=== PATIENT | male | born 1955 | race Caucasian/White ===

== ENCOUNTER 2019-10-27 10:45 | Outpatient (CLI) | payer MEDICARE, OTHER, SELFPAY ==
--- NOTE | 2019-10-27 11:04 | XR_ITS ---
WS: [id number] Right leg including the tibia and fibula, 10/27/2019 Clinical Data: LEG PAIN, RIGHT Comparison: None. Findings: No fractures or dislocations are seen. The tibia and fibula are intact. The soft tissues are normal. There are vascular calcifications in the arteries of the trifurcation. There is an Achilles spur and a plantar spur. XR/XR tibia fibula RT 2V [id number] Impression: 1. Negative right leg. 2. Vascular calcifications can be seen with diabetes.
== END 2019-10-27 10:46 | disposition home or self-care (01) ==
PROVIDERS: Family Provider Family Medicine; PCP Family Medicine; Visit Provider Nurse Practitioner Family
DX: I70.201 Unspecified atherosclerosis of native arteries of extremities, right leg (principal); M79.604 Pain in right leg
CPT/HCPCS: 73590

== ENCOUNTER 2019-10-29 13:44 | Outpatient (CLI) | payer MEDICARE, OTHER, SELFPAY ==
[2019-10-29 14:31] LABS: Anion Gap 19.3 (5-19); Blood Urea Nitrogen 69 mg/dL (8-23); Calcium 9.7 mg/Dl (8.8-10.2); Carbon Dioxide 22 mmol/L (22-29); Chloride 102 mmol/L (98-107); Glomerular Filtration Rate 20.3 mL/min (90-130); Glucose 263 mg/dL (74-106); Potassium 6.3 mmol/L (3.5-5.1); Sodium 137 mmol/L (136-145)
== END 2019-10-29 13:45 | disposition home or self-care (01) ==
LOC: LAB 13:49
PROVIDERS: Family Provider Family Medicine; PCP Family Medicine; Visit Provider Nurse Practitioner Family
DX: R79.9 Abnormal finding of blood chemistry, unspecified (principal)
CPT/HCPCS: 36415; 80048

== ENCOUNTER 2020-03-16 08:56 | Outpatient (CLI) | payer MEDICARE, OTHER, SELFPAY ==
--- NOTE | 2020-03-16 | CT_ITS ---
WS: [id number] CT CHEST WITHOUT INTRAVENOUS CONTRAST HISTORY: MULTIPLE NODULES OF LUNGS TECHNIQUE: Contiguous 5 mm axial imaging performed on the thorax. Coronal and sagittal reformats are submitted. All CT scans at [facility] use at least one of these dose optimization techniq ues: automated exposure control; mA and/or kV adjustment per patient size (includes targeted exams wh ere dose is matched to clinical indication); or iterative reconstruction. CONTRAST: None DLP: 1026.53 mGycm COMPARISON: 02/21/2017 and 11/16/2016 Lungs and central airway: Unchanged 5 mm nodule at the RIGHT lung base. There are additional micronod ules in the RIGHT middle and RIGHT lower lobe which are stable. No increasing size of any nodules. Be nign granuloma at the LEFT lung base. There is a small amount of atelectasis or scar at the lingula a nd at the lung bases. Pleura: Normal. No pleural effusion. Heart and pericardium: Normal size heart. No pericardial effusion. Mediastinum and ana: No adenopathy. Benign calcified LEFT infrahilar lymph nodes. Vessels: Mild atherosclerosis aorta with no aneurysm. Normal size pulmonary artery. Scattered calcifi cations in the LEFT anterior descending coronary artery. Chest wall and lower neck: 3 mm LEFT thyroid nodule. Upper abdomen: Diffuse hepatic steatosis. Visualized adrenal glands are stable with no mass. Osseous structures: Moderate increase in thoracic kyphosis. Anterior bridging osteophytes in the thor acic spine. CT/CT chest wo con [id number] IMPRESSION: 1. Long-term stability RIGHT lower lobe pulmonary nodules and a few scattered micronodules. No enlarging masses. 2. No adenopathy. 3. Mild atherosclerosis aorta and LEFT anterior descending coronary artery. 4. Hepatic steatosis.
== END 2020-03-16 08:57 | disposition home or self-care (01) ==
LOC: RADWPI 09:01
PROVIDERS: Family Provider Family Medicine; PCP Family Medicine; Visit Provider Family Medicine
DX: R91.8 Other nonspecific abnormal finding of lung field (principal); I70.0 Atherosclerosis of aorta; K76.0 Fatty (change of) liver, not elsewhere classified
CPT/HCPCS: 71250

== ENCOUNTER 2020-04-19 07:02 | Day surgery (SDC) | payer MEDICARE, OTHER, SELFPAY ==
[2020-04-18 11:09] VITALS: BMI 33.0
[2020-04-19 07:22] VITALS: BP 152/90; PULSE 75; RESP 18; TEMP 36.2; O2SAT 94
[2020-04-19] MEDS: sodium chloride 0.9% 1,000 ML 30 ML IV (07:38)
[2020-04-19 07:44] LABS: Glucose Point of Care 152 mg/dL (70-110)
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
--- NOTE | 2020-04-19 08:16 | W.PM.OPSUD ---
Surgery/Procedure H&P Update DATE OF PROCEDURE: April 19, 2020 DATE H&P PERFORMED: 03/25/20 H&P UPDATE INFORMATION: I have reviewed H&P completed within last 30 days, I have examined patient prior to procedure and No changes to prior documentation PLANNED PROCEDURE: Operation Date: 04/19/20 08:00 Proposed Procedures p Colonoscopy poss biopsy poss polypectomy 50333 Z12.11(Not Applicable) - Brown Franklin MD
[2020-04-19 08:44] VITALS: BP 138/80; PULSE 71; RESP 12; TEMP 36.1; O2SAT 95
--- NOTE | 2020-04-19 08:46 | ANE.PACU2 ---
Inpatient post-anesthesia follow up: Airway intact: Yes Vital signs: Temperature 97 F Pulse Rate 71 Respiratory Rate 12 Blood Pressure 138/80 Pulse Oximetry 95 Oxygen Delivery Me thod Nasal Cannula Oxygen Flow Rate Fraction of Inspir ed Oxygen Hydration adequate: Yes Nausea and vomiting: No Pain level: 1 Mental status: Baseline
[2020-04-19 09:04] VITALS: BP 165/75; PULSE 69; RESP 18; O2SAT 96
== END 2020-04-19 09:07 | disposition home or self-care (01) ==
PROVIDERS: PCP Family Medicine; Visit Provider Surgery
PROC: 0DJD8ZZ Inspection of Lower Intestinal Tract, Via Natural or Artificial Opening Endoscopic (ICD-10-PCS; CPT 45378; principal; 2020-04-19 08:00)
DX: Z12.11 Encounter for screening for malignant neoplasm of colon (principal); K57.30 Diverticulosis of large intestine without perforation or abscess without bleeding; K64.8 Other hemorrhoids; I11.0 Hypertensive heart disease with heart failure; I50.9 Heart failure, unspecified; G47.30 Sleep apnea, unspecified; K21.9 Gastro-esophageal reflux disease without esophagitis; E11.9 Type 2 diabetes mellitus without complications; E78.5 Hyperlipidemia, unspecified; M19.90 Unspecified osteoarthritis, unspecified site; E11.22 Type 2 diabetes mellitus with diabetic chronic kidney disease; I12.9 Hypertensive chronic kidney disease with stage 1 through stage 4 chronic kidney disease, or unspecified chronic kidney disease; N18.4 Chronic kidney disease, stage 4 (severe)
CPT/HCPCS: 12345; 36416; 45378; 82962; J2704; J7030

== ENCOUNTER 2020-12-01 14:19 | Outpatient (CLI) | payer MEDICARE, OTHER, SELFPAY ==
[2020-12-01 14:43] LABS: Basophils % 0.5 %; Eosinophils # 0.2 10^3/uL (0.0-0.8); Eosinophils % 2.6 %; Hematocrit 38.4 % (42.0-52.0); Hemoglobin 12.7 g/dL (11.7-16.6); Lymphocytes # 1.2 10^3/uL (0.8-4.8); Lymphocytes % 14.7 %; Mean Corpuscular HGB Conc 33.1 g/dL (30.0-36.0); Mean Corpuscular Hemoglobin 30.5 pg (28.0-34.0); Mean Corpuscular Volume 92.1 fL (80-94); Mean Platelet Volume 10.6 fL (7.4-10.4); Monocytes # 0.6 10^3/uL (0.2-0.9); Monocytes % 7.5 %; Neutrophils # 6.07 10^3/uL (1.8-7.7); Neutrophils % 74.1 %; Nucleated Red Blood Cells % 0 %; Platelet Count 179 10^3/cmm (130-400); Red Blood Count 4.17 10^6/uL (4.1-5.3); Red Cell Distribution Width 11.9 % (12.1-15.1); White Blood Count 8.2 10^3/uL (4.0-10.0)
[2020-12-01 15:10] LABS: Creatinine Urine, Random 64 mg/dL (39-259); Microalbumin Random Urine 18 ug/dL (0-20)
[2020-12-01 15:11] LABS: Albumin Level 4.1 g/dL (3.5-5.2); Blood Urea Nitrogen 52 mg/dL (8-23); Calcium 10.1 mg/dL (8.5-10.5); Carbon Dioxide 27 mmol/L (22-29); Chloride 96 mmol/L (98-107); Glucose 205 mg/dL (65-115); Phosphorus 5.1 mg/dL (2.5-4.5); Sodium 136 mmol/L (136-145)
[2020-12-01 15:13] LABS: Microalbum Creatinine Ratio Ur 281 mg/dL (0-20)
[2020-12-01 15:39] LABS: Calcium 10.8 mg/dL (8.5-10.5); Parathyroid Hormone 8.2 pg/mL (15-65)
[2020-12-01 15:48] LABS: 25 Hydroxy Vitamin D 47 ng/mL (30-100)
== END 2020-12-01 14:20 | disposition home or self-care (01) ==
LOC: LAB 14:23
PROVIDERS: PCP Family Medicine; Visit Provider Registered Nurse
DX: N18.4 Chronic kidney disease, stage 4 (severe) (principal)
CPT/HCPCS: 36415; 80069; 82044; 82306; 82310; 83970; 85025

== ENCOUNTER 2021-03-27 12:58 | Outpatient (CLI) | payer MEDICARE, OTHER, SELFPAY ==
[2021-03-27 15:23] LABS: Basophils % 0.4 %; Eosinophils # 0.5 10^3/uL (0.0-0.8); Eosinophils % 6.7 %; Hematocrit 36.8 % (42.0-52.0); Hemoglobin 12.5 g/dL (11.7-16.6); Lymphocytes % 13.3 %; Mean Corpuscular Hemoglobin 31.4 pg (28.0-34.0); Mean Corpuscular Volume 92.5 fL (80-94); Mean Platelet Volume 10.2 fL (7.4-10.4); Monocytes # 0.5 10^3/uL (0.2-0.9); Monocytes % 7.3 %; Neutrophils # 5.09 10^3/uL (1.8-7.7); Neutrophils % 71.5 %; Nucleated Red Blood Cells % 0 %; Platelet Count 196 10^3/cmm (130-400); Red Blood Count 3.98 10^6/uL (4.1-5.3); Red Cell Distribution Width 12.9 % (12.1-15.1); White Blood Count 7.1 10^3/uL (4.0-10.0)
[2021-03-27 16:06] LABS: Alanine Aminotransferase 29 U/L (0-41); Albumin Level 4.6 g/dL (3.5-5.2); Alkaline Phosphatase 83 IU/L (40-130); Aspartate Amino Transferase 23 U/L (0-40); Blood Urea Nitrogen 45 mg/dL (8-23); Calcium 9.7 mg/dL (8.5-10.5); Carbon Dioxide 25 mmol/L (22-29); Chloride 98 mmol/L (98-107); Globulin 2.9 g/dL (1.3-4.6); Glucose 159 mg/dL (65-115); Immunoglobulin IGA 388 mg/dL (70-400); Immunoglobulin IGG 1204 mg/dL (700-1600); Immunoglobulin IGM 203 mg/dL (40-230); Osmolality Calculated 297 mOsm/kg (285-295); Sodium 136 mmol/L (136-145); Total Bilirubin 0.2 mg/dL (0.15-1.2); Total Protein 7.5 g/dL (6.6-8.7)
[2021-03-27 16:19] LABS: Erythrocyte Sedimentation Rate 38 mm/hr (0-10)
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
[2021-03-28 11:28] LABS: KAPPA LIGHT CHAIN, FREE, SERUM 126.9 mg/L (3.3-19.4); KAPPA/LAMBDA LIGHT CHAINS FREE 2.27 (0.26-1.65); LAMBDA LIGHT CHAIN, FREE, SERU 55.8 mg/L (5.7-26.3); PROTEIN, TOTAL 7.3 g/dL (6.1-8.1)
[2021-03-28 15:52] LABS: ALBUMIN 4.1 g/dL (3.8-4.8); ALPHA 1 GLOBULIN 0.3 g/dL (0.2-0.3); ALPHA 2 GLOBULIN 0.7 g/dL (0.5-0.9); BETA 1 GLOBULIN 0.4 g/dL (0.4-0.6); BETA 2 GLOBULIN 0.6 g/dL (0.2-0.5); GAMMA GLOBULIN 1.2 g/dL (0.8-1.7)
== END 2021-03-27 12:59 | disposition home or self-care (01) ==
LOC: ONCMED 13:10
PROVIDERS: PCP Family Medicine; Visit Provider Internal Medicine Medical Oncology
DX: D47.2 Monoclonal gammopathy (principal); I10 Essential (primary) hypertension; E11.40 Type 2 diabetes mellitus with diabetic neuropathy, unspecified; E11.319 Type 2 diabetes mellitus with unspecified diabetic retinopathy without macular edema; E11.21 Type 2 diabetes mellitus with diabetic nephropathy; M47.9 Spondylosis, unspecified; M10.9 Gout, unspecified; E21.3 Hyperparathyroidism, unspecified; G47.33 Obstructive sleep apnea (adult) (pediatric); N18.9 Chronic kidney disease, unspecified; Z79.899 Other long term (current) drug therapy
CPT/HCPCS: 36415; 80053; 82784; 83883; 84155; 84165; 85025; 85651; 99205

== ENCOUNTER 2021-03-29 10:09 | Outpatient (CLI) | payer MEDICARE, OTHER, SELFPAY ==
[2021-03-30 13:04] LABS: CREATININE, 24 HOUR URINE 1.82 g/24 h (0.50-2.15); PROTEIN, TOTAL, 24 HR UR 1265 mg/24 h (<150); Protein/Creatinine Ratio 0.697 (< OR = 0.114); Protein/Creatinine Ratio 697 mg/g creat (< OR = 114)
[2021-03-30 16:23] LABS: ALBUMIN 77 %; ALPHA-1-GLOBULINS 3 %; ALPHA-2-GLOBULINS 4 %; BETA GLOBULINS 7 %; GAMMA GLOBULINS 9 %
== END 2021-03-29 10:10 | disposition home or self-care (01) ==
LOC: ONCMED 10:10
PROVIDERS: PCP Family Medicine; Visit Provider Internal Medicine Medical Oncology
DX: D47.2 Monoclonal gammopathy (principal)
CPT/HCPCS: 84156; 84166

== ENCOUNTER 2021-05-04 15:34 | Inpatient (IN) | payer MEDICARE, OTHER, SELFPAY ==
[2021-05-04] VITALS (8 sets, daily range): BP systolic 126–140; BP diastolic 80–90; PULSE 70–82; RESP 18–26; TEMP 36.8–37.1; O2SAT 81–94; BMI 34.4
[2021-05-04 16:46] LABS: Glucose Point of Care 585 mg/dL (70-110)
--- NOTE | 2021-05-04 16:57 | XRR_ITS ---
PROCEDURE INFORMATION: Exam: XR Chest Exam date and time: 05/04/2021 4:57 PM Age: 65 years old Clinical indication: Cough; Additional info: Dyspnea/cough TECHNIQUE: Imaging protocol: XR of the chest. Views: 1 view. COMPARISON: CT chest [facility] [id number] 03/16/2020 9:32 AM FINDINGS: Lungs: Dense ground-glass opacities versus consolidation in the peripheral lungs and left lung base. Pleural spaces: Unremarkable. No pleural effusion. No pneumothorax. Heart/Mediastinum: Unremarkable. No cardiomegaly. Bones/joints: Unremarkable. XR/XR chest 1V portable [id number] IMPRESSION: 1. Multilobar peripheral pneumonia. This pattern can be seen with COVID-19 pneumonia. Clinical correlation recommended.
--- NOTE | 2021-05-04 17:19 | ECG_ITS ---
[facility] Test Date: 2021-05-04 Pat Name: Fausto Jurado Department: Room: Gender: Male [employer]: : 1955 Requested By: Agus Newman Order Number: [id number] Harper MD: Jenelle Sanchez M.D. Measurements Intervals [place] Rate: 76 P: 14 [place]: 173 QRS: -38 QRSD: 112 T: -22 QT: 368 QTc: 416 Interpretive Statements SINUS RHYTHM MARKED LEFT AXIS DEVIATION [QRS AXIS < -30] PATTERN CONSISTENT WITH PULMONARY DISEASE MODERATE INTRAVENTRICULAR CONDUCTION DELAY [110+ ms QRS DURATION] MODERATE VOLTAGE CRITERIA FOR LVH, CONSIDER NORMAL VARIANT [MEETS CRITERIA IN ONE OF: R(aVL), S(V1), R(V5), R(V5/V6)+S(V1)] MINIMAL ST DEPRESSION [0.025+ mV ST DEPRESSION] Compared to ECG 01/06/2019 01:04:19 Left-axis deviation now present Intraventricular conduction delay now present ST (T wave) deviation now present Sinus bradycardia no longer present Electronically Signed On 05-05-2021 14:53:22 CDT by Jenelle Sanchez M.D. [email or web address]
--- NOTE | 2021-05-04 17:21 | ED_ITS ---
Documented by User: Agus Gil DO 05/08/21 03:17 HPI - SOB/Dyspnea General: Chief Complaint: Shortness of Breath/Dyspnea Stated Complaint: Weakness/Coughing Time Seen by Provider: 05/04/21 16:56 History of Present Illness: HPI Narrative: Six 5-year-old male presents emergency room decreased appetite confused and weak has been mildly hypoxic as well. He denies any chest pain history of diabetes mellitus. MD elicited complaint: shortness of breath and cough Pertinent past history: COPD Onset (ago): week(s) Timing: constant Severity: severe Exacerbating factors: exertion and coughing Relieving factors: oxygen and rest Associated symptoms: Reports chest congestion, chest pain, cough, fever(s), lightheadedness, myalgias and nausea; Deny abdominal pain, diaphoresis, dizziness, extremity pain, hemoptysis, orthopnea, palpitations, paresthesias, polydipsia, polyuria, rash, sense of impending doom, syncope or vomiting Treatment prior to arrival: none Related Data: Home oxygen amount: none Review of Systems Const: Reports: fever(s); Denies: diaphoresis ENMT: Denies: throat pain, ear or mastoid pain, nasal discharge or nasal congestion Card: Reports: chest pain and lightheadedness; Denies: palpitations, syncope or orthopnea Resp: Reports: chest congestion; Denies: hemoptysis GI: Reports: nausea; Denies: abdominal pain or vomiting : Denies: flank pain, dysuria, urinary frequency or urinary urgency Musc: Denies: extremity pain Skin/Breast: Denies: rash or pruritus Neuro: Denies: dizziness Endo: Denies: polyuria or polydipsia PFSH ED PFSH: Medical History CKD (chronic kidney disease) stage 4, GFR 15-29 ml/min Diabetes Hypertension RMSF ([place] spotted fever) Surgical History H/O hernia repair H/O repair of rotator cuff Right History of laryngoscopy Status post colonoscopy (04/19/20) diverticulosis - repeat in 10 years Family History Father Dementia Mother Dementia Denies family history of Anesthesia complication Bleeding disorder Social History Smoking and tobacco status: never smoked Alcohol intake: never Physical Exam Const: COMMON NORMALS: no acute distress GENERAL APPEARANCE: cooperative and comfortable ORIENTATION/CONSCIOUSNESS: Yes awake, Yes oriented to person, Yes oriented to place and Yes oriented to time HENMT: COMMON NORMALS: normocephalic, atraumatic and hearing grossly normal bilaterally HEAD & SCALP: normocephalic and atraumatic Neck/C-Spine: COMMON NORMALS: no JVD Resp: EFFORT & INSPECTION: Yes tachypneic, Yes respiratory distress and Yes pursed lip breathing AUSCULTATION: crackles and wheezes Cardio: COMMON NORMALS: no JVD, regular rate, regular rhythm and No murmurs present (Cardio) RATE: regular rate RHYTHM: regular rhythm GI: COMMON NORMALS: Soft to palpation and No hepatosplenomegaly present AUSCULTATION: Yes normoactive bowel sounds PALPATION: Yes Soft to palpation, No Tenderness to palpation present (GI), No Guarding due to palpation present (GI) and Yes No hepatosplenomegaly present Extremity: COMMON NORMALS: normal to inspection, capillary refill normal, no clubbing, cyanosis or edema, no calf tenderness and no pedal edema Neuro: SENSORIUM/ORIENTATION: Yes oriented to person, Yes oriented to place and Yes oriented to time Skin: COMMON NORMALS: no rashes or lesions noted GENERAL SKIN EXAM: no rashes or lesions noted Course Vital Signs: Vital signs: Vital Signs Temperature 98.4 F 05/07/21 23:54 Pulse Rate 67 05/08/21 02:45 Respiratory Rate 18 05/08/21 02:45 Blood Pressure 150/99 05/07/21 23:54 Pulse Oximetry 90 05/08/21 02:45 MDM - SOB/Dyspnea MDM Narrative: Medical decision making narrative: Care turned over to Dr. Haro at change of shift please see please see his notes for final diagnosis and disposition. Lab Data: Labs: Lab Results 05/04/21 05/04/21 05/04/21 Range/Units 16:34 17:13 17:23 WBC 6.5 (4.0-10.0) 10^3/ uL RBC 3.91 L (4.1-5.3) 10^6/u L Hgb 12.0 (11.7-16.6) g/dL Hct 36.9 L (42.0-52.0) % MCV 94.4 H (80-94) fL MCH 30.7 (28.0-34.0) pg MCHC 32.5 (30.0-36.0) g/dL RDW 12.8 (12.1-15.1) % Plt Count 266 (130-400) 10^3/c mm MPV 11.2 H (7.4-10.4) fL Neut % (Auto) 93.6 % Lymph % (Auto) 2.8 % Loving % (Auto) 2.3 % Eos % (Auto) 0.3 % Baso % (Auto) 0.2 % Neut # (Auto) 6.10 (1.8-7.7) 10^3/u L Lymph # (Auto) 0.2 L (0.8-4.8) 10^3/u L Loving # (Auto) 0.2 (0.2-0.9) 10^3/u L Eos # (Auto) 0.0 (0.0-0.8) 10^3/u L Baso # (Auto) 0.0 (0.0-0.1) 10^3/u L Nucleated RBC % (a uto) 0 % Nucleated RBCs # 0.0 /100WBC D-Dimer (0-0.59) ug/mIFE U Specimen Type Arterial Sample Site Radial, left ABG pH 7.35 (7.35-7.45) ABG pCO2 31.7 L (35-45) mmHg ABG pO2 66.8 L (80.0-100.0) mmH g ABG HCO3 17.4 L (22-26) mmol/L ABG O2 Saturation 92.7 ABG Base Excess -7.2 L (-2.0-2.0) mmol/ L Regulo Test Pos A-a O2 Gradient 5.7 (5-10) mmHg Hematocrit 37.7 L (42-52) % Hgb O2 Saturation 91.0 L (95-100) % Carboxyhemoglobin 1.0 (0.4-20.1) %THgb Methemoglobin 0.9 (0.4-1.5) % Total Hemoglobin 12.3 L (14-18) g/dL Sodium 134.0 (131-143) mmol/L Potassium 5.1 H (3.5-5.0) mmol/L Glucose 563.0 H (70-115) mg/dL Ionized Calcium 1.3 (1.1-1.4) mmol/L O2 Delivery Device Nrb O2 Liters/Min 15.0 % Center Machine Set Up Operator ID Cak Chloride (98-107) mmol/L Carbon Dioxide (22-29) mmol/L Anion Gap (5-19) BUN (8-23) mg/dL Creatinine (0.7-1.2) mg/dL GFR Calculation (90-130) mL/min POC Glucose 585 H* (70-110) mg/dL Calculated Osmolal ity (285-295) mOsm/k g Calcium (8.5-10.5) mg/dL Total Bilirubin (0.15-1.2) mg/dL AST (0-40) U/L ALT (0-41) U/L Alkaline Phosphata se (40-130) IU/L Creatine Kinase (39-308) U/L Total Protein (6.6-8.7) g/dL Albumin (3.5-5.2) g/dL Globulin (1.3-4.6) g/dL Serum Ketones (Negative) Nasal/Oral COVID-1 9 PCR SARS-CoV-2 Ag (Rap id) (Negative) 05/04/21 05/04/21 05/04/21 Range/Units 17:23 17:23 17:36 WBC (4.0-10.0) 10^3/ uL RBC (4.1-5.3) 10^6/u L Hgb (11.7-16.6) g/dL Hct (42.0-52.0) % MCV (80-94) fL MCH (28.0-34.0) pg MCHC (30.0-36.0) g/dL RDW (12.1-15.1) % Plt Count (130-400) 10^3/c mm MPV (7.4-10.4) fL Neut % (Auto) % Lymph % (Auto) % Loving % (Auto) % Eos % (Auto) % Baso % (Auto) % Neut # (Auto) (1.8-7.7) 10^3/u L Lymph # (Auto) (0.8-4.8) 10^3/u L Loving # (Auto) (0.2-0.9) 10^3/u L Eos # (Auto) (0.0-0.8) 10^3/u L Baso # (Auto) (0.0-0.1) 10^3/u L Nucleated RBC % (a uto) % Nucleated RBCs # /100WBC D-Dimer (0-0.59) ug/mIFE U Specimen Type Sample Site ABG pH (7.35-7.45) ABG pCO2 (35-45) mmHg ABG pO2 (80.0-100.0) mmH g ABG HCO3 (22-26) mmol/L ABG O2 Saturation ABG Base Excess (-2.0-2.0) mmol/ L Regulo Test A-a O2 Gradient (5-10) mmHg Hematocrit (42-52) % Hgb O2 Saturation (95-100) % Carboxyhemoglobin (0.4-20.1) %THgb Methemoglobin (0.4-1.5) % Total Hemoglobin (14-18) g/dL Sodium 132 L (131-143) mmol/L Potassium 5.6 H (3.5-5.0) mmol/L Glucose 601 H* (70-115) mg/dL Ionized Calcium (1.1-1.4) mmol/L O2 Delivery Device O2 Liters/Min % Center Machine Set Up Operator ID Chloride 97 L (98-107) mmol/L Carbon Dioxide 17 L (22-29) mmol/L Anion Gap 23.6 H (5-19) BUN 89 H* D (8-23) mg/dL Creatinine 2.6 H (0.7-1.2) mg/dL GFR Calculation 24.8 L (90-130) mL/min POC Glucose (70-110) mg/dL Calculated Osmolal ity 329 H (285-295) mOsm/k g Calcium 9.1 (8.5-10.5) mg/dL Total Bilirubin 0.4 (0.15-1.2) mg/dL AST 23 (0-40) U/L ALT 21 (0-41) U/L Alkaline Phosphata se 63 (40-130) IU/L Creatine Kinase 224 (39-308) U/L Total Protein 6.6 (6.6-8.7) g/dL Albumin 3.0 L (3.5-5.2) g/dL Globulin 3.6 (1.3-4.6) g/dL Serum Ketones Negative (Negative) Nasal/Oral COVID-1 9 PCR Detected H SARS-CoV-2 Ag (Rap id) (Negative) 05/04/21 05/04/21 Range/Units 17:36 17:39 WBC (4.0-10.0) 10^3/ uL RBC (4.1-5.3) 10^6/u L Hgb (11.7-16.6) g/dL Hct (42.0-52.0) % MCV (80-94) fL MCH (28.0-34.0) pg MCHC (30.0-36.0) g/dL RDW (12.1-15.1) % Plt Count (130-400) 10^3/c mm MPV (7.4-10.4) fL Neut % (Auto) % Lymph % (Auto) % Loving % (Auto) % Eos % (Auto) % Baso % (Auto) % Neut # (Auto) (1.8-7.7) 10^3/u L Lymph # (Auto) (0.8-4.8) 10^3/u L Loving # (Auto) (0.2-0.9) 10^3/u L Eos # (Auto) (0.0-0.8) 10^3/u L Baso # (Auto) (0.0-0.1) 10^3/u L Nucleated RBC % (a uto) % Nucleated RBCs # /100WBC D-Dimer 3.62 H (0-0.59) ug/mIFE U Specimen Type Sample Site ABG pH (7.35-7.45) ABG pCO2 (35-45) mmHg ABG pO2 (80.0-100.0) mmH g ABG HCO3 (22-26) mmol/L ABG O2 Saturation ABG Base Excess (-2.0-2.0) mmol/ L Regulo Test A-a O2 Gradient (5-10) mmHg Hematocrit (42-52) % Hgb O2 Saturation (95-100) % Carboxyhemoglobin (0.4-20.1) %THgb Methemoglobin (0.4-1.5) % Total Hemoglobin (14-18) g/dL Sodium (131-143) mmol/L Potassium (3.5-5.0) mmol/L Glucose (70-115) mg/dL Ionized Calcium (1.1-1.4) mmol/L O2 Delivery Device O2 Liters/Min % Center Machine Set Up Operator ID Chloride (98-107) mmol/L Carbon Dioxide (22-29) mmol/L Anion Gap (5-19) BUN (8-23) mg/dL Creatinine (0.7-1.2) mg/dL GFR Calculation (90-130) mL/min POC Glucose (70-110) mg/dL Calculated Osmolal ity (285-295) mOsm/k g Calcium (8.5-10.5) mg/dL Total Bilirubin (0.15-1.2) mg/dL AST (0-40) U/L ALT (0-41) U/L Alkaline Phosphata se (40-130) IU/L Creatine Kinase (39-308) U/L Total Protein (6.6-8.7) g/dL Albumin (3.5-5.2) g/dL Globulin (1.3-4.6) g/dL Serum Ketones (Negative) Nasal/Oral COVID-1 9 PCR SARS-CoV-2 Ag (Rap id) Negative (Negative) Discharge Plan Discharge Patient Disposition: Admitted As Inpatient Admit Provider: Iron Morales Clinical Impression: Pneumonia due to COVID-19 virus, Acute exacerbation of chronic obstructive airways disease, Breath, shortness, Elevated d-dimer, Acute hyperglycemia, Chronic kidney failure Condition: Stable Coding Level of Care Code ED Coverer for Chg Fwd Exam Comprehensive Documented by User: Andre Haro MD 05/04/21 18:26 HPI - SOB/Dyspnea General: Chief Complaint: Shortness of Breath/Dyspnea Stated Complaint: Weakness/Coughing Time Seen by Provider: 05/04/21 16:56 [facility] PFSH: Medical History CKD (chronic kidney disease) stage 4, GFR 15-29 ml/min Diabetes Hypertension RMSF ([place] spotted fever) Surgical History H/O hernia repair H/O repair of rotator cuff Right History of laryngoscopy Status post colonoscopy (04/19/20) diverticulosis - repeat in 10 years Family History Father Dementia Mother Dementia Denies family history of Anesthesia complication Bleeding disorder Social History Smoking and tobacco status: never smoked Alcohol intake: never Course Reevaluation(s): Reevaluation #1: Patient is stable at this time heart rate 74 blood pressure unremarkable. Will be monitored closely. Pulse ox is up to 92% on high flow nasal cannula. Covid negative strep nasal swab was negative however patient does fit clinically as having Covid. Blood drug [facility] test sent out. Patient be treated as Covid pneumonia. Patient also has chronic renal failure and glucose greater than 600 patient given 10 units of insulin. Patient also given Lovenox due to elevated D-dimer. He is agreeable to be admitted to the hospital for further evaluation and treatment. Time: 18:23 Consultations: Consultation #1: I did discuss at length with Dr. Morales who is accepted this patient for admission. He will see patient write additional orders. He will follow up with patient's elevated D-dimer most likely will order a VQ scan. Time: 18:24 Vital Signs: Vital signs: Vital Signs Temperature 98.4 F 05/07/21 23:54 Pulse Rate 67 05/08/21 02:45 Respiratory Rate 18 05/08/21 02:45 Blood Pressure 150/99 05/07/21 23:54 Pulse Oximetry 90 05/08/21 02:45 MDM - SOB/Dyspnea MDM Narrative: Medical decision making narrative: Patient is stable at this time heart rate 74 blood pressure unremarkable. Will be monitored closely. Pulse ox is up to 92% on high flow nasal cannula. Covid negative strep nasal swab was negative however patient does fit clinically as having Covid. Blood drug [facility] test sent out. Patient be treated as Covid pneumonia. Patient also has chronic renal failure and glucose greater than 600 patient given 10 units of insulin. Patient also given Lovenox due to elevated D-dimer. He is agreeable to be admitted to the hospital for further evaluation and treatment. I did discuss at length with Dr. Morales who is accepted this patient for admission. He will see patient write additional orders. He will follow up with patient's elevated D-dimer most likely will order a VQ scan. Medical Records: Attestation: I reviewed the patient's medical records. Lab Data: Attestation: I reviewed the patient's lab results. Labs: Lab Results 05/04/21 05/04/21 05/04/21 Range/Units 16:34 17:13 17:23 WBC 6.5 (4.0-10.0) 10^3/ uL RBC 3.91 L (4.1-5.3) 10^6/u L Hgb 12.0 (11.7-16.6) g/dL Hct 36.9 L (42.0-52.0) % MCV 94.4 H (80-94) fL MCH 30.7 (28.0-34.0) pg MCHC 32.5 (30.0-36.0) g/dL RDW 12.8 (12.1-15.1) % Plt Count 266 (130-400) 10^3/c mm MPV 11.2 H (7.4-10.4) fL Neut % (Auto) 93.6 % Lymph % (Auto) 2.8 % Loving % (Auto) 2.3 % Eos % (Auto) 0.3 % Baso % (Auto) 0.2 % Neut # (Auto) 6.10 (1.8-7.7) 10^3/u L Lymph # (Auto) 0.2 L (0.8-4.8) 10^3/u L Loving # (Auto) 0.2 (0.2-0.9) 10^3/u L Eos # (Auto) 0.0 (0.0-0.8) 10^3/u L Baso # (Auto) 0.0 (0.0-0.1) 10^3/u L Nucleated RBC % (a uto) 0 % Nucleated RBCs # 0.0 /100WBC D-Dimer (0-0.59) ug/mIFE U Specimen Type Arterial Sample Site Radial, left ABG pH 7.35 (7.35-7.45) ABG pCO2 31.7 L (35-45) mmHg ABG pO2 66.8 L (80.0-100.0) mmH g ABG HCO3 17.4 L (22-26) mmol/L ABG O2 Saturation 92.7 ABG Base Excess -7.2 L (-2.0-2.0) mmol/ L Regulo Test Pos A-a O2 Gradient 5.7 (5-10) mmHg Hematocrit 37.7 L (42-52) % Hgb O2 Saturation 91.0 L (95-100) % Carboxyhemoglobin 1.0 (0.4-20.1) %THgb Methemoglobin 0.9 (0.4-1.5) % Total Hemoglobin 12.3 L (14-18) g/dL Sodium 134.0 (131-143) mmol/L Potassium 5.1 H (3.5-5.0) mmol/L Glucose 563.0 H (70-115) mg/dL Ionized Calcium 1.3 (1.1-1.4) mmol/L O2 Delivery Device Nrb O2 Liters/Min 15.0 % Center Machine Set Up Operator ID Cak Chloride (98-107) mmol/L Carbon Dioxide (22-29) mmol/L Anion Gap (5-19) BUN (8-23) mg/dL Creatinine (0.7-1.2) mg/dL GFR Calculation (90-130) mL/min POC Glucose 585 H* (70-110) mg/dL Calculated Osmolal ity (285-295) mOsm/k g Calcium (8.5-10.5) mg/dL Total Bilirubin (0.15-1.2) mg/dL AST (0-40) U/L ALT (0-41) U/L Alkaline Phosphata se (40-130) IU/L Creatine Kinase (39-308) U/L Total Protein (6.6-8.7) g/dL Albumin (3.5-5.2) g/dL Globulin (1.3-4.6) g/dL Serum Ketones (Negative) Nasal/Oral COVID-1 9 PCR SARS-CoV-2 Ag (Rap id) (Negative) 05/04/21 05/04/21 05/04/21 Range/Units 17:23 17:23 17:36 WBC (4.0-10.0) 10^3/ uL RBC (4.1-5.3) 10^6/u L Hgb (11.7-16.6) g/dL Hct (42.0-52.0) % MCV (80-94) fL MCH (28.0-34.0) pg MCHC (30.0-36.0) g/dL RDW (12.1-15.1) % Plt Count (130-400) 10^3/c mm MPV (7.4-10.4) fL Neut % (Auto) % Lymph % (Auto) % Loving % (Auto) % Eos % (Auto) % Baso % (Auto) % Neut # (Auto) (1.8-7.7) 10^3/u L Lymph # (Auto) (0.8-4.8) 10^3/u L Loving # (Auto) (0.2-0.9) 10^3/u L Eos # (Auto) (0.0-0.8) 10^3/u L Baso # (Auto) (0.0-0.1) 10^3/u L Nucleated RBC % (a uto) % Nucleated RBCs # /100WBC D-Dimer (0-0.59) ug/mIFE U Specimen Type Sample Site ABG pH (7.35-7.45) ABG pCO2 (35-45) mmHg ABG pO2 (80.0-100.0) mmH g ABG HCO3 (22-26) mmol/L ABG O2 Saturation ABG Base Excess (-2.0-2.0) mmol/ L Regulo Test A-a O2 Gradient (5-10) mmHg Hematocrit (42-52) % Hgb O2 Saturation (95-100) % Carboxyhemoglobin (0.4-20.1) %THgb Methemoglobin (0.4-1.5) % Total Hemoglobin (14-18) g/dL Sodium 132 L (131-143) mmol/L Potassium 5.6 H (3.5-5.0) mmol/L Glucose 601 H* (70-115) mg/dL Ionized Calcium (1.1-1.4) mmol/L O2 Delivery Device O2 Liters/Min % Center Machine Set Up Operator ID Chloride 97 L (98-107) mmol/L Carbon Dioxide 17 L (22-29) mmol/L Anion Gap 23.6 H (5-19) BUN 89 H* D (8-23) mg/dL Creatinine 2.6 H (0.7-1.2) mg/dL GFR Calculation 24.8 L (90-130) mL/min POC Glucose (70-110) mg/dL Calculated Osmolal ity 329 H (285-295) mOsm/k g Calcium 9.1 (8.5-10.5) mg/dL Total Bilirubin 0.4 (0.15-1.2) mg/dL AST 23 (0-40) U/L ALT 21 (0-41) U/L Alkaline Phosphata se 63 (40-130) IU/L Creatine Kinase 224 (39-308) U/L Total Protein 6.6 (6.6-8.7) g/dL Albumin 3.0 L (3.5-5.2) g/dL Globulin 3.6 (1.3-4.6) g/dL Serum Ketones Negative (Negative) Nasal/Oral COVID-1 9 PCR Detected H SARS-CoV-2 Ag (Rap id) (Negative) 05/04/21 05/04/21 Range/Units 17:36 17:39 WBC (4.0-10.0) 10^3/ uL RBC (4.1-5.3) 10^6/u L Hgb (11.7-16.6) g/dL Hct (42.0-52.0) % MCV (80-94) fL MCH (28.0-34.0) pg MCHC (30.0-36.0) g/dL RDW (12.1-15.1) % Plt Count (130-400) 10^3/c mm MPV (7.4-10.4) fL Neut % (Auto) % Lymph % (Auto) % Loving % (Auto) % Eos % (Auto) % Baso % (Auto) % Neut # (Auto) (1.8-7.7) 10^3/u L Lymph # (Auto) (0.8-4.8) 10^3/u L Loving # (Auto) (0.2-0.9) 10^3/u L Eos # (Auto) (0.0-0.8) 10^3/u L Baso # (Auto) (0.0-0.1) 10^3/u L Nucleated RBC % (a uto) % Nucleated RBCs # /100WBC D-Dimer 3.62 H (0-0.59) ug/mIFE U Specimen Type Sample Site ABG pH (7.35-7.45) ABG pCO2 (35-45) mmHg ABG pO2 (80.0-100.0) mmH g ABG HCO3 (22-26) mmol/L ABG O2 Saturation ABG Base Excess (-2.0-2.0) mmol/ L Regulo Test A-a O2 Gradient (5-10) mmHg Hematocrit (42-52) % Hgb O2 Saturation (95-100) % Carboxyhemoglobin (0.4-20.1) %THgb Methemoglobin (0.4-1.5) % Total Hemoglobin (14-18) g/dL Sodium (131-143) mmol/L Potassium (3.5-5.0) mmol/L Glucose (70-115) mg/dL Ionized Calcium (1.1-1.4) mmol/L O2 Delivery Device O2 Liters/Min % Center Machine Set Up Operator ID Chloride (98-107) mmol/L Carbon Dioxide (22-29) mmol/L Anion Gap (5-19) BUN (8-23) mg/dL Creatinine (0.7-1.2) mg/dL GFR Calculation (90-130) mL/min POC Glucose (70-110) mg/dL Calculated Osmolal ity (285-295) mOsm/k g Calcium (8.5-10.5) mg/dL Total Bilirubin (0.15-1.2) mg/dL AST (0-40) U/L ALT (0-41) U/L Alkaline Phosphata se (40-130) IU/L Creatine Kinase (39-308) U/L Total Protein (6.6-8.7) g/dL Albumin (3.5-5.2) g/dL Globulin (1.3-4.6) g/dL Serum Ketones (Negative) Nasal/Oral COVID-1 9 PCR SARS-CoV-2 Ag (Rap id) Negative (Negative) Discharge Plan Discharge Patient Disposition: Admitted As Inpatient Admit Provider: Iron Morales Clinical Impression: Pneumonia due to COVID-19 virus, Acute exacerbation of chronic obstructive airways disease, Breath, shortness, Elevated d-dimer, Acute hyperglycemia, Chronic kidney failure Condition: Stable Coding Level of Care Code ED Coverer for Chg Fwd Exam Comprehensive
[2021-05-04 17:25] LABS: ABG PCO2 31.7 mmHg (35-45); ABG PH Result 7.35 (7.35-7.45); Alveolar-Arterial Oxygen Gradi 5.7 mmHg (5-10); Arterial Blood Gas Hematocrit 37.7 % (42-52); Base Excess ABG -7.2 mmol/L (-2.0-2.0); Blood Gas Allen Test Pos; Blood Gas Operator Identificat CAK; Blood Gas Sample Site Radial, left; Blood Gas Sample Type Arterial; HCO3 ABG 17.4 mmol/L (22-26); Ionized Calcium Level - ABG 1.3 mmol/L (1.1-1.4); Methemoglobin 0.9 % (0.4-1.5); Oxygen Device NRB; Oxygen Saturation ABG 92.7; PO2 ABG 66.8 mmHg (80.0-100.0); Potassium Level - ABG 5.1 mmol/L (3.5-5.0); Total Hemoglobin 12.3 g/dL (14-18)
[2021-05-04 17:46] LABS: Basophils % 0.2 %; Eosinophils % 0.3 %; Hematocrit 36.9 % (42.0-52.0); Lymphocytes # 0.2 10^3/uL (0.8-4.8); Lymphocytes % 2.8 %; Mean Corpuscular HGB Conc 32.5 g/dL (30.0-36.0); Mean Corpuscular Hemoglobin 30.7 pg (28.0-34.0); Mean Corpuscular Volume 94.4 fL (80-94); Mean Platelet Volume 11.2 fL (7.4-10.4); Monocytes # 0.2 10^3/uL (0.2-0.9); Monocytes % 2.3 %; Neutrophils % 93.6 %; Nucleated Red Blood Cells % 0 %; Platelet Count 266 10^3/cmm (130-400); Red Blood Count 3.91 10^6/uL (4.1-5.3); Red Cell Distribution Width 12.8 % (12.1-15.1); White Blood Count 6.5 10^3/uL (4.0-10.0)
[2021-05-04 17:56] LABS: Ketone (Acetest) Serum Negative (Negative)
[2021-05-04 18:01] LABS: Alanine Aminotransferase 21 U/L (0-41); Alkaline Phosphatase 63 IU/L (40-130); Aspartate Amino Transferase 23 U/L (0-40); Calcium 9.1 mg/dL (8.5-10.5); Carbon Dioxide 17 mmol/L (22-29); Chloride 97 mmol/L (98-107); Creatine Phosphokinase 224 U/L (39-308); Globulin 3.6 g/dL (1.3-4.6); Glomerular Filtration Rate 24.8 mL/min (90-130); Osmolality Calculated 329 mOsm/kg (285-295); Sodium 132 mmol/L (136-145); Total Bilirubin 0.4 mg/dL (0.15-1.2); Total Protein 6.6 g/dL (6.6-8.7)
[2021-05-04 18:07] LABS: D Dimer 3.62 ug/mIFEU (0-0.59)
[2021-05-04 18:07] LABS: SARS Covid-2 Antigen Negative (Negative)
[2021-05-04 18:08] LABS: Anion Gap 23.6 (5-19); Potassium 5.6 mmol/L (3.5-5.1)
[2021-05-04 18:09] LABS: Blood Urea Nitrogen 89 mg/dL (8-23); Glucose 601 mg/dL (65-115)
[2021-05-04] MEDS: insulin regular-human 100 units/1 mL 10 UNIT IVP (18:24)
[2021-05-04] MEDS: enoxaparin 80 mg/0.8 mL Syringe SUBCUT (18:30)
--- NOTE | 2021-05-04 20:27 | P.HP_ITS ---
Providers/Chief Complaint Admitting Physician: Iron Morales MD Primary Care Provider: Rigoberto Mccann Chief Complaint: Weakness/Coughing History of Present Illness 64-year-old male with past medical history significant for hypertension, benign prostatic hyperplasia, gout, obstructive sleep apnea, hyperparathyroidism, peripheral neuropathy, vitamin-D deficiency, and early stage monoclonal gammopathy, diabetes mellitus, episode of [place] spotted fever, and chronic stage 4 kidney disease with baseline creatinine around 2.5 who presented to the hospital for evaluation of respiratory distress. The symptoms have been progressing for the past few days. Initial vital signs on arrival showed a blood pressure of 131/80, heart rate of 82, respiratory rate of 18 and a temperature of 98.7?. Patient was initially nasal cannula however shortly after was transitioned to a heated high flow. . Laboratory workup on arrival showed a WBC of 6.5, hemoglobin of 12.0, hematocrit of 36.9 and platelet count of 266. D-dimer of 3.62. Arterial blood gas showed a pH of 7.35, pCO2 of 31.7, PO2 of 66.8 and a bicarb of 17.4. This was on 15 L by non-rebreather. Sodium 132, potassium 5.6, chloride 97, bicarb 17, BUN 89 and cr of 2.6. LFTs were within normal limits. urinalysis is pending. COVID-19 infusion was negative however PCR was also obtained and pending. Chest x-ray showed dense ground-glass opacities versus consolidation in the peripheral lungs suspicion for COVID-19 infection. In emergency room patient was given Lovenox 80 mg subcu x1, 10 units of regular insulin x1. Review of Systems General: Reports: 10 or more systems reviewed and unremarkable except in HPI and below Medications/Allergies Home Medications Medication Instructions Recorded Confirmed Last Taken Type amlodipine 10 mg tablet 10 mg PO DAILY 03/16/20 05/04/21 05/04/21 History insulin human U-100 NPH-regulr 90 unit SUBCUT BID ml 03/16/20 05/04/21 04/18/20 History 70-30 mix 100 unit/mL subcutaneous susp insulin regular human 100 unit/mL 30 unit SUBCUT TID ml 03/16/20 05/04/21 04/18/20 History injection solution metoprolol tartrate 50 mg tablet 100 mg PO BID tab 03/16/20 05/04/21 05/04/21 History spironolactone 25 mg tablet 25 mg PO BID 03/16/20 05/04/21 04/18/20 History allopurinol 100 mg PO DAILY 05/04/21 05/04/21 05/04/21 History aspirin [Aspir-81] 81 mg PO DAILY 05/04/21 05/04/21 05/04/21 History colchicine 0.3 mg PO DAILY 05/04/21 05/04/21 05/04/21 History doxazosin 8 mg PO DAILY 05/04/21 05/04/21 05/04/21 History torsemide 20 mg PO DAILY 05/04/21 05/04/21 05/04/21 History Allergies Allergy/AdvReac Type Severity Reaction Status Date / Time naproxen [From Aleve] Allergy ALGY-Anaphy Unverified 03/25/20 10:07 laxis Sulfa (Sulfonamide Allergy ALGY-Hives Verified 04/19/20 07:20 Antibiotics) PFSH Acute PFSH: Medical History CKD (chronic kidney disease) stage 4, GFR 15-29 ml/min Diabetes Hypertension RMSF ([place] spotted fever) Surgical History H/O hernia repair H/O repair of rotator cuff Right History of laryngoscopy Status post colonoscopy (04/19/20) diverticulosis - repeat in 10 years Family History Father Dementia Mother Dementia Denies family history of Anesthesia complication Bleeding disorder Social History Smoking and tobacco status: never smoked Alcohol intake: never Vitals/I&O/Wt Last Vital Signs Temp 98.3 F 05/04/21 19:24 Pulse 77 05/04/21 20:20 Resp 18 05/04/21 20:20 BP 132/81 05/04/21 19:24 Pulse Ox 91 05/04/21 20:20 Weight last 48 hrs Weight 108.862 kg Physical Exam Narrative: EXAM NARRATIVE: General- alert awake On high-flow nasal cannula HEENT- grossly unremarkable CVS- normal sinus rhythm Chest- mildly labored respiration Abdomen- nondistended Extremities-no edema Data : 05/04/21 17:23 05/04/21 17:23 Micro: Microbiology 05/04/21 17:30 Blood Culture - Preliminary Blood SPECIMEN COLLECTED 05/04/21 17:39 Blood Culture - Preliminary Blood SPECIMEN COLLECTED A&P Assessment and plan (1) Elevated d-dimer: Status: Acute (2) CKD (chronic kidney disease) stage 4, GFR 15-29 ml/min: Status: Acute (3) Suspected COVID-19 virus infection: Status: Acute (4) Acute respiratory failure with hypoxia: Status: Acute (5) Hyperkalemia: Status: Acute (6) Diabetes mellitus with hyperglycemia: Status: Acute Additional A&P Information Acute respiratory failure with hypoxia RR ? 23, Labored respiration, o2 sat 81% Suspected COVID-19 infection ? Ag- neg ? PCR pending Chest xray ? Bilateral disease Continue Heated HFNC ? Wean as tolerated DuoNebs q.6 hours Will initiate Remdesivir 200 mg IV x1 ? 100 mg IV daily x 4 days Hold on Decadron due to hyperglycemia Ferritin, procal, CRP,in am D-dimer elevated ? no pleuritic cp, unable to obtain CT PE due to renal failure S/p Lovenox 80 mg SQ x 1 in ER ? Current started on Heparin dvt ppx dose Diabetes mellitus with hyperglycemia Blood sugar 601 on arrival Q.4 blood sugar checks High dose sliding scale coverage Lantus 20 units subcu b.i.d. Continue to titrate insulin Serum ketones negative Hyperkalemia Potassium 5.6 Kayexalate 15 g p.o. x1 Repeat BMP in a.m. Hold Aldactone Chronic stage 4 kidney disease Creatinine baseline 2.5 2.6 on arrival Renal dosing medications BMP in a.m. Hold torsemide/Aldactone Hypertension Continue metoprolol 100 mg b.i.d. Hold Aldactone Gastroesophageal reflux disease Protonix 40 mg oral daily DVT prophylaxis Heparin 5000 units Q 8 Attestations Medical Necessity Statement*: Anticipate over2 midnights stay in hospital for evaluation and treatment of respiratory distress requiring high-flow nasal cannula , hyperkalemia And hyperglycemia Time Spent in Patient Care: Greater than 35 minutes (>than 50% of time spent in counselling and/or direct pt care on unit) . 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
[2021-05-04 21:06] LABS: Glucose Point of Care 517 mg/dL (70-110)
[2021-05-04 21:58] LABS: Add Urine Culture? No; Add Urine Microscopic? YES; Amorphous Sediment Urine 1+ /hpf; Bacteria Urine TRACE /hpf; Bilirubin Urine Neg (Negative); Blood Urine 2+ (Negative); Glucose Urine UA 4+ (Normal); Ketones Urine Negative (Negative); Leukocyte Esterase Urine Negative (Negative); Nitrate Urine Negative (Negative); Protein Urine 2+ (Negative); RBC Urine 0-4 /hpf (0-2); Specific Gravity, Urine 1.015 (1.005-1.030); Squamous Epithelial Cell Urine 0-4 /hpf (0-5); Urine Appearance Clear (CLEAR); Urine Color Yellow (Yellow); Urobilinogen Urine Norm (Negative); WBC Urine 0-4 /hpf (0-5); pH Urine 5 (5-7)
[2021-05-05] VITALS (19 sets, daily range): BP systolic 132–155; BP diastolic 81–115; PULSE 62–97; RESP 13–30; TEMP 36.4–37.1; O2SAT 87–96
[2021-05-05 03:15] LABS: Glucose Point of Care 347 mg/dL (70-110)
[2021-05-05] MEDS: sodium polystyrene sulfonate 15 gm/60 mL Btl PO (03:37)
[2021-05-05 07:35] LABS: Glucose Point of Care 283 mg/dL (70-110)
[2021-05-05] MEDS: pantoprazole DR 40 mg Tablet PO (08:50)
[2021-05-05] MEDS: metoprolol tartrate 50 mg Tablet 100 MG PO ×2 (08:50→17:58)
[2021-05-05] MEDS: doxazosin 4 mg Tablet 8 MG PO (08:50)
[2021-05-05] MEDS: allopurinol 100 mg Tablet PO (08:50)
[2021-05-05] MEDS: heparin 5,000 unit/mL INJ 1 mL 5000 UNIT SUBCUT ×2 (08:51→16:46)
--- NOTE | 2021-05-05 11:14 | PM.PN ---
Subjective Subjective: Interval history: Patient was seen and examined this morning: Continue to saturate well on heated high flow: Has remained afebrile, has denied any worsening shortness of breath. Medications: Reviewed: Yes Vitals/I&O/Wt Last Vital Signs Temp 97.5 F L 05/05/21 03:47 Pulse 85 05/05/21 07:44 Resp 22 H 05/05/21 07:44 BP 155/99 05/05/21 03:47 Pulse Ox 95 05/05/21 07:44 05/04/21 05/05/21 05/05/21 22:59 06:59 14:59 Intake Total 1000 / 1000 Output Total 750 / 750 Balance 250 / 250 Weight last 48 hrs Weight 93.077 kg Weight 108.862 kg Physical Exam Const: COMMON NORMALS: patient oriented x3 HENMT: COMMON NORMALS: normocephalic and atraumatic HEAD & SCALP: normocephalic and atraumatic Chest: COMMONS NORMALS: normal inspection of the chest and normal palpation of entire chest wall CHEST: Yes Symmetrical chest wall rise Resp: OTHER: Diminished air entry bilaterally Cardio: COMMON NORMALS: regular rate, regular rhythm, S1 normal heart sound present, S2 normal heart sound present, No gallops present (Cardio), No murmurs present (Cardio), No rub (Cardio) and Peripheral pulses 2+ throughout RATE: regular rate RHYTHM: regular rhythm HEART SOUNDS: S1 normal heart sound present and S2 normal heart sound present PERIPHERAL PULSES: Peripheral pulses 2+ throughout GI: COMMON NORMALS: Normal to inspection, nondistended, normoactive bowel sounds present, Soft to palpation, non-tender, No hepatosplenomegaly present and no masses AUSCULTATION: Yes normoactive bowel sounds PALPATION: Yes Soft to palpation and Yes No hepatosplenomegaly present RECTAL EXAM: Yes deferred Extremity: COMMON NORMALS: no clubbing, cyanosis or edema and no pedal edema Neuro: COMMON NORMALS: patient oriented x3 Data : 05/05/21 10:09 05/05/21 10:09 Micro: Microbiology 05/04/21 17:30 Blood Culture - Preliminary Blood SPECIMEN COLLECTED 05/04/21 17:39 Blood Culture - Preliminary Blood SPECIMEN COLLECTED A&P Assessment and plan (1) Acute respiratory failure with hypoxia: Acute hypoxic respiratory failure secondary to pneumonia rule out Covid pneumonia. X-ray chest: Bilateral airspace disease Procalcitonin:1.02 ESR: CRP:288 Ferritin:2789 D-dimer:3.62 Fibrinogen: Covid PCR: Pending Covid rapid antigen: Negative Blood culture Influenza a and B ceftriaxone and azithromycin. Dexamethasone 6 mg IV daily. Awaiting Covid PCR if positive will initiate remdesivir S/p Lovenox 80 mg SQ x 1 in ER ? Current started on Heparin dvt ppx dose Status: Acute (2) Elevated d-dimer: Status: Acute (3) CKD (chronic kidney disease) stage 4, GFR 15-29 ml/min: Status: Acute (4) Suspected COVID-19 virus infection: Status: Acute (5) Hyperkalemia: Status: Acute (6) Diabetes mellitus with hyperglycemia: Status: Acute Additional A&P Information Diabetes mellitus with hyperglycemia Blood sugar 601 on arrival Q.4 blood sugar checks High dose sliding scale coverage Lantus 20 units subcu b.i.d. Continue to titrate insulin Serum ketones negative Hyperkalemia: Resolved Potassium 5.6--: 4.7 Kayexalate 15 g p.o. x1 Repeat BMP in a.m. Hold Aldactone Chronic stage 4 kidney disease Creatinine baseline 2.5 2.6 on arrival Renal dosing medications BMP in a.m. Hold torsemide/Aldactone Hypertension: Amlodipine 10 mg p.o. daily Continue metoprolol 100 mg b.i.d. Hold Aldactone Gastroesophageal reflux disease Protonix 40 mg oral daily DVT prophylaxis Heparin 5000 units Q 8 Attestations Medical Necessity Statement*: Patient needs to be in the hospital for management of pneumonia. 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
[2021-05-05 11:26] LABS: Basophils % 0.2 %; Eosinophils # 0.1 10^3/uL (0.0-0.8); Eosinophils % 0.8 %; Hematocrit 34.8 % (42.0-52.0); Hemoglobin 11.5 g/dL (11.7-16.6); Lymphocytes # 0.2 10^3/uL (0.8-4.8); Lymphocytes % 2.5 %; Mean Corpuscular Hemoglobin 30.4 pg (28.0-34.0); Mean Corpuscular Volume 92.1 fL (80-94); Mean Platelet Volume 11.1 fL (7.4-10.4); Monocytes # 0.1 10^3/uL (0.2-0.9); Monocytes % 1.8 %; Neutrophils # 5.73 10^3/uL (1.8-7.7); Nucleated Red Blood Cells % 0 %; Platelet Count 276 10^3/cmm (130-400); Red Blood Count 3.78 10^6/uL (4.1-5.3); Red Cell Distribution Width 12.5 % (12.1-15.1); White Blood Count 6.1 10^3/uL (4.0-10.0)
[2021-05-05] MEDS: insulin glargine 100 units/1 mL 20 UNIT SUBCUT ×2 (11:26→17:58)
[2021-05-05 11:37] LABS: D Dimer 3.17 ug/mIFEU (0-0.59)
[2021-05-05 11:45] LABS: Anion Gap 18.7 (5-19); Blood Urea Nitrogen 80 mg/dL (8-23); C Reactive Protein 288.6 mg/L (0.0-4.9); Calcium 9.4 mg/dL (8.5-10.5); Carbon Dioxide 21 mmol/L (22-29); Chloride 102 mmol/L (98-107); Glucose 303 mg/dL (65-115); Osmolality Calculated 319 mOsm/kg (285-295); Potassium 4.7 mmol/L (3.5-5.1); Sodium 137 mmol/L (136-145)
[2021-05-05 11:51] LABS: Procalcitonin 1.02 ng/mL (0-0.5)
[2021-05-05 12:04] LABS: Estmated Average Glucose 217; Hemoglobin A1C 9.2 % (4.0-6.0)
[2021-05-05] MEDS: cefTRIAXone 1,000 MG in sodium chloride 0.9% (plus) 50 ML 100 MG IV (12:27)
[2021-05-05 12:41] LABS: Glucose Point of Care 397 mg/dL (70-110)
--- NOTE | 2021-05-05 12:44 | PC.NUTR ---
Nutrition assessment completed for MST score of 5. Recommend change to Renal diabetic non-dialysis diet (notified Dr. Morales of recommendation) and Nepro with meals. Recommend to encourage po intakes of meals/supplements. Pt may benefit from nutrition education at later time if interested. See RD assessment for further details.
[2021-05-05] MEDS: azithromycin 500 MG in sodium chloride 0.9% 250 ML 250 MG IV (13:29)
[2021-05-05 15:26] LABS: Ferritin 2789 ng/mL (30-400)
[2021-05-05 15:38] LABS: Glucose Point of Care 266 mg/dL (70-110)
[2021-05-05] MEDS: dexamethasone 4 mg/mL INJ 6 MG IVP (17:58)
[2021-05-05 18:01] LABS: Coronavirus Test Green County Detected
[2021-05-05 18:14] LABS: Glucose Point of Care 99 mg/dL (70-110)
[2021-05-05] MEDS: budesonide 0.5 mg/2 mL Neb INHALATION (21:28)
[2021-05-05] MEDS: albuterol 8 gm MDI 2 PUFF INHALATION (21:28)
[2021-05-06] VITALS (19 sets, daily range): BP systolic 125–162; BP diastolic 84–106; PULSE 59–91; RESP 14–24; TEMP 36.4–36.8; O2SAT 90–94
[2021-05-06] MEDS: albuterol 8 gm MDI 2 PUFF INHALATION ×5 (00:16→19:50)
[2021-05-06] MEDS: heparin 5,000 unit/mL INJ 1 mL 5000 UNIT SUBCUT ×3 (00:41→16:41)
[2021-05-06 01:43] LABS: Influenza A by IFA Negative (Negative); Influenza B by IFA Negative (Negative)
[2021-05-06 03:04] LABS: Glucose Point of Care 174 mg/dL (70-110)
[2021-05-06 03:04] LABS: Glucose Point of Care 178 mg/dL (70-110)
[2021-05-06 03:38] LABS: Glucose Point of Care 69 mg/dL (70-110)
[2021-05-06 05:46] LABS: Hematocrit 36.4 % (42.0-52.0); Hemoglobin 11.9 g/dL (11.7-16.6); Lymphocytes # 0.1 10^3/uL (0.8-4.8); Mean Corpuscular HGB Conc 32.7 g/dL (30.0-36.0); Mean Corpuscular Hemoglobin 30.6 pg (28.0-34.0); Mean Corpuscular Volume 93.6 fL (80-94); Mean Platelet Volume 11.3 fL (7.4-10.4); Monocytes # 0.1 10^3/uL (0.2-0.9); Monocytes % 1.5 %; Neutrophils % 94.9 %; Nucleated Red Blood Cells % 0 %; Platelet Count 314 10^3/cmm (130-400); Red Blood Count 3.89 10^6/uL (4.1-5.3); Red Cell Distribution Width 12.9 % (12.1-15.1); White Blood Count 4.7 10^3/uL (4.0-10.0)
[2021-05-06 06:30] LABS: Anion Gap 19.6 (5-19); Blood Urea Nitrogen 79 mg/dL (8-23); Calcium 9.5 mg/dL (8.5-10.5); Carbon Dioxide 20 mmol/L (22-29); Chloride 105 mmol/L (98-107); Glomerular Filtration Rate 30.1 mL/min (90-130); Glucose 208 mg/dL (65-115); Osmolality Calculated 320 mOsm/kg (285-295); Potassium 4.6 mmol/L (3.5-5.1); Sodium 140 mmol/L (136-145)
[2021-05-06 07:07] LABS: Glucose Point of Care 265 mg/dL (70-110)
[2021-05-06] MEDS: doxazosin 4 mg Tablet 8 MG PO (08:25)
[2021-05-06] MEDS: insulin glargine 100 units/1 mL 20 UNIT SUBCUT (08:25)
[2021-05-06] MEDS: metoprolol tartrate 50 mg Tablet 100 MG PO ×2 (08:26→18:09)
[2021-05-06] MEDS: allopurinol 100 mg Tablet PO (08:26)
[2021-05-06] MEDS: pantoprazole DR 40 mg Tablet PO (08:26)
[2021-05-06] MEDS: amlodipine 10 mg Tablet PO (08:26)
[2021-05-06 11:27] LABS: Slide Review Slide Review Perform
[2021-05-06] MEDS: cefTRIAXone 1,000 MG in sodium chloride 0.9% (plus) 50 ML 100 MG IV (11:34)
[2021-05-06 11:37] LABS: Glucose Point of Care 511 mg/dL (70-110)
[2021-05-06 11:37] LABS: Glucose Point of Care 525 mg/dL (70-110)
[2021-05-06] MEDS: azithromycin 500 MG in sodium chloride 0.9% 250 ML 250 MG IV (12:30)
--- NOTE | 2021-05-06 14:13 | XRR_ITS ---
PROCEDURE INFORMATION: Exam: XR Chest Exam date and time: 05/06/2021 2:13 PM Age: 65 years old Clinical indication: Condition or disease; Lung condition and disease; Pneumonia; Viral; Additional info: Pna TECHNIQUE: Imaging protocol: XR of the chest. Views: 1 view. Total images: 1 COMPARISON: CR (CHEST, ) 05/04/2021 5:43 PM FINDINGS: Lungs: Bilateral, predominantly peripheral, ground-glass interstitial lung disease. Consideration might be given to Covid-19 pneumonitis. Pleural spaces: Unremarkable. No pleural effusion. No pneumothorax. Heart/Mediastinum: Cardiac structures in configuration stable and within normal limits. Bones/joints: Unremarkable. Soft tissues: Heavy body habitus. XR/XR chest 1V portable [id number] IMPRESSION: Bilateral, predominantly peripheral, ground-glass interstitial lung disease. Consideration might be given to Covid-19 pneumonitis.
[2021-05-06] MEDS: remdesivir 200 MG in sodium chloride 0.9% (100 ml) 100 ML 100 MG IV (14:23)
--- NOTE | 2021-05-06 14:36 | PM.PN ---
Subjective Subjective: Interval history: Patient was seen and examined this morning: Shortness of breath has not worsened, currently on heated high flow oxygen through nasal cannula, 65% FiO2 and 45 L. Has remained afebrile. Blood sugar has been uncontrolled due to dexamethasone use. Medications: Reviewed: Yes Vitals/I&O/Wt Last Vital Signs Temp 97.5 F L 05/06/21 11:56 Pulse 91 05/06/21 12:07 Resp 24 H 05/06/21 12:04 BP 141/85 05/06/21 11:56 Pulse Ox 94 05/06/21 12:04 05/05/21 05/06/21 05/06/21 22:59 06:59 14:59 Intake Total 1260 / 1260 Output Total 700 / 700 450 / 1150 Balance -700 / -400 -450 / -850 1260 / 1260 Weight last 48 hrs Weight 93.077 kg Weight 108.862 kg Physical Exam Const: COMMON NORMALS: patient oriented x3 HENMT: COMMON NORMALS: normocephalic and atraumatic HEAD & SCALP: normocephalic and atraumatic Chest: COMMONS NORMALS: normal inspection of the chest and normal palpation of entire chest wall CHEST: Yes Symmetrical chest wall rise Resp: OTHER: Diminished air entry bilaterally Cardio: COMMON NORMALS: regular rate, regular rhythm, S1 normal heart sound present, S2 normal heart sound present, No gallops present (Cardio), No murmurs present (Cardio), No rub (Cardio) and Peripheral pulses 2+ throughout RATE: regular rate RHYTHM: regular rhythm HEART SOUNDS: S1 normal heart sound present and S2 normal heart sound present PERIPHERAL PULSES: Peripheral pulses 2+ throughout GI: COMMON NORMALS: Normal to inspection, nondistended, normoactive bowel sounds present, Soft to palpation, non-tender, No hepatosplenomegaly present and no masses AUSCULTATION: Yes normoactive bowel sounds PALPATION: Yes Soft to palpation and Yes No hepatosplenomegaly present RECTAL EXAM: Yes deferred Extremity: COMMON NORMALS: no clubbing, cyanosis or edema and no pedal edema Neuro: COMMON NORMALS: patient oriented x3 Data : 05/06/21 04:36 05/06/21 04:36 Micro: Microbiology 05/04/21 17:30 Blood Culture - Preliminary Blood NEGATIVE TO DATE 05/04/21 17:39 Blood Culture - Preliminary Blood NEGATIVE TO DATE A&P Assessment and plan (1) Acute respiratory failure with hypoxia: Acute hypoxic respiratory failure secondary to Covid pneumonia. Rapid Covid antigen negative Covid PCR positive X-ray chest: Bilateral airspace disease. Procalcitonin:1.02 ESR: CRP:288 Ferritin:2789 D-dimer:3.62 Fibrinogen: Covid PCR: Pending Covid rapid antigen: Negative Blood culture:NTD Influenza a and B: Negative ceftriaxone and azithromycin. S/P 1 Dose of Toci ( 05/06 ) Dexamethasone 6 mg IV daily. S/p Lovenox 80 mg SQ x 1 in ER ? Current started on Heparin dvt ppx dose Status: Acute (2) Elevated d-dimer: Status: Acute (3) CKD (chronic kidney disease) stage 4, GFR 15-29 ml/min: Status: Acute (4) Suspected COVID-19 virus infection: Status: Acute (5) Hyperkalemia: Status: Acute (6) Diabetes mellitus with hyperglycemia: Status: Acute Additional A&P Information Diabetes mellitus with hyperglycemia Blood sugar 601 on arrival Q.4 blood sugar checks High dose sliding scale coverage Lantus 30 units subcu b.i.d. 10 U Premeal Novolog Continue to titrate insulin Serum ketones negative Hyperkalemia: Resolved Potassium 5.6--: 4.7 Kayexalate 15 g p.o. x1 Repeat BMP in a.m. Hold Aldactone Chronic stage 4 kidney disease Creatinine baseline 2.5 2.6 on arrival. Renal dosing medications BMP in a.m. Hold torsemide/Aldactone Hypertension: Amlodipine 10 mg p.o. daily Continue metoprolol 100 mg b.i.d. Hold Aldactone Gastroesophageal reflux disease Protonix 40 mg oral daily DVT prophylaxis Heparin 5000 units Q 8 Attestations Medical Necessity Statement*: Patient needs to be in the hospital for management of acute hypoxic respiratory failure secondary to Covid pneumonia. 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
[2021-05-06 15:05] LABS: Glucose Point of Care 523 mg/dL (70-110)
[2021-05-06 15:21] LABS: Glucose Point of Care 525 mg/dL (70-110)
--- NOTE | 2021-05-06 15:30 | PC.NURSE ---
Pt blood sugar 525, reported to physician, received orders to give one time dose 10 units novolog, along with 18 units per sliding scale.
[2021-05-06] MEDS: dexamethasone 4 mg/mL INJ 6 MG IVP (17:21)
--- NOTE | 2021-05-06 17:30 | PC.NURSE ---
Blood sugar 573, physician notified, received no new orders. Gave insulin per sliding scale.
[2021-05-06 17:41] LABS: Glucose Point of Care 560 mg/dL (70-110)
[2021-05-06 17:41] LABS: Glucose Point of Care 573 mg/dL (70-110)
[2021-05-06] MEDS: insulin glargine 100 units/1 mL 30 UNIT SUBCUT (18:09)
[2021-05-06] MEDS: budesonide 0.5 mg/2 mL Neb INHALATION (19:51)
[2021-05-06 22:05] LABS: Glucose Point of Care 592 mg/dL (70-110)
[2021-05-07] VITALS (23 sets, daily range): BP systolic 129–184; BP diastolic 81–100; PULSE 65–82; RESP 18–24; TEMP 36.5–36.9; O2SAT 90–98
[2021-05-07] MEDS: heparin 5,000 unit/mL INJ 1 mL 5000 UNIT SUBCUT ×3 (00:36→16:59)
[2021-05-07] MEDS: albuterol 8 gm MDI 2 PUFF INHALATION ×6 (00:44→23:47)
[2021-05-07 02:40] LABS: Glucose Point of Care 557 mg/dL (70-110)
[2021-05-07 03:51] LABS: Hematocrit 33.7 % (42.0-52.0); Lymphocytes # 0.1 10^3/uL (0.8-4.8); Lymphocytes % 1.8 %; Mean Corpuscular HGB Conc 32.6 g/dL (30.0-36.0); Mean Corpuscular Volume 91.8 fL (80-94); Mean Platelet Volume 11.6 fL (7.4-10.4); Monocytes # 0.1 10^3/uL (0.2-0.9); Monocytes % 1.7 %; Neutrophils % 95.8 %; Nucleated Red Blood Cells % 0 %; Platelet Count 290 10^3/cmm (130-400); Red Blood Count 3.67 10^6/uL (4.1-5.3); Red Cell Distribution Width 12.5 % (12.1-15.1); White Blood Count 7.6 10^3/uL (4.0-10.0)
[2021-05-07 04:20] LABS: C Reactive Protein 102.5 mg/L (0.0-4.9)
[2021-05-07 04:22] LABS: Fibrinogen 836 mg/dL (174-498)
[2021-05-07 04:25] LABS: Anion Gap 16.4 (5-19); Blood Urea Nitrogen 78 mg/dL (8-23); Calcium 9.2 mg/dL (8.5-10.5); Carbon Dioxide 19 mmol/L (22-29); Chloride 98 mmol/L (98-107); Glomerular Filtration Rate 28.6 mL/min (90-130); Osmolality Calculated 314 mOsm/kg (285-295); Potassium 4.4 mmol/L (3.5-5.1); Sodium 129 mmol/L (136-145)
[2021-05-07 04:29] LABS: Glucose 514 mg/dL (65-115)
[2021-05-07 04:46] LABS: Erythrocyte Sedimentation Rate 114 mm/hr (0-10)
[2021-05-07 05:24] LABS: Ferritin 2874 ng/mL (30-400)
[2021-05-07 07:03] LABS: Glucose Point of Care 320 mg/dL (70-110)
[2021-05-07] MEDS: budesonide 0.5 mg/2 mL Neb INHALATION (07:44)
[2021-05-07] MEDS: insulin glargine 100 units/1 mL 30 UNIT SUBCUT (08:11)
[2021-05-07] MEDS: doxazosin 4 mg Tablet 8 MG PO (08:12)
[2021-05-07] MEDS: pantoprazole DR 40 mg Tablet PO (08:12)
[2021-05-07] MEDS: allopurinol 100 mg Tablet PO (08:12)
[2021-05-07] MEDS: metoprolol tartrate 50 mg Tablet 100 MG PO ×2 (08:12→16:59)
[2021-05-07] MEDS: amlodipine 10 mg Tablet PO (08:12)
[2021-05-07 08:54] LABS: Glucose Point of Care 346 mg/dL (70-110)
--- NOTE | 2021-05-07 09:12 | PC.SOCIAL ---
IMM UPDATE Gave patient's verbal IMM update via phone. 05/07/21 @ 0910. Initialed, dated, timed and placed in chart.
[2021-05-07] MEDS: insulin glargine 100 units/1 mL 10 UNIT SUBCUT (09:42)
[2021-05-07 11:07] LABS: Glucose Point of Care 365 mg/dL (70-110)
[2021-05-07] MEDS: cefTRIAXone 1,000 MG in sodium chloride 0.9% (plus) 50 ML 100 MG IV (12:23)
[2021-05-07] MEDS: azithromycin 500 MG in sodium chloride 0.9% 250 ML 250 MG IV (13:24)
[2021-05-07 14:57] LABS: Glucose Point of Care 344 mg/dL (70-110)
[2021-05-07 17:39] LABS: Glucose Point of Care 328 mg/dL (70-110)
[2021-05-07] MEDS: remdesivir 100 MG in sodium chloride 0.9% (100 ml) 100 ML IV (17:44)
[2021-05-07] MEDS: insulin glargine 100 units/1 mL 40 UNIT SUBCUT (17:44)
[2021-05-07] MEDS: FUROsemide 10 mg/mL SDV 2mL 20 MG IVP (18:04)
[2021-05-07] MEDS: dexamethasone 4 mg/mL INJ 6 MG IVP (18:04)
--- NOTE | 2021-05-07 19:08 | P.PN_ITS ---
Subjective Subjective: Interval history: Patient was seen and examined this morning: Shortness of breath has not worsened, currently on heated high flow oxygen through nasal cannula, 65% FiO2 and 45 L. Has remained afebrile. Medications: Reviewed: Yes Vitals/I&O/Wt Last Vital Signs Temp 97.7 F 05/07/21 04:50 Pulse 76 05/07/21 15:56 Resp 18 05/07/21 15:49 BP 129/81 05/07/21 10:21 Pulse Ox 92 05/07/21 15:49 05/07/21 05/07/21 05/07/21 06:59 14:59 22:59 Intake Total 418 / 418 100 / 518 Output Total 1400 / 1835 1100 / 1100 Balance -1400 / -255 418 / 418 -1000 / -582 Weight last 48 hrs Weight 96.207 kg Weight 92.986 kg Physical Exam Const: COMMON NORMALS: patient oriented x3 HENMT: COMMON NORMALS: normocephalic and atraumatic HEAD & SCALP: normocephalic and atraumatic Chest: COMMONS NORMALS: normal inspection of the chest and normal palpation of entire chest wall CHEST: Yes Symmetrical chest wall rise Resp: OTHER: Diminished air entry bilaterally Cardio: COMMON NORMALS: regular rate, regular rhythm, S1 normal heart sound present, S2 normal heart sound present, No gallops present (Cardio), No murmurs present (Cardio), No rub (Cardio) and Peripheral pulses 2+ throughout RATE: regular rate RHYTHM: regular rhythm HEART SOUNDS: S1 normal heart sound present and S2 normal heart sound present PERIPHERAL PULSES: Peripheral pulses 2+ throughout GI: COMMON NORMALS: Normal to inspection, nondistended, normoactive bowel sounds present, Soft to palpation, non-tender, No hepatosplenomegaly present and no masses AUSCULTATION: Yes normoactive bowel sounds PALPATION: Yes Soft to palpation and Yes No hepatosplenomegaly present RECTAL EXAM: Yes deferred Extremity: COMMON NORMALS: no clubbing, cyanosis or edema and no pedal edema Neuro: COMMON NORMALS: patient oriented x3 Data : 05/07/21 03:24 05/07/21 03:24 A&P Assessment and plan (1) Acute respiratory failure with hypoxia: Acute hypoxic respiratory failure secondary to Covid pneumonia. Rapid Covid antigen negative Covid PCR positive X-ray chest: Bilateral airspace disease. Procalcitonin:1.02 ESR:114 CRP:288 Ferritin:2789 D-dimer:3.62 Fibrinogen:836 Covid PCR: Positive Covid rapid antigen: Negative Blood culture:NTD Influenza a and B: Negative Empirically on ceftriaxone and azithromycin. S/P 1 Dose of Toci ( 05/06 ) Dexamethasone 6 mg IV daily. S/p Lovenox 80 mg SQ x 1 in ER ? Currently started on Heparin 5000 every 8h daily Status: Acute (2) Elevated d-dimer: Status: Acute (3) CKD (chronic kidney disease) stage 4, GFR 15-29 ml/min: Status: Acute (4) Suspected COVID-19 virus infection: Status: Acute (5) Hyperkalemia: Status: Acute (6) Diabetes mellitus with hyperglycemia: Status: Acute Additional A&P Information Diabetes mellitus with hyperglycemia Blood sugar 601 on arrival Q.4 blood sugar checks High dose sliding scale coverage Lantus 40 units subcu b.i.d. 20 U Premeal Novolog Continue to titrate insulin Serum ketones negative Hyperkalemia: Resolved Potassium 5.6--: 4.7 Kayexalate 15 g p.o. x1 Repeat BMP in a.m. Hold Aldactone Chronic stage 4 kidney disease Creatinine baseline 2.5 2.6 on arrival. Current serum creatinine 2.3 Renal dosing medications BMP in a.m. Hold torsemide/Aldactone Hypertension: Amlodipine 10 mg p.o. daily Continue metoprolol 100 mg b.i.d. Hold Aldactone Gastroesophageal reflux disease Protonix 40 mg oral daily DVT prophylaxis Heparin 5000 units Q 8 Attestations Medical Necessity Statement*: Patient needs to be in the hospital for management of acute hypoxic respiratory failure secondary to Covid pneumonia. 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
[2021-05-07 20:53] LABS: Glucose Point of Care 348 mg/dL (70-110)
[2021-05-07 22:39] LABS: Glucose Point of Care 244 mg/dL (70-110)
[2021-05-08] VITALS (17 sets, daily range): BP systolic 114–147; BP diastolic 70–97; PULSE 60–78; RESP 15–25; TEMP 36.4–36.7; O2SAT 89–97
[2021-05-08] MEDS: heparin 5,000 unit/mL INJ 1 mL 5000 UNIT SUBCUT ×2 (00:36→08:21)
[2021-05-08 03:29] LABS: Glucose Point of Care 284 mg/dL (70-110)
[2021-05-08] MEDS: albuterol 8 gm MDI 2 PUFF INHALATION ×2 (03:30→09:01)
[2021-05-08 05:32] LABS: Basophils % 0.1 %; Hematocrit 35.1 % (42.0-52.0); Hemoglobin 11.7 g/dL (11.7-16.6); Lymphocytes # 0.2 10^3/uL (0.8-4.8); Mean Corpuscular HGB Conc 33.3 g/dL (30.0-36.0); Mean Corpuscular Hemoglobin 30.9 pg (28.0-34.0); Mean Corpuscular Volume 92.6 fL (80-94); Mean Platelet Volume 11.7 fL (7.4-10.4); Monocytes # 0.1 10^3/uL (0.2-0.9); Monocytes % 1.5 %; Neutrophils # 8.94 10^3/uL (1.8-7.7); Neutrophils % 95.4 %; Nucleated Red Blood Cells % 0 %; Platelet Count 310 10^3/cmm (130-400); Red Blood Count 3.79 10^6/uL (4.1-5.3); Red Cell Distribution Width 12.9 % (12.1-15.1); White Blood Count 9.4 10^3/uL (4.0-10.0)
[2021-05-08 05:33] LABS: D Dimer 2.66 ug/mIFEU (0-0.59)
[2021-05-08 05:41] LABS: C Reactive Protein 58.7 mg/L (0.0-4.9)
[2021-05-08 05:42] LABS: Alanine Aminotransferase 28 U/L (0-41); Albumin Level 2.6 g/dL (3.5-5.2); Alkaline Phosphatase 83 IU/L (40-130); Anion Gap 19.4 (5-19); Aspartate Amino Transferase 32 U/L (0-40); Blood Urea Nitrogen 79 mg/dL (8-23); Calcium 9.7 mg/dL (8.5-10.5); Carbon Dioxide 19 mmol/L (22-29); Chloride 102 mmol/L (98-107); Globulin 4.1 g/dL (1.3-4.6); Glomerular Filtration Rate 33.6 mL/min (90-130); Glucose 329 mg/dL (65-115); Magnesium 1.9 mg/dL (1.7-2.3); Osmolality Calculated 318 mOsm/kg (285-295); Potassium 4.4 mmol/L (3.5-5.1); Sodium 136 mmol/L (136-145); Total Bilirubin 0.3 mg/dL (0.15-1.2); Total Protein 6.7 g/dL (6.6-8.7)
--- NOTE | 2021-05-08 06:00 | XR_ITS ---
WS: [id number] Exam: XR chest 1V portable [id number] Date/Time of Exam: 05/08/2021 6:21 AM Reason For Exam: pna Comparison 05/06/2021. Patchy groundglass infiltrates in the bilateral lower lung zones demonstrate minimal improvement. The lungs are fully inflated. Normal cardiomediastinal structures and bony elements. Monitoring leads jimenez perimpose the chest. XR/XR chest 1V portable [id number] IMPRESSION: 1. Patchy groundglass infiltrates in both lower lung zones showing a slight imp rovement since prior study. No other change.
[2021-05-08 06:09] LABS: Erythrocyte Sedimentation Rate 108 mm/hr (0-10)
[2021-05-08 06:20] LABS: Fibrinogen 655 mg/dL (174-498)
[2021-05-08 06:44] LABS: Glucose Point of Care 401 mg/dL (70-110)
[2021-05-08 07:10] LABS: Ferritin 2117 ng/mL (30-400)
[2021-05-08] MEDS: doxazosin 4 mg Tablet 8 MG PO (08:17)
[2021-05-08] MEDS: metoprolol tartrate 50 mg Tablet 100 MG PO ×2 (08:17→17:14)
[2021-05-08] MEDS: pantoprazole DR 40 mg Tablet PO (08:18)
[2021-05-08] MEDS: insulin glargine 100 units/1 mL 40 UNIT SUBCUT (08:18)
[2021-05-08] MEDS: amlodipine 10 mg Tablet PO (08:18)
[2021-05-08] MEDS: allopurinol 100 mg Tablet PO (08:18)
--- NOTE | 2021-05-08 11:14 | CTR_ITS ---
PROCEDURE INFORMATION: Exam: CT Chest Without Contrast; Diagnostic Exam date and time: 05/08/2021 11:14 AM Age: 65 years old Clinical indication: Patient HX: Covid pneumonia. ; Additional info: Copd/pna TECHNIQUE: Imaging protocol: Diagnostic computed tomography of the chest without contrast. Radiation optimization: All CT scans at this facility use at least one of these dose optimization techniques: automated exposure control; mA and/or kV adjustment per patient size (includes targeted exams where dose is matched to clinical indication); or iterative reconstruction. COMPARISON: CT chest con [id number] 03/16/2020 9:32 AM RADIATION DOSE METRICS: Total DLP (mGy-cm): 1061.71 FINDINGS: Lungs: Extensive bilateral mostly subpleural airspace and ground-glass opacities are noted in the lungs compatible with the history of moderate COVID-19 pneumonia. Pleural spaces: Unremarkable. No pneumothorax. No pleural effusion. Heart: The heart is enlarged. Mediastinal space: A small hiatal hernia is present. Aorta: Unremarkable. No aortic aneurysm. Lymph nodes: Unremarkable. No enlarged lymph nodes. Liver: There is a diffuse decrease in hepatic parenchymal density, consistent with fatty infiltration. Spleen: The spleen is normal. An accessory splenule is present. Bones/joints: Unremarkable. No acute fracture. Soft tissues: Unremarkable. CT/CT chest con [id number] IMPRESSION: Extensive bilateral mostly subpleural airspace and ground-glass opacities are noted in the lungs compatible with the history of moderate COVID-19 pneumonia. Radiation Dose CTDIVOL = (mGy): DLP = 1061.71 (mGy-cm)
[2021-05-08] MEDS: cefTRIAXone 1,000 MG in sodium chloride 0.9% (plus) 50 ML 100 MG IV (11:42)
[2021-05-08 12:03] LABS: Procalcitonin 0.36 ng/mL (0-0.5); Thyroid Stimulating Hormone 0.22 uIU/mL (0.27-4.20)
[2021-05-08 12:14] LABS: Iron 47 ug/dL (59-158); Percent Saturation 40.5 % (20-50); Total Iron Binding Capacity 116 mcg/dl; Unsaturated Iron Binding 69 ug/dL (112-347)
[2021-05-08 12:19] LABS: Glucose Point of Care 361 mg/dL (70-110)
[2021-05-08] MEDS: azithromycin 500 MG in sodium chloride 0.9% 250 ML 250 MG IV (13:09)
[2021-05-08] MEDS: insulin glargine 100 units/1 mL 20 UNIT SUBCUT (13:10)
[2021-05-08 15:45] LABS: Glucose Point of Care 361 mg/dL (70-110)
[2021-05-08] MEDS: ipratropium-albuterol 3 mL Neb INHALATION ×2 (16:07→22:25)
[2021-05-08] MEDS: dexamethasone 4 mg/mL INJ 6 MG IVP (16:17)
--- NOTE | 2021-05-08 18:10 | PC.NURSE ---
Pt transferred to room 255-2. Pt tollerated well.
[2021-05-08] MEDS: remdesivir 100 MG in sodium chloride 0.9% (100 ml) 100 ML IV (18:33)
--- NOTE | 2021-05-08 18:42 | PC.NURSE ---
patient arrived to room at 1814
[2021-05-08] MEDS: apixaban 5 mg Tablet PO (20:50)
[2021-05-08] MEDS: insulin glargine 100 units/1 mL 60 UNIT SUBCUT (20:50)
--- NOTE | 2021-05-08 22:05 | P.PN_ITS ---
Subjective Subjective: Interval history: Patient was seen and examined this morning: Shortness of breath has not worsened, currently on heated high flow oxygen through nasal cannula, 65% FiO2 and 45 L. Has remained afebrile. Medications: Reviewed: Yes Vitals/I&O/Wt Last Vital Signs Temp 97.5 F L 05/08/21 20:00 Pulse 62 05/08/21 20:00 Resp 20 H 05/08/21 20:00 BP 129/72 05/08/21 20:00 Pulse Ox 97 05/08/21 20:00 05/08/21 05/08/21 05/08/21 06:59 14:59 22:59 Intake Total 60 / 578 290 / 290 350 / 640 Output Total 450 / 2350 75 / 75 825 / 900 Balance -390 / -1772 215 / 215 -475 / -260 Weight last 48 hrs Weight 95.254 kg Weight 96.207 kg Physical Exam Const: COMMON NORMALS: patient oriented x3 HENMT: COMMON NORMALS: normocephalic and atraumatic HEAD & SCALP: normocephalic and atraumatic Chest: COMMONS NORMALS: normal inspection of the chest and normal palpation of entire chest wall CHEST: Yes Symmetrical chest wall rise Resp: OTHER: Diminished air entry bilaterally Cardio: COMMON NORMALS: regular rate, regular rhythm, S1 normal heart sound present, S2 normal heart sound present, No gallops present (Cardio), No murmurs present (Cardio), No rub (Cardio) and Peripheral pulses 2+ throughout RATE: regular rate RHYTHM: regular rhythm HEART SOUNDS: S1 normal heart sound present and S2 normal heart sound present PERIPHERAL PULSES: Peripheral pulses 2+ throughout GI: COMMON NORMALS: Normal to inspection, nondistended, normoactive bowel sounds present, Soft to palpation, non-tender, No hepatosplenomegaly present and no masses AUSCULTATION: Yes normoactive bowel sounds PALPATION: Yes Soft to palpation and Yes No hepatosplenomegaly present RECTAL EXAM: Yes deferred Extremity: COMMON NORMALS: no clubbing, cyanosis or edema and no pedal edema Neuro: COMMON NORMALS: patient oriented x3 Data : 05/08/21 04:33 05/08/21 04:33 A&P Assessment and plan (1) Pneumonia due to COVID-19 virus: Status: Acute (2) Acute respiratory failure with hypoxia: Status: Acute (3) CKD (chronic kidney disease) stage 4, GFR 15-29 ml/min: Baseline creatinine 2.5-3. Creatinine under baseline for now. Medical reconciliation done for nephrotoxic drugs. We will continue to monitor for now. Status: Acute (4) Metabolic acidosis: Secondary to CKD along with IV fluids. Start patient on oral sodium bicarbonate supplementation 650 twice daily. Continue to monitor BMP daily for now. Status: Acute (5) Diabetes mellitus with hyperglycemia: Status: Acute (6) Elevated d-dimer: Status: Acute (7) Hyperkalemia: Status: Acute Additional A&P Information Hypoxia secondary to COVID-19 pneumonia: Moderate disease. Oxygen supplementation keeping saturation over 90%. Remdesivir to finish 5-day course. Dexamethasone 6 mg IV daily. Vitamin C, zinc. Tessalon Perles, Robitussin as needed. Advair, Spiriva. Pulmonary toilet with incentive spirometry and flutter valve as possible and to tolerated. Post 1 dose of Actemra on May 06. Continue to monitor inflammatory markers including ESR, CRP, ferritin. Check procalcitonin, MRSA swab, sputum culture, blood culture, urine Legionella, bacterial antigen. Low suspicion of bacterial superimposed infection. Given the severity of disease, continue with ceftriaxone and azithromycin to finish 5- day course. Will de-escalate antibiotics as per culture results. D-dimer elevated. As patient is still requiring high flow and cannot do CTA PE because of CKD we will start patient on Eliquis 5 mg twice daily. Most likely patient will need a 14-day course post discharge. Check CT without contrast to further visualization of pneumonitis. Check echocardiogram. We will try to keep patient as negative as possible. Looks on the soap drier tender side for now. Strict input output charting. Daily weights. Fluid restriction up to 1500 cc. Diabetes mellitus with hyperglycemia: Blood sugar extremely elevated. Patient requiring high insulin doses for now. At home takes 90 units of NPH 70/30 mix twice daily along with NovoLog 20 units 3 times daily Increase Lantus to 60 units twice daily. Insulin sliding scale at high-dose protocol every 4 hours along with 25 units with meals. Hypertension: Goal blood pressure less than 140/90 mmHg. Amlodipine 10 mg p.o. daily Continue metoprolol 100 mg b.i.d. Hold Aldactone Eliquis will help for DVT prophylaxis Full code. Protonix for DVT prophylaxis Attestations Medical Necessity Statement*: Requires further hospitalization for management of severe hypoxia because of COVID-19 pneumonia, hyperglycemia in setting of type 2 diabetes mellitus, CKD Time Spent in Patient Care: Greater than 35 minutes (>than 50% of time spent in counselling and/or direct pt care on unit) . 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
[2021-05-08 22:09] LABS: Glucose Point of Care 130 mg/dL (70-110)
[2021-05-09] VITALS (16 sets, daily range): BP systolic 123–159; BP diastolic 53–89; PULSE 57–79; RESP 16–24; TEMP 36.3–36.9; O2SAT 89–95
[2021-05-09] MEDS: ipratropium-albuterol 3 mL Neb INHALATION ×5 (00:44→23:37)
[2021-05-09 03:34] LABS: Glucose Point of Care 153 mg/dL (70-110)
[2021-05-09 05:49] LABS: Basophils % 0.1 %; Hematocrit 35.1 % (42.0-52.0); Hemoglobin 11.5 g/dL (11.7-16.6); Lymphocytes # 0.2 10^3/uL (0.8-4.8); Lymphocytes % 2.5 %; Mean Corpuscular HGB Conc 32.8 g/dL (30.0-36.0); Mean Corpuscular Hemoglobin 30.2 pg (28.0-34.0); Mean Corpuscular Volume 92.1 fL (80-94); Mean Platelet Volume 11.7 fL (7.4-10.4); Monocytes # 0.3 10^3/uL (0.2-0.9); Monocytes % 2.9 %; Neutrophils # 8.74 10^3/uL (1.8-7.7); Neutrophils % 92.4 %; Nucleated Red Blood Cells % 0 %; Platelet Count 288 10^3/cmm (130-400); Red Blood Count 3.81 10^6/uL (4.1-5.3); Red Cell Distribution Width 12.7 % (12.1-15.1); White Blood Count 9.5 10^3/uL (4.0-10.0)
[2021-05-09 06:00] LABS: Fibrinogen 711 mg/dL (174-498)
--- NOTE | 2021-05-09 06:00 | USCV_ITS ---
Adrien Fausto Age: 65 Gender: M : 1955 Exam Date: 05/09/2021 06:48 Ordering Phys: Skinny Johnson MD Technologist: Exam Location: [facility] – [place] Indication: SOB COVID BP: / HR: 69 Rhythm: Sinus Technical Quality: Adequate MEASUREMENTS (Male / Female) Normal Values 2D ECHO LV Diastolic Diameter PLAX 4.5 cm 4.2 - 5.9 / 3.9 - 5.3 cm LV Systolic Diameter PLAX 3.3 cm IVS Diastolic Thickness 1.4 cm 0.6 - 1.0 / 0.6 - 0.9 cm IVS Systolic Thickness 1.9 cm LVPW Diastolic Thickness 0.9 cm 0.6 - 1.0 / 0.6 - 0.9 cm LVPW Systolic Thickness 1.6 cm LVOT Diameter 2.9 cm LV Ejection Fraction 2D Teich 51.6 % LV Ejection Fraction MOD 2C 36.7 % LV Ejection Fraction 2C AL 37.7 % LA Diameter 3.3 cm LA Width 4.2 cm LA Height 5.1 cm RA Width 4.2 cm RA Height 4.5 cm Aorta at Sinotubular Diameter 3.0 cm M-MODE MV E Point Septal Separation 0.6 cm DOPPLER AV Peak Velocity 140.0 cm/s LVOT Peak Velocity 78.0 cm/s AV Area Cont Eq vti 4.1 cm squared AV Area Cont Eq pk 3.8 cm squared MV Area PHT 5.0 cm squared Mitral E to A Ratio 0.7 MV E' Velocity 32.5 cm/s Mitral E to MV E' Ratio 11.4 Mitral E to LV E' Lateral Ratio 11.0 Mitral E to LV E' Septal Ratio 12.1 TR Peak Velocity 170.0 cm/s TR Peak Gradient 11.6 mmHg Right Atrial Pressure 3.0 mmHg Pulmonary Artery Systolic Pressu 14.6 mmHg PV Peak Velocity 64.0 cm/s FINDINGS Left Ventricle Normal left ventricular cavity size. Normal left ventricular systolic function. No regional wall motion abnormalities. Left ventricular ejection fraction is estimated at 55 %. Grade I/IV diastolic dysfunction (abnormal relaxation filling pattern), normal to mildly elevated filling pressures. Right Ventricle The right ventricle is normal in size and function. Right Atrium The right atrium is normal in size. Left Atrium The left atrium is normal in size. Mitral Valve Structurally normal mitral valve without significant stenosis or prolapse. There is no mitral regurgitation. Aortic Valve Structurally normal aortic valve without significant sclerosis or stenosis. There is no aortic regurgitation. Tricuspid Valve Structurally normal tricuspid valve without significant stenosis or regurgitation. Pulmonary artery systolic pressure is normal. Pulmonic Valve Structurally normal pulmonic valve without significant stenosis. There is no pulmonic regurgitation. Pericardium Normal pericardium without effusion. Aorta Normal ascending aorta dimension. CONCLUSIONS 1-Normal left ventricular cavity size. Normal left ventricular systolic function. No regional wall motion abnormalities. Left ventricular ejection fraction is estimated at 55 %. Grade I/IV diastolic dysfunction (abnormal relaxation filling pattern), normal to mildly elevated filling pressures. 2-There is no pericardial effusion. 3-No significant valve abnormalities. 4-Pulmonary artery systolic pressure is within normal limits. 5-There are no prior echocardiogram studies to compare. Mavis Fields MD (Electronically Signed) Final Date: 09 May 2021 18:02 S
[2021-05-09 06:09] LABS: Alanine Aminotransferase 29 U/L (0-41); Albumin Level 2.7 g/dL (3.5-5.2); Alkaline Phosphatase 61 IU/L (40-130); Anion Gap 16.7 (5-19); Aspartate Amino Transferase 30 U/L (0-40); Blood Urea Nitrogen 71 mg/dL (8-23); C Reactive Protein 33.1 mg/L (0.0-4.9); Calcium 9.2 mg/dL (8.5-10.5); Carbon Dioxide 21 mmol/L (22-29); Chloride 104 mmol/L (98-107); Globulin 3.8 g/dL (1.3-4.6); Glomerular Filtration Rate 35.6 mL/min (90-130); Glucose 153 mg/dL (65-115); Magnesium 1.9 mg/dL (1.7-2.3); Osmolality Calculated 308 mOsm/kg (285-295); Potassium 4.7 mmol/L (3.5-5.1); Sodium 137 mmol/L (136-145); Total Bilirubin 0.3 mg/dL (0.15-1.2); Total Protein 6.5 g/dL (6.6-8.7)
[2021-05-09 06:13] LABS: NT Pro B Type Natriuretic Pept 330 pg/mL (0-125)
[2021-05-09 06:26] LABS: Erythrocyte Sedimentation Rate 107 mm/hr (0-10); Ferritin 1735 ng/mL (30-400)
[2021-05-09 06:26] LABS: Glucose Point of Care 137 mg/dL (70-110)
[2021-05-09 07:42] LABS: Free T4 Free Thyroxine 1.08 ng/dL (0.82-1.77); T3 Free 1.4 PG/ML (2.0-4.4)
[2021-05-09] MEDS: budesonide 0.5 mg/2 mL Neb INHALATION ×2 (09:21→20:49)
[2021-05-09] MEDS: allopurinol 100 mg Tablet PO (09:28)
[2021-05-09] MEDS: metoprolol tartrate 50 mg Tablet 100 MG PO ×2 (09:28→17:49)
[2021-05-09] MEDS: pantoprazole DR 40 mg Tablet PO (09:30)
[2021-05-09] MEDS: doxazosin 4 mg Tablet 8 MG PO (09:30)
[2021-05-09] MEDS: amlodipine 10 mg Tablet PO (09:31)
[2021-05-09] MEDS: apixaban 5 mg Tablet PO ×2 (09:31→23:24)
[2021-05-09] MEDS: insulin glargine 100 units/1 mL 60 UNIT SUBCUT ×2 (09:31→23:24)
[2021-05-09] MEDS: sodium bicarbonate 650 mg Tablet PO ×2 (09:31→17:49)
[2021-05-09 10:56] LABS: Glucose Point of Care 223 mg/dL (70-110)
[2021-05-09] MEDS: cefTRIAXone 1,000 MG in sodium chloride 0.9% (plus) 50 ML 100 MG IV (12:35)
--- NOTE | 2021-05-09 16:10 | PM.PN ---
Subjective Subjective: Interval history: Documents overnight. Patient is lying comfortably in bed during examination. Discussed in detail with patient need for sitting up in chair when possible. Discussed about physical therapy and incentive spirometry. Patient verbalized understanding. Was able to come down to 10 L high flow nasal cannula from heated high flow today morning. Has remained hemodynamically stable and afebrile overnight. Medications: Reviewed: Yes Vitals/I&O/Wt Last Vital Signs Temp 98.4 F 05/09/21 12:00 Pulse 78 05/09/21 15:50 Resp 18 05/09/21 15:48 BP 137/86 05/09/21 12:00 Pulse Ox 92 05/09/21 15:48 05/09/21 05/09/21 05/09/21 06:59 14:59 22:59 Intake Total 1020 / 1020 Output Total 300 / 1400 150 / 150 Balance -300 / -760 870 / 870 Weight last 48 hrs Weight 94.529 kg Weight 95.254 kg Physical Exam Const: COMMON NORMALS: patient oriented x3 HENMT: COMMON NORMALS: normocephalic and atraumatic HEAD & SCALP: normocephalic and atraumatic Chest: COMMONS NORMALS: normal inspection of the chest and normal palpation of entire chest wall CHEST: Yes Symmetrical chest wall rise Resp: OTHER: Diminished air entry bilaterally Cardio: COMMON NORMALS: regular rate, regular rhythm, S1 normal heart sound present, S2 normal heart sound present, No gallops present (Cardio), No murmurs present (Cardio), No rub (Cardio) and Peripheral pulses 2+ throughout RATE: regular rate RHYTHM: regular rhythm HEART SOUNDS: S1 normal heart sound present and S2 normal heart sound present PERIPHERAL PULSES: Peripheral pulses 2+ throughout GI: COMMON NORMALS: Normal to inspection, nondistended, normoactive bowel sounds present, Soft to palpation, non-tender, No hepatosplenomegaly present and no masses AUSCULTATION: Yes normoactive bowel sounds PALPATION: Yes Soft to palpation and Yes No hepatosplenomegaly present RECTAL EXAM: Yes deferred Extremity: COMMON NORMALS: no clubbing, cyanosis or edema and no pedal edema Neuro: COMMON NORMALS: patient oriented x3 Data : 05/09/21 05:12 05/09/21 05:12 Micro: Microbiology 05/08/21 15:30 MRSA Culture - Final Nose A&P Assessment and plan (1) Pneumonia due to COVID-19 virus: Status: Acute (2) Acute respiratory failure with hypoxia: Status: Acute (3) CKD (chronic kidney disease) stage 4, GFR 15-29 ml/min: Baseline creatinine 2.5-3. Creatinine under baseline for now. Medical reconciliation done for nephrotoxic drugs. We will continue to monitor for now. Status: Acute (4) Metabolic acidosis: Secondary to CKD along with IV fluids. Start patient on oral sodium bicarbonate supplementation 650 twice daily. Continue to monitor BMP daily for now. Status: Acute (5) Diabetes mellitus with hyperglycemia: Status: Acute (6) Elevated d-dimer: Status: Acute (7) Hyperkalemia: Status: Acute Additional A&P Information Hypoxia secondary to COVID-19 pneumonia: Moderate disease. Oxygen supplementation keeping saturation over 90%. Remdesivir to finish 5-day course. Last dose May 10. Dexamethasone 6 mg IV daily. Vitamin C, zinc. Tessalon Perles, Robitussin as needed. Advair, Spiriva. Pulmonary toilet with incentive spirometry and flutter valve as possible and to tolerated. Post 1 dose of Actemra on May 06. Continue to monitor inflammatory markers including ESR, CRP, ferritin. ESR still elevated to 107, fibrinogen getting worse, CRP improving to 33. Given patient still requiring high flow nasal cannula and persistently elevated ESR and fibrinogen will dose repeat Actemra. Will confirm with pharmacy. Pro-Tay, MRSA swab negative. Sputum culture not collected. Low suspicion of bacterial superimposed infection. Given the severity of disease, continue with ceftriaxone and azithromycin to finish 5-day course. Will de-escalate antibiotics as per culture results. D-dimer elevated. As patient is still requiring high flow and cannot do CTA PE because of CKD we will start patient on Eliquis 5 mg twice daily. Most likely patient will need a 14-day course post discharge. Check echocardiogram. We will try to keep patient as negative as possible. Net 2.5 L negative since admission. Strict input output charting. Daily weights. Fluid restriction up to 1500 cc. Diabetes mellitus with hyperglycemia: Improving. Blood sugar extremely elevated. Patient requiring high insulin doses for now. At home takes 90 units of NPH 70/30 mix twice daily along with NovoLog 20 units 3 times daily Continue with Lantus to 60 units twice daily. Insulin sliding scale high-dose protocol AC at bedtime with additional 25 units with each meal. Hypertension: Goal blood pressure less than 140/90 mmHg. Amlodipine 10 mg p.o. daily Continue metoprolol 100 mg b.i.d. Hold Aldactone Eliquis will help for DVT prophylaxis Full code. Protonix for DVT prophylaxis Out of bed to chair. PT/OT treatment. Attestations Medical Necessity Statement*: Requires further hospitalization for management of hypoxia secondary to COVID-19 pneumonia as patient is still requiring high flow oxygen supplementation. Time Spent in Patient Care: Greater than 35 minutes (>than 50% of time spent in counselling and/or direct pt care on unit). Coding Level of Care Code Acute Director Religious Education for [facility] Fwd Diagnoses Pneumonia due to COVID-19 virus U07.1; J12.82 Acute respiratory failure with hypoxia J96.01 CKD (chronic kidney disease) stage 4, GFR 15-29 ml/min N18.4 Metabolic acidosis E87.2 Diabetes mellitus with hyperglycemia E11.65 Elevated d-dimer R79.89 Hyperkalemia E87.5
[2021-05-09 17:42] LABS: Glucose Point of Care 116 mg/dL (70-110)
[2021-05-09 17:42] LABS: Glucose Point of Care 324 mg/dL (70-110)
[2021-05-09] MEDS: dexamethasone 4 mg/mL INJ 6 MG IVP (17:48)
[2021-05-09] MEDS: remdesivir 100 MG in sodium chloride 0.9% (100 ml) 100 ML IV (17:49)
[2021-05-09 23:19] LABS: Glucose Point of Care 255 mg/dL (70-110)
[2021-05-10] VITALS (11 sets, daily range): BP systolic 133–153; BP diastolic 78–98; PULSE 64–78; RESP 15–22; TEMP 36.5–36.8; O2SAT 88–96; BMI 29.9
[2021-05-10] MEDS: ipratropium-albuterol 3 mL Neb INHALATION ×2 (03:25→09:04)
[2021-05-10 06:42] LABS: Glucose Point of Care 327 mg/dL (70-110)
[2021-05-10 07:10] LABS: Basophils % 0.2 %; Hematocrit 35.5 % (42.0-52.0); Hemoglobin 11.6 g/dL (11.7-16.6); Lymphocytes # 0.3 10^3/uL (0.8-4.8); Lymphocytes % 2.5 %; Mean Corpuscular HGB Conc 32.7 g/dL (30.0-36.0); Mean Corpuscular Hemoglobin 30.1 pg (28.0-34.0); Mean Corpuscular Volume 92.2 fL (80-94); Mean Platelet Volume 11.8 fL (7.4-10.4); Monocytes # 0.4 10^3/uL (0.2-0.9); Monocytes % 3.7 %; Neutrophils # 9.46 10^3/uL (1.8-7.7); Neutrophils % 89.2 %; Nucleated Red Blood Cells % 0 %; Platelet Count 284 10^3/cmm (130-400); Red Blood Count 3.85 10^6/uL (4.1-5.3); Red Cell Distribution Width 12.5 % (12.1-15.1); White Blood Count 10.6 10^3/uL (4.0-10.0)
[2021-05-10 07:45] LABS: NT Pro B Type Natriuretic Pept 329 pg/mL (0-125); Procalcitonin 0.14 ng/mL (0-0.5)
[2021-05-10 07:56] LABS: Alanine Aminotransferase 32 U/L (0-41); Albumin Level 2.7 g/dL (3.5-5.2); Alkaline Phosphatase 99 IU/L (40-130); Anion Gap 17.8 (5-19); Aspartate Amino Transferase 26 U/L (0-40); Blood Urea Nitrogen 64 mg/dL (8-23); C Reactive Protein 20.7 mg/L (0.0-4.9); Calcium 9.3 mg/dL (8.5-10.5); Carbon Dioxide 18 mmol/L (22-29); Chloride 101 mmol/L (98-107); Globulin 3.7 g/dL (1.3-4.6); Glomerular Filtration Rate 37.9 mL/min (90-130); Glucose 318 mg/dL (65-115); Magnesium 1.9 mg/dL (1.7-2.3); Osmolality Calculated 305 mOsm/kg (285-295); Potassium 4.8 mmol/L (3.5-5.1); Sodium 132 mmol/L (136-145); Total Bilirubin 0.2 mg/dL (0.15-1.2); Total Protein 6.4 g/dL (6.6-8.7)
[2021-05-10] MEDS: budesonide 0.5 mg/2 mL Neb INHALATION (09:04)
[2021-05-10 09:20] LABS: Erythrocyte Sedimentation Rate 97 mm/hr (0-10)
--- NOTE | 2021-05-10 10:13 | P.PN_ITS ---
Subjective Subjective: Interval history: No events overnight. Patient denies any nausea vomiting, headache. Laying in bed eating banana. During my examination I made patient sit up in chair. Denies any dizziness, difficulty in breathing on getting up from bed to chair. Currently on 10 L high flow nasal cannula saturating 90%. Denies any nausea vomiting, headache. States he is feeling lit tle better. Medications: Reviewed: Yes Vitals/I&O/Wt Last Vital Signs Temp 97.7 F 05/10/21 08:00 Pulse 65 05/10/21 08:00 Resp 16 05/10/21 08:00 BP 133/78 05/10/21 08:00 Pulse Ox 91 05/10/21 08:00 05/09/21 05/10/21 05/10/21 22:59 06:59 14:59 Intake Total 460 / 1480 240 / 240 Output Total 700 / 850 300 / 1150 Balance -240 / 630 -300 / 330 240 / 240 Weight last 48 hrs Weight 94.529 kg Weight 94.529 kg Physical Exam Const: COMMON NORMALS: patient oriented x3 HENMT: COMMON NORMALS: normocephalic and atraumatic HEAD & SCALP: normocephalic and atraumatic Chest: COMMONS NORMALS: normal inspection of the chest and normal palpation of entire chest wall CHEST: Yes Symmetrical chest wall rise Resp: OTHER: Diminished air entry bilaterally Cardio: COMMON NORMALS: regular rate, regular rhythm, S1 normal heart sound present, S2 normal heart sound present, No gallops present (Cardio), No murmurs present (Cardio), No rub (Cardio) and Peripheral pulses 2+ throughout RATE: regular rate RHYTHM: regular rhythm HEART SOUNDS: S1 normal heart sound present and S2 normal heart sound present PERIPHERAL PULSES: Peripheral pulses 2+ throughout GI: COMMON NORMALS: Normal to inspection, nondistended, normoactive bowel sounds present, Soft to palpation, non-tender, No hepatosplenomegaly present and no masses AUSCULTATION: Yes normoactive bowel sounds PALPATION: Yes Soft to palpation and Yes No hepatosplenomegaly present RECTAL EXAM: Yes deferred Extremity: COMMON NORMALS: no clubbing, cyanosis or edema and no pedal edema Neuro: COMMON NORMALS: patient oriented x3 Data : 05/10/21 06:39 05/10/21 06:39 Micro: Microbiology 05/04/21 17:30 Blood Culture - Final Blood NO GROWTH AFTER 5 DAYS 05/04/21 17:39 Blood Culture - Final Blood NO GROWTH AFTER 5 DAYS 05/08/21 15:30 MRSA Culture - Final Nose A&P Assessment and plan (1) Pneumonia due to COVID-19 virus: Status: Acute (2) Acute respiratory failure with hypoxia: Status: Acute (3) CKD (chronic kidney disease) stage 4, GFR 15-29 ml/min: Baseline creatinine 2.5-3. Creatinine under baseline for now. Medical reconciliation done for nephrotoxic drugs. We will continue to monitor for now. Status: Acute (4) Metabolic acidosis: Secondary to CKD along with IV fluids. Start patient on oral sodium bicarbonate supplementation 650 twice daily. Continue to monitor BMP daily for now. Status: Acute (5) Diabetes mellitus with hyperglycemia: Status: Acute (6) Elevated d-dimer: Status: Acute (7) Hyperkalemia: Status: Acute Additional A&P Information Hypoxia secondary to COVID-19 pneumonia: Moderate disease. Oxygen supplementation keeping saturation over 90%. Remdesivir to finish 5-day course. Last dose May 10. Dexamethasone 6 mg IV daily. Vitamin C, zinc. Tessalon Perles, Robitussin as needed. Advair, Spiriva. Pulmonary toilet with incentive spirometry and flutter valve as possible and to tolerated. Post 1 dose of Actemra on May 06. Continue to monitor inflammatory markers including ESR, CRP, ferritin. Inflammatory markers trending down. Pro-Tay, MRSA swab negative. Sputum culture not collected. Low suspicion of bacterial superimposed infection. Given the severity of disease, continue with ceftriaxone and azithromycin to finish 5-day course. Finished course on May 10. D-dimer elevated. As patient is still requiring high flow and cannot do CTA PE because of CKD we will start patient on Eliquis 5 mg twice daily. Most likely patient will need a 14-day course post discharge. Echocardiogram shows an EF 55% with grade 1 diastolic dysfunction. We will try to keep patient as negative as possible. Net 2.5 L negative since admission. Strict input output charting. Daily weights. Fluid restriction up to 1500 cc. Lasix 40 mg stat. Will Abdirahman Lasix daily as per the fluid status. Diabetes mellitus with hyperglycemia: Improving. Blood sugar extremely elevated. Patient requiring high insulin doses for now. At home takes 90 units of NPH 70/30 mix twice daily along with NovoLog 20 units 3 times daily Increase Lantus to 80 units twice daily. Insulin sliding scale high-dose protocol AC at bedtime with additional 25 units with each meal. Hypertension: Goal blood pressure less than 140/90 mmHg. Amlodipine 10 mg p.o. daily Continue metoprolol 100 mg b.i.d. Hold Aldactone Eliquis will help for DVT prophylaxis Full code. Protonix for DVT prophylaxis Out of bed to chair. PT/OT treatment. Attestations Medical Necessity Statement*: Requires further hospitalization for management of hypoxia secondary to COVID-19 pneumonia requiring high oxygen supplementation, uncontrolled diabetes mellitus Time Spent in Patient Care: Greater than 35 minutes (>than 50% of time spent in counselling and/or direct pt care on unit) . Coding Level of Care Code Acute Advanced Manufacturing Technician for [facility] Fwd Exam Detailed Diagnoses Pneumonia due to COVID-19 virus U07.1; J12.82 Acute respiratory failure with hypoxia J96.01 CKD (chronic kidney disease) stage 4, GFR 15-29 ml/min N18.4 Metabolic acidosis E87.2 Diabetes mellitus with hyperglycemia E11.65 Elevated d-dimer R79.89 Hyperkalemia E87.5
[2021-05-10] MEDS: doxazosin 4 mg Tablet 8 MG PO (10:45)
[2021-05-10] MEDS: amlodipine 10 mg Tablet PO (10:45)
[2021-05-10] MEDS: metoprolol tartrate 50 mg Tablet 100 MG PO ×2 (10:46→18:53)
[2021-05-10] MEDS: allopurinol 100 mg Tablet PO (10:47)
[2021-05-10] MEDS: sodium bicarbonate 650 mg Tablet PO ×2 (10:47→18:53)
[2021-05-10] MEDS: apixaban 5 mg Tablet PO ×2 (10:47→21:44)
[2021-05-10] MEDS: pantoprazole DR 40 mg Tablet PO (10:47)
[2021-05-10] MEDS: insulin glargine 100 units/1 mL 20 UNIT SUBCUT (10:48)
[2021-05-10] MEDS: FUROsemide 10 mg/mL SDV 4mL 40 MG IVP (10:48)
[2021-05-10 10:53] LABS: Glucose Point of Care 395 mg/dL (70-110)
[2021-05-10] MEDS: dexamethasone 4 mg/mL INJ 6 MG IVP (18:53)
[2021-05-10] MEDS: remdesivir 100 MG in sodium chloride 0.9% (100 ml) 100 ML IV (19:06)
[2021-05-11] VITALS (11 sets, daily range): BP systolic 106–152; BP diastolic 60–88; PULSE 59–75; RESP 15–22; TEMP 36.6–36.8; O2SAT 88–95
--- NOTE | 2021-05-11 06:00 | XR_ITS ---
WS: [id number] XR chest 1V portable [id number] REASON FOR EXAM: covid FINDINGS: Partial resolution of the infiltrative change in the right mid lung peripherally. Infiltrate in the left lower lung does not appear to change significantly. No new findings are noted. XR/XR chest 1V portable [id number] IMPRESSION: Interval improvement as above.
[2021-05-11 07:33] LABS: Basophils % 0.3 %; Hematocrit 37.7 % (42.0-52.0); Hemoglobin 12.3 g/dL (11.7-16.6); Lymphocytes # 0.3 10^3/uL (0.8-4.8); Lymphocytes % 3.1 %; Mean Corpuscular HGB Conc 32.6 g/dL (30.0-36.0); Mean Corpuscular Hemoglobin 30.1 pg (28.0-34.0); Mean Corpuscular Volume 92.4 fL (80-94); Mean Platelet Volume 11.9 fL (7.4-10.4); Monocytes # 0.4 10^3/uL (0.2-0.9); Monocytes % 3.5 %; Neutrophils # 9.45 10^3/uL (1.8-7.7); Neutrophils % 87.6 %; Nucleated Red Blood Cells % 0.2 %; Platelet Count 312 10^3/cmm (130-400); Red Blood Count 4.08 10^6/uL (4.1-5.3); Red Cell Distribution Width 12.6 % (12.1-15.1); White Blood Count 10.8 10^3/uL (4.0-10.0)
[2021-05-11 07:51] LABS: Alanine Aminotransferase 35 U/L (0-41); Albumin Level 2.9 g/dL (3.5-5.2); Alkaline Phosphatase 93 IU/L (40-130); Anion Gap 13.9 (5-19); Aspartate Amino Transferase 32 U/L (0-40); Blood Urea Nitrogen 63 mg/dL (8-23); Calcium 9.1 mg/dL (8.5-10.5); Carbon Dioxide 21 mmol/L (22-29); Chloride 105 mmol/L (98-107); Globulin 3.5 g/dL (1.3-4.6); Glomerular Filtration Rate 33.6 mL/min (90-130); Glucose 177 mg/dL (65-115); Osmolality Calculated 302 mOsm/kg (285-295); Potassium 4.9 mmol/L (3.5-5.1); Sodium 135 mmol/L (136-145); Total Bilirubin 0.2 mg/dL (0.15-1.2); Total Protein 6.4 g/dL (6.6-8.7)
[2021-05-11 07:59] LABS: Procalcitonin 0.14 ng/mL (0-0.5)
[2021-05-11 08:00] LABS: NT Pro B Type Natriuretic Pept 244 pg/mL (0-125)
[2021-05-11 08:00] LABS: Glucose Point of Care 91 mg/dL (70-110)
[2021-05-11 08:00] LABS: Glucose Point of Care 171 mg/dL (70-110)
[2021-05-11 08:00] LABS: Glucose Point of Care 358 mg/dL (70-110)
[2021-05-11] MEDS: albuterol 8 gm MDI 2 PUFF INHALATION ×2 (08:02→21:25)
[2021-05-11 08:12] LABS: C Reactive Protein 12.5 mg/L (0.0-4.9)
[2021-05-11 08:37] LABS: Erythrocyte Sedimentation Rate 84 mm/hr (0-10)
[2021-05-11] MEDS: amlodipine 10 mg Tablet PO (10:10)
[2021-05-11] MEDS: pantoprazole DR 40 mg Tablet PO (10:11)
[2021-05-11] MEDS: metoprolol tartrate 50 mg Tablet 100 MG PO ×2 (10:11→17:27)
[2021-05-11] MEDS: doxazosin 4 mg Tablet 8 MG PO (10:11)
[2021-05-11] MEDS: allopurinol 100 mg Tablet PO (10:11)
[2021-05-11] MEDS: sodium bicarbonate 650 mg Tablet PO ×2 (10:11→17:29)
[2021-05-11] MEDS: insulin glargine 100 units/1 mL 80 UNIT SUBCUT (10:12)
[2021-05-11] MEDS: apixaban 5 mg Tablet PO (10:16)
[2021-05-11 12:12] LABS: Glucose Point of Care 257 mg/dL (70-110)
[2021-05-11] MEDS: FUROsemide 10 mg/mL SDV 2mL 20 MG IVP (12:25)
--- NOTE | 2021-05-11 16:13 | PM.PN ---
Subjective Subjective: Interval history: No events overnight. Patient denies any nausea vomiting, headache. States he did not sleep well last night as he was disturbed again again. He refuses to get out of bed to chair today. States he will work with incentive spirometry and flutter valve repair. Patient's care has been compromised because of his lack of motivation to get out of bed to chair even with physical therapy. This has been discussed multiple times with him in the past. Currently he is on 10 L high flow nasal cannula saturating 91%. Medications: Reviewed: Yes Vitals/I&O/Wt Last Vital Signs Temp 97.9 F 05/11/21 16:00 Pulse 66 05/11/21 16:00 Resp 17 05/11/21 16:00 BP 117/70 05/11/21 16:00 Pulse Ox 91 05/11/21 16:00 05/11/21 05/11/21 05/11/21 06:59 14:59 22:59 Intake Total 720 / 720 Output Total 400 / 1475 Balance -400 / -1135 720 / 720 Weight last 48 hrs Weight 92.487 kg Weight 94.529 kg Physical Exam Const: COMMON NORMALS: patient oriented x3 HENMT: COMMON NORMALS: normocephalic and atraumatic HEAD & SCALP: normocephalic and atraumatic Chest: COMMONS NORMALS: normal inspection of the chest and normal palpation of entire chest wall CHEST: Yes Symmetrical chest wall rise Resp: OTHER: Diminished air entry bilaterally Cardio: COMMON NORMALS: regular rate, regular rhythm, S1 normal heart sound present, S2 normal heart sound present, No gallops present (Cardio), No murmurs present (Cardio), No rub (Cardio) and Peripheral pulses 2+ throughout RATE: regular rate RHYTHM: regular rhythm HEART SOUNDS: S1 normal heart sound present and S2 normal heart sound present PERIPHERAL PULSES: Peripheral pulses 2+ throughout GI: COMMON NORMALS: Normal to inspection, nondistended, normoactive bowel sounds present, Soft to palpation, non-tender, No hepatosplenomegaly present and no masses AUSCULTATION: Yes normoactive bowel sounds PALPATION: Yes Soft to palpation and Yes No hepatosplenomegaly present RECTAL EXAM: Yes deferred Extremity: COMMON NORMALS: no clubbing, cyanosis or edema and no pedal edema Neuro: COMMON NORMALS: patient oriented x3 Data : 05/11/21 06:31 07/29/21 06:31 A&P Assessment and plan (1) Pneumonia due to COVID-19 virus: Status: Acute (2) Acute respiratory failure with hypoxia: Status: Acute (3) CKD (chronic kidney disease) stage 4, GFR 15-29 ml/min: Baseline creatinine 2.5-3. Creatinine under baseline for now. Medical reconciliation done for nephrotoxic drugs. We will continue to monitor for now. Status: Acute (4) Metabolic acidosis: Secondary to CKD along with IV fluids. Start patient on oral sodium bicarbonate supplementation 650 twice daily. Continue to monitor BMP daily for now. Status: Acute (5) Diabetes mellitus with hyperglycemia: Status: Acute (6) Elevated d-dimer: Status: Acute (7) Hyperkalemia: Status: Acute Additional A&P Information Hypoxia secondary to COVID-19 pneumonia: Moderate disease. Oxygen supplementation keeping saturation over 90%. Try patient on oxygen reservoir therapy today. Remdesivir to finish 5-day course. Last dose May 10. Dexamethasone 6 mg IV daily. Vitamin C, zinc. Tessalon Perles, Robitussin as needed. Advair, Spiriva. Pulmonary toilet with incentive spirometry and flutter valve as possible and to tolerated. Post 1 dose of Actemra on May 06. Continue to monitor inflammatory markers including ESR, CRP, ferritin. Inflammatory markers trending down. Pro-Tay, MRSA swab negative. Sputum culture not collected. Low suspicion of bacterial superimposed infection. Given the severity of disease. Finished course on May 10 for both azithromycin and ceftriaxone. D-dimer elevated. As patient is still requiring high flow and cannot do CTA PE because of CKD we will start patient on Eliquis 5 mg twice daily. Most likely patient will need a 14-day course post discharge. Echocardiogram shows an EF 55% with grade 1 diastolic dysfunction. We will try to keep patient as negative as possible. Net 3.5 L negative since admission. Strict input output charting. Daily weights. Fluid restriction up to 1500 cc. Lasix 20 mg stat. Will dose Lasix daily as per the fluid status. Diabetes mellitus with hyperglycemia: Improving. At home takes 90 units of NPH 70/30 mix twice daily along with NovoLog 20 units 3 times daily Continue with Lantus to 80 units twice daily. Insulin sliding scale high-dose protocol AC at bedtime with additional 25 units with each meal. Hypertension: Goal blood pressure less than 140/90 mmHg. Amlodipine 10 mg p.o. daily Continue metoprolol 100 mg b.i.d. Hold Aldactone CKD: Baseline creatinine seems to be around 2.5-3. Currently 2. BUN trending down as well. Medical reconciliation done for nephrotoxic drugs. Start on trazodone nightly. Eliquis will help for DVT prophylaxis Full code. Protonix for DVT prophylaxis Out of bed to chair. PT/OT treatment. Discharge planning: Physical therapy notation appreciated. Plan to discharge home with home exercise program on home oxygen once oxygen requirement less than 5 L. Trying oxygen reservoir therapy today. Attestations Medical Necessity Statement*: Requires further hospitalization for management of hypoxia secondary to COVID-19 pneumonia requiring high oxygen supplementation, uncontrolled diabetes mellitus Time Spent in Patient Care: Greater than 35 minutes (>than 50% of time spent in counselling and/or direct pt care on unit). Coding Level of Care Code Acute [place] [facility] Fwd Diagnoses Pneumonia due to COVID-19 virus U07.1; J12.82 Acute respiratory failure with hypoxia J96.01 CKD (chronic kidney disease) stage 4, GFR 15-29 ml/min N18.4 Metabolic acidosis E87.2 Diabetes mellitus with hyperglycemia E11.65 Elevated d-dimer R79.89 Hyperkalemia E87.5
[2021-05-11 17:03] LABS: Glucose Point of Care 150 mg/dL (70-110)
--- NOTE | 2021-05-11 17:08 | PC.SOCIAL ---
IMM Updated Updated pt, via phone, on Pg 2 IMM. No questions voiced. Provided pt a copy. Initialed, dated, & timed copy in chart.
[2021-05-11] MEDS: dexamethasone 4 mg/mL INJ 6 MG IVP (17:21)
[2021-05-11] MEDS: trazodone 150 mg Tablet 75 MG PO (21:14)
[2021-05-12] MEDS: insulin glargine 100 units/1 mL 80 UNIT SUBCUT ×2 (00:41→12:32)
[2021-05-12] MEDS: apixaban 5 mg Tablet PO ×2 (00:41→11:46)
[2021-05-12 04:00] VITALS: BP 110/58; PULSE 53; RESP 17; TEMP 36.8; O2SAT 89
[2021-05-12 06:36] LABS: Glucose Point of Care 255 mg/dL (70-110)
[2021-05-12 06:37] LABS: Glucose Point of Care 134 mg/dL (70-110)
[2021-05-12 08:41] LABS: Basophils % 0.3 %; Hematocrit 39.1 % (42.0-52.0); Hemoglobin 12.9 g/dL (11.7-16.6); Lymphocytes # 0.4 10^3/uL (0.8-4.8); Mean Corpuscular Hemoglobin 29.9 pg (28.0-34.0); Mean Corpuscular Volume 90.7 fL (80-94); Mean Platelet Volume 12.2 fL (7.4-10.4); Monocytes # 0.5 10^3/uL (0.2-0.9); Neutrophils # 11.46 10^3/uL (1.8-7.7); Neutrophils % 87.7 %; Nucleated Red Blood Cells % 0 %; Platelet Count 322 10^3/cmm (130-400); Red Blood Count 4.31 10^6/uL (4.1-5.3); Red Cell Distribution Width 12.7 % (12.1-15.1); White Blood Count 13.1 10^3/uL (4.0-10.0)
[2021-05-12 09:04] LABS: Alanine Aminotransferase 38 U/L (0-41); Albumin Level 2.9 g/dL (3.5-5.2); Alkaline Phosphatase 79 IU/L (40-130); Anion Gap 17.4 (5-19); Aspartate Amino Transferase 29 U/L (0-40); Blood Urea Nitrogen 72 mg/dL (8-23); Calcium 9.6 mg/dL (8.5-10.5); Carbon Dioxide 20 mmol/L (22-29); Chloride 104 mmol/L (98-107); Globulin 3.9 g/dL (1.3-4.6); Glomerular Filtration Rate 33.6 mL/min (90-130); Glucose 134 mg/dL (65-115); Osmolality Calculated 307 mOsm/kg (285-295); Potassium 4.4 mmol/L (3.5-5.1); Sodium 137 mmol/L (136-145); Total Bilirubin 0.4 mg/dL (0.15-1.2); Total Protein 6.8 g/dL (6.6-8.7)
[2021-05-12] MEDS: albuterol 8 gm MDI 2 PUFF INHALATION (10:18)
[2021-05-12 10:19] VITALS: PULSE 77; RESP 22; O2SAT 90
[2021-05-12 10:40] LABS: NT Pro B Type Natriuretic Pept 199 pg/mL (0-125)
[2021-05-12] MEDS: FUROsemide 40 mg Tablet PO (11:40)
[2021-05-12] MEDS: doxazosin 4 mg Tablet 8 MG PO (11:41)
[2021-05-12] MEDS: metoprolol tartrate 50 mg Tablet 75 MG PO (11:45)
[2021-05-12] MEDS: pantoprazole DR 40 mg Tablet PO (11:46)
[2021-05-12] MEDS: amlodipine 10 mg Tablet PO (11:46)
[2021-05-12] MEDS: allopurinol 100 mg Tablet PO (11:46)
[2021-05-12] MEDS: sodium bicarbonate 650 mg Tablet PO (11:47)
--- NOTE | 2021-05-12 11:54 | PM.DCS ---
Discharge Providers Date of Admission: 05/04/21 18:20 Date of Discharge: May 12, 2021 Attending Provider at Admission: Iron Morales MD Attending Provider at Discharge: Skinny Johnson MD Primary Care Provider: Rigoberto Mccann Diagnoses at Discharge Discharge Diagnosis (1) Pneumonia due to COVID-19 virus: Status: Acute (2) Acute respiratory failure with hypoxia: Status: Acute (3) CKD (chronic kidney disease) stage 4, GFR 15-29 ml/min: Status: Acute (4) Metabolic acidosis: Status: Acute (5) Diabetes mellitus with hyperglycemia: Status: Acute (6) Elevated d-dimer: Status: Acute (7) Hyperkalemia: Status: Acute Reason for Visit Reason for Visit: Weakness/Coughing Hospital Course Hospital Course 64-year-old male with past medical history significant for hypertension, benign prostatic hyperplasia, gout, obstructive sleep apnea, hyperparathyroidism, peripheral neuropathy, vitamin-D deficiency, and early stage monoclonal gammopathy, diabetes mellitus, episode of [place] spotted fever, and chronic stage 4 kidney disease with baseline creatinine around 2.5 who presented to the hospital for evaluation of respiratory distress. The symptoms have been progressing for the past few days. Initial vital signs on arrival showed a blood pressure of 131/80, heart rate of 82, respiratory rate of 18 and a temperature of 98.7?. Patient was initially nasal cannula however shortly after was transitioned to a heated high flow. Laboratory workup on arrival showed a WBC of 6.5, hemoglobin of 12.0, hematocrit of 36.9 and platelet count of 266. D-dimer of 3.62. Arterial blood gas showed a pH of 7.35, pCO2 of 31.7, PO2 of 66.8 and a bicarb of 17.4. This was on 15 L by non-rebreather. Sodium 132, potassium 5.6, chloride 97, bicarb 17, BUN 89 and cr of 2.6. LFTs were within normal limits. Patient returned to the hospital for further management of severe ARDS from COVID-19 pneumonia. He was started on treatment with remdesivir, IV steroids, anticoagulation and inhalation treatment. Patient responded well to the treatment to his progress was slow because of patient's reluctance to work with physical therapy and incentive spirometry. Patient's hospitalization was otherwise unremarkable. Echocardiogram was done which showed an EF 55% with grade 1 diastolic dysfunction for which he required occasional diuresis after the fluid status. During hospitalization patient's kidney function remained stable. Home O2 evaluation has been done prior to discharge. Patient is being discharged on oxygen reservoir therapy. He is advised to follow-up with his primary care provider within next 1 to 3 days. He will be on Eliquis which is the blood thinner for next 14 days. He will be on oral steroids for next 1 week. For bradycardia his dose of metoprolol has been adjusted. He is to take inhalation treatment twice daily for next 2 weeks. Physical Exam Const: COMMON NORMALS: patient oriented x3 HENMT: COMMON NORMALS: normocephalic and atraumatic HEAD & SCALP: normocephalic and atraumatic Chest: COMMONS NORMALS: normal inspection of the chest and normal palpation of entire chest wall CHEST: Yes Symmetrical chest wall rise Resp: OTHER: Diminished air entry bilaterally Cardio: COMMON NORMALS: regular rate, regular rhythm, S1 normal heart sound present, S2 normal heart sound present, No gallops present (Cardio), No murmurs present (Cardio), No rub (Cardio) and Peripheral pulses 2+ throughout RATE: regular rate RHYTHM: regular rhythm HEART SOUNDS: S1 normal heart sound present and S2 normal heart sound present PERIPHERAL PULSES: Peripheral pulses 2+ throughout GI: COMMON NORMALS: Normal to inspection, nondistended, normoactive bowel sounds present, Soft to palpation, non-tender, No hepatosplenomegaly present and no masses AUSCULTATION: Yes normoactive bowel sounds PALPATION: Yes Soft to palpation and Yes No hepatosplenomegaly present RECTAL EXAM: Yes deferred Extremity: COMMON NORMALS: no clubbing, cyanosis or edema and no pedal edema Neuro: COMMON NORMALS: patient oriented x3 Discharge Data Data Completed and Pending: Completed Studies During Hospitalization Category Date Time Status CT chest wo con 7 1250 Urgent Cat Scan 05/08/21 11:14 Completed XR chest 1V kendell ble 10012 Q48H Exams 05/11/21 06:00 Completed XR chest 1V kendell ble [id number] Routine Exams 05/06/21 14:13 Completed XR chest 1V kendell ble 94001 Routine Exams 05/08/21 06:00 Completed XR chest 1V kendell ble [id number] Stat Exams 05/04/21 16:57 Completed CV. echo complete * [id number] Routine Ultrasound 05/09/21 06:00 Completed Pending at discharge Category Date Time Status XR chest 1V kendell ble 10841 Q48H Exams 05/13/21 06:00 Ordered XR chest 1V kendell ble 99224 Q48H Exams 05/15/21 06:00 Ordered C Reactive Protei n AM LABS Lab 05/13/21 04:00 Ordered Erythrocyte Sedim entation Rate Q48H Lab 05/13/21 04:00 Ordered NT Pro B Type Gabby riuretic Pept AM L ABS Lab 05/13/21 04:00 Ordered Sputum Culture an d Gram Stain Stat Lab 05/04/21 17:19 Uncollected Labs from last 24 hours 05/12/21 05/12/21 05/12/21 06:56 06:56 06:56 WBC 13.1 H RBC 4.31 Hgb 12.9 Hct 39.1 L MCV 90.7 MCH 29.9 MCHC 33.0 RDW 12.7 Plt Count 322 MPV 12.2 H Neut % (Auto) 87.7 Lymph % (Auto) 3.0 [place] % (Auto) 4.0 Eos % (Auto) 0.0 Baso % (Auto) 0.3 Neut # (Auto) 11.46 H Lymph # (Auto) 0.4 L [place] # (Auto) 0.5 Eos # (Auto) 0.0 Baso # (Auto) 0.0 Nucleated RBC % (a uto) 0 Nucleated RBCs # 0.0 Sodium 137 Potassium 4.4 Chloride 104 Carbon Dioxide 20 L Anion Gap 17.4 BUN 72 H Creatinine 2.0 H GFR Calculation 33.6 L Glucose 134 H POC Glucose Calculated Osmolal ity 307 H Calcium 9.6 Total Bilirubin 0.4 AST 29 ALT 38 Alkaline Phosphata se 79 C-Reactive Protein 10.0 H NT-Pro-B Natriuret Pep 199 H Total Protein 6.8 Albumin 2.9 L Globulin 3.9 05/12/21 05/12/21 05/11/21 06:24 00:28 16:53 WBC RBC Hgb Hct MCV MCH MCHC RDW Plt Count MPV Neut % (Auto) Lymph % (Auto) [place] % (Auto) Eos % (Auto) Baso % (Auto) Neut # (Auto) Lymph # (Auto) [place] # (Auto) Eos # (Auto) Baso # (Auto) Nucleated RBC % (a uto) Nucleated RBCs # Sodium Potassium Chloride Carbon Dioxide Anion Gap BUN Creatinine GFR Calculation Glucose POC Glucose 134 H 255 H 150 H Calculated Osmolal ity Calcium Total Bilirubin AST ALT Alkaline Phosphata se C-Reactive Protein NT-Pro-B Natriuret Pep Total Protein Albumin Globulin 05/11/21 12:09 WBC RBC Hgb Hct MCV MCH MCHC RDW Plt Count MPV Neut % (Auto) Lymph % (Auto) [place] % (Auto) Eos % (Auto) Baso % (Auto) Neut # (Auto) Lymph # (Auto) [place] # (Auto) Eos # (Auto) Baso # (Auto) Nucleated RBC % (a uto) Nucleated RBCs # Sodium Potassium Chloride Carbon Dioxide Anion Gap BUN Creatinine GFR Calculation Glucose POC Glucose 257 H Calculated Osmolal ity Calcium Total Bilirubin AST ALT Alkaline Phosphata se C-Reactive Protein NT-Pro-B Natriuret Pep Total Protein Albumin Globulin Addt'l Data from Hospital Stay: Laboratory Results WBC 13.1 10^3/uL (4.0 -10.0) H 05/12/21 06:56 RBC 4.31 10^6/uL (4.1 -5.3) 05/12/21 06:56 Hgb 12.9 g/dL (11.7-1 6.6) 05/12/21 06:56 Hct 39.1 % (42.0-52.0 ) L 05/12/21 06:56 MCV 90.7 fL (80-94) 05/12/21 06:56 MCH 29.9 pg (28.0-34. 0) 05/12/21 06:56 MCHC 33.0 g/dL (30.0-3 6.0) 05/12/21 06:56 RDW 12.7 % (12.1-15.1 ) 05/12/21 06:56 Plt Count 322 10^3/cmm (130 -400) 05/12/21 06:56 MPV 12.2 fL (7.4-10.4 ) H 05/12/21 06:56 Neut % (Auto) 87.7 % 05/12/21 06:56 Lymph % (Auto) 3.0 % 05/12/21 06:56 [place] % (Auto) 4.0 % 05/12/21 06:56 Eos % (Auto) 0.0 % 05/12/21 06:56 Baso % (Auto) 0.3 % 05/12/21 06:56 Neut # (Auto) 11.46 10^3/uL (1. 8-7.7) H 05/12/21 06:56 Lymph # (Auto) 0.4 10^3/uL (0.8- 4.8) L 05/12/21 06:56 [place] # (Auto) 0.5 10^3/uL (0.2- 0.9) 05/12/21 06:56 Eos # (Auto) 0.0 10^3/uL (0.0- 0.8) 05/12/21 06:56 Baso # (Auto) 0.0 10^3/uL (0.0- 0.1) 05/12/21 06:56 Nucleated RBC % (a uto) 0 % 05/12/21 06:56 Nucleated RBCs # 0.0 /100WBC 05/12/21 06:56 ESR 84 mm/hr (0-10) H 05/11/21 06:31 Fibrinogen 711 mg/dL (174-49 8) H 05/09/21 05:12 D-Dimer 2.40 ug/mIFEU (0- 0.59) H 05/09/21 05:12 Specimen Type Arterial 05/04/21 17:13 Sample Site Radial, left 05/04/21 17:13 ABG pH 7.35 (7.35-7.45) 05/04/21 17:13 ABG pCO2 31.7 mmHg (35-45) L 05/04/21 17:13 ABG pO2 66.8 mmHg (80.0-1 00.0) L 05/04/21 17:13 ABG HCO3 17.4 mmol/L (22-2 6) L 05/04/21 17:13 ABG O2 Saturation 92.7 05/04/21 17:13 ABG Base Excess -7.2 mmol/L (-2.0 -2.0) L 05/04/21 17:13 Regulo Test Pos 05/04/21 17:13 A-a O2 Gradient 5.7 mmHg (5-10) 05/04/21 17:13 Hematocrit 37.7 % (42-52) L 05/04/21 17:13 Hgb O2 Saturation 91.0 % (95-100) L 05/04/21 17:13 Carboxyhemoglobin 1.0 %THgb (0.4-20 .1) 05/04/21 17:13 Methemoglobin 0.9 % (0.4-1.5) 05/04/21 17:13 Total Hemoglobin 12.3 g/dL (14-18) L 05/04/21 17:13 Sodium 134.0 mmol/L (131 -143) 05/04/21 17:13 Potassium 5.1 mmol/L (3.5-5 .0) H 05/04/21 17:13 Glucose 563.0 mg/dL (70-1 15) H 05/04/21 17:13 Ionized Calcium 1.3 mmol/L (1.1-1 .4) 05/04/21 17:13 O2 Delivery Device Nrb 05/04/21 17:13 O2 Liters/Min 15.0 % 05/04/21 17:13 Professional Development Instructor ID Cak 05/04/21 17:13 Sodium 137 mmol/L (136-1 45) 05/12/21 06:56 Potassium 4.4 mmol/L (3.5-5 .1) 05/12/21 06:56 Chloride 104 mmol/L (98-10 7) 05/12/21 06:56 Carbon Dioxide 20 mmol/L (22-29) L 05/12/21 06:56 Anion Gap 17.4 (5-19) 05/12/21 06:56 BUN 72 mg/dL (8-23) H 05/12/21 06:56 Creatinine 2.0 mg/dL (0.7-1. 2) H 05/12/21 06:56 GFR Calculation 33.6 mL/min (90-1 30) L 05/12/21 06:56 Glucose 134 mg/dL (65-115 ) H 05/12/21 06:56 POC Glucose 134 mg/dL (70-110 ) H 05/12/21 06:24 Estimat Average Gl ucose 217 05/05/21 10:09 Hemoglobin A1c 9.2 % (4.0-6.0) H 05/05/21 10:09 Calculated Osmolal ity 307 mOsm/kg (285- 295) H 05/12/21 06:56 Calcium 9.6 mg/dL (8.5-10 .5) 05/12/21 06:56 Magnesium 1.9 mg/dL (1.7-2. 3) 05/10/21 06:39 Iron 47 ug/dL (59-158) L 05/08/21 04:33 TIBC 116 mcg/dl 05/08/21 04:33 % Saturation 40.5 % (20-50) 05/08/21 04:33 Unsat Iron Binding 69 ug/dL (112-347 ) L 05/08/21 04:33 Ferritin 1735 ng/mL (30-40 0) H 05/09/21 05:12 Total Bilirubin 0.4 mg/dL (0.15-1 .2) 05/12/21 06:56 AST 29 U/L (0-40) 05/12/21 06:56 ALT 38 U/L (0-41) 05/12/21 06:56 Alkaline Phosphata se 79 IU/L (40-130) 05/12/21 06:56 Creatine Kinase 224 U/L (39-308) 05/04/21 17:23 C-Reactive Protein 10.0 mg/L (0.0-4. 9) H 05/12/21 06:56 NT-Pro-B Natriuret Pep 199 pg/mL (0-125) H 05/12/21 06:56 Total Protein 6.8 g/dL (6.6-8.7 ) 05/12/21 06:56 Albumin 2.9 g/dL (3.5-5.2 ) L 05/12/21 06:56 Globulin 3.9 g/dL (1.3-4.6 ) 05/12/21 06:56 Procalcitonin 0.14 ng/mL (0-0.5 ) 05/11/21 06:31 TSH 0.22 uIU/mL (0.27 -4.20) L 05/08/21 04:33 Free T4 1.08 ng/dL (0.82- 1.77) 05/09/21 05:12 Free T3 1.4 PG/ML (2.0-4. 4) L 05/09/21 05:12 Urine Color Yellow (Yellow) 05/04/21 20:45 Urine Appearance Clear (CLEAR) 05/04/21 20:45 Urine pH 5 (5-7) 05/04/21 20:45 Ur Specific Gravit y 1.015 (1.005-1.0 30) 05/04/21 20:45 Urine Protein 2+ (Negative) H 05/04/21 20:45 Urine Glucose (UA) 4+ (Normal) H 05/04/21 20:45 Urine Ketones Negative (Negati ve) 05/04/21 20:45 Urine Blood 2+ (Negative) H 05/04/21 20:45 Urine Nitrate Negative (Negati ve) 05/04/21 20:45 Urine Bilirubin Neg (Negative) 05/04/21 20:45 Urine Urobilinogen Norm mg/dL (Negat dani) 05/04/21 20:45 Ur Leukocyte Shadia ase Negative (Negati ve) 05/04/21 20:45 Urine RBC 0-4 /hpf (0-2) H 05/04/21 20:45 Urine WBC 0-4 /hpf (0-5) H 05/04/21 20:45 Ur Squamous Epith Cells 0-4 /hpf (0-5) H 05/04/21 20:45 Amorphous Sediment 1+ /hpf 05/04/21 20:45 Urine Bacteria Trace /hpf (NONE) 05/04/21 20:45 Serum Ketones Negative (Negati ve) 05/04/21 17:23 Nasal/Oral COVID-1 9 PCR Detected H 05/04/21 17:36 Influenza Type A A g Negative (Negati ve) 05/06/21 00:00 Influenza Type B A g Negative (Negati ve) 05/06/21 00:00 SARS-CoV-2 Ag (Rap id) Negative (Negati ve) 05/04/21 17:[address] 05/08/21 11:14 IMPRESSION: Extensive bilateral mostly subpleural airspace and ground-glass opacities are noted in the lungs compatible with the history of moderate COVID-19 pneumonia. Radiation Dose CTDIVOL = (mGy): DLP = 1061.71 (mGy-cm) Chest X-Ray 05/11/21 06:00 IMPRESSION: Interval improvement as above. Echocardiogram: CONCLUSIONS 1-Normal left ventricular cavity size. Normal left ventricular systolic function. No regional wall motion abnormalities. Left ventricular ejection fraction is estimated at 55 %. Grade I/IV diastolic dysfunction (abnormal relaxation filling pattern), normal to mildly elevated filling pressures. 2-There is no pericardial effusion. 3-No significant valve abnormalities. 4-Pulmonary artery systolic pressure is within normal limits. 5-There are no prior echocardiogram studies to compare. Mavis Fields MD (Electronically Signed) Final Date: 09 May 2021 18:02 Vitals: Last Vital Signs Temp 98.2 F 05/12/21 04:00 Pulse 77 05/12/21 10:19 Resp 22 H 05/12/21 10:19 BP 110/58 05/12/21 04:00 Pulse Ox 90 05/12/21 10:19 Discharge Plan Discharge Patient Disposition: Home Condition: Stable Prescriptions: New metoprolol tartrate 50 mg Tablet 75 mg PO BID 30 Days Qty: 90 RF: 0 Eliquis 5 mg Tablet 5 mg PO BID@0900,2100 14 Days Qty: 30 RF: 0 Advair Diskus 250-50 mcg/dose blister with device 1 inh inhalation BID 14 Days Qty: 30 RF: 0 sodium bicarbonate 650 mg Tablet 650 mg PO BID 30 Days Qty: 60 RF: 0 pantoprazole 40 mg Tablet,Delayed Release (Dr/Ec) 40 mg PO DAILY 14 Days Qty: 14 RF: 0 Spiriva with HandiHaler 18 mcg Capsule, W/Inhalation Device 18 mcg inhalation DAILY.RESPIRATORY 14 Days Qty: 14 RF: 0 dexamethasone 6 mg tablet 6 mg PO DAILY Qty: 7 RF: 0 Continued amlodipine 10 mg tablet 10 mg PO DAILY RF: 0 Novolin 70/30 U-100 Insulin 100 unit/mL (70-30) suspension 90 unit SUBCUT BID RF: 0 Novolin R Regular U-100 Insuln 100 unit/mL solution 30 unit SUBCUT TID RF: 0 allopurinol 100 mg tablet 100 mg PO DAILY RF: 0 Aspir-81 81 mg Tablet,Delayed Release (Dr/Ec) 81 mg PO DAILY RF: 0 doxazosin 8 mg tablet 8 mg PO DAILY RF: 0 colchicine 0.6 mg tablet 0.3 mg PO DAILY RF: 0 torsemide 20 mg Tablet 20 mg PO DAILY RF: 0 Held spironolactone 25 mg tablet 25 mg PO BID RF: 0 Hold Instructions: Resume on 05/19/21. Discontinued metoprolol tartrate 50 mg tablet 100 mg PO BID RF: 0 Discharge Orders: Discharge Order (Routine); Ordered 05/12/21 Ordered By: Skinny Johnson Referrals: Rigoberto Mccann [Primary Care Provider] - 4-7 days Discharge Diet: Regular and Cardiac Discharge Activity: Resume usual activity and Increase activity as tolerated Patient Instructions: Opioid Safety Activity Restrictions/Additional Instructions: Please follow-up with your primary care provider within next 4 to 7 days. You will be on Advair and Spiriva which is inhalation treatment for next 2 weeks. He will be on anticoagulation with Eliquis for next 2 weeks. Please continue to maintain social isolation isolation for next 10 days. Whenever in public please make sure you wear the mask. You can get a Covid vaccination in 3 months. Your dose of metoprolol has been decreased to 75 mg twice daily. Please do not take spironolactone for now. Please continue to use incentive spirometry and flutter valve after discussing detail for next 1 month. If you have increased shortness of breath, requiring high amount of oxygen supplementation, persistent fever, please come back to the ER. Discharge Attestations Time Spent in Discharge Care*: greater than 30 min Specific Discharge Activities: educating patient, discussing with pcp/other providers, discussing with rehabilitation caseworker/social workers/dc planners, documenting/other paperwork and evaluating patient/reviewing data Status at Discharge: Cognitive status at discharge: cognitively intact, Behavioral status at discharge: cooperative, Functional status at discharge: uses cane/walker Overall status at discharge: patient is progressing back to baseline Quality Metrics Clinical Quality Measures During this hospital stay, did patient experience: None Coding Level of Care Code Acute [facility] DC note Diagnoses Pneumonia due to COVID-19 virus U07.1; J12.82 Acute respiratory failure with hypoxia J96.01 CKD (chronic kidney disease) stage 4, GFR 15-29 ml/min N18.4 Metabolic acidosis E87.2 Diabetes mellitus with hyperglycemia E11.65 Elevated d-dimer R79.89 Hyperkalemia E87.5
[2021-05-12 12:00] VITALS: BP 140/86; PULSE 62; RESP 18; TEMP 35.8; O2SAT 92
[2021-05-12 13:40] LABS: Glucose Point of Care 228 mg/dL (70-110)
[2021-05-12 14:33] VITALS: O2SAT 83; O2SAT 89
[2021-05-12 16:00] VITALS: BP 140/86; PULSE 62; RESP 18; TEMP 35.8
[2021-05-12 17:19] LABS: Glucose Point of Care 159 mg/dL (70-110)
[2021-05-12 18:24] VITALS: BP 140/86; PULSE 62; RESP 18; TEMP 35.8
== END 2021-05-12 18:03 | disposition home or self-care (01) | DRG 177 ==
LOC: ER 18:25 → CSU 18:30 → MEDSURG 05-08 17:45 → MS 2A 05-10 15:53
PROVIDERS: Hospitalist; Admitting Provider Internal Medicine; Emergency Provider Family Medicine; PCP Family Medicine; Visit Provider Student in an Organized Health Care Education/Training Program
DX: U07.1 COVID-19 (principal); J12.82 Pneumonia due to coronavirus disease 2019; J96.01 Acute respiratory failure with hypoxia; N18.4 Chronic kidney disease, stage 4 (severe); E87.2 Acidosis; E11.22 Type 2 diabetes mellitus with diabetic chronic kidney disease; I12.9 Hypertensive chronic kidney disease with stage 1 through stage 4 chronic kidney disease, or unspecified chronic kidney disease; E11.65 Type 2 diabetes mellitus with hyperglycemia; E11.40 Type 2 diabetes mellitus with diabetic neuropathy, unspecified; N40.0 Benign prostatic hyperplasia without lower urinary tract symptoms; M10.9 Gout, unspecified; G47.33 Obstructive sleep apnea (adult) (pediatric); E21.3 Hyperparathyroidism, unspecified; D47.2 Monoclonal gammopathy; E87.5 Hyperkalemia; K21.9 Gastro-esophageal reflux disease without esophagitis; Z79.4 Long term (current) use of insulin; Z79.82 Long term (current) use of aspirin
CPT/HCPCS: 36415; 36416; 36600; 71045; 71250; 80048; 80051; 80053; 81001; 82009; 82330; 82550; 82728; 82805; 82962; 83036; 83540; 83550; 83735; 83880; 84145; 84439; 84443; 84481; 85025; 85378; 85384; 85651; 86140; 87040; 87426; 87635; 87641; 87804; 93005; 93306; 94640; 96372; 96374; 97110; 97161; 99285; J0456; J0696; J1100; J1644; J1650; J1815 ×2; J1940; J3262; J3535; J7050; J7626

== ENCOUNTER 2021-06-01 08:48 | Outpatient (CLI) | payer MEDICARE, OTHER, SELFPAY ==
[2021-06-01 09:26] LABS: Add Urine Microscopic? NO; Charge for UA Resulting for Rev; Hemoglobin 11.2 g/dL (11.7-16.6)
[2021-06-01 09:50] LABS: Bilirubin Urine Neg (Negative); Blood Urine Neg (Negative); Glucose Urine UA Norm (Normal); Ketones Urine Negative (Negative); Leukocyte Esterase Urine Negative (Negative); Nitrate Urine Negative (Negative); Protein Urine Neg (Negative); Specific Gravity, Urine 1.005 (1.005-1.030); Urine Appearance Clear (CLEAR); Urine Color Straw (Yellow); Urobilinogen Urine Norm (Negative); pH Urine 6 (5-7)
[2021-06-01 10:00] LABS: Albumin Level 3.7 g/dL (3.5-5.2); Anion Gap 14.1 (5-19); Blood Urea Nitrogen 18 mg/dL (8-23); Calcium 8.9 mg/dL (8.5-10.5); Carbon Dioxide 27 mmol/L (22-29); Chloride 103 mmol/L (98-107); Ferritin 256 ng/mL (30-400); Glomerular Filtration Rate 33.6 mL/min (90-130); Glucose 156 mg/dL (65-115); Iron 92 ug/dL (59-158); Osmolality Calculated 295 mOsm/kg (285-295); Percent Saturation 36.5 % (20-50); Phosphorus 4.6 mg/dL (2.5-4.5); Potassium 4.1 mmol/L (3.5-5.1); Sodium 140 mmol/L (136-145); Total Iron Binding Capacity 252 mcg/dl; Unsaturated Iron Binding 160 ug/dL (112-347); Uric Acid 6.3 mg/dL (3.4-7.0)
[2021-06-01 10:11] LABS: Total Protein, Random Urine 19.6 mg/dL (0.0-20.0)
[2021-06-01 10:21] LABS: Urine Creatinine 24 mg/dL (39-259)
== END 2021-06-01 08:49 | disposition home or self-care (01) ==
PROVIDERS: PCP Family Medicine; Visit Provider Internal Medicine
DX: D50.9 Iron deficiency anemia, unspecified (principal); N18.32 Chronic kidney disease, stage 3b; D64.9 Anemia, unspecified
CPT/HCPCS: 36415; 80048; 81003; 82040; 82570; 82728; 83540; 83550; 83735; 84100; 84156; 84550; 85018

== ENCOUNTER 2021-07-03 10:53 | Outpatient (CLI) | payer MEDICARE, OTHER, SELFPAY ==
[2021-07-03 11:57] LABS: Basophils # 0.1 10^3/uL (0.0-0.1); Basophils % 0.7 %; Eosinophils # 0.3 10^3/uL (0.0-0.8); Eosinophils % 3.7 %; Hematocrit 36.2 % (42.0-52.0); Hemoglobin 12.1 g/dL (11.7-16.6); Lymphocytes # 0.9 10^3/uL (0.8-4.8); Lymphocytes % 12.2 %; Mean Corpuscular HGB Conc 33.4 g/dL (30.0-36.0); Mean Corpuscular Hemoglobin 32.1 pg (28.0-34.0); Mean Platelet Volume 10.2 fL (7.4-10.4); Monocytes # 0.8 10^3/uL (0.2-0.9); Monocytes % 10.3 %; Neutrophils # 5.46 10^3/uL (1.8-7.7); Neutrophils % 72.4 %; Nucleated Red Blood Cells % 0 %; Platelet Count 196 10^3/cmm (130-400); Red Blood Count 3.77 10^6/uL (4.1-5.3); Red Cell Distribution Width 13.6 % (12.1-15.1); White Blood Count 7.5 10^3/uL (4.0-10.0)
[2021-07-03 12:18] LABS: Alanine Aminotransferase 26 U/L (0-41); Albumin Level 4.2 g/dL (3.5-5.2); Alkaline Phosphatase 76 IU/L (40-130); Anion Gap 16.4 (5-19); Aspartate Amino Transferase 29 U/L (0-40); Blood Urea Nitrogen 37 mg/dL (8-23); Carbon Dioxide 26 mmol/L (22-29); Chloride 98 mmol/L (98-107); Globulin 2.9 g/dL (1.3-4.6); Glomerular Filtration Rate 24.8 mL/min (90-130); Glucose 210 mg/dL (65-115); Immunoglobulin IGA 201 mg/dL (70-400); Immunoglobulin IGG 902 mg/dL (700-1600); Immunoglobulin IGM 318 mg/dL (40-230); Osmolality Calculated 295 mOsm/kg (285-295); Potassium 5.4 mmol/L (3.5-5.1); Sodium 135 mmol/L (136-145); Total Bilirubin 0.3 mg/dL (0.15-1.2); Total Protein 7.1 g/dL (6.6-8.7)
[2021-07-03 12:29] LABS: Erythrocyte Sedimentation Rate 44 mm/hr (0-10)
[2021-07-04 09:43] LABS: PROTEIN, TOTAL 7.1 g/dL (6.1-8.1)
[2021-07-04 12:53] LABS: ABNORMAL PROTEIN BAND 1 0.1 g/dL (NONE DETECTED); ALBUMIN 4.3 g/dL (3.8-4.8); ALPHA 1 GLOBULIN 0.3 g/dL (0.2-0.3); ALPHA 2 GLOBULIN 0.7 g/dL (0.5-0.9); BETA 1 GLOBULIN 0.4 g/dL (0.4-0.6); BETA 2 GLOBULIN 0.3 g/dL (0.2-0.5); GAMMA GLOBULIN 1.1 g/dL (0.8-1.7)
[2021-07-06 13:04] LABS: Miscellaneous Test See Scanned Lab Rpt
== END 2021-07-03 10:54 | disposition home or self-care (01) ==
LOC: ONCMED 10:56
PROVIDERS: PCP Family Medicine; Visit Provider Internal Medicine Medical Oncology
DX: D47.2 Monoclonal gammopathy (principal)
CPT/HCPCS: 36415; 80053; 82784; 84155; 84165; 85025; 85651; 88184; 88185

== ENCOUNTER 2021-07-10 06:46 | Outpatient (CLI) | payer MEDICARE, OTHER, SELFPAY ==
--- NOTE | 2021-07-11 07:11 | ONC FU_ITS ---
Dr. Decker Patient Follow-Up Note Patient: Fausto Jurado Unit #: [id number]: [id number] Dicatated By: Chip Decker M.D.Date of Visit:Jul 10, 2021 Onc Med Follow-up/Prog Note Chief Complaint: Monoclonal gammopathy. History of Present Illness: This is a 65-year-old man with elevated urinary free kappa light chain in association with mild anemia and chronic kidney disease. Patient with hypertension and type 2 diabetes. He has associated peripheral neuropathy, retinopathy, and nephropathy. He also has degenerative arthritis and gout. Between December 2018 and October 2019 there was a significant decline in his renal function with creatinine increasing from 1.9 to 3.1 mg/dL. He had seen Dr. Rodriguez for follow-up of his chronic kidney disease on 02/23/2021. His laboratory studies at that time included a random urine sample which showed an elevated free urinary kappa light chain at 118.31 mg/L as well as elevated urinary lambda light chain at 19.87 mg/L and with elevated kappa/lambda ratio at 5.95. The total protein was reported at 591.18 mg/L. The urinary MAVIS was negative for monoclonal free light chains, but it did show a faint band in IgA. His calcium was noted to be slightly elevated at 11.2 mg/dL with his albumin normal at 3.7 g/dL. Hemoglobin was borderline at 12.1 g. Creatinine was 3.32 mg/dL. His serum immunoelectrophoresis showed faint IgA kappa and IgM lambda bands. I had seen him initially on 03/27/2021. His main complaint was that he been feeling weak for quite some time. He reported having chronic pain in the neck and back as well as fairly generalized joint pain. You function worthless got the infarct and PVCs yet on my God his CBC showed hemoglobin 12.5 g with white blood cell count 7100 and platelet count 196,000. Sed rate was slightly elevated at 38 mm/h. Comprehensive metabolic profile showed elevated BUN and creatinine at 45 and 2.5 mg/dL. The bilirubin and liver enzymes were normal. Protein electrophoresis showed no detectable monoclonal protein. The serum free light chain assay showed elevated free kappa light chain at 126.9 mg/L and elevated free lambda light chain at 55.8 mg/L. The kappa/lambda ratio was elevated at 2.27. His 24-hour urine showed a total protein excretion of 1265 mg. There was no monoclonal protein detected. He is seen for a follow-up visit. He says he has been feeling really bad, mainly due to tiredness and weakness. He has very limited activity, to the point that he has difficulty getting up and around. His ECOG score is 2. He has good appetite. He has not had fever. He occasionally has sweating at night. He says he has sinus drainage all the time and he has associated soreness in his throat. He does not complain of cough. He is short of breath with activity and nightly has been having some chest pain. He has no GI/ complaints other than his bowels tend to be a little slow. He continues to have pain all over. He says it has been bad for quite a while. His headaches lately have not been as bad. He does report having dizziness. He has numbness in both hands, presumably due to carpal tunnel syndrome. Medications: Allopurinol 1 Tablet (of 100 mg) Oral b.i.d., amLODIPine Besylate 1 Tablet (of 10 mg) Oral daily, Cardura 1 Tablet (of 8 mg) Oral daily, Colchicine 1 Tablet (of 0.6 mg) Oral b.i.d., Metoprolol Tartrate 1 Tablet (of 100 mg) Oral b.i.d., Spironolactone 1 Tablet (of 25 mg) Oral b.i.d., Torsemide 1 Tablet (of 20 mg) Oral daily Allergies: Aleve, Contrast Media, and Sulfa Antibiotics. Vital Signs: Performed on Jul 10, 2021 16:17 Height - 70.00 in Weight - 230.6 lbs (LOW) BSA - 2.22 sq.m BMI - 33.09 (HIGH) Temperature - 96.5 F (LOW) Pulse - 72 /min Respiration - 18 /min BP - 157/82 mm(hg) (HIGH) O2 Sat - 94 % (LOW) Pain - 2 Fatigue - 8 Physical Examination: Constitutional - He appears somewhat weak generally, Eyes - Sclerae nonicteric. Conjunctivae clear, ENMT - No lesions noted in the oral cavity, Hematologic/Lymphatic - No cervical, clavicular, or axillary adenopathy, Respiratory - Lungs are clear with good air movement bilaterally, Cardiovascular - Heart rhythm is regular. There is a II/ systolic murmur. There is no gallop or rub noted, Abdomen - Moderately distended. Liver and spleen are not enlarged. There is no abdominal mass or ascites noted and there is no inguinal adenopathy, Extremities - No edema, Integumentary - There is a small raised lesion on the lateral aspect of the right cheek just anterior to the right earlobe, Neurologic - No focal neurologic deficits noted. Lab/Imaging: Test performed on Jul 03, 2021 11:29 Sodium 135 mmol/L Potassium 5.4 mmol/L Chloride 98 mmol/L CO2 26 mmol/L Anion Gap 16.4 BUN 37 mg/dL Creatinine 2.6 mg/dL Cr Clearance (Est) 41.8900 mL/min eGFR 24.8 mL/min Glucose 210 mg/dL Osmolality - Calculated 295 mOsm/kg Calcium 10.0 mg/dL Protein, Total 7.1 g/dL Albumin 4.2 g/dL Globulin 2.9 g/dL Bilirubin, Total 0.3 mg/dL ALT (SGPT) 26 U/L AST (SGOT) 29 U/L Alkaline Phosphatase 76 IU/L ESR (Sed Rate) 44 mm/hr WBC 7.5 10 3/uL RBC 3.77 10 6/uL HGB 12.1 g/dL HCT 36.2 % MCV 96.0 fl MCH 32.1 pg MCHC 33.4 g/dL RDW 13.6 % Platelet Count 196 10 3/cmm MPV 10.2 fL Neutrophils 5.46 10 3/uL Lymphocytes 0.9 10 3/uL Monocytes 0.8 10 3/uL Eosinophils 0.3 10 3/uL Basophils 0.1 10 3/uL Neutrophil % 72.4 % Lymphocyte % 12.2 % Monocyte % 10.3 % Eosinophil % 3.7 % Basophils % 0.7 % NRBC % 0 % Leukemia/Lymphoma Interp WILL REORDER TO [facility] IgA 201 mg/dL Problem List: 1. Probable early stage monoclonal gammopathy. It is uncertain to what extent it may be clinically significant. In the setting of late stage chronic kidney disease, myeloma will need to be excluded. 2. Hypertension. 3. Type 2 diabetes with peripheral neuropathy, retinopathy, and nephropathy. 4. Degenerative arthritis/degenerative disease of the spine. 5. Gout. 6. Hyperparathyroidism. 7. Obstructive sleep apnea with intolerance to CPAP. 8. History of [place] spotted fever. 9. History of vertebral artery occlusion. Problems Addressed with this Encounter and Plan: 1. Patient with a low-grade monoclonal gammopathy in association with late stage 4 chronic kidney disease. There is concern about the possibility of an underlying plasma cell dyscrasia, though it seems relatively unlikely that it would be contributing significantly to his symptoms. His laboratory studies from last week showed stable blood counts and renal function. There was a poorly defined M band reported on his protein electrophoresis. The free light chain assay for some reason was not done. With those findings, I will have him bring in another 24-hour urine specimen and I will then check a serum immunoelectrophoresis and repeat his serum free light chain assay. In addition, he will be scheduled for a skeletal survey. He will have further evaluation as indicated. 2. He has a suspicious appearing skin lesion in the right preauricular area. I will arrange for dermatology referral. Signed By: Chip Decker M.D. <<Signature on File>>
== END 2021-07-10 06:47 | disposition home or self-care (01) ==
LOC: ONCMED 06:47
PROVIDERS: PCP Family Medicine; Visit Provider Internal Medicine Medical Oncology
DX: D47.2 Monoclonal gammopathy (principal); E11.22 Type 2 diabetes mellitus with diabetic chronic kidney disease; I12.9 Hypertensive chronic kidney disease with stage 1 through stage 4 chronic kidney disease, or unspecified chronic kidney disease; N18.4 Chronic kidney disease, stage 4 (severe); L98.8 Other specified disorders of the skin and subcutaneous tissue; M47.9 Spondylosis, unspecified; G47.33 Obstructive sleep apnea (adult) (pediatric); M10.9 Gout, unspecified; Z79.899 Other long term (current) drug therapy
CPT/HCPCS: 99214

== ENCOUNTER 2021-07-13 10:11 | Outpatient (CLI) | payer MEDICARE, OTHER, SELFPAY ==
[2021-07-13 11:40] LABS: Total Volume, Urine 2600 mL; Urine Total Protein 51.1 mg/24HR (0-150); Urine Total Protein 24 Hour 1328.6 mg/dL (0-150)
[2021-07-14 12:27] LABS: CREATININE, 24 HOUR URINE 1.61 g/24 h (0.50-2.15); PROTEIN, TOTAL, 24 HR UR 1586 mg/24 h (<150); Protein/Creatinine Ratio 0.984 (< OR = 0.114); Protein/Creatinine Ratio 984 mg/g creat (< OR = 114)
[2021-07-17 06:43] LABS: Kappa Free Light Chains Urine 108.35 mg/L (<=32.90)
[2021-07-17 11:18] LABS: ALBUMIN 75 %; ALPHA-1-GLOBULINS 5 %; ALPHA-2-GLOBULINS 5 %; BETA GLOBULINS 10 %; GAMMA GLOBULINS 6 %
== END 2021-07-13 10:12 | disposition home or self-care (01) ==
PROVIDERS: PCP Family Medicine; Visit Provider Internal Medicine Medical Oncology
DX: D47.2 Monoclonal gammopathy (principal); R82.998 Other abnormal findings in urine
CPT/HCPCS: 83883; 84156; 84166; 86335

== ENCOUNTER 2021-07-21 11:18 | Outpatient (CLI) | payer MEDICARE, OTHER, SELFPAY ==
[2021-07-24 15:07] LABS: KAPPA LIGHT CHAIN, FREE, SERUM 69.3 mg/L (3.3-19.4); KAPPA/LAMBDA LIGHT CHAINS FREE 1.29 (0.26-1.65); LAMBDA LIGHT CHAIN, FREE, SERU 53.9 mg/L (5.7-26.3)
[2021-07-24 15:39] LABS: ABNORMAL PROTEIN BAND 1 0.2 g/dL (NONE DETECTED); ALPHA 1 GLOBULIN 0.2 g/dL (0.2-0.3); ALPHA 2 GLOBULIN 0.7 g/dL (0.5-0.9); BETA 1 GLOBULIN 0.4 g/dL (0.4-0.6); BETA 2 GLOBULIN 0.3 g/dL (0.2-0.5)
[2021-08-09 09:06] LABS: PROTEIN, TOTAL 6.6 g/dL (6.1-8.1)
== END 2021-07-21 11:19 | disposition home or self-care (01) ==
PROVIDERS: PCP Family Medicine; Visit Provider Internal Medicine Medical Oncology
DX: D47.2 Monoclonal gammopathy (principal); I12.9 Hypertensive chronic kidney disease with stage 1 through stage 4 chronic kidney disease, or unspecified chronic kidney disease; E11.22 Type 2 diabetes mellitus with diabetic chronic kidney disease; N18.4 Chronic kidney disease, stage 4 (severe); E11.42 Type 2 diabetes mellitus with diabetic polyneuropathy; E11.319 Type 2 diabetes mellitus with unspecified diabetic retinopathy without macular edema; E11.21 Type 2 diabetes mellitus with diabetic nephropathy; E21.3 Hyperparathyroidism, unspecified
CPT/HCPCS: 36415; 83883; 84155; 84165

== ENCOUNTER 2021-08-02 15:06 | Outpatient (CLI) | payer MEDICARE, OTHER, SELFPAY ==
--- NOTE | 2021-08-02 15:21 | XR_ITS ---
WS: [id number] Bone survey, 08/02/2021 Clinical Data: PAIN Comparison: None. Findings: Lateral skull: No metastatic lesions are seen. Lateral cervical spine: No metastatic lesions are seen. There is osteoarthritis from C2 through C7. AP chest: The ribs are intact. No metastatic lesions to the thoracic vertebral bodies are seen. No nodules, masses or effusions are seen. KUB: No abnormal intra-abdominal masses are seen. There is osteoarthritis of the lumbar vertebral bod ies. AP and lateral thoracic spine: Osteoarthritis of the thoracic vertebral bodies is present. There are no metastatic lesions. AP and lateral lumbar spine: Osteoarthritis involving lumbar vertebral bodies is noted. No metastatic lesions can be seen. AP pelvis: No metastatic lesions are seen. The hips are intact. The SI joints are unremarkable. AP right hip: No metastatic lesions are seen. AP left hip: No metastatic lesions are seen. AP views of both thighs and femurs: No metastatic lesions are seen.: AP views of both upper extremiti es: Both humeri are intact. No metastatic lesions are seen. XR/XR bone survey* [id number] Impression: Negative for bony metastatic lesions.
== END 2021-08-02 15:07 | disposition home or self-care (01) ==
LOC: RAD 15:12
PROVIDERS: PCP Family Medicine; Visit Provider Internal Medicine Medical Oncology
DX: D47.2 Monoclonal gammopathy (principal); R82.998 Other abnormal findings in urine
CPT/HCPCS: 77075

== ENCOUNTER 2021-12-04 10:04 | Outpatient (CLI) | payer MEDICARE, OTHER, SELFPAY ==
[2021-12-04 10:54] LABS: Hemoglobin 12.1 g/dL (11.7-16.6)
[2021-12-04 11:17] LABS: Anion Gap 15.8 (5-19); Blood Urea Nitrogen 55 mg/dL (8-23); Calcium 12.3 mg/dL (8.5-10.5); Carbon Dioxide 25 mmol/L (22-29); Chloride 104 mmol/L (98-107); Ferritin 193 ng/mL (30-400); Glomerular Filtration Rate 14.6 mL/min (90-130); Glucose 54 mg/dL (65-115); Iron 79 ug/dL (59-158); Magnesium 2.3 mg/dL (1.7-2.3); Osmolality Calculated 303 mOsm/kg (285-295); Phosphorus 4.8 mg/dL (2.5-4.5); Potassium 4.8 mmol/L (3.5-5.1); Sodium 140 mmol/L (136-145); Uric Acid 5.3 mg/dL (3.4-7.0)
[2021-12-04 11:20] LABS: Calcium 11.9 mg/dL (8.5-10.5)
[2021-12-04 11:35] LABS: Add Urine Microscopic? YES; Bacteria Urine TRACE /hpf; Bilirubin Urine Neg (Negative); Blood Urine Neg (Negative); Glucose Urine UA Norm (Normal); Ketones Urine Negative (Negative); Leukocyte Esterase Urine Negative (Negative); Mucus Urine TRACE /hpf; Nitrate Urine Negative (Negative); Protein Urine Trace (Negative); Specific Gravity, Urine 1.015 (1.005-1.030); Urine Appearance Clear (CLEAR); Urine Color Yellow (Yellow); Urobilinogen Urine Norm (Negative); pH Urine 5 (5-7)
[2021-12-04 11:36] LABS: Add Urine Culture? No; Fine Granular Casts Urine 0-4 /lpf
[2021-12-05 15:49] LABS: KAPPA LIGHT CHAIN, FREE, SERUM 105.1 mg/L (3.3-19.4); KAPPA/LAMBDA LIGHT CHAINS FREE 1.52 (0.26-1.65); LAMBDA LIGHT CHAIN, FREE, SERU 69.3 mg/L (5.7-26.3)
== END 2021-12-04 10:05 | disposition home or self-care (01) ==
PROVIDERS: Internal Medicine Medical Oncology; PCP Family Medicine; Visit Provider Internal Medicine
DX: N18.32 Chronic kidney disease, stage 3b (principal); E83.32 Hereditary vitamin D-dependent rickets (type 1) (type 2); D63.1 Anemia in chronic kidney disease; M10.9 Gout, unspecified; R80.0 Isolated proteinuria
CPT/HCPCS: 80048; 81001; 82310; 82728; 83540; 83735; 83883; 83970; 84100; 84550; 85018

== ENCOUNTER 2021-12-04 12:43 | Outpatient (CLI) | payer MEDICARE, OTHER, SELFPAY ==
[2021-12-04 13:36] LABS: Basophils % 0.4 %; Eosinophils # 0.2 10^3/uL (0.0-0.8); Hematocrit 36.8 % (42.0-52.0); Lymphocytes # 0.5 10^3/uL (0.8-4.8); Lymphocytes % 5.3 %; Mean Corpuscular HGB Conc 32.6 g/dL (30.0-36.0); Mean Corpuscular Hemoglobin 32.1 pg (28.0-34.0); Mean Corpuscular Volume 98.4 fl (80-94); Mean Platelet Volume 10.6 fL (7.4-10.4); Monocytes # 0.8 10^3/uL (0.2-0.9); Monocytes % 8.3 %; Neutrophils # 7.86 10^3/uL (1.8-7.7); Neutrophils % 83.6 %; Nucleated Red Blood Cells % 0 %; Platelet Count 179 10^3/cmm (130-400); Red Blood Count 3.74 10^6/uL (4.1-5.3); Red Cell Distribution Width 13.2 % (12.1-15.1); White Blood Count 9.4 10^3/uL (4.0-10.0)
[2021-12-04 13:55] LABS: Erythrocyte Sedimentation Rate 40 mm/hr (0-10)
[2021-12-04 14:02] LABS: Alanine Aminotransferase 27 U/L (0-41); Albumin Level 4.3 g/dL (3.5-5.2); Alkaline Phosphatase 80 IU/L (40-130); Anion Gap 18.9 (5-19); Aspartate Amino Transferase 25 U/L (0-40); Blood Urea Nitrogen 54 mg/dL (8-23); Calcium 12.1 mg/dL (8.5-10.5); Carbon Dioxide 24 mmol/L (22-29); Chloride 102 mmol/L (98-107); Globulin 2.8 g/dL (1.3-4.6); Glomerular Filtration Rate 14.6 mL/min (90-130); Glucose 118 mg/dL (65-115); Immunoglobulin IGA 240 mg/dL (70-400); Immunoglobulin IGG 906 mg/dL (700-1600); Immunoglobulin IGM 272 mg/dL (40-230); Lactate Dehydrogenase 222 U/L (135-225); Osmolality Calculated 306 mOsm/kg (285-295); Potassium 4.9 mmol/L (3.5-5.1); Sodium 140 mmol/L (136-145); Total Bilirubin 0.2 mg/dL (0.15-1.2); Total Protein 7.1 g/dL (6.6-8.7)
[2021-12-05 15:22] LABS: ABNORMAL PROTEIN BAND 1 0.2 g/dL (NONE DETECTED); ALBUMIN 3.9 g/dL (3.8-4.8); ALPHA 1 GLOBULIN 0.4 g/dL (0.2-0.3); ALPHA 2 GLOBULIN 0.8 g/dL (0.5-0.9); BETA 1 GLOBULIN 0.4 g/dL (0.4-0.6); BETA 2 GLOBULIN 0.4 g/dL (0.2-0.5); GAMMA GLOBULIN 1.1 g/dL (0.8-1.7)
== END 2021-12-04 12:44 | disposition home or self-care (01) ==
LOC: ONCMED 12:46
PROVIDERS: PCP Family Medicine; Visit Provider Internal Medicine Medical Oncology
DX: D47.2 Monoclonal gammopathy (principal); I10 Essential (primary) hypertension; N18.9 Chronic kidney disease, unspecified; D64.9 Anemia, unspecified; Z79.899 Other long term (current) drug therapy
CPT/HCPCS: 36415; 80053; 82784; 83615; 84155; 84165; 85025; 85651; 86141

== ENCOUNTER 2021-12-05 16:49 | Outpatient (CLI) | payer MEDICARE, OTHER, SELFPAY ==
--- NOTE | 2021-12-05 16:58 | XRR_ITS ---
PROCEDURE INFORMATION: Exam: XR Chest Exam date and time: 12/05/2021 4:58 PM Age: 66 years old Clinical indication: Cough; Additional info: Persistent cough more than a month TECHNIQUE: Imaging protocol: XR of the chest. Views: 2 views. COMPARISON: CR XR chest 1V portable [id number] 05/11/2021 5:27 AM FINDINGS: Lungs: Mild patchy peripheral ground-glass opacities in both lungs have improved from the prior study but not resolved. No consolidation. Pleural spaces: Unremarkable. No pleural effusion. No pneumothorax. Heart/Mediastinum: Unremarkable. No cardiomegaly. Bones/joints: Resection of the distal right clavicle. XR/XR chest 2V* [id number] IMPRESSION: 1. Improved opacities in the peripheral lungs could represent residual or recurrent pneumonia and/or scarring from prior pneumonia.
== END 2021-12-05 16:50 | disposition home or self-care (01) ==
PROVIDERS: PCP Family Medicine; Visit Provider Family Medicine
DX: R05.9 Cough, unspecified (principal)
CPT/HCPCS: 71046

== ENCOUNTER 2021-12-05 17:23 | Emergency (ER) | payer MEDICARE, OTHER, SELFPAY ==
[2021-12-05 17:43] VITALS: BP 164/85; PULSE 64; RESP 20; TEMP 36.4; O2SAT 94; BMI 37.3
--- NOTE | 2021-12-05 17:52 | PC.NURSE ---
informed dr. aguilar of bgl of 59 verbalized understanding vo for pt to have juice and a snack. pt provided with 3, 4 oz juice box's and crackers. witnessed pt drink 4 oz and eat crackers. report given to gemma fisher assumed care.
[2021-12-05 17:58] LABS: Glucose Point of Care 59 mg/dL (70-110)
[2021-12-05 18:10] VITALS: BP 130/80; PULSE 60; RESP 20; O2SAT 95
[2021-12-05 18:40] VITALS: BP 145/80; PULSE 58; RESP 18; O2SAT 97
[2021-12-05 18:50] LABS: Basophils % 0.4 %; Eosinophils # 0.2 10^3/uL (0.0-0.8); Eosinophils % 2.7 %; Hemoglobin 11.9 g/dL (11.7-16.6); Lymphocytes # 0.5 10^3/uL (0.8-4.8); Lymphocytes % 6.8 %; Mean Corpuscular HGB Conc 32.2 g/dL (30.0-36.0); Mean Corpuscular Hemoglobin 32.2 pg (28.0-34.0); Mean Corpuscular Volume 100.3 fl (80-94); Mean Platelet Volume 10.4 fL (7.4-10.4); Monocytes # 0.7 10^3/uL (0.2-0.9); Monocytes % 9.2 %; Neutrophils # 5.94 10^3/uL (1.8-7.7); Neutrophils % 80.4 %; Nucleated Red Blood Cells % 0 %; Platelet Count 171 10^3/cmm (130-400); Red Blood Count 3.69 10^6/uL (4.1-5.3); Red Cell Distribution Width 13.3 % (12.1-15.1); White Blood Count 7.4 10^3/uL (4.0-10.0)
--- NOTE | 2021-12-05 19:08 | ED_ITS ---
HPI - Weakness General: Chief complaint: Weakness Stated complaint: Weakness, cough, not feeling well Time Seen by Provider: 12/05/21 17:53 Source: patient Mode of arrival: ambulatory Limitations: no limitations History of Present Illness: 66-year-old male states that he has been having generalized weakness for almost a year. He states that he got Covid back in March and is just had weakness since then. States he just has no energy to do anything. He denies any changes recently states that he has felt this week now he did back in March. He states he uses sick feeling like this. He denies any cough denies any fever denies any worsening improving factors. Associated symptoms: Denies chest pain, chills, dysuria, easy bruising, fever(s), headache(s), nausea or vomiting Review of Systems Const: Denies: fever(s), chills, body aches or change in appetite Eyes: Denies: blurry vision or eye discomfort ENMT: Denies: throat pain or dental pain Card: Denies: chest pain Resp: Denies: dyspnea GI: Denies: abdominal pain, nausea, vomiting or diarrhea : Denies: dysuria Musc: Reports: muscle weakness; Denies: neck pain or back pain Skin/Breast: Denies: rash Neuro: Denies: headache(s) Psych: Denies: depression Major/Lymph: Denies: easy bruising All/Imm: Denies: urticaria PFSH ED PFSH: Medical History Acute exacerbation of chronic obstructive airways disease CKD (chronic kidney disease) stage 4, GFR 15-29 ml/min Diabetes Diabetes mellitus with hyperglycemia Hypertension Monoclonal gammopathy RMSF ([place] spotted fever) Surgical History H/O hernia repair H/O repair of rotator cuff Right History of laryngoscopy Status post colonoscopy (04/19/20) diverticulosis - repeat in 10 years Family History Father Dementia Mother Dementia Denies family history of Anesthesia complication Bleeding disorder Social History Alcohol intake: never Physical Exam Const: COMMON NORMALS: no acute distress, patient oriented x3 and healthy appearing HENMT: COMMON NORMALS: normocephalic and atraumatic HEAD & SCALP: normoce phalic and atraumatic Eye: COMMON NORMALS: Equal, round and reactive pupils present and EOMs intact bilaterally PUPIL: Yes Equal, round and reactive pupils present Neck/C-Spine: COMMON NORMALS: full ROM and supple Chest: COMMONS NORMALS: normal inspection of the chest and normal palpation of entire chest wall Resp: COMMON NORMALS: normal respiratory effort, No retractions, No use of accessory muscles and clear to auscultation bilaterally AUSCULTATION: clear to auscultation bilaterally Cardio: COMMON NORMALS: regular rate, regular rhythm and No murmurs present (Cardio) RATE: regular rate RHYTHM: regular rhythm GI: COMMON NORMALS: Normal to inspection, nondistended, normoactive bowel sounds present, Soft to palpation, non-tender and no masses PALPATION: Yes Soft to palpation Extremity: COMMON NORMALS: normal to inspection and full ROM Neuro: COMMON NORMALS: patient oriented x3, moves all extremities and no focal motor deficits Psych: COMMON NORMALS: mental status grossly normal, Normal thought process present and cooperative THOUGHT PROCESS: Normal thought process present Skin: COMMON NORMALS: no rashes or lesions noted and no wounds GENERAL SKIN EXAM: no rashes or lesions noted Course Vital Signs: Vital signs: Vital Signs Temperature 97.6 F 12/05/21 17:43 Pulse Rate 58 L 12/05/21 18:40 Respiratory Rate 18 12/05/21 18:40 Blood Pressure 145/80 12/05/21 18:40 Pulse Oximetry 97 12/05/21 18:40 MDM - Weakness Medical Decision Making No hyperPatient presents here for generalized weakness for 9 to 10 months. He does have some dehydration I went over his labs with him he does have chronic kidney disease inform him his creatinine is slightly elevated from his baseline. He still making urine Your acidosis he does see a [employer] unified communications engineer inform needs to follow-up in 3 to 5 days he has no signs of infection he does feel improved here after IV fluids he is stable for discharge is return if worsening he understands agrees to plan. Lab Data : 12/05/21 18:38 12/05/21 18:38 Laboratory Results WBC 7.4 10^3/uL (4.0-10.0) 12/05/21 18:38 RBC 3.69 10^6/uL (4.1-5.3) L 12/05/21 18: Hgb 11.9 g/dL (11.7-16.6) 12/05/21 18: Hct 37.0 % (42.0-52.0) L 12/05/21 18: MCV 100.3 fl (80-94) H 12/05/21 18: MCH 32.2 pg (28.0-34.0) 12/05/21 18: MCHC 32.2 g/dL (30.0-36.0) 12/05/21 18: RDW 13.3 % (12.1-15.1) 12/05/21: Plt Count 171 10^3/cmm (130-400) 12/05/21 18: MPV 10.4 fL (7.4-10.4) 12/05/21 18: Neut % (Auto) 80.4 % 12/05/21 18: Lymph % (Auto) 6.8 % 12/05/21 18: Daniels % (Auto) 9.2 % 12/05/21 18: Eos % (Auto) 2.7 % 12/05/21 18: Baso % (Auto) 0.4 % 12/05/21: Neut # (Auto) 5.94 10^3/uL (1.8-7.7) 12/05/21 18: Lymph # (Auto) 0.5 10^3/uL (0.8-4.8) L 12/05/21 18: Daniels # (Auto) 0.7 10^3/uL (0.2-0.9) 12/05/21 18: Eos # (Auto) 0.2 10^3/uL (0.0-0.8) 12/05/21 18: Baso # (Auto) 0.0 10^3/uL (0.0-0.1) 12/05/21 18: Nucleated RBC % (auto) 0 % 12/05/21 18: Nucleated RBCs # 0.0 /100WBC 12/05/21 18: Sodium 140 mmol/L (136-145) 12/05/21 18:38 Potassium 4.7 mmol/L (3.5-5.1) 12/05/21 18:38 Chloride 101 mmol/L (98-107) 12/05/21 18:38 Carbon Dioxide 26 mmol/L (22-29) 12/05/21 18:38 Anion Gap 17.7 (5-19) 12/05/21 18:38 BUN 51 mg/dL (8-23) H 12/05/21 18:38 Creatinine 4.1 mg/dL (0.7-1.2) H 12/05/21 18:38 GFR Calculation 14.6 mL/min (90-130) L 12/05/21 18:38 Glucose 114 mg/dL (65-115) 12/05/21 18:38 POC Glucose 59 mg/dL (70-110) L 12/05/21 17:54 Calculated Osmolality 305 mOsm/kg (285-295) H 12/05/21 18:38 Calcium 12.4 mg/dL (8.5-10.5) H 12/05/21 18:38 Total Bilirubin 0.2 mg/dL (0.15-1.2) 12/05/21 18:38 AST 21 U/L (0-40) 12/05/21 18:38 ALT 25 U/L (0-41) 12/05/21 18:38 Alkaline Phosphatase 76 IU/L (40-130) 12/05/21 18:38 Troponin T Baseline 36 ng/L (0-15) H 12/05/21 18:38 Troponin T 120 Minute 33.69 ng/L (0-15) H 12/05/21 21:09 Delta Troponin T -2.31 ABS# (0-10) L 12/05/21 21:09 Total Protein 7.4 g/dL (6.6-8.7) 12/05/21 18:38 Albumin 4.1 g/dL (3.5-5.2) 12/05/21 18:38 Globulin 3.3 g/dL (1.3-4.6) 12/05/21 18:38 TSH 5.97 uIU/mL (0.27-4.20) H 12/05/21 18:38 Coronavirus 229E (PCR) Not detected (NOT DETECT) 12/05/21 18:17 SARS-CoV-2 (PCR) Not detected (NOT DETECT) 12/05/21 18:17 Discharge Plan Discharge Patient Disposition: Home Clinical Impression: Weakness, Chronic kidney disease (CKD) Condition: Stable Prescriptions: No Action mupirocin 2 % ointment 1 applic topical BID Qty: 22 1RF Rx Instructions: Apply to affected area until healed amlodipine 10 mg tablet 10 mg PO DAILY 0RF Rx Instructions: SEE PHARMACY COMMENT Novolin 70/30 U-100 Insulin 100 unit/mL (70-30) suspension 90 unit SUBCUT BID 0RF Novolin R Regular U-100 Insuln 100 unit/mL solution 30 unit SUBCUT TID 0RF spironolactone 25 mg tablet 25 mg PO BID 0RF Hold Instructions: Resume on 05/19/21. metoprolol tartrate 100 mg tablet 100 mg PO BID 0RF imiquimod 5 % cream in packet 1 applic topical ONCE Qty: 24 1RF Rx Instructions: Apply thin film to Saturday-Saturday (off weekends) for 6 weeks aspirin 81 mg Tablet,Delayed Release (Dr/Ec) 81 mg PO DAILY 0RF doxazosin 8 mg tablet 8 mg PO DAILY 0RF colchicine 0.6 mg tablet 0.3 mg PO DAILY 0RF Rx Instructions: TAKE 1/2 tab daily torsemide 20 mg Tablet 20 mg PO DAILY 0RF allopurinol 100 mg tablet 300 mg PO DAILY 0RF Discharge Orders: Discharge ED (Routine); Ordered 12/05/21 Ordered By: Ancelmo Brown Referrals: Rigoberto Mccann [Primary Care Provider] - 1-3 days Discharge Diet: Advance as tolerated Discharge Activity: Resume usual activity Patient Instructions: Weakness (ED) Activity Restrictions/Additional Instructions: Need to follow-up with his [employer] unified communications engineer in 3 to 5 days his creatinine is slightly elevated from her baseline for needs to be rechecked Coding Level of Care Code ED Information Officer for [facility] Fwd Exam Comprehensive
[2021-12-05 19:29] LABS: Alanine Aminotransferase 25 U/L (0-41); Albumin Level 4.1 g/dL (3.5-5.2); Alkaline Phosphatase 76 IU/L (40-130); Anion Gap 17.7 (5-19); Aspartate Amino Transferase 21 U/L (0-40); Blood Urea Nitrogen 51 mg/dL (8-23); Calcium 12.4 mg/dL (8.5-10.5); Carbon Dioxide 26 mmol/L (22-29); Chloride 101 mmol/L (98-107); Globulin 3.3 g/dL (1.3-4.6); Glomerular Filtration Rate 14.6 mL/min (90-130); Glucose 114 mg/dL (65-115); Osmolality Calculated 305 mOsm/kg (285-295); Potassium 4.7 mmol/L (3.5-5.1); Sodium 140 mmol/L (136-145); Thyroid Stimulating Hormone 5.97 uIU/mL (0.27-4.20); Total Bilirubin 0.2 mg/dL (0.15-1.2); Total Protein 7.4 g/dL (6.6-8.7); Troponin(5th) Baseline 36 ng/L (0-15)
[2021-12-05] MEDS: sodium chloride 0.9% 1,000 ML 999 ML IV (20:15)
[2021-12-05 21:07] LABS: Adenovirus Not Detected (NOT DETECT); Chlamydia Pneumoniae Not Detected (NOT DETECT); Coronavirus 229E,HKU1,NL63,OC4 Not Detected (NOT DETECT); Human Metapneumovirus Not Detected (NOT DETECT); Human Rhinovirus/Enterovirus Not Detected (NOT DETECT); Influenza A Not Detected (NOT DETECT); Influenza A H1 Not Detected (NOT DETECT); Influenza A H1-2009 Not Detected (NOT DETECT); Influenza A H3 Not Detected (NOT DETECT); Influenza B Not Detected (NOT DETECT); Mycoplasma Pneumoniae Not Detected (NOT DETECT); Parainfluenza Virus Type 1 Not Detected (NOT DETECT); Parainfluenza Virus Type 2 Not Detected (NOT DETECT); Parainfluenza Virus Type 3 Not Detected (NOT DETECT); Parainfluenza Virus Type 4 Not Detected (NOT DETECT); Respiratory Syncytial Virus A Not Detected (NOT DETECT); Respiratory Syncytial Virus B Not Detected (NOT DETECT); SARS-COV-2 Not Detected (NOT DETECT)
[2021-12-05 21:39] LABS: Troponin 5 2HR 33.69 ng/L (0-15)
[2021-12-05 21:41] LABS: Troponin 5 2HR Delta -2.31 ABS# (0-10)
[2021-12-05 23:09] LABS: Glucose Point of Care 83 mg/dL (70-110)
[2021-12-05 23:14] VITALS: BP 154/92; PULSE 60; RESP 17; O2SAT 93
== END 2021-12-05 23:16 | disposition home or self-care (01) ==
PROVIDERS: Family Medicine; Nurse Practitioner Family; Emergency Provider Emergency Medicine; PCP Family Medicine
DX: R53.1 Weakness (principal); E11.22 Type 2 diabetes mellitus with diabetic chronic kidney disease; I12.9 Hypertensive chronic kidney disease with stage 1 through stage 4 chronic kidney disease, or unspecified chronic kidney disease; N18.4 Chronic kidney disease, stage 4 (severe); Z79.82 Long term (current) use of aspirin; Z79.4 Long term (current) use of insulin; Z20.822 Contact with and (suspected) exposure to COVID-19
CPT/HCPCS: 36415; 36416; 71046; 80053; 82962; 84443; 84484; 85025; 87635; 96360; 99284; J7030

== ENCOUNTER 2021-12-11 14:05 | Outpatient (CLI) | payer MEDICARE, OTHER, SELFPAY ==
[2021-12-11 14:35] LABS: Add Urine Microscopic? NO; Charge for UA Resulting for Rev
[2021-12-11 14:39] LABS: Hemoglobin 10.8 g/dL (11.7-16.6)
[2021-12-11 15:06] LABS: Anion Gap 17.9 (5-19); Blood Urea Nitrogen 51 mg/dL (8-23); Carbon Dioxide 24 mmol/L (22-29); Chloride 100 mmol/L (98-107); Ferritin 184 ng/mL (30-400); Glucose 94 mg/dL (65-115); Iron 44 ug/dL (59-158); Magnesium 2.1 mg/dL (1.7-2.3); Osmolality Calculated 297 mOsm/kg (285-295); Percent Saturation 18.1 % (20-50); Phosphorus 4.7 mg/dL (2.5-4.5); Potassium 4.9 mmol/L (3.5-5.1); Sodium 137 mmol/L (136-145); Total Iron Binding Capacity 243 mcg/dl; Unsaturated Iron Binding 199 ug/dL (112-347)
[2021-12-11 15:08] LABS: Calcium 9.6 mg/dL (8.5-10.5)
[2021-12-11 15:12] LABS: Bilirubin Urine Neg (Negative); Blood Urine Neg (Negative); Glucose Urine UA Norm (Normal); Ketones Urine Negative (Negative); Leukocyte Esterase Urine Negative (Negative); Nitrate Urine Negative (Negative); Protein Urine Neg (Negative); Urine Appearance Clear (CLEAR); Urine Color Straw (Yellow); Urobilinogen Urine Norm (Negative); pH Urine 6.5 (5-7)
[2021-12-11 15:15] LABS: Parathyroid Hormone 24.1 pg/mL (15-65)
== END 2021-12-11 14:06 | disposition home or self-care (01) ==
LOC: LAB 14:11
PROVIDERS: PCP Family Medicine; Visit Provider Nurse Practitioner Gerontology
DX: N18.32 Chronic kidney disease, stage 3b (principal); R80.0 Isolated proteinuria; M10.9 Gout, unspecified; D63.1 Anemia in chronic kidney disease
CPT/HCPCS: 80048; 81003; 82310; 82728; 83540; 83550; 83735; 83970; 84100; 84550; 85018

== ENCOUNTER 2021-12-13 14:07 | Outpatient (CLI) | payer MEDICARE, OTHER, SELFPAY ==
--- NOTE | 2021-12-14 08:07 | ONC FU_ITS ---
Ju Ray Progress Note Patient: Fausto Jurado Unit #: [id number]: [id number] Dicatated By: Ju Ray N.P.Date of Visit:Dec 13, 2021 Onc MED Follow-up/Prog Note Chief Complaint: Monoclonal gammopathy. History of Present Illness: This is a 65-year-old man with elevated urinary free kappa light chain in association with mild anemia and chronic kidney disease. Patient with hypertension and type 2 diabetes. He has associated peripheral neuropathy, retinopathy, and nephropathy. He also has degenerative arthritis and gout. Between December 2018 and October 2019 there was a significant decline in his renal function with creatinine increasing from 1.9 to 3.1 mg/dL. He had seen Dr. Rodriguez for follow-up of his chronic kidney disease on 02/23/2021. His laboratory studies at that time included a random urine sample which showed an elevated free urinary kappa light chain at 118.31 mg/L as well as elevated urinary lambda light chain at 19.87 mg/L and with elevated kappa/lambda ratio at 5.95. The total protein was reported at 591.18 mg/L. The urinary MAVIS was negative for monoclonal free light chains, but it did show a faint band in IgA. His calcium was noted to be slightly elevated at 11.2 mg/dL with his albumin normal at 3.7 g/dL. Hemoglobin was borderline at 12.1 g. Creatinine was 3.32 mg/dL. His serum immunoelectrophoresis showed faint IgA kappa and IgM lambda bands. Dr. Decker had seen him initially on 03/27/2021. His main complaint was that he been feeling weak for quite some time. He reported having chronic pain in the neck and back as well as fairly generalized joint pain. You function worthless got the infarct and PVCs yet on my God his CBC showed hemoglobin 12.5 g with white blood cell count 7100 and platelet count 196,000. Sed rate was slightly elevated at 38 mm/h. Comprehensive metabolic profile showed elevated BUN and creatinine at 45 and 2.5 mg/dL. The bilirubin and liver enzymes were normal. Protein electrophoresis showed no detectable monoclonal protein. The serum free light chain assay showed elevated free kappa light chain at 126.9 mg/L and elevated free lambda light chain at 55.8 mg/L. The kappa/lambda ratio was elevated at 2.27. His 24-hour urine showed a total protein excretion of 1265 mg. There was no monoclonal protein detected. Patient presents today for follow-up. He states he does not feel well at all. He has weakness and fatigue. He denies fever or chills. He states his appetite is good. He has shortness of breath with activity he denies cough or chest pain. No nausea or vomiting. No abdominal pain. He denies headache or dizziness but he does have neuropathy bilateral lower extremities. Numbness in his hands that he states is from carpal tunnel. Patient also has chronic renal failure and he is followed by nephrology. Review Of Symptoms: See above. Past Medical History: Chronic kidney disease Degenerative disease of the spine Gout History of [place] spotted fever Hyperparathyroidism Hypertension Obstructive sleep apnea Peripheral neuropathy Right carpal tunnel syndrome Type II diabetes Vitamin D insufficiency Covid 19 in 2020 Past Surgical History: Right rotator cuff repair Colonoscopy in 2019 Appendectomy and umbilical hernia repair in 2017 Allergies: Aleve, Contrast Media, and Sulfa Antibiotics. Medications: Allopurinol 1 Tablet (of 100 mg) Oral b.i.d. amLODIPine Besylate 1 Tablet (of 10 mg) Oral daily Cardura 1 Tablet (of 8 mg) Oral daily Colchicine 1 Tablet (of 0.6 mg) Oral b.i.d. Metoprolol Tartrate 1 Tablet (of 100 mg) Oral b.i.d. Spironolactone 1 Tablet (of 25 mg) Oral b.i.d. Torsemide 1 Tablet (of 20 mg) Oral daily Family History: Father at age 84, cause uncertain to the patient. He thinks it may have been a cerebral hemorrhage. Mother at 87 of old age. One sister is in good health. Social History: Mr. Jurado is . Mr. Jurado no longer smokes. He has no history of drinking. He has done a little bit of smoking in the past. He quit smoking in 2001. He has only very occasional alcohol use. Physical Examination: Performed on Dec 13, 2021 15:22: Height - 70.00 in, Weight - 260.2 lbs (HIGH), BSA - 2.33 sq.m, BMI - 37.34 (HIGH), Temperature - 97.7 F (LOW), Pulse - 71 /min, Respiration - 20 /min, BP - 143/70 mm(hg) (HIGH), O2 Sat - 94 % (LOW), Pain - 6, and Fatigue - 8. Performance Status: 2 - Ambulatory/capable of all self-care, unable to perform any work activities. Up and about more than 50% of waking hours. (ECOG) Constitutional Alert, cooperative, oriented. Mood and affect appropriate. Appears close to chronological age. Well nourished. Well developed. Head Normocephalic; no scars. Respiratory Lungs are clear to auscultation without rhonchi or wheezing. Cardiovascular Regular rate and rhythm of heart without murmurs, gallops or rubs. Abdomen Non-tender, non-distended, no masses, ascites or hepatosplenomegaly. Good bowel sounds. No guarding or rebound tenderness. Extremities No visible deformities, no cyanosis, clubbing or edema. Pulses 3+ and equal bilaterally. Musculoskeletal No tenderness or swelling, normal range of motion without obvious weakness. Psychiatric Alert and oriented times three. Coherent speech. Verbalizes understanding of our discussions today. Laboratory: Test performed on Dec 04, 2021 13:25 CRP, High Sensitivity 1.350 mg/dL LDH (Total) 222 U/L Sodium 140 mmol/L Potassium 4.9 mmol/L Chloride 102 mmol/L CO2 24 mmol/L Anion Gap 18.9 BUN 54 mg/dL Creatinine 4.1 mg/dL Cr Clearance (Est) 25.8700 mL/min eGFR 14.6 mL/min Glucose 118 mg/dL Osmolality - Calculated 306 mOsm/kg Calcium 12.1 mg/dL Protein, Total 7.1 g/dL Albumin 4.3 g/dL Globulin 2.8 g/dL Bilirubin, Total 0.2 mg/dL ALT (SGPT) 27 U/L AST (SGOT) 25 U/L Alkaline Phosphatase 80 IU/L ESR (Sed Rate) 40 mm/hr WBC 9.4 10 3/uL RBC 3.74 10 6/uL HGB 12.0 g/dL HCT 36.8 % MCV 98.4 fl MCH 32.1 pg MCHC 32.6 g/dL RDW 13.2 % Platelet Count 179 10 3/cmm MPV 10.6 fL Neutrophils 7.86 10 3/uL Lymphocytes 0.5 10 3/uL Monocytes 0.8 10 3/uL Eosinophils 0.2 10 3/uL Basophils 0.0 10 3/uL Neutrophil % 83.6 % Lymphocyte % 5.3 % Monocyte % 8.3 % Eosinophil % 2.0 % Basophils % 0.4 % NRBC % 0 % IgA 240 mg/dL Test performed on Jul 21, 2021 11:39 [place] Free Light Chains 69.3 mg/L Lambda Free Light Chains 53.9 mg/L [place]/Lambda Free Ratio 1.29 Test performed on Jul 13, 2021 10:32 U Protein, 24hr 1586 mg/24 h U Protein/Creat Ratio 0.984 U Albumin % 75 % UPE Interpretation SEE NOTE Agarose electrophoresis of urine reveals albumin and various globulin fractions. No abnormal protein is observed. THIS TEST WAS PERFORMED AT: [facility] [address] [place] [address] AMADO HARRIS DO,MPH U Creatinine, 24 hr 1.61 g/24 h U [id number] 5 % U [id number] 5 % U Beta Globulin 10 % U Gamma Globulin 6 % Test performed on Jul 03, 2021 11:29 Leukemia/Lymphoma Interp WILL REORDER TO ANH TOMPKINS Impression: 1. Probable early stage monoclonal gammopathy. It is uncertain to what extent it may be clinically significant. In the setting of late stage chronic kidney disease, myeloma will need to be excluded. 2. Hypertension. 3. Type 2 diabetes with peripheral neuropathy, retinopathy, and nephropathy. 4. Degenerative arthritis/degenerative disease of the spine. 5. Gout. 6. Hyperparathyroidism. 7. Obstructive sleep apnea with intolerance to CPAP. 8. History of [place] spotted fever. 9. History of vertebral artery occlusion. Plan: 1. Patient with a low-grade monoclonal gammopathy in association with late stage 4 chronic kidney disease. There is concern about the possibility of an underlying plasma cell dyscrasia, though it seems relatively unlikely that it would be contributing significantly to his symptoms. His laboratory studies from last week showed stable blood counts and renal function. There was a poorly defined M band reported on his protein electrophoresis. The free light chain assay for some reason was not done. With those findings, I will have him bring in another 24-hour urine specimen and I will then check a serum immunoelectrophoresis and repeat his serum free light chain assay. In addition, he will be scheduled for a skeletal survey. He will have further evaluation as indicated. Patient presents for follow-up. He had a skeletal survey performed which did not indicate any abnormalities. We will have him follow-up in 3 months with CBC, CMP, kappa light chain 24-hour urine. Signed By: Ju Ray N.P. <<Signature on File>>
== END 2021-12-13 14:08 | disposition home or self-care (01) ==
LOC: ONCMED 14:12
PROVIDERS: Visit Provider Nurse Practitioner Family
DX: D47.2 Monoclonal gammopathy (principal); D64.9 Anemia, unspecified; N18.9 Chronic kidney disease, unspecified; I10 Essential (primary) hypertension; E11.9 Type 2 diabetes mellitus without complications; E21.3 Hyperparathyroidism, unspecified; E55.9 Vitamin D deficiency, unspecified; Z79.899 Other long term (current) drug therapy
CPT/HCPCS: 99214

== ENCOUNTER → 2022-01-19 10:34 | Outpatient (BNVA) | payer MEDICARE, OTHER, SELFPAY | PROVIDERS: Visit Provider Internal Medicine Critical Care Medicine | DX: J84.9 Interstitial pulmonary disease, unspecified (principal); G47.33 Obstructive sleep apnea (adult) (pediatric); J45.909 Unspecified asthma, uncomplicated; R05.3 Chronic cough; Z87.891 Personal history of nicotine dependence; I10 Essential (primary) hypertension; E11.65 Type 2 diabetes mellitus with hyperglycemia | CPT/HCPCS: 99204 ==

== ENCOUNTER 2022-02-08 10:21 | Outpatient (CLI) | payer MEDICARE, OTHER, SELFPAY ==
[2022-02-08 11:28] LABS: Anion Gap 19.2 (5-19); Blood Urea Nitrogen 54 mg/dL (8-23); Calcium 9.1 mg/dL (8.5-10.5); Carbon Dioxide 19 mmol/L (22-29); Chloride 100 mmol/L (98-107); Glomerular Filtration Rate 19.5 mL/min (90-130); Glucose 230 mg/dL (65-115); Osmolality Calculated 298 mOsm/kg (285-295); Potassium 5.2 mmol/L (3.5-5.1); Sodium 133 mmol/L (136-145)
[2022-02-08 11:52] LABS: Calcium 10.2 mg/dL (8.5-10.5)
[2022-02-08 11:59] LABS: Parathyroid Hormone 16.1 pg/mL (15-65)
== END 2022-02-08 10:22 | disposition home or self-care (01) ==
PROVIDERS: Visit Provider Nurse Practitioner Gerontology
DX: N18.32 Chronic kidney disease, stage 3b (principal)
CPT/HCPCS: 80048; 82310; 83970

== ENCOUNTER 2022-03-01 12:56 | Outpatient (CLI) | payer MEDICARE, OTHER, SELFPAY ==
--- NOTE | 2022-03-01 13:30 | CT_ITS ---
WS: [id number] CT scan of the chest without IV contrast, additional two-dimensional coronal and sagittal reconstruct ion was performed. Additional supine inspiration and expiration images and inspiration prone images w ere obtained. Clinical Data: Interstitial lung disease Comparison: CT chest, 05/08/2021. DLP: 2063.[address] scans at [facility] use at least one of these dose optimization techniques: automated e xposure control; mA and/or kV adjustment per patient size (includes targeted exams where dose is matc hed to clinical indication); or iterative reconstruction. Findings: No nodules, masses or effusions are seen. There are interstitial fibrotic changes throughout the lung s. No groundglass infiltrates are seen. No pneumonia or pneumothorax is present. The heart size is no rmal with coronary artery calcification. There is no pericardial effusion. No pneumothorax is present . On the expiration and inspiration images there is no significant air trapping. The pulmonary arteri al system and thoracic aorta demonstrate no abnormalities or dilatations. There is no axillary or sig nificant mediastinal adenopathy. There is a small hiatal hernia. There is degenerative change of the thoracic vertebral bodies. The upper abdomen shows no significant abnormalities. CT/CT chest wo con [id number] Impression: 1. Interstitial change throughout the lungs with no residual groundglass opacit ies. 2. Negative for lung nodules or masses. 3. Negative for air trapping on inspiration or expiration.
== END 2022-03-01 12:57 | disposition home or self-care (01) ==
PROVIDERS: Visit Provider Internal Medicine Critical Care Medicine
DX: J84.9 Interstitial pulmonary disease, unspecified (principal)
CPT/HCPCS: 71250

== ENCOUNTER 2022-03-13 10:39 | Outpatient (CLI) | payer MEDICARE, OTHER, SELFPAY ==
[2022-03-13 11:38] LABS: Calcium 9.6 mg/dL (8.5-10.5)
[2022-03-13 11:46] LABS: Parathyroid Hormone 39.5 pg/mL (15-65)
[2022-03-13 11:54] LABS: Albumin Level 4.4 g/dL (3.5-5.2); Anion Gap 14.5 (5-19); Blood Urea Nitrogen 50 mg/dL (8-23); Calcium 9.5 mg/dL (8.5-10.5); Carbon Dioxide 28 mmol/L (22-29); Chloride 100 mmol/L (98-107); Glomerular Filtration Rate 19.5 mL/min (90-130); Glucose 70 mg/dL (65-115); Osmolality Calculated 298 mOsm/kg (285-295); Potassium 4.5 mmol/L (3.5-5.1); Sodium 138 mmol/L (136-145)
[2022-03-13 13:26] LABS: 25 Hydroxy Vitamin D > 100 ng/mL (30-100)
== END 2022-03-13 10:40 | disposition home or self-care (01) ==
PROVIDERS: Visit Provider Nurse Practitioner Gerontology
DX: E83.52 Hypercalcemia (principal)
CPT/HCPCS: 80048; 82040; 82306; 82310; 83970

== ENCOUNTER → 2022-03-22 08:54 | Outpatient (BNVA) | payer MEDICARE, OTHER, SELFPAY | PROVIDERS: Visit Provider Internal Medicine Critical Care Medicine | DX: R05.3 Chronic cough (principal); J84.9 Interstitial pulmonary disease, unspecified; G47.33 Obstructive sleep apnea (adult) (pediatric); J45.909 Unspecified asthma, uncomplicated; Z87.891 Personal history of nicotine dependence; I10 Essential (primary) hypertension; E11.8 Type 2 diabetes mellitus with unspecified complications; N18.4 Chronic kidney disease, stage 4 (severe); Z86.16 Personal history of COVID-19 | CPT/HCPCS: 99214 ==

== ENCOUNTER 2022-04-26 08:27 | Outpatient (CLI) | payer MEDICARE, OTHER, SELFPAY ==
--- NOTE | 2022-04-26 11:23 | PFTS_ITS ---
Date of Study:04/26/22 Date of Dictation: 04/28/2022 MECHANICS: Postbronchodilator forced vital capacity (FVC) is normal. Postbronchodilator forced expiratory volume in one second (FEV1) is normal. FEV1/FVC is normal. There is no significant postbronchodilator response FLOW VOLUME LOOP: Normal . LUNG VOLUMES: Total lung capacity (TLC) is mildly reduced. Residual volume (RV) is mildly reduced. DIFFUSING CAPACITY FOR CARBON MONOXIDE: Normal . INTERPRETATION: The spirometry is normal. There is no significant postbronchodilator response. Lung volumes suggestive of mild restriction. Gas transfer is normal. Clinical correlation recommended. MTDD
== END 2022-04-26 08:28 | disposition home or self-care (01) ==
LOC: RT 08:28
PROVIDERS: PCP Family Medicine; Visit Provider Internal Medicine Critical Care Medicine
DX: J84.9 Interstitial pulmonary disease, unspecified (principal); J96.01 Acute respiratory failure with hypoxia
CPT/HCPCS: 94060; 94726; 94729; 99214; J7614

== ENCOUNTER 2022-05-01 10:31 | Oncology outpatient (recurring) (ONCR) | payer MEDICARE, OTHER, SELFPAY ==
[2022-04-26 09:54] LABS: Basophils % 0.2 %; Eosinophils # 0.2 10^3/uL (0.0-0.8); Eosinophils % 2.1 %; Hematocrit 38.6 % (42.0-52.0); Hemoglobin 12.6 g/dL (11.7-16.6); Lymphocytes # 0.9 10^3/uL (0.8-4.8); Lymphocytes % 8.2 %; Mean Corpuscular HGB Conc 32.6 g/dL (30.0-36.0); Mean Corpuscular Hemoglobin 32.1 pg (28.0-34.0); Mean Corpuscular Volume 98.2 fl (80-94); Mean Platelet Volume 10.7 fL (7.4-10.4); Monocytes # 0.9 10^3/uL (0.2-0.9); Monocytes % 8.3 %; Neutrophils # 8.86 10^3/uL (1.8-7.7); Neutrophils % 80.5 %; Nucleated Red Blood Cells % 0 %; Platelet Count 155 10^3/cmm (130-400); Red Blood Count 3.93 10^6/uL (4.1-5.3); Red Cell Distribution Width 13.4 % (12.1-15.1)
[2022-04-26 10:06] LABS: Erythrocyte Sedimentation Rate 19 mm/hr (0-10)
[2022-04-26 10:27] LABS: Alanine Aminotransferase 31 U/L (0-41); Albumin Level 4.4 g/dL (3.5-5.2); Alkaline Phosphatase 72 IU/L (40-130); Anion Gap 15.6 (5-19); Aspartate Amino Transferase 22 U/L (0-40); Blood Urea Nitrogen 41 mg/dL (8-23); Calcium 10.8 mg/dL (8.5-10.5); Carbon Dioxide 26 mmol/L (22-29); Chloride 102 mmol/L (98-107); Globulin 2.9 g/dL (1.3-4.6); Glucose 116 mg/dL (65-115); Osmolality Calculated 299 mOsm/kg (285-295); Potassium 4.6 mmol/L (3.5-5.1); Sodium 139 mmol/L (136-145); Total Bilirubin 0.3 mg/dL (0.15-1.2); Total Protein 7.3 g/dL (6.6-8.7)
[2022-04-27 12:27] LABS: PROTEIN, TOTAL 6.8 g/dL (6.1-8.1)
[2022-04-27 15:43] LABS: KAPPA LIGHT CHAIN, FREE, SERUM 97.3 mg/L (3.3-19.4); KAPPA/LAMBDA LIGHT CHAINS FREE 1.44 (0.26-1.65); LAMBDA LIGHT CHAIN, FREE, SERU 67.7 mg/L (5.7-26.3)
[2022-04-27 16:53] LABS: ABNORMAL PROTEIN BAND 1 0.4 g/dL (NONE DETECTED); ALPHA 1 GLOBULIN 0.3 g/dL (0.2-0.3); ALPHA 2 GLOBULIN 0.6 g/dL (0.5-0.9); BETA 1 GLOBULIN 0.4 g/dL (0.4-0.6); BETA 2 GLOBULIN 0.4 g/dL (0.2-0.5); GAMMA GLOBULIN 1.1 g/dL (0.8-1.7)
[2022-05-01 11:00] LABS: Total Volume Urine 1500 ml; Total Volume, Urine 1500 mL
[2022-05-01 11:25] LABS: Urine Creatinine 91 mg/dL (39-259)
[2022-05-01 11:44] LABS: Urine Total Protein 73.6 mg/dL (0-150)
[2022-05-02 14:53] LABS: CREATININE, 24 HOUR URINE 1.32 g/24 h (0.50-2.15); PROTEIN, TOTAL, 24 HR UR 1230 mg/24 h (<150); Protein/Creatinine Ratio 0.932 (< OR = 0.114); Protein/Creatinine Ratio 932 mg/g creat (< OR = 114)
[2022-05-04 15:33] LABS: ALBUMIN 73 %; ALPHA-1-GLOBULINS 4 %; ALPHA-2-GLOBULINS 6 %; BETA GLOBULINS 9 %; GAMMA GLOBULINS 8 %
== END 2022-05-13 23:59 | disposition home or self-care (01) ==
PROVIDERS: Nurse Practitioner Family; PCP Family Medicine; Visit Provider Internal Medicine Medical Oncology
DX: N18.4 Chronic kidney disease, stage 4 (severe) (principal)
CPT/HCPCS: 36415; 80053; 82570; 83883; 84155; 84156; 84165; 84166; 84443; 85025; 85651; 86335; 99214

== ENCOUNTER 2022-06-08 11:41 | Outpatient (CLI) | payer MEDICARE, OTHER, SELFPAY ==
[2022-06-08 12:55] LABS: Add Urine Microscopic? NO; Charge for UA Resulting for Rev
[2022-06-08 12:59] LABS: Hemoglobin 13.5 g/dL (11.7-16.6)
[2022-06-08 13:01] LABS: Urine Appearance Clear (CLEAR); Urine Color Yellow (Yellow)
[2022-06-08 13:02] LABS: Bilirubin Urine Neg (Negative); Blood Urine Neg (Negative); Glucose Urine UA Norm (Normal); Ketones Urine Negative (Negative); Leukocyte Esterase Urine Negative (Negative); Nitrate Urine Negative (Negative); Protein Urine Neg (Negative); Urobilinogen Urine Norm (Negative); pH Urine 5 (5-7)
[2022-06-08 13:21] LABS: Urine Creatinine 48 mg/dL (39-259)
[2022-06-08 13:23] LABS: Albumin Level 4.4 g/dL (3.5-5.2); Anion Gap 15.9 (5-19); Blood Urea Nitrogen 46 mg/dL (8-23); Calcium 10.4 mg/dL (8.5-10.5); Carbon Dioxide 24 mmol/L (22-29); Chloride 102 mmol/L (98-107); Ferritin 273 ng/mL (30-400); Glomerular Filtration Rate 22.7 mL/min (90-130); Glucose 129 mg/dL (65-115); Iron 105 ug/dL (59-158); Magnesium 2.4 mg/dL (1.7-2.3); Osmolality Calculated 296 mOsm/kg (285-295); Percent Saturation 42.5 % (20-50); Phosphorus 3.5 mg/dL (2.5-4.5); Potassium 5.9 mmol/L (3.5-5.1); Sodium 136 mmol/L (136-145); Total Iron Binding Capacity 247 mcg/dl; Unsaturated Iron Binding 142 ug/dL (112-347)
[2022-06-08 13:24] LABS: Calcium 10.3 mg/dL (8.5-10.5)
[2022-06-08 13:30] LABS: Parathyroid Hormone 19.9 pg/mL (15-65)
[2022-06-08 13:34] LABS: Total Protein, Random Urine 41.3 mg/dL (0.0-20.0)
== END 2022-06-08 11:42 | disposition home or self-care (01) ==
LOC: LAB 11:46
PROVIDERS: PCP Family Medicine; Visit Provider Internal Medicine
DX: E87.1 Hypo-osmolality and hyponatremia (principal); E87.2 Acidosis; E87.5 Hyperkalemia; M10.9 Gout, unspecified; N18.4 Chronic kidney disease, stage 4 (severe); R80.0 Isolated proteinuria
CPT/HCPCS: 80048; 80053; 81003; 82040; 82310; 82570; 82575; 82728; 82784; 83540; 83550; 83735; 83883; 83970; 84100; 84155; 84156; 84165; 84550; 85018; 85651; 86334

== ENCOUNTER 2022-06-19 12:27 | Outpatient (CLI) | payer MEDICARE, OTHER, SELFPAY ==
[2022-06-19 13:54] LABS: Basophils % 0.4 %; Eosinophils # 0.1 10^3/uL (0.0-0.8); Eosinophils % 1.8 %; Hematocrit 39.2 % (42.0-52.0); Lymphocytes % 12.3 %; Mean Corpuscular HGB Conc 33.2 g/dL (30.0-36.0); Mean Corpuscular Hemoglobin 32.6 pg (28.0-34.0); Mean Corpuscular Volume 98.2 fl (80-94); Mean Platelet Volume 10.8 fL (7.4-10.4); Monocytes # 0.7 10^3/uL (0.2-0.9); Monocytes % 9.2 %; Neutrophils # 6.04 10^3/uL (1.8-7.7); Neutrophils % 75.7 %; Nucleated Red Blood Cells % 0 %; Platelet Count 158 10^3/cmm (130-400); Red Blood Count 3.99 10^6/uL (4.1-5.3); Red Cell Distribution Width 12.3 % (12.1-15.1)
[2022-06-19 13:57] LABS: Erythrocyte Sedimentation Rate 20 mm/hr (0-10)
[2022-06-19 14:05] LABS: Alanine Aminotransferase 26 U/L (0-41); Albumin Level 4.3 g/dL (3.5-5.2); Alkaline Phosphatase 72 U/L (40-130); Anion Gap 13.8 (5-19); Aspartate Amino Transferase 18 U/L (0-40); Blood Urea Nitrogen 35 mg/dL (8-23); Calcium 9.9 mg/dL (8.5-10.5); Carbon Dioxide 28 mmol/L (22-29); Chloride 101 mmol/L (98-107); Globulin 2.9 g/dL (1.3-4.6); Glomerular Filtration Rate 25.9 mL/min (90-130); Glucose 104 mg/dL (65-115); Osmolality Calculated 292 mOsm/kg (285-295); Potassium 5.8 mmol/L (3.5-5.1); Sodium 137 mmol/L (136-145); Total Bilirubin 0.3 mg/dL (0.15-1.2); Total Protein 7.2 g/dL (6.6-8.7)
[2022-06-19 14:18] LABS: Creatinine Urine, Random 47 mg/dL (39-259); Total Protein, Random Urine 39.9 mg/dL (0.0-20.0)
[2022-06-19 14:26] LABS: Parathyroid Hormone 20.7 pg/mL (15-65)
[2022-06-19 14:28] LABS: Calcium 9.9 mg/dL (8.5-10.5)
[2022-06-19 14:32] LABS: Immunoglobulin IGA 293 mg/dL (70-400); Immunoglobulin IGG 962 mg/dL (700-1600); Immunoglobulin IGM 375 mg/dL (40-230)
[2022-06-19 15:01] LABS: Albumin Level 4.4 g/dL (3.5-5.2); Ferritin 219 ng/mL (30-400); Iron 103 ug/dL (59-158); Magnesium 1.9 mg/dL (1.7-2.3); Percent Saturation 41.8 % (20-50); Phosphorus 3.5 mg/dL (2.5-4.5); Total Iron Binding Capacity 246 mcg/dl; Unsaturated Iron Binding 143 ug/dL (112-347); Uric Acid 5.2 mg/dL (3.4-7.0)
[2022-06-20 05:58] LABS: PROTEIN, TOTAL 6.6 g/dL (6.1-8.1)
[2023-07-09 17:12] LABS: ALBUMIN 3.8; ALPHA 1 GLOBULIN 0.3; ALPHA 2 GLOBULIN 0.7; BETA 1 GLOBULIN 0.4; BETA 2 GLOBULIN 0.4; KAPPA LIGHT CHAIN, FREE, SERUM 87.9; LAMBDA LIGHT CHAIN, FREE, SERU 48.8
[2023-07-09 17:13] LABS: GAMMA GLOBULIN 1.1
[2023-07-09 17:21] LABS: ABNORMAL PROTEIN BAND 1 0.3
== END 2022-06-19 12:28 | disposition home or self-care (01) ==
PROVIDERS: Internal Medicine Medical Oncology; PCP Family Medicine; Visit Provider Internal Medicine
DX: N18.4 Chronic kidney disease, stage 4 (severe) (principal); E87.1 Hypo-osmolality and hyponatremia; E87.5 Hyperkalemia; E87.2 Acidosis; E83.52 Hypercalcemia
CPT/HCPCS: 36415; 80053; 82040; 82310; 82575; 82728; 82784; 83540; 83550; 83735; 83883; 83970; 84100; 84155; 84156; 84165; 84550; 85025; 85651; 86334

== ENCOUNTER 2022-06-21 08:01 | Outpatient (CLI) | payer MEDICARE, OTHER, SELFPAY ==
[2022-06-21 08:58] LABS: Total Volume, Urine 3000 mL; Urine Total Protein 35.7 mg/dL (0-150)
[2022-06-22 12:03] LABS: CREATININE, 24 HOUR URINE 1.29 g/24 h (0.50-2.15); PROTEIN, TOTAL, 24 HR UR 1440 mg/24 h (<150); Protein/Creatinine Ratio 1.116 (<0.100); Protein/Creatinine Ratio 1116 mg/g creat (<100)
[2022-06-25 17:37] LABS: Kappa Free Light Chains Urine 63.66 mg/L (<=32.90)
[2022-06-26 10:53] LABS: ALBUMIN 67 %; ALPHA-1-GLOBULINS 5 %; ALPHA-2-GLOBULINS 7 %; BETA GLOBULINS 14 %; GAMMA GLOBULINS 7 %
== END 2022-06-21 08:02 | disposition home or self-care (01) ==
LOC: LAB 08:04
PROVIDERS: PCP Family Medicine; Visit Provider Internal Medicine Medical Oncology
DX: D47.2 Monoclonal gammopathy (principal); N18.4 Chronic kidney disease, stage 4 (severe)
CPT/HCPCS: 83883; 84156; 84166; 86335

== ENCOUNTER 2022-06-25 10:59 | Outpatient (CLI) | payer MEDICARE, OTHER, SELFPAY ==
[2022-06-26 12:38] LABS: PROTEIN, TOTAL 6.8 g/dL (6.1-8.1)
[2022-06-26 16:18] LABS: ABNORMAL PROTEIN BAND 1 0.4 g/dL (NONE DETECTED); ALBUMIN 3.9 g/dL (3.8-4.8); ALPHA 1 GLOBULIN 0.3 g/dL (0.2-0.3); ALPHA 2 GLOBULIN 0.7 g/dL (0.5-0.9); BETA 1 GLOBULIN 0.4 g/dL (0.4-0.6); BETA 2 GLOBULIN 0.4 g/dL (0.2-0.5); GAMMA GLOBULIN 1.1 g/dL (0.8-1.7)
== END 2022-06-25 11:00 | disposition home or self-care (01) ==
PROVIDERS: Internal Medicine Medical Oncology; PCP Family Medicine; Visit Provider Internal Medicine
DX: E87.5 Hyperkalemia (principal); D47.2 Monoclonal gammopathy; N18.4 Chronic kidney disease, stage 4 (severe)
CPT/HCPCS: 36415; 84132; 84155; 84165; 86334

== ENCOUNTER 2022-10-03 10:05 | Outpatient (CLI) | payer MEDICARE, OTHER, SELFPAY ==
[2022-10-03 11:31] LABS: Calcium 10.3 mg/dL (8.5-10.5)
[2022-10-03 11:38] LABS: Blood Urea Nitrogen 68 mg/dL (8-23); Calcium 10.3 mg/dL (8.5-10.5); Carbon Dioxide 25 mmol/L (22-29); Chloride 97 mmol/L (98-107); Ferritin 535 ng/mL (30-400); Glomerular Filtration Rate 17.5 mL/min (90-130); Glucose 163 mg/dL (65-115); Iron 76 ug/dL (59-158); Magnesium 1.9 mg/dL (1.7-2.3); Osmolality Calculated 301 mOsm/kg (285-295); Phosphorus 5.2 mg/dL (2.5-4.5); Sodium 134 mmol/L (136-145); Total Iron Binding Capacity 237 mcg/dl; Unsaturated Iron Binding 161 ug/dL (112-347); Uric Acid 6.5 mg/dL (3.4-7.0)
[2022-10-03 11:39] LABS: Parathyroid Hormone 16.5 pg/mL (15-65)
[2022-10-03 13:13] LABS: Urine Creatinine 110 mg/dL (39-259)
[2022-10-03 13:18] LABS: Total Protein, Random Urine 63.9 mg/dL (0.0-20.0)
[2022-10-03 13:34] LABS: Urine Appearance Clear (CLEAR); Urine Color Yellow (Yellow)
[2022-10-03 13:35] LABS: Add Urine Microscopic? YES; Bacteria Urine 1+ /hpf; Bilirubin Urine Neg (Negative); Blood Urine Neg (Negative); Glucose Urine UA Norm (Normal); Ketones Urine Negative (Negative); Leukocyte Esterase Urine Negative (Negative); Nitrate Urine Negative (Negative); Protein Urine 1+ (Negative); Squamous Epithelial Cell Urine 0-4 /hpf (0-5); Urobilinogen Urine Norm (Negative); pH Urine 5 (5-7)
[2022-10-03 13:36] LABS: Add Urine Culture? Yes; Hyaline Casts Urine 0-4 /lpf
== END 2022-10-03 10:06 | disposition home or self-care (01) ==
LOC: LAB 10:23
PROVIDERS: PCP Family Medicine; Visit Provider Internal Medicine
DX: E87.1 Hypo-osmolality and hyponatremia (principal); E87.5 Hyperkalemia; M10.9 Gout, unspecified; N18.4 Chronic kidney disease, stage 4 (severe); R80.0 Isolated proteinuria; D64.9 Anemia, unspecified
CPT/HCPCS: 36415; 80048; 81001; 82310; 82570; 82728; 83540; 83550; 83735; 83970; 84100; 84156; 84550; 87086

== ENCOUNTER → 2022-10-25 17:18 | Outpatient (BNVA) | payer MEDICARE, OTHER, SELFPAY | PROVIDERS: PCP Family Medicine; Visit Provider Emergency Medicine | DX: R19.7 Diarrhea, unspecified (principal); R42 Dizziness and giddiness; A08.4 Viral intestinal infection, unspecified; A08.8 Other specified intestinal infections | CPT/HCPCS: 87493; 87506 ==

== ENCOUNTER 2022-10-29 17:18 | Emergency (ER) | payer MEDICARE, OTHER, SELFPAY ==
[2022-10-29 17:24] VITALS: BP 148/92; PULSE 83; RESP 18; TEMP 36.6; O2SAT 94
--- NOTE | 2022-10-29 18:24 | PC.NURSE ---
WHILE IN LOBBY WITH PT PT IS SITTING IN WC IN NAD.
--- NOTE | 2022-10-29 20:15 | ED_ITS ---
Documented by User: Baudilio Nowak MD 10/29/22 23:13 HPI - Dizziness General: Chief Complaint: Dizziness Stated Complaint: dizziness Time Seen by Provider: 10/29/22 20:14 Source: patient Mode of arrival: ambulatory History of Present Illness: HPI Narrative: This 67-year-old male with a history of obstructive sleep apnea, COPD and CKD, presents to the ER with dizziness/vertigo that started 7 to 8 days ago. Patient describes it as more or less constant. When he stand up, the room swirls around. He has no fever, vomiting, abdominal pain, headache or any other pertinent symptoms. When asked about pain, patient stated that he hurts all over. This pain started many years ago. He also reported that he had chest pain few days ago. Currently, he has no chest pain. Patient has had dizziness in the past but not like this . He appears clinically stable. Associated symptoms: Denies chest pain, chills or headache(s) Review of Systems Const: Denies: chills, body aches or change in appetite Eyes: Denies: change in vision or eye discharge ENMT: Denies: throat pain, dental pain or nasal discharge Card: Denies: chest pain or lightheadedness : Denies: dysuria Musc: Reports: neck pain, back pain and other (Chronic generalized pain.) Neuro: Reports: other (Dizziness); Denies: headache(s) or weakness in extremities Psych: Denies: depression Major/Lymph: Denies: easy bruising All/Imm: Denies: urticaria, tongue swelling or facial swelling PFS ED PFSH: Medical History CKD (chronic kidney disease) stage 4, GFR 15-29 ml/min Degenerative arthritis Gout History of arterial occlusion History of vertebral artery occlusion Hypertension Interstitial lung disease Monoclonal gammopathy Obstructive sleep apnea Peripheral neuropathy RMSF ([place] spotted fever) Type 2 diabetes mellitus Surgical History H/O hernia repair H/O repair of rotator cuff Right History of laryngoscopy Status post colonoscopy (04/19/20) diverticulosis - repeat in 10 years Family History Father Dementia Mother Dementia Denies family history of Anesthesia complication Bleeding disorder Social History Smoking and tobacco status: former smoker Quit status (tobacco): has quit using tobacco Former quit date comment: 1 ppd X 8 years Alcohol intake: never Physical Exam Const: COMMON NORMALS: no acute distress, patient oriented x3, no limitations and alert HENMT: COMMON NORMALS: normocephalic HEAD & SCALP: normocephalic Eye: COMMON NORMALS: EOMs intact bilaterally Neck/C-Spine: COMMON NORMALS: full ROM and supple Chest: COMMONS NORMALS: normal inspection of the chest Resp: COMMON NORMALS: normal respiratory effort, No retractions, No use of accessory muscles and clear to auscultation bilaterally AUSCULTATION: clear to auscultation bilaterally Cardio: COMMON NORMALS: regular rate, regular rhythm and No murmurs present (Cardio) RATE: regular rate RHYTHM: regular rhythm GI: COMMON NORMALS: Normal to inspection, nondistended, normoactive bowel sounds present and non-tender : COMMON NORMALS: Yes no CVA tenderness BLADDER/KIDNEY EXAM: Yes no CVA tenderness Back/Pelvis: COMMON NORMALS: no CVA tenderness and no thoracic nor lumbar tenderness Extremity: GENERAL: Yes normal exam except as noted Neuro: COMMON NORMALS: patient oriented x3 and no focal motor deficits SENSORIUM/ORIENTATION: Yes alert Psych: COMMON NORMALS: mental status grossly normal and cooperative Course Vital Signs: Vital signs: Vital Signs Temperature 97.8 F 10/29/22 17:24 Pulse Rate 69 10/29/22 21:07 Respiratory Rate 21 H 10/29/22 21:07 Blood Pressure 174/87 10/29/22 21:07 Pulse Oximetry 96 10/29/22 21:07 Oxygen Delivery Me thod 10/29/22 21:07 MDM - Dizziness Medical Decision Making Medical decision making: Patient presents with dizziness that started 7 to 8 days ago. Clinical exam is unremarkable with no demonstrable nystagmus. White count is normal with no left shift. Hemoglobin and platelet count are both normal. UA is negative for UTI and CT brain is negative for any acute intracranial process. Currently awaiting completion of CMP and troponin. Patient care transferred to Dr. Brown at end of shift. Lab Data 10/29/22 22:23 10/29/22 22:[address] 10/29/22 20:39 IMPRESSION: No acute intracranial abnormality. Laboratory Results WBC 7.9 10^3/uL (4.0-10.0) 10/29/22 22:23 RBC 3.85 10^6/uL (4.1-5.3) L 10/29/22 22:23 Hgb 12.4 g/dL (11.7-16.6) 10/29/22 22: Hct 36.7 % (42.0-52.0) L 10/29/22 22: MCV 95.3 fl (80-94) H 10/29/22 22: MCH 32.2 pg (28.0-34.0) 10/29/22 22: MCHC 33.8 g/dL (30.0-36.0) 10/29/22 22: RDW 13.2 % (12.1-15.1) 10/29/22: Plt Count 163 10^3/cmm (130-400) 10/29/22 22: MPV 10.8 fL (7.4-10.4) H 10/29/22 22: Neut % (Auto) 69.9 % 10/29/22 22: Lymph % (Auto) 12.5 % 10/29/22 22:23 [place] % (Auto) 12.8 % 10/29/22 22: Eos % (Auto) 3.3 % 10/29/22 22: Baso % (Auto) 0.5 % 10/29/22: Neut # (Auto) 5.51 10^3/uL (1.8-7.7) 10/29/22 22: Lymph # (Auto) 1.0 10^3/uL (0.8-4.8) 10/29/22 22: [place] # (Auto) 1.0 10^3/uL (0.2-0.9) H 10/29/22 22:23 Eos # (Auto) 0.3 10^3/uL (0.0-0.8) 10/29/22 22: Baso # (Auto) 0.0 10^3/uL (0.0-0.1) 10/29/22 22: Nucleated RBC % (auto) 0 % 10/29/22: Nucleated RBCs # 0.0 /100WBC 10/29/22 22:23 Sodium 136 mmol/L (136-145) 10/29/22 22:23 Potassium 4.2 mmol/L (3.5-5.1) 10/29/22 22:23 Chloride 97 mmol/L (98-107) L 10/29/22 22:23 Carbon Dioxide 27 mmol/L (22-29) 10/29/22 22: Anion Gap 16.2 (5-19) 10/29/22 22:23 BUN 57 mg/dL (8-23) H 10/29/22 22:23 Creatinine 3.7 mg/dL (0.7-1.2) H 10/29/22 22: GFR Calculation 16.4 mL/min (90-130) L 10/29/22 22: Glucose 198 mg/dL (65-115) H 10/29/22 22: Calculated Osmolality 303 mOsm/kg (285-295) H 10/29/22 22:23 Calcium 11.2 mg/dL (8.5-10.5) H 10/29/22 22: Total Bilirubin 0.3 mg/dL (0.15-1.2) 10/29/22 22: AST 17 U/L (0-40) 10/29/22 22: ALT 23 U/L (0-41) 10/29/22 22: Alkaline Phosphatase 78 U/L (40-130) 10/29/22 22: Troponin T Baseline 44 ng/L (0-15) H 10/29/22 22:23 Total Protein 6.8 g/dL (6.6-8.7) 10/29/22 22: Albumin 3.8 g/dL (3.5-5.2) 10/29/22 22: Globulin 3.0 g/dL (1.3-4.6) 10/29/22 22:23 Urine Color Yellow (Yellow) 10/29/22: Urine Appearance Clear (CLEAR) 10/29/22 21: Urine pH 6 (5-7) 10/29/22 21: Ur Specific [place] 1.015 (1.005-1.030) 10/29/22 21: Urine Protein 2+ (Negative) H 10/29/22 21: Urine Glucose (UA) 2+ (Normal) H 10/29/22 21: Urine Ketones Negative (Negative) 10/29/22 21: Urine Blood 2+ (Negative) H 10/29/22 21:27 Urine Nitrate Negative (Negative) 10/29/22 21: Urine Bilirubin Neg (Negative) 10/29/22 21: Urine Urobilinogen Norm mg/dL (Negative) 10/29/22 21: Ur Leukocyte Esterase Negative (Negative) 10/29/22 21: Urine RBC 10-15 /hpf (0-2) H 10/29/22 21:27 Urine WBC 0-4 /hpf (0-5) H 10/29/22 21:27 Ur Squamous Epith Cells 0-4 /hpf (0-5) H 10/29/22 21: Amorphous Sediment Not Reportable 10/29/22 21: Urine Bacteria None /hpf (NONE) 10/29/22 21: Hyaline Casts 0-4 /lpf H 10/29/22 21:27 Urine Opiates Screen Negative ng/mL (Negative) 10/29/22 21: Ur Barbiturates Screen Negative ng/mL (Negative) 10/29/22 21: Ur Phencyclidine Scrn Negative ng/mL (Negative) 10/29/22 21: Ur Amphetamines Screen Negative ng/mL (Negative) 10/29/22 21:27 U Benzodiazepines Scrn Negative ng/mL (Negative) 10/29/22 21: Urine Cocaine Screen Negative ng/mL (Negative) 10/29/22 21:27 U Marijuana (THC) Screen Negative ng/mL (Negative) 10/29/22 21:27 EKG Data EKG 1: Interpretation: Sinus rhythm, rate of 70, left axis deviation, normal intervals, no STEMI. Discharge Plan Discharge Patient Disposition: Home Clinical Impression: Vertigo Condition: Stable Prescriptions: New meclizine 25 mg tablet 25 mg PO TID PRN (Reason: dizziness) Qty: 20 0RF No Action mupirocin 2 % ointment 1 applic topical BID Qty: 22 1RF Rx Instructions: Apply to affected area until healed amlodipine 10 mg tablet 10 mg PO DAILY Rx Instructions: SEE PHARMACY COMMENT spironolactone 25 mg tablet 25 mg PO BID Hold Instructions: Resume on 05/19/21. metoprolol tartrate 100 mg tablet 100 mg PO BID fluticasone propionate [Flonase Allergy Relief] 50 mcg/actuation spray,suspension 1 spray intranasal Q12H 30 Days Qty: 16 3RF Rx Instructions: administer into each nostril aspirin 325 mg tablet 325 mg PO DAILY insulin aspart U-100 [Novolog U-100 Insulin aspart] 100 unit/mL solution 50 unit SUBCUT BID Rx Instructions: Sliding scale insulin detemir U-100 100 unit/mL (3 mL) insulin pen 40 unit SUBCUT BID meclizine 50 mg tablet 50 mg PO Q8H PRN (Reason: motion sickness) Qty: 60 0RF imiquimod 5 % cream in packet 1 applic topical ONCE Qty: 24 1RF Rx Instructions: Apply thin film to Saturday-Saturday (off weekends) for 6 weeks budesonide-formoterol [Symbicort] 80-4.5 mcg/actuation HFA aerosol inhaler 2 puff inhalation BID 30 Days Qty: 10.2 3RF levothyroxine 125 mcg tablet 125 mcg PO DAILY Qty: 90 1RF colchicine 0.6 mg tablet 0.3 mg PO DAILY Rx Instructions: TAKE 1/2 tab daily torsemide 20 mg Tablet 20 mg PO DAILY allopurinol 100 mg tablet 300 mg PO DAILY doxazosin 8 mg tablet 8 mg PO DAILY Rx Instructions: 4mg AM, 8mg PM Discharge Orders: Discharge ED (Routine); Ordered 10/29/22 Ordered By: Ancelmo Brown Referrals: Shea Perez DO [Primary Care Provider] - Discharge Diet: Advance as tolerated Discharge Activity: Resume usual activity Patient Instructions: Vertigo (ED) Coding Level of Care Code 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 Comprehensive Documented by User: Ancelmo Brown MD 10/29/22 23:29 HPI - Dizziness General: Chief Complaint: Dizziness Stated Complaint: dizziness Time Seen by Provider: 10/29/22 20:14 PFSH ED PFSH: Medical History CKD (chronic kidney disease) stage 4, GFR 15-29 ml/min Degenerative arthritis Gout History of arterial occlusion History of vertebral artery occlusion Hypertension Interstitial lung disease Monoclonal gammopathy Obstructive sleep apnea Peripheral neuropathy RMSF ([place] spotted fever) Type 2 diabetes mellitus Surgical History H/O hernia repair H/O repair of rotator cuff Right History of laryngoscopy Status post colonoscopy (04/19/20) diverticulosis - repeat in 10 years Family History Father Dementia Mother Dementia Denies family history of Anesthesia complication Bleeding disorder Social History Smoking and tobacco status: former smoker Quit status (tobacco): has quit using tobacco Former quit date comment: 1 ppd X 8 years Alcohol intake: never Course Vital Signs: Vital signs: Vital Signs Temperature 97.8 F 10/29/22 17:24 Pulse Rate 69 10/29/22 21:07 Respiratory Rate 21 H 10/29/22 21:07 Blood Pressure 174/87 10/29/22 21:07 Pulse Oximetry 96 10/29/22 21:07 Oxygen Delivery Me thod 10/29/22 21:07 MDM - Dizziness Medical Decision Making Medical decision making: Patient presents with dizziness that started 7 to 8 days ago. Clinical exam is unremarkable with no demonstrable nystagmus. White count is normal with no left shift. Hemoglobin and platelet count are both normal. UA is negative for UTI and CT brain is negative for any acute intracranial process. Currently awaiting completion of CMP and troponin. Patient care transferred to Dr. Brown at end of shift. Patient's blood work here is normal his troponins at his baseline he is pain- free here he is requesting to go home I feel he is stable for discharge at this time we will prescribe him meclizine he is to follow-up with PCP and return if worsening he understands agrees to plan. Lab Data 10/29/22 22:23 10/29/22 22:[address] 10/29/22 20:39 IMPRESSION: No acute intracranial abnormality. Laboratory Results WBC 7.9 10^3/uL (4.0-10.0) 10/29/22: RBC 3.85 10^6/uL (4.1-5.3) L 10/29/22 22: Hgb 12.4 g/dL (11.7-16.6) 10/29/22: Hct 36.7 % (42.0-52.0) L 10/29/22 22: MCV 95.3 fl (80-94) H 10/29/22 22: MCH 32.2 pg (28.0-34.0) 10/29/22: MCHC 33.8 g/dL (30.0-36.0) 10/29/22: RDW 13.2 % (12.1-15.1) 10/29/22: Plt Count 163 10^3/cmm (130-400) 10/29/22 22: MPV 10.8 fL (7.4-10.4) H 10/29/22 22: Neut % (Auto) 69.9 % 10/29/22: Lymph % (Auto) 12.5 % 10/29/22: [place] % (Auto) 12.8 % 10/29/22: Eos % (Auto) 3.3 % 10/29/22: Baso % (Auto) 0.5 % 10/29/22: Neut # (Auto) 5.51 10^3/uL (1.8-7.7) 10/29/22 22: Lymph # (Auto) 1.0 10^3/uL (0.8-4.8) 10/29/22: [place] # (Auto) 1.0 10^3/uL (0.2-0.9) H 10/29/22 22:23 Eos # (Auto) 0.3 10^3/uL (0.0-0.8) 10/29/22: Baso # (Auto) 0.0 10^3/uL (0.0-0.1) 01/16/23 22:23 Nucleated RBC % (auto) 0 % 10/29/22 22: Nucleated RBCs # 0.0 /100WBC 10/29/22 22:23 Sodium 136 mmol/L (136-145) 10/29/22 22:23 Potassium 4.2 mmol/L (3.5-5.1) 10/29/22 22:23 Chloride 97 mmol/L (98-107) L 10/29/22 22:23 Carbon Dioxide 27 mmol/L (22-29) 10/29/22 22:23 Anion Gap 16.2 (5-19) 10/29/22 22:23 BUN 57 mg/dL (8-23) H 10/29/22 22:23 Creatinine 3.7 mg/dL (0.7-1.2) H 10/29/22 22:23 GFR Calculation 16.4 mL/min (90-130) L 10/29/22 22:23 Glucose 198 mg/dL (65-115) H 10/29/22 22:23 Calculated Osmolality 303 mOsm/kg (285-295) H 10/29/22 22:23 Calcium 11.2 mg/dL (8.5-10.5) H 10/29/22 22:23 Total Bilirubin 0.3 mg/dL (0.15-1.2) 10/29/22 22:23 AST 17 U/L (0-40) 10/29/22 22: ALT 23 U/L (0-41) 10/29/22 22:23 Alkaline Phosphatase 78 U/L (40-130) 10/29/22 22:23 Troponin T Baseline 44 ng/L (0-15) H 10/29/22 22:23 Total Protein 6.8 g/dL (6.6-8.7) 10/29/22 22: Albumin 3.8 g/dL (3.5-5.2) 10/29/22 22: Globulin 3.0 g/dL (1.3-4.6) 10/29/22 22:23 Urine Color Yellow (Yellow) 10/29/22 21: Urine Appearance Clear (CLEAR) 10/29/22 21: Urine pH 6 (5-7) 10/29/22 21: Ur Specific [place] 1.015 (1.005-1.030) 10/29/22 21:27 Urine Protein 2+ (Negative) H 10/29/22 21:27 Urine Glucose (UA) 2+ (Normal) H 10/29/22 21:27 Urine Ketones Negative (Negative) 10/29/22 21:27 Urine Blood 2+ (Negative) H 10/29/22 21:27 Urine Nitrate Negative (Negative) 10/29/22 21: Urine Bilirubin Neg (Negative) 10/29/22 21: Urine Urobilinogen Norm mg/dL (Negative) 10/29/22 21:27 Ur Leukocyte Esterase Negative (Negative) 10/29/22 21:27 Urine RBC 10-15 /hpf (0-2) H 10/29/22 21:27 Urine WBC 0-4 /hpf (0-5) H 10/29/22 21:27 Ur Squamous Epith Cells 0-4 /hpf (0-5) H 10/29/22 21:27 Amorphous Sediment Not Reportable 10/29/22 21: Urine Bacteria None /hpf (NONE) 10/29/22 21:27 Hyaline Casts 0-4 /lpf H 10/29/22 21:27 Urine Opiates Screen Negative ng/mL (Negative) 10/29/22 21:27 Ur Barbiturates Screen Negative ng/mL (Negative) 10/29/22 21:27 Ur Phencyclidine Scrn Negative ng/mL (Negative) 10/29/22 21:27 Ur Amphetamines Screen Negative ng/mL (Negative) 10/29/22 21:27 U Benzodiazepines Scrn Negative ng/mL (Negative) 10/29/22 21:27 Urine Cocaine Screen Negative ng/mL (Negative) 10/29/22 21:27 U Marijuana (THC) Screen Negative ng/mL (Negative) 10/29/22 21:27 Discharge Plan Discharge Patient Disposition: Home Clinical Impression: Vertigo Condition: Stable Prescriptions: New meclizine 25 mg tablet 25 mg PO TID PRN (Reason: dizziness) Qty: 20 0RF No Action mupirocin 2 % ointment 1 applic topical BID Qty: 22 1RF Rx Instructions: Apply to affected area until healed amlodipine 10 mg tablet 10 mg PO DAILY Rx Instructions: SEE PHARMACY COMMENT spironolactone 25 mg tablet 25 mg PO BID Hold Instructions: Resume on 05/19/21. metoprolol tartrate 100 mg tablet 100 mg PO BID fluticasone propionate [Flonase Allergy Relief] 50 mcg/actuation spray,suspension 1 spray intranasal Q12H 30 Days Qty: 16 3RF Rx Instructions: administer into each nostril aspirin 325 mg tablet 325 mg PO DAILY insulin aspart U-100 [Novolog U-100 Insulin aspart] 100 unit/mL solution 50 unit SUBCUT BID Rx Instructions: Sliding scale insulin detemir U-100 100 unit/mL (3 mL) insulin pen 40 unit SUBCUT BID meclizine 50 mg tablet 50 mg PO Q8H PRN (Reason: motion sickness) Qty: 60 0RF imiquimod 5 % cream in packet 1 applic topical ONCE Qty: 24 1RF Rx Instructions: Apply thin film to Saturday-Saturday (off weekends) for 6 weeks budesonide-formoterol [Symbicort] 80-4.5 mcg/actuation HFA aerosol inhaler 2 puff inhalation BID 30 Days Qty: 10.2 3RF levothyroxine 125 mcg tablet 125 mcg PO DAILY Qty: 90 1RF colchicine 0.6 mg tablet 0.3 mg PO DAILY Rx Instructions: TAKE 1/2 tab daily torsemide 20 mg Tablet 20 mg PO DAILY allopurinol 100 mg tablet 300 mg PO DAILY doxazosin 8 mg tablet 8 mg PO DAILY Rx Instructions: 4mg AM, 8mg PM Discharge Orders: Discharge ED (Routine); Ordered 10/29/22 Ordered By: Ancelmo Brown Referrals: Shea Perez DO [Primary Care Provider] - Discharge Diet: Advance as tolerated Discharge Activity: Resume usual activity Patient Instructions: Vertigo (ED) Coding Level of Care 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
[2022-10-29 20:16] VITALS: BP 171/83; PULSE 69; RESP 18; O2SAT 95
--- NOTE | 2022-10-29 20:39 | CTR_ITS ---
PROCEDURE INFORMATION: Exam: CT Head Without Contrast Exam date and time: 10/29/2022 9:17 PM Age: 67 years old Clinical indication: Dizziness; Additional info: Vertigo TECHNIQUE: Imaging protocol: Computed tomography of the head without contrast. Radiation optimization: All CT scans at this facility use at least one of these dose optimization techniques: automated exposure control; mA and/or kV adjustment per patient size (includes targeted exams where dose is matched to clinical indication); or iterative reconstruction. COMPARISON: No relevant prior studies available. RADIATION DOSE METRICS: Total DLP (mGy-cm): 1069.88 FINDINGS: Brain: No hemorrhage. No edema. Moderate diffuse cerebral atrophy and mild sequela of chronic small vessel ischemic disease. No mass effect. Cerebral ventricles: No ventriculomegaly. Paranasal sinuses: Mucosal thickening of the right maxillary sinus. The rest of the paranasal sinuses are well pneumatized. Mastoid air cells: Visualized mastoid air cells are well aerated. Bones/joints: Unremarkable. No acute fracture. Soft tissues: Unremarkable. CT/CT head wo con* [id number] IMPRESSION: No acute intracranial abnormality.
[2022-10-29] MEDS: meclizine 25 mg tablet 50 MG PO (21:02)
[2022-10-29] MEDS: metoclopramide 5 mg/mL SDV 2 mL 10 MG IVP (21:04)
[2022-10-29] MEDS: sodium chloride 0.9% 1,000 ML 999 ML IV (21:05)
[2022-10-29 21:07] VITALS: BP 174/87; PULSE 69; RESP 21; O2SAT 96
[2022-10-29 21:57] LABS: Glucose Urine UA 2+ (Normal); Protein Urine 2+ (Negative); Specific Gravity, Urine 1.015 (1.005-1.030); Urine Appearance Clear (CLEAR); Urine Color Yellow (Yellow); pH Urine 6 (5-7)
[2022-10-29 21:58] LABS: Add Urine Culture? No; Add Urine Microscopic? YES; Bilirubin Urine Neg (Negative); Blood Urine 2+ (Negative); Hyaline Casts Urine 0-4 /lpf; Ketones Urine Negative (Negative); Leukocyte Esterase Urine Negative (Negative); Nitrate Urine Negative (Negative); Squamous Epithelial Cell Urine 0-4 /hpf (0-5); Urobilinogen Urine Norm (Negative); WBC Urine 0-4 /hpf (0-5)
[2022-10-29 22:27] LABS: Basophils % 0.5 %; Eosinophils # 0.3 10^3/uL (0.0-0.8); Eosinophils % 3.3 %; Hematocrit 36.7 % (42.0-52.0); Hemoglobin 12.4 g/dL (11.7-16.6); Lymphocytes % 12.5 %; Mean Corpuscular HGB Conc 33.8 g/dL (30.0-36.0); Mean Corpuscular Hemoglobin 32.2 pg (28.0-34.0); Mean Corpuscular Volume 95.3 fl (80-94); Mean Platelet Volume 10.8 fL (7.4-10.4); Monocytes % 12.8 %; Neutrophils # 5.51 10^3/uL (1.8-7.7); Neutrophils % 69.9 %; Nucleated Red Blood Cells % 0 %; Platelet Count 163 10^3/cmm (130-400); Red Blood Count 3.85 10^6/uL (4.1-5.3); Red Cell Distribution Width 13.2 % (12.1-15.1); White Blood Count 7.9 10^3/uL (4.0-10.0)
[2022-10-29 22:28] LABS: Amphetamines Screen Urine Negative (Negative); Barbiturates Screen Urine Negative (Negative); Benzodiazepines Screen Urine Negative (Negative); Cocaine Screen Urine Negative (Negative); Opiate Screen Urine Negative (Negative); PCP Screen Urine Negative (Negative); THC Screen Urine Negative (Negative)
[2022-10-29 22:52] LABS: Alanine Aminotransferase 23 U/L (0-41); Albumin Level 3.8 g/dL (3.5-5.2); Alkaline Phosphatase 78 U/L (40-130); Anion Gap 16.2 (5-19); Aspartate Amino Transferase 17 U/L (0-40); Blood Urea Nitrogen 57 mg/dL (8-23); Calcium 11.2 mg/dL (8.5-10.5); Carbon Dioxide 27 mmol/L (22-29); Chloride 97 mmol/L (98-107); Glomerular Filtration Rate 16.4 mL/min (90-130); Glucose 198 mg/dL (65-115); Osmolality Calculated 303 mOsm/kg (285-295); Potassium 4.2 mmol/L (3.5-5.1); Sodium 136 mmol/L (136-145); Total Bilirubin 0.3 mg/dL (0.15-1.2); Total Protein 6.8 g/dL (6.6-8.7)
[2022-10-29 22:53] LABS: Troponin(5th) Baseline 44 ng/L (0-15)
[2022-10-29 23:40] VITALS: PULSE 70; O2SAT 94
== END 2022-10-29 23:41 | disposition home or self-care (01) ==
PROVIDERS: Family Medicine; Emergency Provider Emergency Medicine; PCP Family Medicine
DX: R42 Dizziness and giddiness (principal); Z79.82 Long term (current) use of aspirin; Z79.4 Long term (current) use of insulin
CPT/HCPCS: 70450; 80053; 80306; 81001; 84484; 85025; 96361; 96374; 99284; J2765; J7030; J8597

== ENCOUNTER 2022-11-01 15:39 | Outpatient (CLI) | payer MEDICARE, OTHER, SELFPAY ==
[2022-11-01 16:22] LABS: Basophils # 0.1 10^3/uL (0.0-0.1); Basophils % 0.7 %; Eosinophils # 0.3 10^3/uL (0.0-0.8); Hematocrit 39.5 % (42.0-52.0); Hemoglobin 13.4 g/dL (11.7-16.6); Lymphocytes % 11.2 %; Mean Corpuscular HGB Conc 33.9 g/dL (30.0-36.0); Mean Corpuscular Hemoglobin 32.1 pg (28.0-34.0); Mean Corpuscular Volume 94.7 fl (80-94); Mean Platelet Volume 10.7 fL (7.4-10.4); Monocytes # 0.9 10^3/uL (0.2-0.9); Monocytes % 10.1 %; Neutrophils # 6.48 10^3/uL (1.8-7.7); Neutrophils % 73.9 %; Nucleated Red Blood Cells % 0 %; Platelet Count 202 10^3/cmm (130-400); Red Blood Count 4.17 10^6/uL (4.1-5.3); Red Cell Distribution Width 13.1 % (12.1-15.1); White Blood Count 8.8 10^3/uL (4.0-10.0)
[2022-11-01 16:56] LABS: Alanine Aminotransferase 28 U/L (0-41); Albumin Level 4.2 g/dL (3.5-5.2); Alkaline Phosphatase 75 U/L (40-130); Anion Gap 15.5 (5-19); Aspartate Amino Transferase 24 U/L (0-40); Blood Urea Nitrogen 55 mg/dL (8-23); Calcium 11.9 mg/dL (8.5-10.5); Carbon Dioxide 28 mmol/L (22-29); Chloride 101 mmol/L (98-107); Globulin 3.7 g/dL (1.3-4.6); Glomerular Filtration Rate 15.9 mL/min (90-130); Glucose 93 mg/dL (65-115); NT Pro B Type Natriuretic Pept 169 pg/mL (0-125); Osmolality Calculated 305 mOsm/kg (285-295); Potassium 4.5 mmol/L (3.5-5.1); Sodium 140 mmol/L (136-145); Total Bilirubin 0.3 mg/dL (0.15-1.2); Total Protein 7.9 g/dL (6.6-8.7)
== END 2022-11-01 15:40 | disposition home or self-care (01) ==
LOC: LAB 15:46
PROVIDERS: PCP Family Medicine; Visit Provider Family Medicine
DX: N18.9 Chronic kidney disease, unspecified (principal); R06.00 Dyspnea, unspecified
CPT/HCPCS: 80053; 83880; 85025

== ENCOUNTER 2022-11-06 09:15 | Oncology outpatient (recurring) (ONCR) | payer MEDICARE, OTHER, SELFPAY ==
[2022-10-19 08:50] LABS: Basophils % 0.5 %; Eosinophils # 0.1 10^3/uL (0.0-0.8); Eosinophils % 2.4 %; Hematocrit 35.9 % (42.0-52.0); Lymphocytes # 0.9 10^3/uL (0.8-4.8); Lymphocytes % 14.7 %; Mean Corpuscular HGB Conc 33.4 g/dL (30.0-36.0); Mean Corpuscular Hemoglobin 32.3 pg (28.0-34.0); Mean Corpuscular Volume 96.8 fl (80-94); Mean Platelet Volume 10.5 fL (7.4-10.4); Monocytes # 0.5 10^3/uL (0.2-0.9); Neutrophils # 4.29 10^3/uL (1.8-7.7); Neutrophils % 73.5 %; Nucleated Red Blood Cells % 0 %; Platelet Count 150 10^3/cmm (130-400); Red Blood Count 3.71 10^6/uL (4.1-5.3); Red Cell Distribution Width 13.2 % (12.1-15.1); White Blood Count 5.8 10^3/uL (4.0-10.0)
[2022-10-19 09:46] LABS: Alanine Aminotransferase 19 U/L (0-41); Albumin Level 3.9 g/dL (3.5-5.2); Alkaline Phosphatase 87 U/L (40-130); Anion Gap 15.2 (5-19); Aspartate Amino Transferase 17 U/L (0-40); Blood Urea Nitrogen 47 mg/dL (8-23); Calcium 10.3 mg/dL (8.5-10.5); Carbon Dioxide 25 mmol/L (22-29); Chloride 101 mmol/L (98-107); Globulin 3.1 g/dL (1.3-4.6); Glomerular Filtration Rate 23.6 mL/min (90-130); Glucose 206 mg/dL (65-115); Immunoglobulin IGA 296 mg/dL (70-400); Immunoglobulin IGG 940 mg/dL (700-1600); Immunoglobulin IGM 358 mg/dL (40-230); Osmolality Calculated 302 mOsm/kg (285-295); Potassium 4.2 mmol/L (3.5-5.1); Sodium 137 mmol/L (136-145); Total Bilirubin 0.2 mg/dL (0.15-1.2)
[2022-10-19 12:01] LABS: Free T4 Free Thyroxine 1.32 ng/dL (0.82-1.77); Thyroid Stimulating Hormone 0.73 uIU/mL (0.27-4.20)
[2022-10-20 08:09] LABS: PROTEIN, TOTAL 6.8 g/dL (6.1-8.1)
[2022-10-22 15:20] LABS: KAPPA LIGHT CHAIN, FREE, SERUM 82.5 mg/L (3.3-19.4); KAPPA/LAMBDA LIGHT CHAINS FREE 1.51 (0.26-1.65); LAMBDA LIGHT CHAIN, FREE, SERU 54.6 mg/L (5.7-26.3)
[2022-10-23 08:24] LABS: ABNORMAL PROTEIN BAND 1 0.4 g/dL (NONE DETECTED); ALBUMIN 3.8 g/dL (3.8-4.8); ALPHA 1 GLOBULIN 0.3 g/dL (0.2-0.3); ALPHA 2 GLOBULIN 0.7 g/dL (0.5-0.9); BETA 1 GLOBULIN 0.4 g/dL (0.4-0.6); BETA 2 GLOBULIN 0.4 g/dL (0.2-0.5); GAMMA GLOBULIN 1.1 g/dL (0.8-1.7)
--- NOTE | 2022-11-06 09:15 | USCV_ITS ---
AdrienFausto díaz Age: 67 Gender: M : 1955 Exam Date: 11/06/2022 14:48 Ordering Phys: Chip Decker MD Technologist: CT Exam Location: [facility] [place]_ Indication: PROCEDURES: Venous duplex imaging was performed in only the right lower extremity. In addition, the posterior tibial and peroneal trunk were evaluated. FINDINGS: normal us CONCLUSIONS No evidence of right lower extremity DVT. Joe Lugo MD (Electronically Signed) Final Date: 06 November 2022 16:04 S
[2022-11-06 15:58] LABS: Basophils % 0.4 %; Eosinophils # 0.2 10^3/uL (0.0-0.8); Eosinophils % 3.1 %; Hemoglobin 12.2 g/dL (11.7-16.6); Lymphocytes # 0.9 10^3/uL (0.8-4.8); Lymphocytes % 12.2 %; Mean Corpuscular HGB Conc 33.9 g/dL (30.0-36.0); Mean Corpuscular Hemoglobin 32.4 pg (28.0-34.0); Mean Corpuscular Volume 95.7 fl (80-94); Mean Platelet Volume 11.1 fL (7.4-10.4); Monocytes # 0.6 10^3/uL (0.2-0.9); Monocytes % 7.8 %; Neutrophils # 5.58 10^3/uL (1.8-7.7); Nucleated Red Blood Cells % 0 %; Platelet Count 165 10^3/cmm (130-400); Red Blood Count 3.76 10^6/uL (4.1-5.3); Red Cell Distribution Width 13.1 % (12.1-15.1); White Blood Count 7.4 10^3/uL (4.0-10.0)
[2022-11-06 16:23] LABS: Erythrocyte Sedimentation Rate 27 mm/hr (0-10)
[2022-11-06 16:47] LABS: Alanine Aminotransferase 24 U/L (0-41); Albumin Level 3.9 g/dL (3.5-5.2); Alkaline Phosphatase 75 U/L (40-130); Anion Gap 16.2 (5-19); Aspartate Amino Transferase 19 U/L (0-40); Blood Urea Nitrogen 40 mg/dL (8-23); Calcium 10.8 mg/dL (8.5-10.5); Carbon Dioxide 32 mmol/L (22-29); Chloride 96 mmol/L (98-107); Glomerular Filtration Rate 18.1 mL/min (90-130); Glucose 392 mg/dL (65-115); Osmolality Calculated 316 mOsm/kg (285-295); Potassium 4.2 mmol/L (3.5-5.1); Sodium 140 mmol/L (136-145); Total Bilirubin 0.4 mg/dL (0.15-1.2); Total Protein 6.9 g/dL (6.6-8.7)
[2022-11-07 12:18] LABS: PROTEIN, TOTAL 6.5 g/dL (6.1-8.1)
[2022-11-07 13:48] LABS: KAPPA LIGHT CHAIN, FREE, SERUM 93.2 mg/L (3.3-19.4); KAPPA/LAMBDA LIGHT CHAINS FREE 1.49 (0.26-1.65); LAMBDA LIGHT CHAIN, FREE, SERU 62.5 mg/L (5.7-26.3)
[2022-11-07 15:18] LABS: ABNORMAL PROTEIN BAND 1 0.3 g/dL (NONE DETECTED); ALBUMIN 3.7 g/dL (3.8-4.8); ALPHA 1 GLOBULIN 0.3 g/dL (0.2-0.3); ALPHA 2 GLOBULIN 0.7 g/dL (0.5-0.9); BETA 1 GLOBULIN 0.4 g/dL (0.4-0.6); BETA 2 GLOBULIN 0.4 g/dL (0.2-0.5); GAMMA GLOBULIN 1.1 g/dL (0.8-1.7)
== END 2022-11-13 23:59 | disposition home or self-care (01) ==
LOC: RAD 14:08 → ONCMED 15:33
PROVIDERS: PCP Family Medicine; Visit Provider Internal Medicine Medical Oncology
DX: D47.2 Monoclonal gammopathy (principal); M79.661 Pain in right lower leg; N18.4 Chronic kidney disease, stage 4 (severe)
CPT/HCPCS: 36415; 80053; 82784; 83883; 84155; 84165; 84439; 84443; 85025; 85651; 86334; 93971; 99214

== ENCOUNTER 2022-11-13 13:22 | Outpatient (CLI) | payer MEDICARE, OTHER, SELFPAY ==
[2022-11-15 17:00] LABS: CREATININE, 24 HOUR URINE 1.46 g/24 h (0.50-2.15); PROTEIN, TOTAL, 24 HR UR 2160 mg/24 h (<150); Protein/Creatinine Ratio 1.481 (<0.100); Protein/Creatinine Ratio 1481 mg/g creat (<100)
[2022-11-16 08:33] LABS: ALBUMIN 68 %; ALPHA-1-GLOBULINS 6 %; ALPHA-2-GLOBULINS 5 %; BETA GLOBULINS 13 %; GAMMA GLOBULINS 9 %
[2022-11-18 07:34] LABS: Kappa Free Light Chains Urine 108.16 mg/L (<=32.90)
== END 2022-11-13 13:23 | disposition home or self-care (01) ==
PROVIDERS: Internal Medicine Medical Oncology; PCP Family Medicine; Visit Provider Family Medicine
DX: D47.2 Monoclonal gammopathy (principal); N18.4 Chronic kidney disease, stage 4 (severe)
CPT/HCPCS: 83883; 84156; 84166; 86335

== ENCOUNTER 2022-11-29 11:44 | Outpatient (CLI) | payer MEDICARE, OTHER, SELFPAY ==
[2022-11-29 13:33] LABS: Urine Creatinine 86 mg/dL (39-259)
[2022-11-29 13:37] LABS: UPRO/UCREAT Ratio 0.83 mg/mg CR; Urine Protein Random 71 mg/dL
[2022-11-29 13:55] LABS: Add Urine Microscopic? YES; Bilirubin Urine Neg (Negative); Blood Urine Neg (Negative); Glucose Urine UA 4+ (Normal); Ketones Urine Negative (Negative); Leukocyte Esterase Urine Negative (Negative); Nitrate Urine Negative (Negative); Protein Urine 1+ (Negative); Specific Gravity, Urine 1.015 (1.005-1.030); Urine Appearance Clear (CLEAR); Urine Color Yellow (Yellow); Urobilinogen Urine Norm (Negative); pH Urine 5 (5-7)
[2022-11-29 13:57] LABS: Bacteria Urine TRACE /hpf; Squamous Epithelial Cell Urine 0-4 /hpf (0-5); WBC Urine 0-4 /hpf (0-5)
[2022-11-29 13:58] LABS: Add Urine Culture? No; Mucus Urine TRACE /hpf
== END 2022-11-29 11:45 | disposition home or self-care (01) ==
LOC: LAB 11:48
PROVIDERS: PCP Family Medicine; Visit Provider Internal Medicine
DX: N18.4 Chronic kidney disease, stage 4 (severe) (principal)
CPT/HCPCS: 81001; 82570; 84156

== ENCOUNTER 2023-01-07 11:22 | Outpatient (CLI) | payer MEDICARE, OTHER, SELFPAY ==
[2023-01-07 13:50] LABS: Anion Gap 21.5 (5-19); Blood Urea Nitrogen 56 mg/dL (8-23); Calcium 10.4 mg/dL (8.5-10.5); Carbon Dioxide 22 mmol/L (22-29); Chloride 101 mmol/L (98-107); Glomerular Filtration Rate 20.1 mL/min (90-130); Glucose 239 mg/dL (65-115); Magnesium 1.9 mg/dL (1.7-2.3); Osmolality Calculated 311 mOsm/kg (285-295); Potassium 5.5 mmol/L (3.5-5.1); Sodium 139 mmol/L (136-145); Uric Acid 6.7 mg/dL (3.4-7.0)
[2023-01-07 13:54] LABS: Estmated Average Glucose 206; Hemoglobin A1C 8.8 % (4.0-6.0)
[2023-01-07 13:56] LABS: Calcium 10.4 mg/dL (8.5-10.5)
[2023-01-07 13:58] LABS: Parathyroid Hormone 14.3 pg/mL (15-65)
[2023-01-07 15:22] LABS: Blood Urine Trace (Negative); Glucose Urine UA 4+ (Normal); Ketones Urine Negative (Negative); Protein Urine 1+ (Negative); Urine Appearance Clear (CLEAR); Urine Color Light yellow (Yellow); pH Urine 6 (5-7)
[2023-01-07 15:23] LABS: Add Urine Culture? No; Bilirubin Urine Neg (Negative); Leukocyte Esterase Urine Negative (Negative); Nitrate Urine Negative (Negative); RBC Urine 0-4 /hpf (0-2); Squamous Epithelial Cell Urine 0-4 /hpf (0-5); Urobilinogen Urine Neg (Negative); WBC Urine 0-4 /hpf (0-5)
[2023-01-07 15:30] LABS: Creatinine Urine, Random 72 mg/dL (39-259)
[2023-01-08 11:14] LABS: Creatinine, Random Urine 77 mg/dL (20-320); Protein, Total, Random 94 mg/dL (5-25); Protein/Creatinine Ratio 1.221 (0.025-0.148); Protein/Creatinine Ratio 1221 mg/g creat (25-148)
[2023-01-09 09:15] LABS: Albumin,Urine Random 71 %; Alpha-1-Globulins Urine Random 4 %; Alpha-2-Globulins Urine Random 5 %; Beta-Globulin,Urine Random 11 %; Gamma Globulin,Urine Random 9 %
== END 2023-01-07 11:23 | disposition home or self-care (01) ==
PROVIDERS: PCP Family Medicine; Visit Provider Internal Medicine
DX: E11.22 Type 2 diabetes mellitus with diabetic chronic kidney disease (principal); R80.0 Isolated proteinuria; M10.9 Gout, unspecified
CPT/HCPCS: 36415; 80048; 81001; 82310; 82570; 82575; 83036; 83735; 83970; 84100; 84156; 84166; 84550

== ENCOUNTER 2023-01-24 10:53 | Outpatient (CLI) | payer MEDICARE, OTHER, SELFPAY ==
[2023-01-25 12:55] LABS: CREATININE, 24 HOUR URINE 1.79 g/24 h (0.50-2.15); PROTEIN, TOTAL, 24 HR UR 1617 mg/24 h (<150); Protein/Creatinine Ratio 0.904 (<0.100); Protein/Creatinine Ratio 904 mg/g creat (<100)
[2023-01-28 16:48] LABS: ALBUMIN 74 %; ALPHA-1-GLOBULINS 2 %; ALPHA-2-GLOBULINS 5 %; BETA GLOBULINS 10 %; GAMMA GLOBULINS 10 %
== END 2023-01-24 10:54 | disposition home or self-care (01) ==
LOC: LAB 10:55
PROVIDERS: PCP Family Medicine; Visit Provider Internal Medicine Medical Oncology
DX: D47.2 Monoclonal gammopathy (principal)
CPT/HCPCS: 84156; 84166

== ENCOUNTER 2023-01-28 08:33 | Oncology outpatient (recurring) (ONCR) | payer MEDICARE, OTHER, SELFPAY ==
[2023-01-21 10:44] LABS: Basophils % 0.6 %; Eosinophils # 0.2 10^3/uL (0.0-0.8); Eosinophils % 3.1 %; Hemoglobin 11.5 g/dL (11.7-16.6); Lymphocytes # 0.8 10^3/uL (0.8-4.8); Lymphocytes % 12.3 %; Mean Corpuscular HGB Conc 32.9 g/dL (30.0-36.0); Mean Corpuscular Hemoglobin 31.6 pg (28.0-34.0); Mean Corpuscular Volume 96.2 fl (80-94); Mean Platelet Volume 10.7 fL (7.4-10.4); Monocytes # 0.6 10^3/uL (0.2-0.9); Monocytes % 8.9 %; Neutrophils # 4.78 10^3/uL (1.8-7.7); Neutrophils % 74.2 %; Nucleated Red Blood Cells % 0 %; Platelet Count 160 10^3/cmm (130-400); Red Blood Count 3.64 10^6/uL (4.1-5.3); Red Cell Distribution Width 13.1 % (12.1-15.1); White Blood Count 6.4 10^3/uL (4.0-10.0)
[2023-01-21 10:50] LABS: Erythrocyte Sedimentation Rate 20 mm/hr (0-10)
[2023-01-21 11:04] LABS: Alanine Aminotransferase 26 U/L (0-41); Albumin Level 3.8 g/dL (3.5-5.2); Alkaline Phosphatase 59 U/L (40-130); Anion Gap 21.3 (5-19); Aspartate Amino Transferase 24 U/L (0-40); Blood Urea Nitrogen 45 mg/dL (8-23); Calcium 10.4 mg/dL (8.5-10.5); Carbon Dioxide 23 mmol/L (22-29); Chloride 98 mmol/L (98-107); Globulin 3.3 g/dL (1.3-4.6); Glomerular Filtration Rate 18.7 mL/min (90-130); Glucose 314 mg/dL (65-115); Immunoglobulin IGA 321 mg/dL (70-400); Immunoglobulin IGG 934 mg/dL (700-1600); Immunoglobulin IGM 336 mg/dL (40-230); Osmolality Calculated 308 mOsm/kg (285-295); Potassium 5.3 mmol/L (3.5-5.1); Sodium 137 mmol/L (136-145); Total Bilirubin 0.4 mg/dL (0.15-1.2); Total Protein 7.1 g/dL (6.6-8.7)
[2023-01-22 11:19] LABS: PROTEIN, TOTAL 6.5 g/dL (6.1-8.1)
[2023-01-22 12:54] LABS: KAPPA LIGHT CHAIN, FREE, SERUM 89.3 mg/L (3.3-19.4); KAPPA/LAMBDA LIGHT CHAINS FREE 1.63 (0.26-1.65); LAMBDA LIGHT CHAIN, FREE, SERU 54.8 mg/L (5.7-26.3)
[2023-01-22 15:20] LABS: ABNORMAL PROTEIN BAND 1 0.4 g/dL (NONE DETECTED); ALBUMIN 3.8 g/dL (3.8-4.8); ALPHA 1 GLOBULIN 0.3 g/dL (0.2-0.3); ALPHA 2 GLOBULIN 0.6 g/dL (0.5-0.9); BETA 1 GLOBULIN 0.4 g/dL (0.4-0.6); BETA 2 GLOBULIN 0.4 g/dL (0.2-0.5); GAMMA GLOBULIN 1.1 g/dL (0.8-1.7)
[2023-01-25 21:49] LABS: Kappa Free Light Chains Urine 83.61 mg/L (<=32.90)
[2023-01-28 10:34] LABS: Add Urine Microscopic? NO; Charge for UA Resulting for Rev
[2023-01-28 11:04] LABS: Bilirubin Urine Neg (Negative); Blood Urine Neg (Negative); Ferritin 212 ng/mL (30-400); Glucose Urine UA Norm (Normal); Iron 72 ug/dL (59-158); Ketones Urine Negative (Negative); Leukocyte Esterase Urine Negative (Negative); Nitrate Urine Negative (Negative); Protein Urine Neg (Negative); Specific Gravity, Urine 1.015 (1.005-1.030); Total Iron Binding Capacity 232 mcg/dl; Unsaturated Iron Binding 160 ug/dL (112-347); Urine Appearance Clear (CLEAR); Urine Color Straw (Yellow); Urobilinogen Urine Norm (Negative); pH Urine 5 (5-7)
== END 2023-02-10 23:59 | disposition home or self-care (01) ==
PROVIDERS: Nurse Practitioner Family; PCP Family Medicine; Visit Provider Internal Medicine Medical Oncology
DX: D47.2 Monoclonal gammopathy; N18.4 Chronic kidney disease, stage 4 (severe); I12.9 Hypertensive chronic kidney disease with stage 1 through stage 4 chronic kidney disease, or unspecified chronic kidney disease; G62.9 Polyneuropathy, unspecified; Z86.16 Personal history of COVID-19; Z87.891 Personal history of nicotine dependence
CPT/HCPCS: 36415; 80053; 81003; 82728; 82784; 83540; 83550; 83883; 84155; 84156; 84165; 85025; 85651; 86334; 86335; 99214

== ENCOUNTER → 2023-02-13 07:45 | Outpatient (BNVA) | payer MEDICARE, OTHER, SELFPAY | PROVIDERS: PCP Family Medicine; Referring Provider Family Medicine; Visit Provider Internal Medicine | DX: E11.9 Type 2 diabetes mellitus without complications (principal); E78.2 Mixed hyperlipidemia; Z79.4 Long term (current) use of insulin | CPT/HCPCS: 99204 ==

== ENCOUNTER 2023-02-22 13:12 | Outpatient (CLI) | payer MEDICARE, OTHER, SELFPAY ==
[2023-02-22 14:01] LABS: Alanine Aminotransferase 25 U/L (0-41); Albumin Level 4.1 g/dL (3.5-5.2); Alkaline Phosphatase 55 U/L (40-130); Anion Gap 17.2 (5-19); Aspartate Amino Transferase 25 U/L (0-40); Blood Urea Nitrogen 40 mg/dL (8-23); Calcium 9.6 mg/dL (8.5-10.5); Carbon Dioxide 19 mmol/L (22-29); Chloride 109 mmol/L (98-107); Cholesterol 162 mg/dL (0-200); Globulin 2.8 g/dL (1.3-4.6); Glomerular Filtration Rate 24.7 mL/min (90-130); Glucose 141 mg/dL (65-115); HDL Cholesterol 36 mg/dL (60-100); LDL Cholesterol Calculated 92 mg/dL (50-129); LDL HDL Ratio 2.56 RATIO (0.00-3.22); Osmolality Calculated 302 mOsm/kg (285-295); Potassium 5.2 mmol/L (3.5-5.1); Sodium 140 mmol/L (136-145); Total Bilirubin 0.3 mg/dL (0.15-1.2); Total Protein 6.9 g/dL (6.6-8.7); Triglycerides 172 mg/dL (0-150)
[2023-02-22 14:07] LABS: Estmated Average Glucose 194; Hemoglobin A1C 8.4 % (4.0-6.0)
[2023-02-22 15:02] LABS: Creatinine Urine, Random 35 mg/dL (39-259); Microalbumin Random Urine 16 ug/dL (0-20)
[2023-02-22 15:08] LABS: Microalbum Creatinine Ratio Ur 457 mg/dL (0-20)
== END 2023-02-22 13:13 | disposition home or self-care (01) ==
PROVIDERS: PCP Family Medicine; Visit Provider Internal Medicine
DX: E11.9 Type 2 diabetes mellitus without complications (principal); E78.2 Mixed hyperlipidemia
CPT/HCPCS: 36415; 80053; 80061; 82044; 83036

== ENCOUNTER → 2023-04-05 08:57 | Outpatient (BNVA) | payer MEDICARE, OTHER, SELFPAY | PROVIDERS: PCP Family Medicine; Visit Provider Dermatology | DX: L57.0 Actinic keratosis (principal); L57.8 Other skin changes due to chronic exposure to nonionizing radiation; L73.8 Other specified follicular disorders; L82.1 Other seborrheic keratosis; L81.4 Other melanin hyperpigmentation; Z85.828 Personal history of other malignant neoplasm of skin; Z87.891 Personal history of nicotine dependence | CPT/HCPCS: 17004; 99214 ==

== ENCOUNTER 2023-04-25 13:03 | Oncology outpatient (recurring) (ONCR) | payer MEDICARE, OTHER, SELFPAY ==
[2023-04-25 13:16] VITALS: BP 159/82; PULSE 67; RESP 18; TEMP 36.4; O2SAT 91
[2023-04-25 13:27] VITALS: BP 159/82; PULSE 67; RESP 18; TEMP 37; O2SAT 91
[2023-04-25 13:53] LABS: Basophils % 0.6 %; Eosinophils # 0.2 10^3/uL (0.0-0.8); Eosinophils % 3.3 %; Hematocrit 33.8 % (42.0-52.0); Hemoglobin 11.3 g/dL (11.7-16.6); Lymphocytes # 0.7 10^3/uL (0.8-4.8); Lymphocytes % 10.4 %; Mean Corpuscular HGB Conc 33.4 g/dL (30.0-36.0); Mean Corpuscular Hemoglobin 31.9 pg (28.0-34.0); Mean Corpuscular Volume 95.5 fl (80-94); Mean Platelet Volume 10.8 fL (7.4-10.4); Monocytes # 0.5 10^3/uL (0.2-0.9); Monocytes % 7.1 %; Nucleated Red Blood Cells % 0 %; Platelet Count 134 10^3/cmm (130-400); Red Blood Count 3.54 10^6/uL (4.1-5.3); Red Cell Distribution Width 13.3 % (12.1-15.1)
[2023-04-25 14:07] LABS: Alanine Aminotransferase 26 U/L (0-41); Albumin Level 3.9 g/dL (3.5-5.2); Alkaline Phosphatase 61 U/L (40-130); Anion Gap 15.1 (5-19); Aspartate Amino Transferase 24 U/L (0-40); Blood Urea Nitrogen 43 mg/dL (8-23); Calcium 10.5 mg/dL (8.5-10.5); Carbon Dioxide 24 mmol/L (22-29); Chloride 108 mmol/L (98-107); Globulin 2.9 g/dL (1.3-4.6); Glomerular Filtration Rate 20.9 mL/min (90-130); Glucose 123 mg/dL (65-115); Immunoglobulin IGA 297 mg/dL (70-400); Immunoglobulin IGG 903 mg/dL (700-1600); Immunoglobulin IGM 309 mg/dL (40-230); Osmolality Calculated 308 mOsm/kg (285-295); Potassium 4.1 mmol/L (3.5-5.1); Sodium 143 mmol/L (136-145); Total Bilirubin 0.3 mg/dL (0.15-1.2); Total Protein 6.8 g/dL (6.6-8.7)
[2023-04-26 14:40] LABS: PROTEIN, TOTAL 6.7 g/dL (6.1-8.1)
[2023-04-26 15:10] LABS: KAPPA LIGHT CHAIN, FREE, SERUM 120.6 mg/L (3.3-19.4); KAPPA/LAMBDA LIGHT CHAINS FREE 1.89 (0.26-1.65); LAMBDA LIGHT CHAIN, FREE, SERU 63.8 mg/L (5.7-26.3)
[2023-04-29 10:59] LABS: ABNORMAL PROTEIN BAND 1 0.3 g/dL (NONE DETECTED); ALBUMIN 3.9 g/dL (3.8-4.8); ALPHA 1 GLOBULIN 0.3 g/dL (0.2-0.3); ALPHA 2 GLOBULIN 0.7 g/dL (0.5-0.9); BETA 1 GLOBULIN 0.4 g/dL (0.4-0.6); BETA 2 GLOBULIN 0.4 g/dL (0.2-0.5); GAMMA GLOBULIN 1.1 g/dL (0.8-1.7)
[2023-05-03 10:15] LABS: CREATININE, 24 HOUR URINE 1.83 g/24 h (0.50-2.15); PROTEIN, TOTAL, 24 HR UR 1388 mg/24 h (<150); Protein/Creatinine Ratio 0.758 (<0.100); Protein/Creatinine Ratio 758 mg/g creat (<100)
[2023-05-07 09:39] LABS: ALBUMIN 75 %; ALPHA-1-GLOBULINS 3 %; ALPHA-2-GLOBULINS 5 %; BETA GLOBULINS 9 %; GAMMA GLOBULINS 8 %
[2023-05-08 22:44] LABS: Kappa Free Light Chains Urine 104.58 mg/L (<=32.90)
== END 2023-05-13 23:59 | disposition home or self-care (01) ==
PROVIDERS: PCP Family Medicine; Visit Provider Internal Medicine Medical Oncology
DX: D47.2 Monoclonal gammopathy (principal)
CPT/HCPCS: 36415; 80053; 82784; 83883; 84155; 84156; 84165; 84166; 85025; 86335

== ENCOUNTER 2023-05-02 12:44 | Outpatient (CLI) | payer MEDICARE, OTHER, SELFPAY ==
[2023-05-02 14:29] LABS: Calcium 10.1 mg/dL (8.5-10.5)
[2023-05-02 14:30] LABS: Albumin Level 3.9 g/dL (3.5-5.2); Anion Gap 16.2 (5-19); Blood Urea Nitrogen 37 mg/dL (8-23); Calcium 10.1 mg/dL (8.5-10.5); Carbon Dioxide 25 mmol/L (22-29); Chloride 103 mmol/L (98-107); Glomerular Filtration Rate 20.9 mL/min (90-130); Glucose 220 mg/dL (65-115); Magnesium 1.8 mg/dL (1.7-2.3); Osmolality Calculated 305 mOsm/kg (285-295); Phosphorus 4.4 mg/dL (2.5-4.5); Potassium 4.2 mmol/L (3.5-5.1); Sodium 140 mmol/L (136-145); Uric Acid 6.3 mg/dL (3.4-7.0)
[2023-05-02 14:34] LABS: Parathyroid Hormone 17.2 pg/mL (15-65)
[2023-05-02 14:44] LABS: 25 Hydroxy Vitamin D 48 ng/mL (30-100)
[2023-05-02 16:36] LABS: Add Urine Culture? No; Bilirubin Urine Neg (Negative); Blood Urine Neg (Negative); Glucose Urine UA Trace (Normal); Ketones Urine Negative (Negative); Leukocyte Esterase Urine Negative (Negative); Nitrate Urine Negative (Negative); Protein Urine 1+ (Negative); RBC Urine 0-4 /hpf (0-2); Specific Gravity, Urine 1.015 (1.005-1.030); Squamous Epithelial Cell Urine 0-4 /hpf (0-5); Urine Appearance Clear (CLEAR); Urine Color Yellow (Yellow); Urobilinogen Urine Norm (Negative); WBC Urine 0-4 /hpf (0-5); pH Urine 5 (5-7)
== END 2023-05-02 12:45 | disposition home or self-care (01) ==
PROVIDERS: Nurse Practitioner Gerontology; PCP Family Medicine; Visit Provider Internal Medicine Medical Oncology
DX: N18.4 Chronic kidney disease, stage 4 (severe) (principal); R80.0 Isolated proteinuria
CPT/HCPCS: 36415; 80048; 81001; 82040; 82306; 82310; 83735; 83970; 84100; 84550; 85018

== ENCOUNTER → 2023-05-22 14:40 | Outpatient (BNVA) | payer MEDICARE, OTHER, SELFPAY | PROVIDERS: PCP Family Medicine; Visit Provider Internal Medicine Medical Oncology | DX: D47.2 Monoclonal gammopathy (principal); N18.4 Chronic kidney disease, stage 4 (severe); Z87.891 Personal history of nicotine dependence | CPT/HCPCS: 99214 ==

== ENCOUNTER → 2023-06-24 13:53 | Outpatient (BNVA) | payer MEDICARE, OTHER, SELFPAY | PROVIDERS: PCP Family Medicine; Visit Provider Internal Medicine | DX: E11.9 Type 2 diabetes mellitus without complications (principal); E78.2 Mixed hyperlipidemia; Z79.4 Long term (current) use of insulin | CPT/HCPCS: 99214 ==

== ENCOUNTER 2023-08-19 14:19 | Outpatient (CLI) | payer MEDICARE, OTHER, SELFPAY ==
[2023-08-19 16:31] LABS: Estmated Average Glucose 157; Hemoglobin A1C 7.1 % (4.0-6.0)
[2023-08-19 16:47] LABS: Add Urine Microscopic? YES; Bilirubin Urine Neg (Negative); Blood Urine Neg (Negative); Calcium 10.8 mg/dL (8.5-10.5); Glucose Urine UA Trace (Normal); Ketones Urine Negative (Negative); Leukocyte Esterase Urine Negative (Negative); Nitrate Urine Negative (Negative); Parathyroid Hormone 11.9 pg/mL (15-65); Protein Urine 2+ (Negative); Specific Gravity, Urine 1.015 (1.005-1.030); Urine Appearance Clear (CLEAR); Urine Color Yellow (Yellow); Urobilinogen Urine Norm (Negative); pH Urine 5 (5-7)
[2023-08-19 16:48] LABS: Add Urine Culture? No; Bacteria Urine TRACE /hpf; Squamous Epithelial Cell Urine 0-4 /hpf (0-5); WBC Urine 0-4 /hpf (0-5)
[2023-08-19 16:51] LABS: 25 Hydroxy Vitamin D 44 ng/mL (30-100); Albumin Level 4.1 g/dL (3.5-5.2); Anion Gap 15.5 (5-19); Blood Urea Nitrogen 43 mg/dL (8-23); Calcium 10.8 mg/dL (8.5-10.5); Carbon Dioxide 27 mmol/L (22-29); Chloride 102 mmol/L (98-107); Glomerular Filtration Rate 19.4 mL/min (90-130); Glucose 172 mg/dL (65-115); Magnesium 1.9 mg/dL (1.7-2.3); Osmolality Calculated 305 mOsm/kg (285-295); Phosphorus 4.1 mg/dL (2.5-4.5); Potassium 4.5 mmol/L (3.5-5.1); Sodium 140 mmol/L (136-145); Uric Acid 6.3 mg/dL (3.4-7.0)
[2023-08-19 17:05] LABS: Urine Creatinine 98 mg/dL (39-259)
[2023-08-19 17:06] LABS: UPRO/UCREAT Ratio 1.08 mg/mg CR; Urine Protein Random 106 mg/dL
== END 2023-08-19 14:20 | disposition home or self-care (01) ==
PROVIDERS: PCP Family Medicine; Visit Provider Nurse Practitioner Gerontology
DX: N18.4 Chronic kidney disease, stage 4 (severe) (principal); R80.0 Isolated proteinuria; M10.9 Gout, unspecified
CPT/HCPCS: 80048; 81001; 82040; 82306; 82310; 82570; 83036; 83735; 83970; 84100; 84156; 84550

== ENCOUNTER 2023-09-16 15:18 | Outpatient (CLI) | payer MEDICARE, OTHER, SELFPAY ==
[2023-09-16 16:27] LABS: Estmated Average Glucose 157; Hemoglobin A1C 7.1 % (4.0-6.0)
[2023-09-16 16:28] LABS: Alanine Aminotransferase 23 U/L (0-41); Albumin Level 4.3 g/dL (3.5-5.2); Alkaline Phosphatase 79 U/L (40-130); Anion Gap 18.8 (5-19); Aspartate Amino Transferase 19 U/L (0-40); Blood Urea Nitrogen 36 mg/dL (8-23); Calcium 9.6 mg/dL (8.5-10.5); Carbon Dioxide 23 mmol/L (22-29); Chloride 100 mmol/L (98-107); Chol HDL Ratio 5.13 mg/dL (1.0-5.00); Cholesterol 159 mg/dL (0-200); Globulin 3.1 g/dL (1.3-4.6); Glucose 222 mg/dL (65-115); HDL Cholesterol 31 mg/dL (60-100); LDL Cholesterol Calculated 83 mg/dL (50-129); LDL HDL Ratio 2.68 RATIO (0.00-3.22); Osmolality Calculated 299 mOsm/kg (285-295); Potassium 4.8 mmol/L (3.5-5.1); Sodium 137 mmol/L (136-145); Total Bilirubin 0.4 mg/dL (0.15-1.2); Total Protein 7.4 g/dL (6.6-8.7); Triglycerides 223 mg/dL (0-150)
[2023-09-16 17:23] LABS: Creatinine Urine, Random 61 mg/dL (39-259)
[2023-09-16 17:36] LABS: Microalbum Creatinine Ratio Ur 770 mg/dL (0-20); Microalbumin Random Urine 47 ug/dL (0-20)
== END 2023-09-16 15:19 | disposition home or self-care (01) ==
LOC: LAB 15:21
PROVIDERS: PCP Family Medicine; Visit Provider Internal Medicine
DX: E11.9 Type 2 diabetes mellitus without complications (principal); E78.2 Mixed hyperlipidemia
CPT/HCPCS: 36415; 80053; 80061; 82044; 83036

== ENCOUNTER → 2023-09-25 08:54 | Outpatient (BNVA) | payer MEDICARE, OTHER, SELFPAY | PROVIDERS: PCP Family Medicine; Visit Provider Internal Medicine | DX: E11.9 Type 2 diabetes mellitus without complications (principal); E78.2 Mixed hyperlipidemia; Z79.4 Long term (current) use of insulin | CPT/HCPCS: 99214 ==

== ENCOUNTER 2023-11-15 08:03 | Outpatient (CLI) | payer MEDICARE, OTHER, SELFPAY ==
--- NOTE | 2023-11-15 08:11 | US_ITS ---
WS: [id number] RIGHT UPPER QUADRANT ULTRASOUND HISTORY: RUQ PAIN COMPARISON: None available. Liver: 20.1 cm in length. Enlarged liver with coarse echogenicity. No mass. Portal Vein: Normal hepatopetal flow with monophasic waveform. Gallbladder: Normally distended gallbladder with no stones or wall thickening. CBD: 0.4 cm Pancreas: Normal size and echogenicity. Right kidney: 11.5 cm in length. Normal size kidney. There is mild diffuse cortical thinning and incr eased echogenicity within the kidney. There is a cyst in the superior pole measuring 2.1 x 2.1 x 2.2 cm. There is an additional smaller cyst in the mid kidney. Aorta and IVC: Unremarkable abdominal aorta and IVC. No ascites. IMPRESSION: 1. Normal gallbladder. 2. Moderate hepatic steatosis and hepatomegaly. No bile duct dilatation. 3. Simple RIGHT renal cysts.
== END 2023-11-15 08:04 | disposition home or self-care (01) ==
LOC: RAD 08:04
PROVIDERS: PCP Family Medicine; Visit Provider Family Medicine
DX: R10.11 Right upper quadrant pain (principal); K76.0 Fatty (change of) liver, not elsewhere classified; R16.0 Hepatomegaly, not elsewhere classified; N28.1 Cyst of kidney, acquired
CPT/HCPCS: 76705

== ENCOUNTER 2023-11-25 08:14 | Oncology outpatient (recurring) (ONCR) | payer MEDICARE, OTHER, SELFPAY ==
[2023-11-20 11:58] LABS: Basophils # 0.1 10^3/uL (0.0-0.1); Basophils % 0.9 %; Eosinophils # 0.2 10^3/uL (0.0-0.8); Eosinophils % 3.5 %; Hematocrit 37.6 % (37-53); Lymphocytes # 0.9 10^3/uL (0.8-4.8); Lymphocytes % 15.5 %; Mean Corpuscular HGB Conc 34.6 g/dL (30-55); Mean Corpuscular Hemoglobin 31.9 pg (27-33); Mean Corpuscular Volume 92.2 fl (82-101); Mean Platelet Volume 10.2 fL (7.4-10.4); Monocytes # 0.6 10^3/uL (0.2-0.9); Monocytes % 11.1 %; Neutrophils # 3.87 10^3/uL (1.8-7.7); Neutrophils % 68.5 %; Nucleated Red Blood Cells % 0 %; Platelet Count 190 10^3/cmm (157-399); Red Blood Count 4.08 10^6/uL (3.85-5.65); Red Cell Distribution Width 12.6 % (12.1-15.1); White Blood Count 5.66 10^3/uL (3.29-11.43)
[2023-11-20 12:40] LABS: Alanine Aminotransferase 17 U/L (0-41); Albumin Level 4.2 g/dL (3.5-5.2); Alkaline Phosphatase 86 U/L (40-130); Anion Gap 19.2 (5-19); Aspartate Amino Transferase 20 U/L (0-40); Blood Urea Nitrogen 52 mg/dL (8-23); Calcium 9.9 mg/dL (8.5-10.5); Carbon Dioxide 23 mmol/L (22-29); Chloride 97 mmol/L (98-107); Globulin 3.4 g/dL (1.3-4.6); Glomerular Filtration Rate 15.9 mL/min (90-130); Glucose 157 mg/dL (65-115); Immunoglobulin IGA 360 mg/dL (70-400); Immunoglobulin IGG 972 mg/dL (700-1600); Immunoglobulin IGM 313 mg/dL (40-230); Osmolality Calculated 295 mOsm/kg (285-295); Potassium 5.2 mmol/L (3.5-5.1); Sodium 134 mmol/L (136-145); Total Bilirubin 0.4 mg/dL (0.15-1.2); Total Protein 7.6 g/dL (6.6-8.7)
[2023-11-21 10:28] LABS: PROTEIN, TOTAL 7.2 g/dL (6.1-8.1)
[2023-11-21 10:49] LABS: KAPPA LIGHT CHAIN, FREE, SERUM 116.8 mg/L (3.3-19.4); KAPPA/LAMBDA LIGHT CHAINS FREE 2.07 (0.26-1.65); LAMBDA LIGHT CHAIN, FREE, SERU 56.4 mg/L (5.7-26.3)
[2023-11-25 12:45] LABS: ABNORMAL PROTEIN BAND 1 0.3 g/dL (NONE DETECTED); ALBUMIN 4.1 g/dL (3.8-4.8); ALPHA 1 GLOBULIN 0.3 g/dL (0.2-0.3); ALPHA 2 GLOBULIN 0.7 g/dL (0.5-0.9); BETA 1 GLOBULIN 0.5 g/dL (0.4-0.6); BETA 2 GLOBULIN 0.5 g/dL (0.2-0.5); GAMMA GLOBULIN 1.1 g/dL (0.8-1.7)
[2023-11-26 16:00] LABS: CREATININE, 24 HOUR URINE 1.54 g/24 h (0.50-2.15); PROTEIN, TOTAL, 24 HR UR 1350 mg/24 h (<150); Protein/Creatinine Ratio 0.877 (<0.100); Protein/Creatinine Ratio 877 mg/g creat (<100)
[2023-12-04 13:45] LABS: ALBUMIN 75 %; ALPHA-1-GLOBULINS 5 %; ALPHA-2-GLOBULINS 4 %; BETA GLOBULINS 7 %; GAMMA GLOBULINS 10 %
== END 2023-12-12 23:59 | disposition home or self-care (01) ==
PROVIDERS: Nurse Practitioner Family; PCP Family Medicine; Visit Provider Internal Medicine Medical Oncology
DX: D47.2 Monoclonal gammopathy (principal)
CPT/HCPCS: 36415; 80053; 82784; 83883; 84155; 84156; 84165; 84166; 85025; 86334; 99213

== ENCOUNTER 2023-12-17 11:38 | Outpatient (CLI) | payer MEDICARE, OTHER, SELFPAY ==
[2023-12-17 13:07] LABS: Anion Gap 12.8 (5-19); Blood Urea Nitrogen 38 mg/dL (8-23); Calcium 8.9 mg/dL (8.5-10.5); Carbon Dioxide 26 mmol/L (22-29); Chloride 105 mmol/L (98-107); Glomerular Filtration Rate 24.6 mL/min (90-130); Glucose 159 mg/dL (65-115); Osmolality Calculated 300 mOsm/kg (285-295); Potassium 4.8 mmol/L (3.5-5.1); Sodium 139 mmol/L (136-145)
== END 2023-12-17 11:39 | disposition home or self-care (01) ==
LOC: LAB 11:41
PROVIDERS: PCP Family Medicine; Visit Provider Nurse Practitioner Gerontology
DX: E11.22 Type 2 diabetes mellitus with diabetic chronic kidney disease (principal); I12.9 Hypertensive chronic kidney disease with stage 1 through stage 4 chronic kidney disease, or unspecified chronic kidney disease; N18.9 Chronic kidney disease, unspecified
CPT/HCPCS: 36415; 80048

== ENCOUNTER → 2023-12-30 10:41 | Outpatient (BNVA) | payer MEDICARE, OTHER, SELFPAY | PROVIDERS: PCP Family Medicine; Visit Provider Internal Medicine | DX: E11.9 Type 2 diabetes mellitus without complications (principal); E78.2 Mixed hyperlipidemia | CPT/HCPCS: 99214 ==

== ENCOUNTER 2024-02-24 10:25 | Outpatient (CLI) | payer MEDICARE, SELFPAY ==
[2024-02-24 12:08] LABS: Add Urine Culture? No; Bilirubin Urine Neg (Negative); Blood Urine Neg (Negative); Glucose Urine UA Norm (Normal); Ketones Urine Negative (Negative); Leukocyte Esterase Urine Negative (Negative); Nitrate Urine Negative (Negative); Protein Urine Trace (Negative); RBC Urine RARE /hpf (0-2); Specific Gravity, Urine 1.005 (1.005-1.030); Squamous Epithelial Cell Urine RARE /hpf (0-5); Urine Appearance Clear (CLEAR); Urine Color Light yellow (Yellow); Urobilinogen Urine Neg (Negative); pH Urine 6.5 (5-7)
[2024-02-24 12:22] LABS: Estmated Average Glucose 105; Hemoglobin A1C 5.3 % (4.0-6.0)
[2024-02-24 12:23] LABS: Urine Creatinine 34 mg/dL (39-259)
[2024-02-24 12:26] LABS: UPRO/UCREAT Ratio 0.79 mg/mg CR; Urine Protein Random 27 mg/dL
[2024-02-24 12:33] LABS: Calcium 8.4 mg/dL (8.5-10.5); Parathyroid Hormone 56.5 pg/mL (15-65)
[2024-02-24 12:42] LABS: 25 Hydroxy Vitamin D 31 ng/mL (30-100); Albumin Level 3.8 g/dL (3.5-5.2); Anion Gap 13.7 (5-19); Blood Urea Nitrogen 38 mg/dL (8-23); Calcium 8.5 mg/dL (8.5-10.5); Carbon Dioxide 26 mmol/L (22-29); Chloride 102 mmol/L (98-107); Glomerular Filtration Rate 24.6 mL/min (90-130); Glucose 188 mg/dL (65-115); Magnesium 1.9 mg/dL (1.7-2.3); Osmolality Calculated 298 mOsm/kg (285-295); Phosphorus 3.1 mg/dL (2.5-4.5); Potassium 4.7 mmol/L (3.5-5.1); Sodium 137 mmol/L (136-145); Uric Acid 6.6 mg/dL (3.4-7.0)
[2024-02-25 12:04] LABS: KAPPA LIGHT CHAIN, FREE, SERUM 112.3 mg/L (3.3-19.4); KAPPA/LAMBDA LIGHT CHAINS FREE 1.97 (0.26-1.65); LAMBDA LIGHT CHAIN, FREE, SERU 57.1 mg/L (5.7-26.3)
[2024-02-25 15:00] LABS: Creatinine, Random Urine 36 mg/dL (20-320); Protein, Total, Random 30 mg/dL (5-25); Protein/Creatinine Ratio 0.833 (0.025-0.148); Protein/Creatinine Ratio 833 mg/g creat (25-148)
[2024-02-26 01:10] LABS: PROTEIN, TOTAL 6.1 g/dL (6.1-8.1)
[2024-02-26 11:00] LABS: ABNORMAL PROTEIN BAND 1 0.3 g/dL (NONE DETECTED); ALBUMIN 3.4 g/dL (3.8-4.8); ALPHA 1 GLOBULIN 0.3 g/dL (0.2-0.3); ALPHA 2 GLOBULIN 0.7 g/dL (0.5-0.9); BETA 1 GLOBULIN 0.4 g/dL (0.4-0.6); BETA 2 GLOBULIN 0.5 g/dL (0.2-0.5); GAMMA GLOBULIN 0.9 g/dL (0.8-1.7)
[2024-03-05 15:40] LABS: PTH Related Peptide (Protein) 9 pg/mL (11-20)
[2024-03-10 09:04] LABS: Albumin,Urine Random 72 %; Alpha-1-Globulins Urine Random 5 %; Alpha-2-Globulins Urine Random 5 %; Beta-Globulin,Urine Random 10 %; Gamma Globulin,Urine Random 8 %
== END 2024-02-24 10:26 | disposition home or self-care (01) ==
PROVIDERS: PCP Family Medicine; Visit Provider Family Medicine
DX: E11.22 Type 2 diabetes mellitus with diabetic chronic kidney disease (principal); E83.52 Hypercalcemia
CPT/HCPCS: 36415; 80048; 81001; 82040; 82306; 82310; 82542; 82570; 83036; 83735; 83883; 83970; 84100; 84155; 84156; 84165; 84166; 84550; 86334

== ENCOUNTER 2024-07-01 13:08 | Outpatient (CLI) | payer MEDICARE, SELFPAY ==
[2024-07-01 13:59] LABS: Creatinine Urine, Random 40 mg/dL (39-259); Microalbumin Random Urine 13 ug/dL (0-20)
[2024-07-01 14:01] LABS: Alanine Aminotransferase 12 U/L (0-41); Albumin Level 3.8 g/dL (3.5-5.2); Alkaline Phosphatase 64 U/L (40-130); Anion Gap 15.3 (5-19); Aspartate Amino Transferase 14 U/L (0-40); Blood Urea Nitrogen 39 mg/dL (8-23); Calcium 9.3 mg/dL (8.5-10.5); Carbon Dioxide 26 mmol/L (22-29); Chloride 99 mmol/L (98-107); Cholesterol 133 mg/dL (0-200); Globulin 2.6 g/dL (1.3-4.6); Glucose 193 mg/dL (65-115); HDL Cholesterol 35 mg/dL (60-100); LDL Cholesterol Calculated 60 mg/dL (50-129); LDL HDL Ratio 1.71 RATIO (0.00-3.22); Osmolality Calculated 295 mOsm/kg (285-295); Potassium 5.3 mmol/L (3.5-5.1); Sodium 135 mmol/L (136-145); Total Bilirubin 0.2 mg/dL (0.15-1.2); Total Protein 6.4 g/dL (6.6-8.7); Triglycerides 192 mg/dL (0-150)
[2024-07-01 14:01] LABS: Microalbum Creatinine Ratio Ur 325 mg/dL (0-20)
[2024-07-01 14:17] LABS: Estmated Average Glucose 140; Hemoglobin A1C 6.5 % (4.0-6.0)
== END 2024-07-01 13:09 | disposition home or self-care (01) ==
LOC: LAB 13:11
PROVIDERS: PCP Family Medicine; Visit Provider Internal Medicine
DX: E11.9 Type 2 diabetes mellitus without complications (principal); E78.2 Mixed hyperlipidemia
CPT/HCPCS: 36415; 80053; 80061; 82044; 83036

== ENCOUNTER → 2024-07-06 11:37 | Outpatient (BNVA) | payer MEDICARE, OTHER, SELFPAY | PROVIDERS: PCP Family Medicine; Visit Provider Internal Medicine | DX: E78.2 Mixed hyperlipidemia; N17.9 Acute kidney failure, unspecified; N18.4 Chronic kidney disease, stage 4 (severe); E11.22 Type 2 diabetes mellitus with diabetic chronic kidney disease; Z79.85 Long-term (current) use of injectable non-insulin antidiabetic drugs; Z79.84 Long term (current) use of oral hypoglycemic drugs; Z87.440 Personal history of urinary (tract) infections | CPT/HCPCS: 99214 ==

== ENCOUNTER 2024-07-16 10:34 | Outpatient (CLI) | payer MEDICARE, SELFPAY ==
[2024-07-16 10:57] LABS: Hematocrit 27.1 % (37-53)
[2024-07-16 11:13] LABS: Blood Urea Nitrogen 24 mg/dL (8-23); Calcium 9.5 mg/dL (8.5-10.5); Carbon Dioxide 30 mmol/L (22-29); Chloride 100 mmol/L (98-107); Glomerular Filtration Rate 20.9 mL/min (90-130); Glucose 149 mg/dL (65-115); Magnesium 2.3 mg/dL (1.7-2.3); Osmolality Calculated 299 mOsm/kg (285-295); Sodium 141 mmol/L (136-145); Uric Acid 4.9 mg/dL (3.4-7.0)
[2024-07-16 12:15] LABS: Calcium 9.3 mg/dL (8.5-10.5)
[2024-07-16 12:19] LABS: Parathyroid Hormone 26.6 pg/mL (15-65)
[2024-07-16 12:35] LABS: Bilirubin Urine Negative (Negative); Blood Urine Negative (Negative); Glucose Urine UA Negative (Normal); Ketones Urine Negative (Negative); Leukocyte Esterase Urine Negative (Negative); Nitrate Urine Negative (Negative); Protein Urine 1+ (Negative); Urine Appearance Clear (CLEAR); Urine Color Yellow (Yellow); Urobilinogen Urine 0.2 mg/dL (Negative); pH Urine 6.5 (5-7)
[2024-07-16 12:52] LABS: Creatinine Urine, Random 67 mg/dL (39-259); Microalbumin Random Urine 24 ug/dL (0-20)
[2024-07-16 12:56] LABS: Microalbum Creatinine Ratio Ur 358 mg/dL (0-20)
[2024-07-16 13:26] LABS: Add Urine Culture? No; RBC Urine RARE /hpf (0-2); Squamous Epithelial Cell Urine 0-4 /hpf (0-5)
== END 2024-07-16 10:35 | disposition home or self-care (01) ==
PROVIDERS: PCP Family Medicine; Visit Provider Internal Medicine
DX: E11.22 Type 2 diabetes mellitus with diabetic chronic kidney disease (principal); I12.9 Hypertensive chronic kidney disease with stage 1 through stage 4 chronic kidney disease, or unspecified chronic kidney disease; N17.9 Acute kidney failure, unspecified; N18.4 Chronic kidney disease, stage 4 (severe); I10 Essential (primary) hypertension; R80.0 Isolated proteinuria; E87.5 Hyperkalemia; E20.89 Other specified hypoparathyroidism; M10.9 Gout, unspecified; Z79.899 Other long term (current) drug therapy
CPT/HCPCS: 36415; 80048; 81001; 82044; 82310; 83735; 83970; 84550; 85014; 85018

== ENCOUNTER 2024-07-30 13:04 | Outpatient (CLI) | payer MEDICARE, SELFPAY ==
[2024-07-30 14:23] LABS: Ferritin 19 ng/mL (30-400); Iron 33 ug/dL (59-158); Percent Saturation 12.1 % (20-50); Total Iron Binding Capacity 271 mcg/dl; Unsaturated Iron Binding 238 ug/dL (112-347)
== END 2024-07-30 13:05 | disposition home or self-care (01) ==
PROVIDERS: PCP Family Medicine; Visit Provider Nurse Practitioner Family
DX: E11.22 Type 2 diabetes mellitus with diabetic chronic kidney disease (principal); I12.9 Hypertensive chronic kidney disease with stage 1 through stage 4 chronic kidney disease, or unspecified chronic kidney disease; N18.4 Chronic kidney disease, stage 4 (severe); D47.2 Monoclonal gammopathy; D64.9 Anemia, unspecified
CPT/HCPCS: 36415; 82728; 83540; 83550; 85018

== ENCOUNTER 2024-08-27 13:28 | Oncology outpatient (recurring) (ONCR) | payer MEDICARE, SELFPAY ==
[2024-08-27 13:51] LABS: Basophils % 0.6 %; Eosinophils # 0.4 10^3/uL (0.0-0.8); Eosinophils % 6.1 %; Hematocrit 26.3 % (37-53); Lymphocytes # 0.9 10^3/uL (0.8-4.8); Lymphocytes % 13.6 %; Mean Corpuscular HGB Conc 30.8 g/dL (30-55); Mean Corpuscular Hemoglobin 27.3 pg (27-33); Mean Corpuscular Volume 88.6 fl (82-101); Mean Platelet Volume 9.7 fL (7.4-10.4); Monocytes # 0.5 10^3/uL (0.2-0.9); Monocytes % 7.8 %; Neutrophils # 4.84 10^3/uL (1.8-7.7); Neutrophils % 71.5 %; Nucleated Red Blood Cells % 0 %; Platelet Count 171 10^3/cmm (157-399); Red Blood Count 2.97 10^6/uL (3.85-5.65); White Blood Count 6.77 10^3/uL (3.29-11.43)
[2024-08-27 14:12] LABS: Alanine Aminotransferase 11 U/L (0-41); Albumin Level 3.8 g/dL (3.5-5.2); Alkaline Phosphatase 74 U/L (40-130); Anion Gap 15.5 (5-19); Aspartate Amino Transferase 16 U/L (0-40); Blood Urea Nitrogen 43 mg/dL (8-23); Calcium 8.8 mg/dL (8.5-10.5); Carbon Dioxide 27 mmol/L (22-29); Chloride 99 mmol/L (98-107); Creatinine Clr Calc Pharmacy 25.1829; Globulin 2.3 g/dL (1.3-4.6); Glomerular Filtration Rate 19.4 mL/min (90-130); Glucose 240 mg/dL (65-115); Immunoglobulin IGA 333 mg/dL (70-400); Immunoglobulin IGG 705 mg/dL (700-1600); Immunoglobulin IGM 219 mg/dL (40-230); Osmolality Calculated 303 mOsm/kg (285-295); Potassium 4.5 mmol/L (3.5-5.1); Sodium 137 mmol/L (136-145); Total Bilirubin 0.3 mg/dL (0.15-1.2); Total Protein 6.1 g/dL (6.6-8.7)
[2024-08-28 05:29] LABS: PROTEIN, TOTAL 5.8 g/dL (6.1-8.1)
[2024-08-28 16:01] LABS: ABNORMAL PROTEIN BAND 1 0.2 g/dL (NONE DETECTED); ALBUMIN 3.5 g/dL (3.8-4.8); ALPHA 1 GLOBULIN 0.3 g/dL (0.2-0.3); ALPHA 2 GLOBULIN 0.6 g/dL (0.5-0.9); BETA 1 GLOBULIN 0.4 g/dL (0.4-0.6); BETA 2 GLOBULIN 0.4 g/dL (0.2-0.5); GAMMA GLOBULIN 0.7 g/dL (0.8-1.7)
[2024-09-01 15:55] LABS: KAPPA LIGHT CHAIN, FREE, SERUM 123.1 mg/L (3.3-19.4); KAPPA/LAMBDA LIGHT CHAINS FREE 1.91 (0.26-1.65); LAMBDA LIGHT CHAIN, FREE, SERU 64.3 mg/L (5.7-26.3)
== END 2024-09-12 23:59 | disposition home or self-care (01) ==
PROVIDERS: Nurse Practitioner Family; PCP Family Medicine; Visit Provider Internal Medicine Medical Oncology
DX: D47.2 Monoclonal gammopathy (principal); N18.4 Chronic kidney disease, stage 4 (severe); Z87.891 Personal history of nicotine dependence
CPT/HCPCS: 36415; 80053; 82784; 83883; 84155; 84165; 85025; 99214

== ENCOUNTER 2024-11-03 13:16 | Outpatient (CLI) | payer MEDICARE, SELFPAY ==
[2024-11-03 13:52] LABS: Bilirubin Urine Negative (Negative); Blood Urine Negative (Negative); Glucose Urine UA Negative (Normal); Ketones Urine Negative (Negative); Leukocyte Esterase Urine Negative (Negative); Nitrate Urine Negative (Negative); Protein Urine Trace (Negative); Specific Gravity, Urine 1.008 (1.005-1.030); Urine Appearance Clear (CLEAR); Urine Color Yellow (Yellow); Urobilinogen Urine 0.2 mg/dL (Negative); pH Urine 5.5 (5-7)
[2024-11-03 13:58] LABS: Bacteria Urine None Seen /hpf; Hyaline Casts Urine 2.87 /lpf; RBC Urine 0-2 /hpf (0-2); Squamous Epithelial Cell Urine 0-5 /hpf (0-5); WBC Urine 0-5 /hpf (0-5)
[2024-11-03 14:06] LABS: Add Urine Culture? No
[2024-11-03 14:11] LABS: Urine Creatinine 44 mg/dL (39-259); Urine Protein Random 17 mg/dL
[2024-11-03 14:14] LABS: UPRO/UCREAT Ratio 0.39 mg/mg CR
[2024-11-03 14:16] LABS: Albumin Level 3.9 g/dL (3.5-5.2); Anion Gap 14.9 (5-19); Blood Urea Nitrogen 53 mg/dL (8-23); Calcium 9.9 mg/dL (8.5-10.5); Carbon Dioxide 27 mmol/L (22-29); Chloride 99 mmol/L (98-107); Ferritin 21 ng/mL (30-400); Glomerular Filtration Rate 20.8 mL/min (90-130); Glucose 173 mg/dL (65-115); Iron 96 ug/dL (59-158); Magnesium 2.2 mg/dL (1.7-2.3); Osmolality Calculated 301 mOsm/kg (285-295); Percent Saturation 33.5 % (20-50); Phosphorus 4.3 mg/dL (2.5-4.5); Potassium 4.9 mmol/L (3.5-5.1); Sodium 136 mmol/L (136-145); Total Iron Binding Capacity 286 mcg/dl; Unsaturated Iron Binding 190 ug/dL (112-347); Uric Acid 5.7 mg/dL (3.4-7.0)
[2024-11-03 14:56] LABS: Creatinine Urine, Random 42 mg/dL (39-259); Microalbumin Random Urine 9 ug/dL (0-20)
[2024-11-03 14:57] LABS: Microalbum Creatinine Ratio Ur 214 mg/dL (0-20)
[2024-11-03 15:00] LABS: Parathyroid Hormone 19.8 pg/mL (15-65)
== END 2024-11-03 13:17 | disposition home or self-care (01) ==
LOC: LAB 13:20
PROVIDERS: Nurse Practitioner Family; PCP Family Medicine; Referring Provider Internal Medicine; Visit Provider Family Medicine
DX: E11.22 Type 2 diabetes mellitus with diabetic chronic kidney disease (principal); I12.9 Hypertensive chronic kidney disease with stage 1 through stage 4 chronic kidney disease, or unspecified chronic kidney disease; N18.4 Chronic kidney disease, stage 4 (severe); D47.2 Monoclonal gammopathy; D64.9 Anemia, unspecified; M10.9 Gout, unspecified; E20.89 Other specified hypoparathyroidism; R80.0 Isolated proteinuria; Z79.899 Other long term (current) drug therapy
CPT/HCPCS: 36415; 80048; 81001; 82040; 82044; 82310; 82570; 82728; 83540; 83550; 83735; 83970; 84100; 84156; 84550; 85018

== ENCOUNTER → 2024-12-30 10:56 | Outpatient (BNVA) | payer MEDICARE, SELFPAY | PROVIDERS: PCP Family Medicine; Visit Provider Internal Medicine | DX: E11.9 Type 2 diabetes mellitus without complications (principal); E78.2 Mixed hyperlipidemia; N17.9 Acute kidney failure, unspecified; N18.4 Chronic kidney disease, stage 4 (severe) | CPT/HCPCS: 99214 ==

== ENCOUNTER 2025-02-05 16:24 | Outpatient (CLI) | payer MEDICARE, SELFPAY ==
--- NOTE | 2025-02-05 16:41 | XRR_ITS ---
PROCEDURE INFORMATION: Exam: XR Left Hand Exam date and time: 02/05/2025 4:57 PM Age: 69 years old Clinical indication: Injury or trauma; Blunt trauma (contusions or hematomas) and laceration; Left; PT states he cut the top of his hand with a gear and spline grinder 7 days ago. Pain has gotten worse and PT straightened hand as much as he could tolerate. ; Additional info: Laceration without foreign body TECHNIQUE: Imaging protocol: Radiologic exam of the left hand. Views: 3 or more views. COMPARISON: No relevant prior studies available. FINDINGS: Bones/joints: Scattered [id number] degenerative disease of the interphalangeal joints. No acute fracture or dislocation. Soft tissues: 2 mm density at the dorsal aspect of the 2nd metacarpophalangeal joint in the soft tissues suspicious for a foreign body. Vasculature: Calcified atheromas of the visualized arteries. XR/XR hand LT min 3V* [id number] IMPRESSION: 1. No acute fracture or dislocation. 2. A 2 mm soft tissue density at the dorsal aspect of the 2nd metacarpophalangeal joint.
== END 2025-02-05 16:25 | disposition home or self-care (01) ==
PROVIDERS: PCP Family Medicine; Visit Provider Nurse Practitioner Family
DX: S61.412A Laceration without foreign body of left hand, initial encounter (principal); M79.89 Other specified soft tissue disorders; M19.042 Primary osteoarthritis, left hand; I70.90 Unspecified atherosclerosis; X58.XXXA Exposure to other specified factors, initial encounter
CPT/HCPCS: 73130

== ENCOUNTER → 2025-02-12 10:06 | Outpatient (BNVA) | payer MEDICARE, SELFPAY | PROVIDERS: PCP Family Medicine; Visit Provider Physician Assistant | DX: M79.642 Pain in left hand (principal); S69.90XA Unspecified injury of unspecified wrist, hand and finger(s), initial encounter; X58.XXXA Exposure to other specified factors, initial encounter | CPT/HCPCS: 73130; 99203 ==

== ENCOUNTER 2025-02-25 13:20 | Oncology outpatient (recurring) (ONCR) | payer MEDICARE, SELFPAY ==
[2025-02-18 13:43] LABS: Basophils # 0.1 10^3/uL (0.0-0.1); Basophils % 0.9 %; Eosinophils # 0.4 10^3/uL (0.0-0.8); Eosinophils % 7.2 %; Hematocrit 28.4 % (37-53); Lymphocytes # 0.6 10^3/uL (0.8-4.8); Mean Corpuscular HGB Conc 31.7 g/dL (30-55); Mean Corpuscular Hemoglobin 28.5 pg (27-33); Mean Corpuscular Volume 89.9 fl (82-101); Mean Platelet Volume 9.3 fL (7.4-10.4); Monocytes # 0.8 10^3/uL (0.2-0.9); Monocytes % 12.9 %; Neutrophils # 4.01 10^3/uL (1.8-7.7); Neutrophils % 68.8 %; Nucleated Red Blood Cells % 0 %; Platelet Count 187 10^3/cmm (157-399); Red Blood Count 3.16 10^6/uL (3.85-5.65); Red Cell Distribution Width 15.3 % (12.1-15.1); White Blood Count 5.82 10^3/uL (3.29-11.43)
[2025-02-18 14:02] LABS: Alanine Aminotransferase 10 U/L (0-41); Albumin Level 3.3 g/dL (3.5-5.2); Alkaline Phosphatase 74 U/L (40-130); Anion Gap 15.9 (5-19); Aspartate Amino Transferase 17 U/L (0-40); Blood Urea Nitrogen 30 mg/dL (8-23); Calcium 9.4 mg/dL (8.5-10.5); Carbon Dioxide 24 mmol/L (22-29); Chloride 101 mmol/L (98-107); Globulin 3.2 g/dL (1.3-4.6); Glomerular Filtration Rate 22.5 mL/min (90-130); Glucose 115 mg/dL (65-115); Immunoglobulin IGA 393 mg/dL (70-400); Immunoglobulin IGG 843 mg/dL (700-1600); Immunoglobulin IGM 197 mg/dL (40-230); Osmolality Calculated 289 mOsm/kg (285-295); Potassium 4.9 mmol/L (3.5-5.1); Sodium 136 mmol/L (136-145); Total Bilirubin 0.2 mg/dL (0.15-1.2); Total Protein 6.5 g/dL (6.6-8.7)
[2025-02-19 05:10] LABS: PROTEIN, TOTAL 6.3 g/dL (6.1-8.1)
[2025-02-19 15:34] LABS: KAPPA LIGHT CHAIN, FREE, SERUM 118.4 mg/L (3.3-19.4); KAPPA/LAMBDA LIGHT CHAINS FREE 2.02 (0.26-1.65); LAMBDA LIGHT CHAIN, FREE, SERU 58.7 mg/L (5.7-26.3)
[2025-02-20 15:54] LABS: ABNORMAL PROTEIN BAND 1 0.3 g/dL (NONE DETECTED); ALBUMIN 3.4 g/dL (3.8-4.8); ALPHA 1 GLOBULIN 0.4 g/dL (0.2-0.3); ALPHA 2 GLOBULIN 0.8 g/dL (0.5-0.9); BETA 1 GLOBULIN 0.4 g/dL (0.4-0.6); BETA 2 GLOBULIN 0.5 g/dL (0.2-0.5); GAMMA GLOBULIN 0.9 g/dL (0.8-1.7)
[2025-03-05 10:42] LABS: Creatinine, Random Urine 41
[2025-03-05 10:44] LABS: Protein, Total, Random 23; Protein/Creatinine Ratio 561
[2025-03-05 10:45] LABS: Albumin,Urine Random 62; Alpha-1-Globulins Urine Random 8; Alpha-2-Globulins Urine Random 5; Beta-Globulin,Urine Random 11; Gamma Globulin,Urine Random 13; Protein/Creatinine Ratio 0.561
== END 2025-03-13 23:59 | disposition home or self-care (01) ==
PROVIDERS: Nurse Practitioner Family; PCP Family Medicine; Visit Provider Internal Medicine Medical Oncology
DX: D47.2 Monoclonal gammopathy (principal); J45.909 Unspecified asthma, uncomplicated; E03.9 Hypothyroidism, unspecified; D50.9 Iron deficiency anemia, unspecified; N18.9 Chronic kidney disease, unspecified; Z79.899 Other long term (current) drug therapy
CPT/HCPCS: 36415; 80053; 82570; 82784; 83883; 84155; 84156; 84165; 84166; 85025; 99214

== ENCOUNTER → 2025-02-26 10:23 | Outpatient (BNVA) | payer MEDICARE, SELFPAY | PROVIDERS: PCP Family Medicine; Visit Provider Physician Assistant | DX: S69.92XA Unspecified injury of left wrist, hand and finger(s), initial encounter (principal); S61.412A Laceration without foreign body of left hand, initial encounter; W27.8XXA Contact with other nonpowered hand tool, initial encounter | CPT/HCPCS: 99213 ==

== ENCOUNTER → 2025-03-18 11:20 | Outpatient (BNVA) | payer MEDICARE, SELFPAY | PROVIDERS: PCP Family Medicine; Visit Provider Student in an Organized Health Care Education/Training Program | DX: R13.10 Dysphagia, unspecified (principal) | CPT/HCPCS: 99204 ==

== ENCOUNTER → 2025-03-19 11:00 | Outpatient (BNVA) | payer MEDICARE, SELFPAY | PROVIDERS: PCP Family Medicine; Visit Provider Family Medicine | DX: Z01.818 Encounter for other preprocedural examination (principal); I44.0 Atrioventricular block, first degree; R00.1 Bradycardia, unspecified | CPT/HCPCS: 93005 ==

== ENCOUNTER 2025-03-30 10:12 | Day surgery (SDC) | payer MEDICARE, SELFPAY ==
[2025-03-30 10:36] VITALS: BP 120/71; PULSE 69; RESP 16; TEMP 36.5; O2SAT 99; BMI 26.8
[2025-03-30] MEDS: sodium chloride 0.9% 1,000 ML 15 ML IV (10:44)
--- NOTE | 2025-03-30 10:46 | W.PM.OPSUD ---
Surgery/Procedure H&P Update DATE OF PROCEDURE: March 30, 2025 DATE H&P PERFORMED: 03/18/25 H&P UPDATE INFORMATION: I have reviewed H&P completed within last 30 days, I have examined patient prior to procedure and No changes to prior documentation PLANNED PROCEDURE: Operation Date: 03/30/25 11:45 Proposed Procedures p EGD 25364 R13.10(Not Applicable) - Newton Jorge MD
[2025-03-30 10:54] LABS: Glucose Point of Care 156 mg/dL (70-110)
[2025-03-30 11:10] VITALS: BP 103/50; PULSE 60; RESP 16; TEMP 36.2; O2SAT 92
--- NOTE | 2025-03-30 11:18 | ANES.PREANE2 ---
Pre-Anesthetic Assessment Height/Weight: Height 1.78 m Weight 84.822 kg Temp Pulse Resp BP Pulse Ox O2 Del Method 97.1 F L 60 16 103/50 92 Room Air 03/30/25 11:10 03/30/25 11:10 03/30/25 11:10 03/30/25 11:10 03/30/25 11:10 03/30/25 11:10 Preop Diagnosis: dysphagia Operation Date: 03/30/25 11:45 Proposed Procedures p EGD 98599 R13.10(Not Applicable) - Newton Jorge MD Familial anesthetic complications: none Was Beta Darrel taken within 24 hours: Yes Was Clonidine taken within 24 hours: N/A Last intake: Intake Last Liquid Date 03/29/25 Last Liquid Time 17:00 Last Solid Date 03/29/25 Last Solid Time 17:00 Social No alcohol and No tobacco Exam alert, oriented x 3, clear to auscultation bilaterally and regular rate & rhythm Airway Submandibular: Other (TM2) Cervical ROM: within normal limits Mallampati: Class III Dentition: full Pulmonary None reported CV/HEM Hypertension Chronic Renal Failure Hepatic None reported GI trouble swallowing, wt loss Metabolic Diabetes Mellitus [facility] [place] None reported Neuropsych None reported Anesthetic Plan ASA status: 3 Anesthesia: Anesthesia Evaluation and MAC Risk of > 500 ml blood loss (7ml/kg in children): No Medications/Allergies Home Medications ?Medication ?Instructions ?Recorded ?Confirmed ?Last Taken ?Type amlodipine 10 mg tablet 10 mg PO DAILY 03/16/20 03/26/25 03/30/25 History spironolactone 25 mg tablet 25 mg PO BID 03/16/20 03/26/25 03/26/25 History colchicine 0.6 mg tablet 0.3 mg PO DAILY 05/04/21 03/26/25 03/26/25 History torsemide 20 mg tablet 20 mg PO DAILY 05/04/21 03/26/25 03/26/25 History allopurinol 100 mg tablet 300 mg PO DAILY 09/05/21 03/26/25 03/26/25 History mupirocin 2 % topical ointment 1 applic topical BID #22 grams 10/30/21 03/26/25 03/26/25 Rx aspirin 325 mg tablet 325 mg PO DAILY 10/19/22 03/26/25 03/26/25 History meclizine 25 mg tablet 75 mg PO BID PRN dizziness 07/06/24 03/26/25 03/26/25 History doxazosin 8 mg tablet 4 mg PO DAILY 08/27/24 03/26/25 03/26/25 History blood-glucose sensor (Dexcom G7 #3 ea 02/15/25 03/18/25 Unknown Rx Sensor device) blood-glucose,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 truck 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,cont #1 ea 02/15/25 03/18/25 Unknown Rx (Dexcom G7 Synchronous Motor Assembler) metoprolol tartrate 75 mg tablet See Rx Instructions .Route .COMPLEX 03/19/25 03/26/25 03/30/25 History ropinirole 0.25 mg tablet 0.25 mg PO .qhs 03/19/25 03/26/25 03/25/25 History tamsulosin 0.4 mg capsule 0.4 mg PO QDAY 03/19/25 03/26/25 03/26/25 History imiquimod 5 % topical cream packet 1 applic topical DAILY 03/26/25 03/26/25 03/26/25 History levothyroxine 125 mcg tablet 125 mcg PO DAILY 03/26/25 03/26/25 03/30/25 History Allergies Allergy/AdvReac Type Severity Reaction Status Date / Time Iodinated Contrast Media Allergy Unknown Verified 03/26/25 11:42 naproxen (From Aleve) Allergy ALGY-Anaphy Verified 03/26/25 11:42 laxis Sulfa (Sulfonamide Allergy ALGY-Hives Verified 03/26/25 11:42 Antibiotics) Current Medications Generic Name Dose Route Start Last Admin Trade Name Freq PRN Reason Stop Dose Admin Sodium Chloride 1,000 mls @ 15 mls/hr 03/30/25 10:16 03/30/25 10:44 Sodium Chloride 0.9% IV 03/31/25 10:15 15 mls/hr .Q24H PRN Administration COLONOSCOPY FLUIDS PFSH Anesthesia Medical History Gout History of arterial occlusion History of vertebral artery occlusion Degenerative arthritis Peripheral neuropathy Type 2 diabetes mellitus Obstructive sleep apnea Interstitial lung disease Monoclonal gammopathy Hypertension CKD (chronic kidney disease) stage 4, GFR 15-29 ml/min RMSF ([place] spotted fever) Surgical History Status post colonoscopy (04/19/20) diverticulosis - repeat in 10 years History of laryngoscopy H/O hernia repair H/O repair of rotator cuff Right Family History Father Dementia Mother Dementia Denies family history of Anesthesia complication Bleeding disorder Social History Smoking and tobacco/nicotine status: never used tobacco/nicotine Quit status (tobacco/nicotine): has quit using Former quit date comment: 1 ppd X 8 years Alcohol intake: never Substance/Drug Use: never Data Anesthesia Cardiac Studies: Echocardiogram 05/09/21
[2025-03-30 11:21] VITALS: BP 120/62; PULSE 64; RESP 16; O2SAT 92
--- NOTE | 2025-03-30 12:03 | ANE.PACU2 ---
Inpatient post-anesthesia follow up: Airway intact: Yes Vital signs: Temperature 97.1 F Pulse Rate 64 Respiratory Rate 16 Blood Pressure 120/62 Pulse Oximetry 92 Oxygen Delivery Me thod Room Air Oxygen Flow Rate Fraction of Inspir ed Oxygen Hydration adequate: Yes Nausea and vomiting: No Pain level: 1 Mental status: Baseline
== END 2025-03-30 12:03 | disposition home or self-care (01) ==
PROVIDERS: PCP Family Medicine; Visit Provider Student in an Organized Health Care Education/Training Program
PROC: 0DJ08ZZ Inspection of Upper Intestinal Tract, Via Natural or Artificial Opening Endoscopic (ICD-10-PCS; principal; 2025-03-30 11:45)
DX: C15.4 Malignant neoplasm of middle third of esophagus (principal); R13.10 Dysphagia, unspecified; I12.9 Hypertensive chronic kidney disease with stage 1 through stage 4 chronic kidney disease, or unspecified chronic kidney disease; E11.22 Type 2 diabetes mellitus with diabetic chronic kidney disease; M10.9 Gout, unspecified; E11.42 Type 2 diabetes mellitus with diabetic polyneuropathy; G47.33 Obstructive sleep apnea (adult) (pediatric); D47.2 Monoclonal gammopathy; N18.4 Chronic kidney disease, stage 4 (severe); Z79.899 Other long term (current) drug therapy; Z79.82 Long term (current) use of aspirin; Z79.890 Hormone replacement therapy; Z88.2 Allergy status to sulfonamides; Z88.8 Allergy status to other drugs, medicaments and biological substances; Z91.041 Radiographic dye allergy status; Z87.891 Personal history of nicotine dependence
CPT/HCPCS: 36416; 43239; 82962; 88305; 88342; J2704; J7030

== ENCOUNTER → 2025-04-12 09:40 | Outpatient (BNVA) | payer MEDICARE, SELFPAY | PROVIDERS: PCP Family Medicine; Visit Provider Student in an Organized Health Care Education/Training Program | DX: Z09 Encounter for follow-up examination after completed treatment for conditions other than malignant neoplasm (principal); N18.4 Chronic kidney disease, stage 4 (severe) | CPT/HCPCS: 99213 ==

== ENCOUNTER 2025-05-10 08:30 | Oncology outpatient (recurring) (ONCR) | payer MEDICARE, SELFPAY ==
--- NOTE | 2025-04-30 13:30 | PETR_ITS ---
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 Then, PET images were obtained. Attenuation corrected images were constructed using the CT scan. Fused images of PET and CT were reviewed. The standardized uptake values (SUV) reported below are maximum values within a region of interest, expressed in gm/ml. Exam includes orbital meatal line to mid-thigh. SUV normalization method: BodyWeight Radiopharmaceutical: 10.11 mCi F-18 FDG (Fluorodeoxyglucose), IV. Time of imaging post radiopharmaceutical administration: 46 minutes Injection site: RAC COMPARISON: CT chest [facility] [id number] 03/01/2022 1:06 PM FINDINGS: Brain: Visualized brain has normal physiologic uptake. Pharynx: No abnormal uptake. Larynx: No abnormal uptake. Lungs, pleura and trachea: No abnormal uptake. Bilateral peripheral reticulation and areas of architectural distortion. No suspicious pulmonary nodule. Trace left pleural fluid. Heart: Normal physiologic uptake. Severe coronary artery calcifications. Mediastinal space: No abnormal uptake. Esophagus: Large FDG avid distal esophagus mass, maximum SUV 12.8. The mass has a lobulated solid nodular component along the posterior aspect of the distal esophagus and results in circumferential soft tissue thickening along the esophageal hiatus, which extends into the proximal stomach. The mass measures at least 9.7 cm in craniocaudal dimension. There is a stent within the gastroesophageal junction and proximal stomach. The esophagus is patulous and fluid-filled within the thorax. Liver: No abnormal uptake. Gallbladder and biliary ducts: No abnormal uptake. Pancreas: No abnormal uptake. Spleen: No abnormal uptake. Adrenal glands: No abnormal uptake. Kidneys and ureters: Normal physiologic uptake. Stomach and bowel: See Esophagus finding. Colonic diverticulosis without evidence of diverticulitis. Reproductive: Prostatomegaly, measuring 5.0 cm in largest transverse diameter. No increased FDG uptake. Vasculature: No abnormal uptake. Lymph nodes: Metastatic, FDG avid posterior mediastinal lymphadenopathy adjacent to the esophagus, maximum SUV 8.3 obtained from a 1.6 cm posterior mediastinal/paraesophageal node adjacent to the primary esophageal mass (series 202, image 129). Additional upper retroperitoneal, gastrohepatic ligament, retrocrural and para-aortic/mid retroperitoneal FDG avid lymphadenopathy, maximum SUV of 10.2 obtained from a gastrohepatic ligament node (series 202, image 149, suspicious for lymphatic metastases. The lowest FDG avid lymph node is a retrocaval node just superior to the iliac bifurcation, maximum SUV 3.9 (series 202, image 186). No lymphadenopathy in the head, neck, chest. Skeleton: No abnormal uptake in the visualized axial and appendicular skeleton. Soft tissues: No abnormal uptake in the visualized head, neck, chest, abdomen, pelvis, and extremities. METRICS: Mediastinal blood pool: Mean SUV of 2.3 Liver uptake: Mean SUV of 2.3 PET/PET skull to thigh INIT [id number] IMPRESSION: 1. Large FDG avid distal esophagus mass (max SUV 12.8), consistent with known esophageal carcinoma. Heterogeneous soft tissue and FDG avidity extends into the proximal stomach suspicious for tumoral infiltration. A stent is seen within the gastroesophageal junction and proximal stomach, with dilated/patulous appearance of the proximal esophagus, which is partially fluid-filled. 2. FDG avid paraesophageal/posterior mediastinal, retrocrural, gastrohepatic ligament and retroperitoneal lymphadenopathy, consistent with shaka metastases.
[2025-05-10] MEDS: alteplase 1 mg/mL SDV 2 mL 2 MG INTRACATH (08:33)
[2025-05-10 08:36] LABS: Hematocrit 29.8 % (37-53); Hemoglobin 9.20 g/dL (11.27-16.99); Mean Corpuscular HGB Conc 30.9 g/dL (30-55); Mean Corpuscular Hemoglobin 27.9 pg (27-33); Mean Corpuscular Volume 90.3 fl (82-101); Nucleated Red Blood Cells % 0 %; Platelet Count 197 10^3/cmm (157-399); Red Blood Count 3.30 10^6/uL (3.85-5.65); White Blood Count 5.72 10^3/uL (3.29-11.43)
[2025-05-10 08:51] LABS: Alanine Aminotransferase 6 U/L (0-41); Albumin Level 3.3 g/dL (3.5-5.2); Alkaline Phosphatase 81 U/L (40-130); Anion Gap 14.7 (5-19); Aspartate Amino Transferase 9 U/L (0-40); Blood Urea Nitrogen 34 mg/dL (8-23); Calcium 9.7 mg/dL (8.5-10.5); Carbon Dioxide 26 mmol/L (22-29); Chloride 100 mmol/L (98-107); Creatinine Clr Calc Pharmacy 26.7371; Globulin 3.0 g/dL (1.3-4.6); Glucose 141 mg/dL (65-115); Osmolality Calculated 292 mOsm/kg (285-295); Potassium 4.7 mmol/L (3.5-5.1); Sodium 136 mmol/L (136-145); Total Protein 6.3 g/dL (6.6-8.7)
[2025-05-10] MEDS: dexamethasone 4 mg/mL INJ 5 mL 12 MG IVP (11:29)
[2025-05-10] MEDS: nivolumab 240 MG in sodium chloride 0.9% 250 ML 548 MG IV (11:49)
[2025-05-10] MEDS: LEUCOVORIN IV (12:35)
[2025-05-10] MEDS: DEXTROSE 5% IV ×2 (12:35→12:39)
[2025-05-10] MEDS: OXALIPLATIN IV (12:39)
[2025-05-10] MEDS: fluorouraciL 4,850 MG in elastomeric pump 1 PUMP IV (14:47)
[2025-05-10] MEDS: fluorouraciL 50 mg/ml MDV 100 mL 800 MG IVP (14:51)
[2025-05-10 15:39] VITALS: BP 143/73; PULSE 71; RESP 18; TEMP 36.2; O2SAT 98
== END 2025-05-10 23:59 | disposition home or self-care (01) ==
PROVIDERS: Nurse Practitioner Family; PCP Family Medicine; Visit Provider Internal Medicine Medical Oncology
DX: D47.2 Monoclonal gammopathy (principal); J45.909 Unspecified asthma, uncomplicated; E03.9 Hypothyroidism, unspecified; D50.9 Iron deficiency anemia, unspecified; N18.9 Chronic kidney disease, unspecified; Z79.899 Other long term (current) drug therapy
CPT/HCPCS: 36415; 36593; 78815; 80053; 85025; 96375; 96411; 96413; 96415; 96416; 96417; 99215; A4222; A9552; J0640; J1100; J2469; J2997; J7050; J7060; J9190; J9263; J9299

== ENCOUNTER 2025-05-12 12:34 | Oncology outpatient (recurring) (ONCR) | payer MEDICARE, SELFPAY | END 2025-05-13 23:59 | disposition home or self-care (01) | PROVIDERS: PCP Family Medicine; Visit Provider Internal Medicine Medical Oncology | DX: Z45.1 Encounter for adjustment and management of infusion pump (principal) | CPT/HCPCS: 96523 ==

== ENCOUNTER 2025-05-31 08:25 | Oncology outpatient (recurring) (ONCR) | payer MEDICARE, SELFPAY ==
[2025-05-17 09:03] LABS: Hematocrit 27.4 % (37-53); Hemoglobin 8.80 g/dL (11.27-16.99); Mean Corpuscular HGB Conc 32.1 g/dL (30-55); Mean Corpuscular Hemoglobin 28.3 pg (27-33); Mean Corpuscular Volume 88.1 fl (82-101); Nucleated Red Blood Cells % 0 %; Platelet Count 147 10^3/cmm (157-399); Red Blood Count 3.11 10^6/uL (3.85-5.65); White Blood Count 3.96 10^3/uL (3.29-11.43)
[2025-05-17] MEDS: alteplase 1 mg/mL SDV 2 mL 2 MG INTRACATH (09:16)
[2025-05-17 09:26] LABS: Alanine Aminotransferase 7 U/L (0-41); Albumin Level 3.4 g/dL (3.5-5.2); Alkaline Phosphatase 76 U/L (40-130); Anion Gap 16.3 (5-19); Aspartate Amino Transferase 14 U/L (0-40); Blood Urea Nitrogen 32 mg/dL (8-23); Calcium 9.0 mg/dL (8.5-10.5); Carbon Dioxide 24 mmol/L (22-29); Chloride 102 mmol/L (98-107); Creatinine Clr Calc Pharmacy 29.4722; Globulin 2.6 g/dL (1.3-4.6); Glucose 235 mg/dL (65-115); Osmolality Calculated 300 mOsm/kg (285-295); Potassium 4.3 mmol/L (3.5-5.1); Sodium 138 mmol/L (136-145); Total Protein 6.0 g/dL (6.6-8.7)
[2025-05-24 07:27] LABS: Hematocrit 25.8 % (37-53); Hemoglobin 8.20 g/dL (11.27-16.99); Mean Corpuscular HGB Conc 31.8 g/dL (30-55); Mean Corpuscular Hemoglobin 27.2 pg (27-33); Mean Corpuscular Volume 85.7 fl (82-101); Nucleated Red Blood Cells % 0 %; Platelet Count 137 10^3/cmm (157-399); Red Blood Count 3.01 10^6/uL (3.85-5.65); White Blood Count 1.69 10^3/uL (3.29-11.43)
[2025-05-24 07:54] LABS: Alanine Aminotransferase < 5 U/L (0-41); Albumin Level 3.1 g/dL (3.5-5.2); Alkaline Phosphatase 68 U/L (40-130); Anion Gap 14.0 (5-19); Aspartate Amino Transferase 8 U/L (0-40); Blood Urea Nitrogen 36 mg/dL (8-23); Calcium 9.2 mg/dL (8.5-10.5); Carbon Dioxide 24 mmol/L (22-29); Chloride 102 mmol/L (98-107); Creatinine Clr Calc Pharmacy 33.3164; Globulin 2.8 g/dL (1.3-4.6); Glucose 113 mg/dL (65-115); Osmolality Calculated 291 mOsm/kg (285-295); Potassium 4.0 mmol/L (3.5-5.1); Sodium 136 mmol/L (136-145); Thyroid Stimulating Hormone 0.95 uIU/mL (0.27-4.20); Total Protein 5.9 g/dL (6.6-8.7)
[2025-05-31] MEDS: alteplase 1 mg/mL SDV 2 mL 2 MG INTRACATH (09:07)
[2025-05-31 09:08] LABS: Hematocrit 27.6 % (37-53); Hemoglobin 8.60 g/dL (11.27-16.99); Mean Corpuscular HGB Conc 31.2 g/dL (30-55); Mean Corpuscular Hemoglobin 27.0 pg (27-33); Mean Corpuscular Volume 86.8 fl (82-101); Nucleated Red Blood Cells % 0 %; Platelet Count 282 10^3/cmm (157-399); Red Blood Count 3.18 10^6/uL (3.85-5.65); White Blood Count 6.51 10^3/uL (3.29-11.43)
[2025-05-31 09:32] LABS: Alanine Aminotransferase 9 U/L (0-41); Albumin Level 3.1 g/dL (3.5-5.2); Alkaline Phosphatase 83 U/L (40-130); Anion Gap 14.7 (5-19); Aspartate Amino Transferase 11 U/L (0-40); Blood Urea Nitrogen 36 mg/dL (8-23); Calcium 9.0 mg/dL (8.5-10.5); Carbon Dioxide 25 mmol/L (22-29); Chloride 105 mmol/L (98-107); Creatinine Clr Calc Pharmacy 29.6081; Globulin 3.1 g/dL (1.3-4.6); Glucose 190 mg/dL (65-115); Osmolality Calculated 303 mOsm/kg (285-295); Potassium 4.7 mmol/L (3.5-5.1); Sodium 140 mmol/L (136-145); Total Protein 6.2 g/dL (6.6-8.7)
[2025-05-31 10:20] LABS: NT Pro B Type Natriuretic Pept 1062 pg/mL (0-125)
[2025-05-31] MEDS: dexamethasone 4 mg/mL INJ 5 mL 12 MG IVP (11:06)
[2025-05-31] MEDS: FUROsemide 10 mg/mL SDV 2mL 40 MG IVP (11:12)
[2025-05-31] MEDS: nivolumab 240 MG in sodium chloride 0.9% 250 ML 548 MG IV (11:22)
[2025-05-31] MEDS: DEXTROSE 5% IV (12:17)
[2025-05-31] MEDS: leucovorin 820 MG in dextrose 5% 250 ML 125 MG IV (12:17)
[2025-05-31] MEDS: OXALIPLATIN IV (12:17)
[2025-05-31] MEDS: fluorouraciL 50 mg/ml MDV 100 mL 800 MG IVP (15:07)
[2025-05-31] MEDS: fluorouraciL 4,950 MG in elastomeric pump 1 PUMP IV (15:08)
== END 2025-05-31 23:59 | disposition home or self-care (01) ==
PROVIDERS: Nurse Practitioner Family; PCP Family Medicine; Visit Provider Internal Medicine Medical Oncology
DX: Z51.11 Encounter for antineoplastic chemotherapy; Z51.12 Encounter for antineoplastic immunotherapy; C15.9 Malignant neoplasm of esophagus, unspecified; D47.2 Monoclonal gammopathy; I10 Essential (primary) hypertension; R60.1 Generalized edema; K21.9 Gastro-esophageal reflux disease without esophagitis; K59.00 Constipation, unspecified; R11.0 Nausea; Z79.631 Long term (current) use of antimetabolite agent; Z79.52 Long term (current) use of systemic steroids; Z79.899 Other long term (current) drug therapy; Z87.891 Personal history of nicotine dependence; Z53.9 Procedure and treatment not carried out, unspecified reason
CPT/HCPCS: 36415; 36593; 80053; 83880; 84443; 85025; 96375; 96411; 96413; 96415; 96416; 96417; 99214; A4222; J0640; J1100; J1938; J2469; J2997; J7050; J7060; J9190; J9263; J9299

== ENCOUNTER 2025-06-07 08:45 | Oncology outpatient (recurring) (ONCR) | payer MEDICARE, SELFPAY ==
[2025-06-04 13:45] LABS: Protein/Creatinine Ratio 0.957 (<0.100); Protein/Creatinine Ratio 957 mg/g creat (<100)
[2025-06-07 09:12] LABS: Hematocrit 25.9 % (37-53); Hemoglobin 8.10 g/dL (11.27-16.99); Mean Corpuscular HGB Conc 31.3 g/dL (30-55); Mean Corpuscular Hemoglobin 26.9 pg (27-33); Mean Corpuscular Volume 86.0 fl (82-101); Nucleated Red Blood Cells % 0 %; Platelet Count 187 10^3/cmm (157-399); Red Blood Count 3.01 10^6/uL (3.85-5.65); White Blood Count 4.47 10^3/uL (3.29-11.43)
[2025-06-07 09:48] LABS: Alanine Aminotransferase 6 U/L (0-41); Albumin Level 3.2 g/dL (3.5-5.2); Alkaline Phosphatase 84 U/L (40-130); Anion Gap 13.2 (5-19); Aspartate Amino Transferase 8 U/L (0-40); Blood Urea Nitrogen 29 mg/dL (8-23); Calcium 9.0 mg/dL (8.5-10.5); Carbon Dioxide 26 mmol/L (22-29); Chloride 106 mmol/L (98-107); Creatinine Clr Calc Pharmacy 33.9300; Globulin 2.7 g/dL (1.3-4.6); Glucose 117 mg/dL (65-115); Osmolality Calculated 299 mOsm/kg (285-295); Potassium 4.2 mmol/L (3.5-5.1); Sodium 141 mmol/L (136-145); Total Protein 5.9 g/dL (6.6-8.7)
[2025-06-09 10:34] LABS: ALPHA-1-GLOBULINS 8 %; ALPHA-2-GLOBULINS 5 %; BETA GLOBULINS 8 %; GAMMA GLOBULINS 10 %
== END 2025-06-13 23:59 | disposition home or self-care (01) ==
PROVIDERS: Nurse Practitioner Family; PCP Family Medicine; Visit Provider Internal Medicine Medical Oncology
DX: C15.9 Malignant neoplasm of esophagus, unspecified; R60.1 Generalized edema; D47.2 Monoclonal gammopathy; N28.9 Disorder of kidney and ureter, unspecified; D64.9 Anemia, unspecified; Z79.899 Other long term (current) drug therapy; Z87.891 Personal history of nicotine dependence; Z53.9 Procedure and treatment not carried out, unspecified reason
CPT/HCPCS: 36415; 80053; 84156; 84166; 85025; 96523; 99214

== ENCOUNTER 2025-06-21 08:06 | Oncology outpatient (recurring) (ONCR) | payer MEDICARE, SELFPAY ==
[2025-06-21 09:00] LABS: Hematocrit 27.1 % (37-53); Hemoglobin 8.40 g/dL (11.27-16.99); Mean Corpuscular HGB Conc 31.0 g/dL (30-55); Mean Corpuscular Hemoglobin 26.3 pg (27-33); Mean Corpuscular Volume 85.0 fl (82-101); Platelet Count 348 10^3/cmm (157-399); Red Blood Count 3.19 10^6/uL (3.85-5.65); White Blood Count 9.63 10^3/uL (3.29-11.43)
[2025-06-21 09:27] LABS: Alanine Aminotransferase 7 U/L (0-41); Albumin Level 3.2 g/dL (3.5-5.2); Alkaline Phosphatase 87 U/L (40-130); Anion Gap 16.9 (5-19); Aspartate Amino Transferase 16 U/L (0-40); Blood Urea Nitrogen 45 mg/dL (8-23); Calcium 9.2 mg/dL (8.5-10.5); Carbon Dioxide 27 mmol/L (22-29); Chloride 94 mmol/L (98-107); Globulin 3.2 g/dL (1.3-4.6); Glucose 245 mg/dL (65-115); Osmolality Calculated 298 mOsm/kg (285-295); Potassium 3.9 mmol/L (3.5-5.1); Sodium 134 mmol/L (136-145); Thyroid Stimulating Hormone 4.08 uIU/mL (0.27-4.20); Total Protein 6.4 g/dL (6.6-8.7)
[2025-06-21 09:43] LABS: Slide Review Slide Review Perform
[2025-06-21 09:44] LABS: Absolute Segmented Neutrophil 7.1 10/cmm (1.6-7.1); Atypical Lymphs 0.0 % (0-5); Band Neutrophils Absolute 0.8 10^3/cmm (0.0-1.2); Giant Platelets Trace; Macrocytosis 1+; Polychromasia Trace; Total Cells Counted 100 (0-100)
[2025-06-21] MEDS: dexamethasone 4 mg/mL INJ 5 mL 12 MG IVP (10:36)
[2025-06-21] MEDS: nivolumab 240 MG in sodium chloride 0.9% 250 ML 548 MG IV (10:58)
[2025-06-21] MEDS: leucovorin 820 MG in dextrose 5% 250 ML 125 MG IV (11:36)
[2025-06-21] MEDS: oxaliplatin 176 MG in dextrose 5% 250 ML 142.6 MG IV (11:36)
[2025-06-21] MEDS: fluorouraciL 50 mg/ml MDV 100 mL 800 MG IVP (13:50)
[2025-06-21] MEDS: fluorouraciL 4,950 MG in elastomeric pump 1 PUMP IV (14:01)
[2025-06-21 14:18] VITALS: BP 147/75; PULSE 90; RESP 20; TEMP 36.6; O2SAT 97
== END 2025-06-21 23:59 | disposition home or self-care (01) ==
PROVIDERS: Nurse Practitioner Family; PCP Family Medicine; Visit Provider Internal Medicine Medical Oncology
DX: Z51.11 Encounter for antineoplastic chemotherapy (principal); Z51.12 Encounter for antineoplastic immunotherapy; C15.9 Malignant neoplasm of esophagus, unspecified; R03.0 Elevated blood-pressure reading, without diagnosis of hypertension; D47.2 Monoclonal gammopathy; R60.9 Edema, unspecified; D64.9 Anemia, unspecified; R59.0 Localized enlarged lymph nodes; N28.9 Disorder of kidney and ureter, unspecified; Z79.631 Long term (current) use of antimetabolite agent; Z79.620 Long term (current) use of immunosuppressive biologic; Z79.52 Long term (current) use of systemic steroids; Z87.891 Personal history of nicotine dependence; Z79.899 Other long term (current) drug therapy
CPT/HCPCS: 80053; 84443; 85007; 85025; 96368; 96375; 96413; 96415; 96416; 96417; 99214; A4222; J0640; J1100; J2469; J7050; J7060; J9190; J9263; J9299

== ENCOUNTER 2025-07-05 08:30 | Oncology outpatient (recurring) (ONCR) | payer MEDICARE, SELFPAY ==
[2025-06-23 13:39] VITALS: BP 130/69; PULSE 84; RESP 18; TEMP 36.6; O2SAT 97
[2025-07-05 09:01] LABS: Hematocrit 26.5 % (37-53); Hemoglobin 8.00 g/dL (11.27-16.99); Mean Corpuscular HGB Conc 30.2 g/dL (30-55); Mean Corpuscular Hemoglobin 26.3 pg (27-33); Mean Corpuscular Volume 87.2 fl (82-101); Nucleated Red Blood Cells % 0 %; Platelet Count 155 10^3/cmm (157-399); Red Blood Count 3.04 10^6/uL (3.85-5.65); White Blood Count 2.66 10^3/uL (3.29-11.43)
[2025-07-05] MEDS: alteplase 1 mg/mL SDV 2 mL 2 MG INTRACATH (09:03)
[2025-07-05 09:29] LABS: Alanine Aminotransferase 8 U/L (0-41); Albumin Level 3.4 g/dL (3.5-5.2); Alkaline Phosphatase 91 U/L (40-130); Anion Gap 15.7 (5-19); Aspartate Amino Transferase 14 U/L (0-40); Blood Urea Nitrogen 57 mg/dL (8-23); Calcium 9.7 mg/dL (8.5-10.5); Carbon Dioxide 26 mmol/L (22-29); Chloride 95 mmol/L (98-107); Creatinine Clr Calc Pharmacy 28.2051; Ferritin 58 ng/mL (30-400); Globulin 3.4 g/dL (1.3-4.6); Glucose 223 mg/dL (65-115); Iron 26 ug/dL (59-158); Osmolality Calculated 297 mOsm/kg (285-295); Potassium 4.7 mmol/L (3.5-5.1); Sodium 132 mmol/L (136-145); Total Iron Binding Capacity 245 mcg/dl; Total Protein 6.8 g/dL (6.6-8.7); Unsaturated Iron Binding 219 ug/dL (112-347)
[2025-07-05 09:35] VITALS: BP 135/75; PULSE 72; RESP 17; TEMP 36.9; O2SAT 95
[2025-07-05 09:45] LABS: Vitamin B12 582 pg/mL (232-1245)
[2025-07-05] MEDS: dexamethasone 4 mg/mL INJ 5 mL 12 MG IVP (09:51)
[2025-07-05] MEDS: nivolumab 240 MG in sodium chloride 0.9% 250 ML 548 MG IV (10:06)
[2025-07-05] MEDS: leucovorin 820 MG in dextrose 5% 250 ML 125 MG IV (10:50)
[2025-07-05] MEDS: DEXTROSE 5% IV (10:50)
[2025-07-05] MEDS: OXALIPLATIN IV (10:50)
[2025-07-05] MEDS: ELASTOMERIC PUMP PUMP IV (13:22)
[2025-07-05] MEDS: FLUOROURACIL IV (13:22)
[2025-07-05] MEDS: fluorouraciL 50 mg/ml MDV 100 mL 800 MG IVP (13:22)
[2025-07-05 13:30] VITALS: BP 138/76; PULSE 65; RESP 16; TEMP 35.8; O2SAT 95
== END 2025-07-05 23:59 | disposition home or self-care (01) ==
PROVIDERS: PCP Family Medicine; Visit Provider Internal Medicine Medical Oncology
DX: Z53.9 Procedure and treatment not carried out, unspecified reason; Z51.11 Encounter for antineoplastic chemotherapy; Z51.12 Encounter for antineoplastic immunotherapy; C15.9 Malignant neoplasm of esophagus, unspecified; D47.2 Monoclonal gammopathy; D64.9 Anemia, unspecified; J12.82 Pneumonia due to coronavirus disease 2019; U07.1 COVID-19; R03.0 Elevated blood-pressure reading, without diagnosis of hypertension; D50.9 Iron deficiency anemia, unspecified; R59.0 Localized enlarged lymph nodes; N28.9 Disorder of kidney and ureter, unspecified; R60.9 Edema, unspecified; Z79.52 Long term (current) use of systemic steroids; Z79.631 Long term (current) use of antimetabolite agent; Z87.891 Personal history of nicotine dependence; Z79.899 Other long term (current) drug therapy
CPT/HCPCS: 36415; 36593; 80053; 82607; 82728; 82746; 83540; 83550; 85025; 96368; 96375; 96411; 96413; 96415; 96416; 96417; 96523; 99214; A4222; J0640; J1100; J2469; J2997; J7050; J7060; J9190; J9263; J9299

== ENCOUNTER 2025-07-12 10:30 | Oncology outpatient (recurring) (ONCR) | payer MEDICARE, SELFPAY ==
[2025-07-07 14:14] VITALS: BP 118/60; PULSE 85; RESP 17; TEMP 36.7; O2SAT 96
[2025-07-07] MEDS: ferric derisomaltose 1,000 MG in sodium chloride 0.9% (100 ml) 100 ML 330 MG IV (14:20)
[2025-07-07 14:50] VITALS: BP 122/67; PULSE 79; RESP 18; TEMP 36.6; O2SAT 94
[2025-07-12 10:42] LABS: Hematocrit 26.6 % (37-53); Hemoglobin 8.20 g/dL (11.27-16.99); Mean Corpuscular HGB Conc 30.8 g/dL (30-55); Mean Corpuscular Hemoglobin 26.8 pg (27-33); Mean Corpuscular Volume 86.9 fl (82-101); Nucleated Red Blood Cells % 0 %; Platelet Count 263 10^3/cmm (157-399); Red Blood Count 3.06 10^6/uL (3.85-5.65); White Blood Count 5.05 10^3/uL (3.29-11.43)
[2025-07-12 11:06] LABS: Alanine Aminotransferase 11 U/L (0-41); Albumin Level 3.6 g/dL (3.5-5.2); Alkaline Phosphatase 89 U/L (40-130); Anion Gap 18.0 (5-19); Aspartate Amino Transferase 24 U/L (0-40); Blood Urea Nitrogen 66 mg/dL (8-23); Calcium 9.5 mg/dL (8.5-10.5); Carbon Dioxide 25 mmol/L (22-29); Chloride 99 mmol/L (98-107); Globulin 3.3 g/dL (1.3-4.6); Glucose 186 mg/dL (65-115); Osmolality Calculated 308 mOsm/kg (285-295); Potassium 5.0 mmol/L (3.5-5.1); Sodium 137 mmol/L (136-145); Total Protein 6.9 g/dL (6.6-8.7)
== END 2025-07-13 23:59 | disposition home or self-care (01) ==
PROVIDERS: Nurse Practitioner Family; PCP Family Medicine; Visit Provider Internal Medicine Medical Oncology
DX: C15.9 Malignant neoplasm of esophagus, unspecified; Z53.9 Procedure and treatment not carried out, unspecified reason
CPT/HCPCS: 36591; 80053; 85025; 96365; 96523; J1437

== ENCOUNTER 2025-07-26 07:45 | Oncology outpatient (recurring) (ONCR) | payer MEDICARE, SELFPAY ==
--- NOTE | 2025-07-19 07:00 | USCV_ITS ---
Adrien Fausto Age: 69 Gender: M : 1955 Exam Date: 07/19/2025 07:19 Ordering Phys: Judy Myers APRN Technologist: Exam Location: [facility] [place] Indication: cp sob BP: 120 / 70 HR: 82 Rhythm: Sinus Technical Quality: Adequate MEASUREMENTS (Male / Female) Normal Values 2D ECHO LV Diastolic Diameter PLAX 4.3 cm 4.2 - 5.9 / 3.9 - 5.3 cm IVS Diastolic Thickness 1.1 cm 0.6 - 1.0 / 0.6 - 0.9 cm IVS Systolic Thickness 1.8 cm LVPW Diastolic Thickness 1.3 cm 0.6 - 1.0 / 0.6 - 0.9 cm LVPW Systolic Thickness 2.0 cm LVOT Diameter 2.0 cm LV Ejection Fraction 2D Teich 68.3 % LV Ejection Fraction MOD 4C 76.4 % LV Ejection Fraction MOD 2C 64.3 % LV Ejection Fraction 2C AL 66.9 % LA Diameter 4.3 cm RA Systolic Volume 4C AL 53.6 ml RA Systolic Volume 4C MOD 52.7 ml Aorta at Sinotubular Diameter 2.9 cm M-MODE LA Ao Ratio MM 1.4 AV Cusp Separation MM 2.5 cm DOPPLER AV Peak Velocity 215.0 cm/s LVOT Peak Velocity 134.0 cm/s AV Area Cont Eq vti 2.4 cm squared AV Area Cont Eq pk 2.0 cm squared MV Peak Velocity 149.0 cm/s MV Area PHT 3.1 cm squared Mitral E to A Ratio 0.9 TR Peak Velocity 221.0 cm/s TR Peak Gradient 19.5 mmHg TV Peak E Velocity 87.0 cm/s PV Peak Velocity 156.0 cm/s FINDINGS Left Ventricle Normal left ventricular size and systolic function, EF 68%.. Mild left ventricular hypertrophy. Abnormal septal motion consistent with conduction abnormality. Grade I/IV diastolic dysfunction (abnormal relaxation filling pattern), normal to mildly elevated filling pressures. Right Ventricle Normal right ventricular size and systolic function. Right Atrium Normal right atrial size. Left Atrium Normal left atrial size. IA Septum Normal appearance of the interatrial septum. Mitral Valve Mild mitral annular calcification. Trace mitral valve regurgitation. Aortic Valve Thickened aortic valve. Aortic valve sclerosis. Tricuspid Valve Trace tricuspid valve regurgitation. Pulmonic Valve No gross abnormalities noted Pericardium No pericardial effusion. Aorta Normal aortic annulus size. IVC Inferior vena cava not visualized. CONCLUSIONS Normal left ventricular size and systolic function, EF 68%.. Mild left ventricular hypertrophy. Abnormal septal motion consistent with conduction abnormality. Grade I/IV diastolic dysfunction (abnormal relaxation filling pattern), normal to mildly elevated filling pressures. Mild mitral annular calcification. Trace mitral valve regurgitation. Aortic valve sclerosis. Trace tricuspid valve regurgitation. Estimated pulmonary artery peak systolic pressure 23 mmHg There is no pericardial effusion. There are no intracardiac masses. Compared to the study from 05/09/2021, there may not be a significant change Dr Jenelle Sanchez MD FACC (Electronically Signed) Final Date: 19 July 2025 23:17 S
[2025-07-19 08:08] LABS: Hematocrit 28.4 % (37-53); Hemoglobin 8.60 g/dL (11.27-16.99); Mean Corpuscular HGB Conc 30.3 g/dL (30-55); Mean Corpuscular Hemoglobin 27.6 pg (27-33); Mean Corpuscular Volume 91.0 fl (82-101); Nucleated Red Blood Cells % 0 %; Platelet Count 118 10^3/cmm (157-399); Red Blood Count 3.12 10^6/uL (3.85-5.65); White Blood Count 1.85 10^3/uL (3.29-11.43)
[2025-07-19 08:38] LABS: Alanine Aminotransferase 17 U/L (0-41); Albumin Level 3.6 g/dL (3.5-5.2); Alkaline Phosphatase 112 U/L (40-130); Anion Gap 17.4 (5-19); Aspartate Amino Transferase 28 U/L (0-40); Blood Urea Nitrogen 53 mg/dL (8-23); Calcium 9.6 mg/dL (8.5-10.5); Carbon Dioxide 25 mmol/L (22-29); Chloride 98 mmol/L (98-107); Creatinine Clr Calc Pharmacy 31.5608; Globulin 3.1 g/dL (1.3-4.6); Glucose 200 mg/dL (65-115); Osmolality Calculated 302 mOsm/kg (285-295); Potassium 4.4 mmol/L (3.5-5.1); Sodium 136 mmol/L (136-145); Thyroid Stimulating Hormone 2.16 uIU/mL (0.27-4.20); Total Protein 6.7 g/dL (6.6-8.7)
[2025-07-26 07:54] LABS: Hematocrit 29.1 % (37-53); Hemoglobin 9.10 g/dL (11.27-16.99); Mean Corpuscular HGB Conc 31.3 g/dL (30-55); Mean Corpuscular Hemoglobin 28.1 pg (27-33); Mean Corpuscular Volume 89.8 fl (82-101); Platelet Count 253 10^3/cmm (157-399); Red Blood Count 3.24 10^6/uL (3.85-5.65); White Blood Count 11.47 10^3/uL (3.29-11.43)
[2025-07-26 08:25] LABS: Alanine Aminotransferase 15 U/L (0-41); Albumin Level 3.4 g/dL (3.5-5.2); Alkaline Phosphatase 92 U/L (40-130); Anion Gap 16.9 (5-19); Aspartate Amino Transferase 39 U/L (0-40); Blood Urea Nitrogen 51 mg/dL (8-23); Calcium 9.3 mg/dL (8.5-10.5); Carbon Dioxide 23 mmol/L (22-29); Chloride 100 mmol/L (98-107); Creatinine Clr Calc Pharmacy 28.5767; Globulin 3.4 g/dL (1.3-4.6); Glucose 149 mg/dL (65-115); Osmolality Calculated 298 mOsm/kg (285-295); Potassium 3.9 mmol/L (3.5-5.1); Sodium 136 mmol/L (136-145); Thyroid Stimulating Hormone 4.38 uIU/mL (0.27-4.20); Total Protein 6.8 g/dL (6.6-8.7)
[2025-07-26 08:56] LABS: Absolute Segmented Neutrophil 8.0 10/cmm (1.6-7.1); Band Neutrophils Absolute 0.1 10^3/cmm (0.0-1.2); Slide Review Slide Review Perform; Total Cells Counted 100 (0-100)
[2025-07-26 08:57] LABS: Anisocytosis 1+; Atypical Lymphs 0.0 % (0-5)
[2025-07-26] MEDS: dexamethasone 4 mg/mL INJ 5 mL 12 MG IVP (09:31)
[2025-07-26 09:55] LABS: Free T4 Free Thyroxine 1.26 ng/dL (0.82-1.77)
[2025-07-26] MEDS: nivolumab 240 MG in sodium chloride 0.9% 250 ML 548 MG IV (10:23)
[2025-07-26] MEDS: oxaliplatin 176 MG in dextrose 5% 250 ML 142.6 MG IV (11:13)
[2025-07-26] MEDS: leucovorin 830 MG in dextrose 5% 250 ML 166.5 MG IV (11:13)
[2025-07-26 13:49] VITALS: BP 153/77; PULSE 79; RESP 17; TEMP 36.6; O2SAT 94
[2025-07-26] MEDS: fluorouraciL 4,950 MG in elastomeric pump 1 PUMP IV (13:51)
[2025-07-26] MEDS: fluorouraciL 50 mg/ml MDV 100 mL 850 MG IVP (13:51)
== END 2025-07-26 23:59 | disposition home or self-care (01) ==
PROVIDERS: Nurse Practitioner Family; PCP Family Medicine; Visit Provider Internal Medicine Medical Oncology
DX: Z51.11 Encounter for antineoplastic chemotherapy; Z51.12 Encounter for antineoplastic immunotherapy; C15.9 Malignant neoplasm of esophagus, unspecified; R79.89 Other specified abnormal findings of blood chemistry; J12.82 Pneumonia due to coronavirus disease 2019; U07.1 COVID-19; D47.2 Monoclonal gammopathy; D50.9 Iron deficiency anemia, unspecified; R03.0 Elevated blood-pressure reading, without diagnosis of hypertension; Z79.899 Other long term (current) drug therapy; Z79.52 Long term (current) use of systemic steroids; Z79.631 Long term (current) use of antimetabolite agent; Z87.891 Personal history of nicotine dependence; Z53.9 Procedure and treatment not carried out, unspecified reason
CPT/HCPCS: 80053; 84439; 84443; 84481; 85007; 85025; 93306; 96368; 96375; 96411; 96413; 96415; 96416; 96417; 99214; A4222; J0640; J1100; J2469; J7050; J7060; J9190; J9263; J9299

== ENCOUNTER 2025-08-09 10:03 | Oncology outpatient (recurring) (ONCR) | payer MEDICARE, SELFPAY ==
[2025-08-02 11:56] LABS: Hematocrit 27.6 % (37-53); Hemoglobin 8.80 g/dL (11.27-16.99); Mean Corpuscular HGB Conc 31.9 g/dL (30-55); Mean Corpuscular Hemoglobin 28.0 pg (27-33); Mean Corpuscular Volume 87.9 fl (82-101); Nucleated Red Blood Cells % 0 %; Platelet Count 146 10^3/cmm (157-399); Red Blood Count 3.14 10^6/uL (3.85-5.65); White Blood Count 8.31 10^3/uL (3.29-11.43)
[2025-08-02 12:22] LABS: Alanine Aminotransferase 18 U/L (0-41); Albumin Level 3.7 g/dL (3.5-5.2); Alkaline Phosphatase 92 U/L (40-130); Anion Gap 17.2 (5-19); Aspartate Amino Transferase 25 U/L (0-40); Blood Urea Nitrogen 73 mg/dL (8-23); Calcium 9.6 mg/dL (8.5-10.5); Carbon Dioxide 24 mmol/L (22-29); Chloride 97 mmol/L (98-107); Globulin 3.2 g/dL (1.3-4.6); Glucose 194 mg/dL (65-115); Osmolality Calculated 305 mOsm/kg (285-295); Potassium 4.2 mmol/L (3.5-5.1); Sodium 134 mmol/L (136-145); Thyroid Stimulating Hormone 3.48 uIU/mL (0.27-4.20); Total Protein 6.9 g/dL (6.6-8.7)
[2025-08-09 10:16] LABS: Hematocrit 28.3 % (37-53); Hemoglobin 8.80 g/dL (11.27-16.99); Mean Corpuscular HGB Conc 31.1 g/dL (30-55); Mean Corpuscular Hemoglobin 28.8 pg (27-33); Mean Corpuscular Volume 92.5 fl (82-101); Nucleated Red Blood Cells % 0 %; Platelet Count 125 10^3/cmm (157-399); Red Blood Count 3.06 10^6/uL (3.85-5.65); White Blood Count 4.99 10^3/uL (3.29-11.43)
[2025-08-09 10:34] LABS: Alanine Aminotransferase 19 U/L (0-41); Albumin Level 3.5 g/dL (3.5-5.2); Alkaline Phosphatase 118 U/L (40-130); Anion Gap 19.2 (5-19); Aspartate Amino Transferase 28 U/L (0-40); Blood Urea Nitrogen 66 mg/dL (8-23); Calcium 9.4 mg/dL (8.5-10.5); Carbon Dioxide 20 mmol/L (22-29); Chloride 99 mmol/L (98-107); Creatinine Clr Calc Pharmacy 33.1631; Globulin 3.2 g/dL (1.3-4.6); Glucose 264 mg/dL (65-115); Osmolality Calculated 306 mOsm/kg (285-295); Potassium 4.2 mmol/L (3.5-5.1); Sodium 134 mmol/L (136-145); Total Protein 6.7 g/dL (6.6-8.7)
[2025-08-09] MEDS: dexamethasone 4 mg/mL INJ 5 mL 12 MG IVP (11:32)
[2025-08-09] MEDS: nivolumab 240 MG in sodium chloride 0.9% 250 ML 548 MG IV (11:59)
[2025-08-09] MEDS: DEXTROSE 5% IV (12:45)
[2025-08-09] MEDS: OXALIPLATIN IV (12:45)
[2025-08-09] MEDS: leucovorin 820 MG in dextrose 5% 250 ML 166 MG IV (12:45)
[2025-08-09] MEDS: fluorouraciL 50 mg/ml MDV 100 mL 800 MG IVP (14:50)
[2025-08-09] MEDS: ELASTOMERIC PUMP PUMP IV (15:00)
[2025-08-09] MEDS: FLUOROURACIL IV (15:00)
== END 2025-08-09 23:59 | disposition home or self-care (01) ==
PROVIDERS: Nurse Practitioner Family; PCP Family Medicine; Visit Provider Internal Medicine Medical Oncology
DX: Z51.11 Encounter for antineoplastic chemotherapy; Z51.12 Encounter for antineoplastic immunotherapy; C15.9 Malignant neoplasm of esophagus, unspecified; D47.2 Monoclonal gammopathy; D50.9 Iron deficiency anemia, unspecified; R03.0 Elevated blood-pressure reading, without diagnosis of hypertension; N28.9 Disorder of kidney and ureter, unspecified; Z79.52 Long term (current) use of systemic steroids; Z79.631 Long term (current) use of antimetabolite agent; Z79.620 Long term (current) use of immunosuppressive biologic; Z79.899 Other long term (current) drug therapy; Z87.891 Personal history of nicotine dependence; Z53.9 Procedure and treatment not carried out, unspecified reason
CPT/HCPCS: 36591; 80053; 84443; 85025; 96368; 96375; 96411; 96413; 96415; 96416; 96417; 96523; 99214; A4222; J0640; J1100; J2469; J7050; J7060; J9190; J9263; J9299

== ENCOUNTER 2025-08-11 15:15 | Oncology outpatient (recurring) (ONCR) | payer MEDICARE, SELFPAY | END 2025-08-13 23:59 | disposition home or self-care (01) | LOC: RAD 08-13 13:15 → ONCMED 08-13 13:15 | PROVIDERS: PCP Family Medicine; Visit Provider Internal Medicine Medical Oncology | DX: Z45.1 Encounter for adjustment and management of infusion pump (principal); Z95.828 Presence of other vascular implants and grafts | CPT/HCPCS: 96523 ==

== ENCOUNTER 2025-09-06 11:45 | Oncology outpatient (recurring) (ONCR) | payer MEDICARE, SELFPAY ==
[2025-08-16 10:19] VITALS: BP 137/86; PULSE 63; RESP 17; TEMP 36.3; O2SAT 97
[2025-08-16] MEDS: ferric derisomaltose 1,000 MG in sodium chloride 0.9% (100 ml) 100 ML 330 MG IV (10:29)
[2025-08-16 11:05] VITALS: BP 137/85; PULSE 65; RESP 16; TEMP 36.4; O2SAT 97
--- NOTE | 2025-08-20 08:00 | PETR_ITS ---
PROCEDURE INFORMATION: Exam: PET/CT Skull Base to Mid-thigh Exam date and time: 08/20/2025 1:06 PM Age: 69 years old Clinical indication: Condition or disease; Primary cancer: Esophagus; Additional info: Cancer of middle third of esophagus, Dr katz would like on 08/06/25 LABS AND CLINICAL REPORTS: Glucose: 89 mg/dl Treatment strategy for malignancy (PET staging): Restaging (PS) TECHNIQUE: Imaging protocol: Following at least four-hour fasting and following the injection of radiopharmaceutical, low dose CT images were obtained. Then, PET images were obtained. Attenuation corrected images were constructed using the CT scan. Fused images of PET and CT were reviewed. The standardized uptake values (SUV) reported below are maximum values within a region of interest, expressed in gm/ml. Exam includes orbital meatal line to mid-thigh. SUV normalization method: BodyWeight Radiopharmaceutical: 11.2 mCi F-18 FDG (Fluorodeoxyglucose), IV. Time of imaging post radiopharmaceutical administration: 45 minutes Injection site: L HAND COMPARISON: PT PET skull to thigh INIT [id number] 04/30/2025 2:07 PM FINDINGS: Tubes, catheters and devices: Right chest port terminates at the brachiocephalic-SVC junction, stable. Brain: Visualized brain has normal physiologic uptake. Paranasal sinuses: Chronic non FDG avid right maxillary sinus opacification. Pharynx: No abnormal uptake. Larynx: No abnormal uptake. Lungs, pleura and trachea: Increased bilateral subpleural reticulation and architectural distortion with mild ground-glass opacification and very low-level FDG uptake. There may be some areas of honeycombing. Heart: Normal physiologic uptake. Coronary arteries: Heavy coronary artery calcification. Mediastinal space: No abnormal uptake. Esophagus: FDG avid mid to distal esophageal thickening appears to show greater degree/length of mural thickening with SUV max 28.0, previously 18.0. Decreased upstream esophageal distension containing mild liquid contents. Liver: No abnormal uptake. Gallbladder and biliary ducts: No abnormal uptake. Pancreas: No abnormal uptake. Spleen: No abnormal uptake. Adrenal glands: No abnormal uptake. Kidneys and ureters: Normal physiologic uptake. Benign-appearing bilateral renal cysts. Stomach and bowel: Mild interval migration of stent now appears to be entirely located within the stomach, previously showed proximal end at the gastroesophageal junction. Colonic diverticulosis. Focal sigmoid colon FDG uptake without discrete underlying mass, SUV max 10.7 on axial image 241. There may be mild associated mural thickening. Intraperitoneal and retroperitoneal spaces: Minimal free fluid. No free air or focal well organized fluid collection. Reproductive: Prostatomegaly. No abnormal uptake. Vasculature: No abnormal uptake. Moderate systemic arterial calcifications (greater degree at the imaged peripheral arteries) without aortic aneurysm. Lymph nodes: Progressed FDG avid [place]im[place]li-gastroesophageal, right retrocrural and retroperitoneal lymphadenopathy with index left lower thoracic periaortic node measuring 1.3 cm in the short axis on axial image 114 with SUV max 19.0 (previously 0.6 cm with SUV max 3.4), right retrocrural node measuring 1 cm in the short axis on axial image 154 with SUV max 16.0 (previously 0.8 cm with SUV max 6.6), and retrocaval conglomerate lymphadenopathy measuring 1.7 cm in the short axis on axial image 183 with SUV max 11.3, previously 0.8 cm with SUV max 3.9). Skeleton: No abnormal uptake in the visualized axial and appendicular skeleton. Degenerative changes along the axial skeletal system and right shoulder. Stable mild widening of both acromioclavicular intervals. Soft tissues: Bilateral hand muscle FDG uptake without underlying CT abnormality is likely benign activation. Bilateral lower ventral abdominal wall subcutaneous fat stranding likely represents post-injection sequela. METRICS: Mediastinal blood pool: SUV mean 1.7 Liver uptake: SUV mean 1.9 PET/PET skull to thigh SUBS [id number] IMPRESSION: 1. Disease progression with increased FDG avid mid to distal esophageal thickening and worsened metastatic lymphadenopathy involving same shaka stations. Decreased upper esophageal dilatation containing mild liquid contents. Interval migration of stent now completely located within the stomach. 2. Focal sigmoid colon FDG uptake with possible mild associated mural thickening may be inflammatory or neoplastic. Consider colonoscopy. 3. Worsened lung findings suggestive of pulmonary fibrosis.
[2025-08-23 08:48] LABS: Hematocrit 27.9 % (37-53); Hemoglobin 8.90 g/dL (11.27-16.99); Mean Corpuscular HGB Conc 31.9 g/dL (30-55); Mean Corpuscular Hemoglobin 30.3 pg (27-33); Mean Corpuscular Volume 94.9 fl (82-101); Nucleated Red Blood Cells % 0 %; Platelet Count 114 10^3/cmm (157-399); Red Blood Count 2.94 10^6/uL (3.85-5.65); White Blood Count 2.20 10^3/uL (3.29-11.43)
[2025-08-23 09:24] LABS: Alanine Aminotransferase 18 U/L (0-41); Albumin Level 3.4 g/dL (3.5-5.2); Alkaline Phosphatase 112 U/L (40-130); Anion Gap 14.4 (5-19); Aspartate Amino Transferase 32 U/L (0-40); Blood Urea Nitrogen 69 mg/dL (8-23); Calcium 9.5 mg/dL (8.5-10.5); Carbon Dioxide 20 mmol/L (22-29); Chloride 102 mmol/L (98-107); Globulin 3.6 g/dL (1.3-4.6); Glucose 231 mg/dL (65-115); Osmolality Calculated 301 mOsm/kg (285-295); Potassium 4.4 mmol/L (3.5-5.1); Sodium 132 mmol/L (136-145); Thyroid Stimulating Hormone 3.44 uIU/mL (0.27-4.20); Total Protein 7.0 g/dL (6.6-8.7)
--- NOTE | 2025-08-23 11:00 | N.ONRAD NP_ITS ---
Radiation Oncology New Patient Visit Patient: Fausto Jurado MR#: [id number] : 1955 Age: 69 : Male Dictated by: Jamel Low Date of Service: 08/23/2025 Referring Physician(s) : Dr. 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 ADENOCARCINOMA PD-L1 CPS >1/HER2-, MID-DISTAL ESOPHAGUS, FULLY CIRCUMFRENTIAL 10CM MASS EXTENDING INTO STOMACH, STENT PLACEMENT 04/15/2025, FOLFOX/OPDIVO 6 CYCLES LD 08/09/25- PROGRESSIVE DISEASE, PET/CT 05/01/2025 DISTAL ESOPH (12.8)/ POST MEDST LN 1.6CM (8.3)/ UPPER RETROPET (10.2) / RETROCAVAL TO JUST ABOVE ILLIAC BIFURCATION (3.9), ECHO 07/19/25 EF 66%, REPEAT PET/CT 08/22/25 noted PROGRESSIVE DISEASE- GREATER DEGREE MURAL THICKENING (28 PREV 18)/ PROGRESSIVE LN DS LEFT LOWER THORACIC PERIAORTIC LN 1.3 PREV O.6CM (19 PREV 3.4)/ RT RETROCURAL LN 1CM PREV 0.8 CM (16 PREV 6.6) / RETROCAVAL CONGLOMERATE LN???S 1.7CM (11.3 PREV 3.9), PLTS 114K/NEUT 0.96 (08/23/25), 63# WT LOSS 5 MO, EATS RICE/ OATMEAL/ FISH, monoclonal gammopathy-2020. STAGE: III-TXN2M0 ICD-10: C15.5, C77.2, C77.3 Radiotherapy to date: Summary > No prior radiation therapy. Chief Complaint: I have esophageal cancer History of Present Illness: This is a pleasant 69-year-old male with a recent diagnosis of locally advanced mid to distal esophageal MD ADENOCARCINOMA. PET/CT noted a large fully circumferential mass in the mid/distal esophageal area extending into the stomach. EGD on 03/30/2025 showed this obstructing mass. BX noted MD ADENOCARCINOMA PD-L1 CPS >1 & HER2 -. Stent and port placement 04/15/2025. Patient had 6 cycles of FOLFOX + Opdivo LD 08/09/2025. PET/CT on 05/01/2025 noted PET/CT 05/01/2025 DISTAL ESOPH (12.8)/ POST MEDST LN 1.6CM (8.3)/ UPPER RETROPET (10.2) / RETROCAVAL TO JUST ABOVE ILLIAC BIFURCATION (3.9). Echocardiogram on 07/19/2025 noted ejection fraction of 66%. PET/CT on 08/22/2025 noted PROGRESSIVE DISEASE-GREATER DEGREE MURAL THICKENING (28 PREV 18)/ PROGRESSIVE LN DS LEFT LOWER THORACIC PERIAORTIC LN 1.3 PREV O.6CM (19 PREV 3.4)/ RT RETROCURAL LN 1CM PREV 0.8 CM (16 PREV 6.6) / RETROCAVAL CONGLOMERATE LN???S 1.7CM (11.3 PREV 3.9). Patient had greater than 63 pound weight loss over the last 5 months. With the stent in place he is able to eat rice, oatmeal, and fish. He is unable to tolerate any meats and less highly pur???ed. Current Medications: acyclovir 400 mg PO BID allopurinol 300 mg PO DAILY amlodipine 10 mg PO DAILY blood-glucose sensor (Dexcom G7 Sensor device) change every 10 days blood-glucose,air conditioning installer,cont (Dexcom G7 Scallop Cutter) change every 365 days docusate sodium mg PO doxazosin 4 mg PO DAILY furosemide (Lasix) 40 mg PO QAM hydrocodone-acetaminophen 5-325 mg tabs PO PRN lactulose (Constulose) take 30ml EVERY 2 HOURS UNTIL BOWEL MOVEMENT THEN STOP. MAY REPEAT if no BOWEL MOVEMENT in THREE DAYS levothyroxine (Levoxyl) 137 mcg PO DAILY olanzapine 2.5 mg PO DAILY ondansetron HCl 4 mg PO Q6H PRN pantoprazole 40 mg PO QAM potassium chloride ER TAKE 1 TABLET BY MOUTH EVERY DAY with furosemide *start 06-01-25* prochlorperazine maleate (Compazine) 10 mg PO Q4H PRN ropinirole 0.25 mg PO .qhs tamsulosin 0.4 mg PO QDAY Allergies: Iodinated Contrast Media Allergy (Verified 08/23/25 08:50) Unknown naproxen (From Aleve) Allergy (Verified 08/23/25 08:50) ALGY-Anaphylaxis Sulfa (Sulfonamide Antibiotics) Allergy (Verified 08/23/25 08:50) ALGY-Hives Medical History: Gout History of arterial occlusion History of vertebral artery occlusion Degenerative arthritis Peripheral neuropathy Type 2 diabetes mellitus Obstructive sleep apnea Interstitial lung disease Monoclonal gammopathy Hypertension CKD (chronic kidney disease) stage 4, GFR 15-29 ml/min RMSF (Bluewell spotted fever) No history of collagen vascular disease. No previous radiation therapy. Surgical History: Status post colonoscopy (04/19/20) diverticulosis - repeat in 10 years History of laryngoscopy H/O hernia repair H/O repair of rotator cuff Right Family History: Father at age 84, cause uncertain to the patient. He thinks it may have been a cerebral hemorrhage. Mother at 87 of old age. One sister is in good health. Social History: Last screened on 12/13/2021 - Yes - but has quit-> 20 YRS. Last screened on 12/13/2021 ??? Drank beer beer but quit 30 yrs ago. 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 Current Complaints / Review of Systems: As above Vital Signs: Performed on 08/23/2025 9:09 AM BMI - 26.76 kg/m2 (high), Height - 70 in, Weight - 186.5 lbs, Temperature - 99.4 f, Pulse - 67 /min, Respiration - 16 /min, O2 Sat - 95 % (low), Pain - 7, Fatigue - 0 and BP - 156/ 69 mm(hg)(high/). Physical Exam: General: Alert and oriented x 3. No acute distress. HEENT: Normocephalic, atraumatic. Extraocular Movements Intact: Pupils Equal, Round, Reactive to Light and Accommodation: Sclerae anicteric. Oral cavity is clear without lesions, masses or ulcers. NECK: Supple without supraclavicular or jugular lymphadenopathy. LUNGS: Clear to auscultation bilaterally without rales, rhonchi or wheeze. HEART: Regular rate and rhythm, normal S1 and S2 without murmur, gallop or rub. MUSCULOSKELETAL: No tenderness or percussion pain over the axial skeleton, scapulae or pelvis. ABDOMEN: Soft, nontender, nondistended without masses or organomegaly. Bowell sounds are present. EXTREMITIES: No peripheral edema is identified. Limited motor and sensory examination are grossly intact and symmetric bilaterally. NEUROLOGIC: Cranial nerves II ???XII are grossly intact. Normal sensation, strength 5/5 in all extremities, normal gait, no ataxia. Performance Status: KPS 90 Pathology: Primary, d47.2 - monoclonal gammopathy, Diagnosed 03/27/2021 (active) and Primary, r82.998 - other abnormal findings in urine, Diagnosed 03/27/2021 (active) . 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 ADENOCARCINOMA PD-L1 CPS >1/HER2-, MID-DISTAL ESOPHAGUS, FULLY CIRCUMFRENTIAL 10CM MASS EXTENDING INTO STOMACH, STENT PLACEMENT 04/15/2025, FOLFOX/OPDIVO 6 CYCLES LD 08/09/25- PROGRESSIVE DISEASE, PET/CT 05/01/2025 DISTAL ESOPH (12.8)/ POST MEDST LN 1.6CM (8.3)/ UPPER RETROPET (10.2) / RETROCAVAL TO JUST ABOVE ILLIAC BIFURCATION (3.9), ECHO 07/19/25 EF 66%, REPEAT PET/CT 08/22/25 noted PROGRESSIVE DISEASE- GREATER DEGREE MURAL THICKENING (28 PREV 18)/ PROGRESSIVE LN DS LEFT LOWER THORACIC PERIAORTIC LN 1.3 PREV O.6CM (19 PREV 3.4)/ RT RETROCURAL LN 1CM PREV 0.8 CM (16 PREV 6.6) / RETROCAVAL CONGLOMERATE LN???S 1.7CM (11.3 PREV 3.9), PLTS 114K/NEUT 0.96 (08/23/25), 63# WT LOSS 5 MO, EATS RICE/ OATMEAL/ FISH, monoclonal gammopathy-2020. STAGE: III-TXN2M0 ICD-10: C15.5, C77.2, C77.3 Plan: Options were discussed with the patient. I am unsure if he understands the complexity of his disease. He wishes to proceed with palliative XRT to the esophageal segment of his disease. He is unable to tolerate complete treatment of his esophageal disease as well as lymph node adenopathy. Patient wishes to proceed and he underwent CT simulation today after signing informed consent under his own free will after all questions answered. Palliative IMRT XRT to approximately 4500 c[address] Contreras will do low-dose chemotherapy during that time. Dr. Contreras understands the palliative nature of the disease at this point. Signed by: 08/23/2025 10:58:39 AM <<Signature on File>> Time spent with patient/review of records/preparation of this document: 90 minutes CPT Code: CPT Code:
[2025-09-06 11:26] LABS: Hematocrit 31.2 % (37-53); Hemoglobin 9.90 g/dL (11.27-16.99); Mean Corpuscular HGB Conc 31.7 g/dL (30-55); Mean Corpuscular Hemoglobin 32.0 pg (27-33); Mean Corpuscular Volume 101.0 fl (82-101); Nucleated Red Blood Cells % 0.2 %; Platelet Count 167 10^3/cmm (157-399); Red Blood Count 3.09 10^6/uL (3.85-5.65); White Blood Count 10.93 10^3/uL (3.29-11.43)
[2025-09-06 11:52] LABS: Alanine Aminotransferase 18 U/L (0-41); Albumin Level 3.3 g/dL (3.5-5.2); Alkaline Phosphatase 100 U/L (40-130); Anion Gap 14.4 (5-19); Aspartate Amino Transferase 33 U/L (0-40); Blood Urea Nitrogen 53 mg/dL (8-23); Calcium 9.5 mg/dL (8.5-10.5); Carbon Dioxide 25 mmol/L (22-29); Chloride 104 mmol/L (98-107); Globulin 3.2 g/dL (1.3-4.6); Glucose 100 mg/dL (65-115); Magnesium 1.8 mg/dL (1.7-2.3); Osmolality Calculated 300 mOsm/kg (285-295); Potassium 5.4 mmol/L (3.5-5.1); Sodium 138 mmol/L (136-145); Total Protein 6.5 g/dL (6.6-8.7)
[2025-09-06] MEDS: diphenhydrAMINE 50 mg/mL SDV 1mL 25 MG IVP (13:31)
[2025-09-06] MEDS: PACLitaxeL 100 MG in sodium chloride 0.9%(non-DEHP) 250 ML 266.67 MG IV (14:18)
[2025-09-06 14:25] VITALS: BP 126/73; PULSE 79; RESP 18; TEMP 36.6; O2SAT 93
--- NOTE | 2025-09-06 15:02 | PC.NURSE ---
Patient during initial dose of Paclitaxel notified me that his quote, heart was hurting each time it beat. The infusion was immediately stopped, normal saline was ran at 400ml/hour where patient stated his symptoms were lessening and eventually subsided. was notified and consulted on the potential reaction. Dr. Contreras verbalized giving the patient 20mg of Pepcid and trying the infusion again. Patient agreed and treatment is proceeding as ordered. Patient educated on potential risks and understands to notify if any other symptoms. Emergency reaction kit at chair-side. Will remain with patient until infusion is complete.
[2025-09-06 15:45] VITALS: BP 121/68; PULSE 61; RESP 17; TEMP 36.7; O2SAT 95
--- NOTE | 2025-09-06 15:56 | PC.NURSE ---
Patient completed the remainder of his first infusion of Paclitaxel without further complication. Continuing to monitor.
[2025-09-06 17:13] VITALS: BP 124/67; PULSE 61; RESP 16; TEMP 36.4; O2SAT 93
== END 2025-09-06 23:59 | disposition home or self-care (01) ==
PROVIDERS: Nurse Practitioner Family; PCP Family Medicine; Visit Provider Nurse Practitioner
DX: Z53.9 Procedure and treatment not carried out, unspecified reason; Z51.0 Encounter for antineoplastic radiation therapy; Z51.11 Encounter for antineoplastic chemotherapy; Z79.52 Long term (current) use of systemic steroids; C15.5 Malignant neoplasm of lower third of esophagus; C77.2 Secondary and unspecified malignant neoplasm of intra-abdominal lymph nodes; C77.3 Secondary and unspecified malignant neoplasm of axilla and upper limb lymph nodes
CPT/HCPCS: 77300; 77301; 77334; 77338; 77386; 77470; 78815; 80053; 83735; 84443; 85025; 96365; 96367; 96375; 96413; 96417; 99214; 99215; A9552; J1100; J1200; J1437; J2469; J3490; J7040; J7050; J9045; J9267; J9999

== ENCOUNTER 2025-09-07 13:00 | Oncology outpatient (recurring) (ONCR) | payer MEDICARE, SELFPAY ==
--- NOTE | 2025-09-07 14:25 | ONCRAD TMN_ITS ---
Radiation Oncology Weekly Treatment Management Patient: Adrien Lambert> MR#: [id number] : 1955> Attending Physician: Jamel Low Date of Service: 09/07/2025 Referring Physician(s) : Diagnosis: C77.2 - Secondary and unspecified malignant neoplasm of intra-abdominal lymph nodes, Diagnosed 05/01/2025 (Active) C77.1 - Secondary and unspecified malignant neoplasm of intrathoracic lymph nodes, Diagnosed 05/01/2025 (Active) C15.5 - Malignant neoplasm of lower third of esophagus, Diagnosed 03/30/2025 (Active) D47.2 - Monoclonal gammopathy, Diagnosed 03/27/2021 (Active) R82.998 - Other abnormal findings in urine, Diagnosed 03/27/2021 (Active) Radiotherapy to date: Course: Esophagus 2024, Treatment Site: Esophageal Ca, Ref. ID: PTV, Energy: 6X, Dose/Fx (cGy): 180, #Fx: , Dose Correction (cGy): 0, Total Dose Delivered (cGy): 360, Start Date: 09/06/2025, Elapsed Days: 1 Reason for visit: The patient is being seen today as part of their regularly scheduled weekly on treatment visits to assess for acute toxicities from radiotherapy. Review of Systems: Here today for his first on treatment visit. He received chemotherapy yesterday and started XRT. He did have reaction to Taxol. He went home and did have a fall he states. He has not had an MRI of the brain as of yet. He denies any vision changes. He denies any loss of consciousness. Vital Signs: Performed on 09/07/2025 1:21 PM BMI - 27.578 kg/m2 (high), Height - 70 in, Weight - 192.2 lbs, Temperature - 97.8 f, Pulse - 74 /min, Respiration - 19 /min, O2 Sat - 90 % (low), Pain - 0, Fatigue - 0 and BP - 138/ 85 mm(hg). Physical Exam: Alert and very talkative. He does seem to ramble at times which he noted when I saw him in consult. 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 Imaging: Radiation therapy imaging related to accurate target localization (i.e. KV, MV and CBCT) was reviewed. Appropriate changes, if any, were made to ensure treatment accuracy. Plan: Continue XRT MRI of the brain this week Dr. Contreras will see him also this date. Vital signs stable Labs adequate for chemotherapy Signed by: Jamel Low 09/07/2025 2:24:45 PM
== END 2025-09-12 23:59 | disposition home or self-care (01) ==
PROVIDERS: PCP Family Medicine; Visit Provider Radiology Radiation Oncology
DX: Z53.9 Procedure and treatment not carried out, unspecified reason (principal); Z51.0 Encounter for antineoplastic radiation therapy; C15.5 Malignant neoplasm of lower third of esophagus; C77.2 Secondary and unspecified malignant neoplasm of intra-abdominal lymph nodes; C77.3 Secondary and unspecified malignant neoplasm of axilla and upper limb lymph nodes; C15.9 Malignant neoplasm of esophagus, unspecified; D50.9 Iron deficiency anemia, unspecified; D47.2 Monoclonal gammopathy; Z87.891 Personal history of nicotine dependence; Z79.899 Other long term (current) drug therapy; C15.4 Malignant neoplasm of middle third of esophagus; K22.89 Other specified disease of esophagus; R93.89 Abnormal findings on diagnostic imaging of other specified body structures; R59.0 Localized enlarged lymph nodes; J34.89 Other specified disorders of nose and nasal sinuses; R91.8 Other nonspecific abnormal finding of lung field; I25.10 Atherosclerotic heart disease of native coronary artery without angina pectoris; N28.1 Cyst of kidney, acquired; K57.30 Diverticulosis of large intestine without perforation or abscess without bleeding; N40.0 Benign prostatic hyperplasia without lower urinary tract symptoms; I70.90 Unspecified atherosclerosis; R93.7 Abnormal findings on diagnostic imaging of other parts of musculoskeletal system; M19.011 Primary osteoarthritis, right shoulder; M79.89 Other specified soft tissue disorders
CPT/HCPCS: 77386; 99024; 99213

== ENCOUNTER 2025-09-27 07:30 | Oncology outpatient (recurring) (ONCR) | payer MEDICARE, SELFPAY ==
[2025-09-13 12:12] LABS: Hematocrit 30.4 % (37-53); Hemoglobin 9.50 g/dL (11.27-16.99); Mean Corpuscular HGB Conc 31.3 g/dL (30-55); Mean Corpuscular Hemoglobin 31.6 pg (27-33); Mean Corpuscular Volume 101.0 fl (82-101); Nucleated Red Blood Cells % 0 %; Platelet Count 171 10^3/cmm (157-399); Red Blood Count 3.01 10^6/uL (3.85-5.65); White Blood Count 6.05 10^3/uL (3.29-11.43)
[2025-09-13 12:44] LABS: Alanine Aminotransferase 18 U/L (0-41); Albumin Level 3.3 g/dL (3.5-5.2); Alkaline Phosphatase 92 U/L (40-130); Anion Gap 13.3 (5-19); Aspartate Amino Transferase 42 U/L (0-40); Blood Urea Nitrogen 63 mg/dL (8-23); Calcium 9.7 mg/dL (8.5-10.5); Carbon Dioxide 26 mmol/L (22-29); Chloride 102 mmol/L (98-107); Globulin 3.6 g/dL (1.3-4.6); Glucose 203 mg/dL (65-115); Osmolality Calculated 308 mOsm/kg (285-295); Potassium 4.3 mmol/L (3.5-5.1); Sodium 137 mmol/L (136-145); Total Protein 6.9 g/dL (6.6-8.7)
[2025-09-13 13:39] VITALS: BP 147/78; PULSE 59; RESP 18; TEMP 36.6; O2SAT 94
[2025-09-13] MEDS: diphenhydrAMINE 50 mg/mL SDV 1mL 25 MG IVP (13:58)
[2025-09-13] MEDS: PACLitaxeL 100 MG in sodium chloride 0.9%(non-DEHP) 250 ML 266.67 MG IV (14:45)
[2025-09-13] MEDS: CARBOplatin 120 MG in sodium chloride 0.9% 500 ML 512 MG IV (15:50)
[2025-09-13 16:44] VITALS: BP 130/71; PULSE 65; TEMP 36.3; O2SAT 93
--- NOTE | 2025-09-14 13:57 | ONCRAD TMN_ITS ---
Radiation Oncology Weekly Treatment Management Patient: Fausto Jurado MR#: [id number] : 1955 Attending Physician: Dr. 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 ID: PTV, Energy: 6X, Dose/Fx (cGy): 180, #Fx: 4 / 25, Dose Correction (cGy): 0, Total Dose Delivered (cGy): 720, Start Date: 09/06/2025, Elapsed Days: 8 Reason for visit: The patient is being seen today as part of their regularly scheduled weekly on treatment visits to assess for acute toxicities from radiotherapy. Review of Systems: Pt has no complaints today. MR brain ordered and pending Vital Signs: Performed on 09/14/2025 1:41 PM BMI - 27.693 kg/m2 (high), Height - 70 in, Weight - 193 lbs, Temperature - 97.4 f, Pulse - 66 /min, Respiration - 18 /min, O2 Sat - 90 % (low), Pain - 7, Fatigue - 0 and BP - 164/ 69 mm(hg)(high/). Physical Exam: no changes on exam Imaging: Radiation therapy imaging related to accurate target localization (i.e. KV, MV and CBCT) was reviewed. Appropriate changes, if any, were made to ensure treatment accuracy. Plan: Continue treatment as planned Signed by: Dr. Jade Bean 09/14/2025 1:56:14 PM
--- NOTE | 2025-09-16 13:33 | MR_ITS ---
WS: [id number] MRI BRAIN WITH AND WITHOUT CONTRAST HISTORY: PATIENT FALLING/CONFUSION/MALIGNANT NEOPLASM OF ESOPHAGUS COMPARISON: CT head 10/29/2022 TECHNIQUE: Multiplanar imaging performed through the brain with MultiHance 18 ml's IV. There is a very tiny area of increased signal on the diffusion sequence in the inferior medial LEFT temporal lobe which does not enhance. This may be a small acute lacunar infarct. No additional diffusion abnormalities. Extensive T2 and FLAIR signal hyperintensities surrounding the lateral ventricles. There is a confluent and patchy pattern of the signal abnormalities with extension into the subcortical white matter. No signal abnormality in the cerebellum or clyde. No hemorrhage. Mild bilateral hippocampal atrophy. Ventricles and extra-axial spaces are normal. Clivus and pituitary gland are normal. Visualized posterior fossa and brainstem are also normal. Postcontrast images are negative for masses or vascular malformations. Dural venous sinuses are normal. Paranasal sinuses: Well-circumscribed 11 mm T2 hyperintense mass in the posterior LEFT nasal cavity. There is mild peripheral enhancement. This may be a small mucous retention cyst. Mild mucoperiosteal thickening throughout the RIGHT maxillary sinus. No air-fluid levels. Mastoid air cells: Normal. Calvarium and scalp: Normal. MR/MR head wo/w con [id number] IMPRESSION: 1. No enhancing masses or evidence for metastatic disease to the brain. 2. Moderate small vessel type changes in the supratentorial brain. 3. Suspicious for a very tiny acute lacunar infarct in the inferior LEFT media l temporal lobe. 4. Well-circumscribed T2 hyperintense mass in the posterior LEFT nasal cavity. This may be a small mucous retention cyst. This can be evaluated by ENT.
[2025-09-16] MEDS: gadobenate dimeglumine 20 mL vial 18 ML IV (15:15)
[2025-09-20 09:01] LABS: Hematocrit 29.2 % (37-53); Hemoglobin 9.20 g/dL (11.27-16.99); Mean Corpuscular HGB Conc 31.5 g/dL (30-55); Mean Corpuscular Hemoglobin 32.2 pg (27-33); Mean Corpuscular Volume 102.1 fl (82-101); Nucleated Red Blood Cells % 0 %; Platelet Count 148 10^3/cmm (157-399); Red Blood Count 2.86 10^6/uL (3.85-5.65); White Blood Count 3.64 10^3/uL (3.29-11.43)
[2025-09-20 09:19] LABS: Alanine Aminotransferase 18 U/L (0-41); Albumin Level 3.3 g/dL (3.5-5.2); Alkaline Phosphatase 81 U/L (40-130); Anion Gap 17.5 (5-19); Aspartate Amino Transferase 32 U/L (0-40); Blood Urea Nitrogen 77 mg/dL (8-23); Calcium 9.6 mg/dL (8.5-10.5); Carbon Dioxide 25 mmol/L (22-29); Chloride 101 mmol/L (98-107); Globulin 3.5 g/dL (1.3-4.6); Glucose 168 mg/dL (65-115); Osmolality Calculated 315 mOsm/kg (285-295); Potassium 4.5 mmol/L (3.5-5.1); Sodium 139 mmol/L (136-145); Total Protein 6.8 g/dL (6.6-8.7)
[2025-09-20] MEDS: diphenhydrAMINE 50 mg/mL SDV 1mL 25 MG IVP (10:13)
[2025-09-20] MEDS: PACLitaxeL 100 MG in sodium chloride 0.9%(non-DEHP) 250 ML 266.67 MG IV (11:22)
[2025-09-20 13:55] VITALS: BP 118/67; PULSE 65; RESP 17; TEMP 36.6; O2SAT 97
--- NOTE | 2025-09-21 14:10 | ONCRAD TMN_ITS ---
Radiation Oncology Weekly Treatment Management Patient: Fausto Jurado MR#: [id number] : 1955 Attending Physician: Dr. 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 ID: PTV, Energy: 6X, Dose/Fx (cGy): 180, #Fx: , Dose Correction (cGy): 0, Total Dose Delivered (cGy): 1,620, Start Date: 09/06/2025, End Date: 09/21/2025, Elapsed Days: 15 Reason for visit: The patient is being seen today as part of their regularly scheduled weekly on treatment visits to assess for acute toxicities from radiotherapy. Review of Systems: Pt continues to have spells when he is dizzy. He is on BP meds and takes insulin. He says sometimes his sugar gets too low. He is eating well and has no trouble swallowing Vital Signs: Performed on 09/21/2025 1:39 PM BMI - 27.061 kg/m2 (high), Height - 70 in, Weight - 188.6 lbs, Temperature - 96.9 f, Pulse - 76 /min, Respiration - 17 /min, O2 Sat - 91 % (low), Pain - 8, Fatigue - 0 and BP - 137/ 64 mm(hg)(/low). Physical Exam: no changes on exam Imaging: Radiation therapy imaging related to accurate target localization (i.e. KV, MV and CBCT) was reviewed. Appropriate changes, if any, were made to ensure treatment accuracy. Plan: Continue treatment as planned. I asked him to visit with his primay care provider to see if there???s any meds to D/C Signed by: Dr. Jade Bean 09/21/2025 2:10:04 PM
[2025-09-27 07:43] LABS: Hematocrit 28.5 % (37-53); Hemoglobin 9.00 g/dL (11.27-16.99); Mean Corpuscular HGB Conc 31.6 g/dL (30-55); Mean Corpuscular Hemoglobin 32.5 pg (27-33); Mean Corpuscular Volume 102.9 fl (82-101); Nucleated Red Blood Cells % 0 %; Platelet Count 118 10^3/cmm (157-399); Red Blood Count 2.77 10^6/uL (3.85-5.65); White Blood Count 2.57 10^3/uL (3.29-11.43)
[2025-09-27 08:03] LABS: Alanine Aminotransferase 19 U/L (0-41); Albumin Level 3.3 g/dL (3.5-5.2); Alkaline Phosphatase 91 U/L (40-130); Anion Gap 16.5 (5-19); Aspartate Amino Transferase 30 U/L (0-40); Blood Urea Nitrogen 51 mg/dL (8-23); Calcium 9.1 mg/dL (8.5-10.5); Carbon Dioxide 24 mmol/L (22-29); Chloride 99 mmol/L (98-107); Ferritin 970 ng/mL (30-400); Globulin 3.1 g/dL (1.3-4.6); Glucose 153 mg/dL (65-115); Iron 61 ug/dL (59-158); Osmolality Calculated 297 mOsm/kg (285-295); Potassium 4.5 mmol/L (3.5-5.1); Sodium 135 mmol/L (136-145); Total Iron Binding Capacity 186 mcg/dl; Total Protein 6.4 g/dL (6.6-8.7); Unsaturated Iron Binding 125 ug/dL (112-347)
[2025-09-27] MEDS: diphenhydrAMINE 50 mg/mL SDV 1mL 25 MG IVP (09:03)
[2025-09-27 12:45] VITALS: BP 123/82; PULSE 68; RESP 17; TEMP 36.5; O2SAT 98
== END 2025-09-27 23:59 | disposition home or self-care (01) ==
PROVIDERS: Nurse Practitioner; PCP Family Medicine; Visit Provider Internal Medicine Medical Oncology
DX: Z53.9 Procedure and treatment not carried out, unspecified reason (principal); Z51.11 Encounter for antineoplastic chemotherapy; Z51.0 Encounter for antineoplastic radiation therapy; Z79.633 Long term (current) use of mitotic inhibitor; C15.5 Malignant neoplasm of lower third of esophagus; C77.2 Secondary and unspecified malignant neoplasm of intra-abdominal lymph nodes; C77.1 Secondary and unspecified malignant neoplasm of intrathoracic lymph nodes; D47.2 Monoclonal gammopathy; D50.9 Iron deficiency anemia, unspecified; W19.XXXA Unspecified fall, initial encounter
CPT/HCPCS: 36591; 70553; 77336; 77386; 80053; 82728; 83540; 83550; 85025; 96361; 96367; 96375; 96413; 96417; 99024; 99214; J1100; J1200; J2469; J3490; J7030; J7040; J7050; J9045; J9267; J9999

== ENCOUNTER 2025-10-13 11:45 | Oncology outpatient (recurring) (ONCR) | payer MEDICARE, SELFPAY ==
--- NOTE | 2025-09-28 13:49 | ONCRAD TMN_ITS ---
Radiation Oncology Weekly Treatment Management Patient: Adrien Lambert> MR#: [id number] : 1955> Attending Physician: Jamel Low Date of Service: 09/28/2025 Referring Physician(s) : Dr. 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 ID: PTV, Energy: 6X, Dose/Fx (cGy): 180, #Fx: , Dose Correction (cGy): 0, Total Dose Delivered (cGy): 2,520, Start Date: 09/06/2025, Elapsed Days: 22 Reason for visit: The patient is being seen today as part of their regularly scheduled weekly on treatment visits to assess for acute toxicities from radiotherapy. Review of Systems: Maintaining weight. No feeding tube placed. Patient was able to get down double hamburger from [employer] over the weekend without any significant problems. Vital Signs: Performed on 09/28/2025 1:36 PM BMI - 27.406 kg/m2 (high), Height - 70 in, Weight - 191 lbs, Temperature - 96.9 f, Pulse - 65 /min, Respiration - 18 /min, O2 Sat - 90 % (low), Pain - 7, Fatigue - 0 and BP - 122/ 58 mm(hg)(/low). Physical Exam: AAOx3. Skin intact. Imaging: Radiation therapy imaging related to accurate target localization (i.e. KV, MV and CBCT) was reviewed. Appropriate changes, if any, were made to ensure treatment accuracy. Plan: Continue XRT. Continue chemotherapy on Mondays. Signed by: Jamel Low 09/28/2025 1:47:37 PM
[2025-10-04 08:54] LABS: Hematocrit 27.2 % (37-53); Hemoglobin 8.90 g/dL (11.27-16.99); Mean Corpuscular HGB Conc 32.7 g/dL (30-55); Mean Corpuscular Hemoglobin 33.6 pg (27-33); Mean Corpuscular Volume 102.6 fl (82-101); Nucleated Red Blood Cells % 0 %; Platelet Count 60 10^3/cmm (157-399); Red Blood Count 2.65 10^6/uL (3.85-5.65); White Blood Count 1.31 10^3/uL (3.29-11.43)
[2025-10-04 09:16] LABS: Alanine Aminotransferase 18 U/L (0-41); Albumin Level 3.3 g/dL (3.5-5.2); Alkaline Phosphatase 83 U/L (40-130); Anion Gap 12.5 (5-19); Aspartate Amino Transferase 32 U/L (0-40); Blood Urea Nitrogen 41 mg/dL (8-23); Calcium 9.2 mg/dL (8.5-10.5); Carbon Dioxide 27 mmol/L (22-29); Chloride 100 mmol/L (98-107); Globulin 2.9 g/dL (1.3-4.6); Glucose 140 mg/dL (65-115); Osmolality Calculated 292 mOsm/kg (285-295); Potassium 4.5 mmol/L (3.5-5.1); Sodium 135 mmol/L (136-145); Total Protein 6.2 g/dL (6.6-8.7)
--- NOTE | 2025-10-05 13:42 | ONCRAD TMN_ITS ---
Radiation Oncology Weekly Treatment Management Patient: Fausto Jurado MR#: [id number] : 1955 Attending Physician: Jamel Low Date of Service: 10/05/2025 Referring Physician(s) : Dr. 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 ID: PTV, Energy: 6X, Dose/Fx (cGy): 180, #Fx: , Dose Correction (cGy): 0, Total Dose Delivered (cGy): 3,420, Start Date: 09/06/2025, Elapsed Days: Reason for visit: The patient is being seen today as part of their regularly scheduled weekly on treatment visits to assess for acute toxicities from radiotherapy. Review of Systems: This is a 70-year-old male receiving combined chemoradiation for distal esophageal cancer. He receives chemotherapy every Saturday but it was held yesterday as his platelet count was 60,000 and absolute neutrophils were 900. He is okay for XRT but we will hold treatment next Saturday till lab results are available. Vital Signs: Performed on 10/05/2025 1:03 PM BMI - 27.234 kg/m2 (high), Height - 70 in, Weight - 189.8 lbs, Temperature - 97.7 f, Pulse - 70 /min, Respiration - 16 /min, O2 Sat - 91 % (low), Pain - 0, Fatigue - 0 and BP - 127/ 82 mm(hg). Physical Exam: AAO x 3. Skin intact. Imaging: Radiation therapy imaging related to accurate target localization (i.e. KV, MV and CBCT) was reviewed. Appropriate changes, if any, were made to ensure treatment accuracy. Plan: Continue XRT Hold chemotherapy 8 and recheck labs on [place], October 11, 2025 Signed by: Jamel Low 10/05/2025 1:41:29 PM
[2025-10-11 07:57] LABS: Hematocrit 27.3 % (37-53); Hemoglobin 8.60 g/dL (11.27-16.99); Mean Corpuscular HGB Conc 31.5 g/dL (30-55); Mean Corpuscular Hemoglobin 33.1 pg (27-33); Mean Corpuscular Volume 105.0 fl (82-101); Nucleated Red Blood Cells % 0 %; Platelet Count 55 10^3/cmm (157-399); Red Blood Count 2.60 10^6/uL (3.85-5.65); White Blood Count 1.27 10^3/uL (3.29-11.43)
[2025-10-11 08:15] LABS: Alanine Aminotransferase 17 U/L (0-41); Albumin Level 3.2 g/dL (3.5-5.2); Alkaline Phosphatase 111 U/L (40-130); Anion Gap 12.6 (5-19); Aspartate Amino Transferase 27 U/L (0-40); Blood Urea Nitrogen 29 mg/dL (8-23); Calcium 8.8 mg/dL (8.5-10.5); Carbon Dioxide 28 mmol/L (22-29); Chloride 99 mmol/L (98-107); Globulin 2.7 g/dL (1.3-4.6); Glucose 207 mg/dL (65-115); Osmolality Calculated 292 mOsm/kg (285-295); Potassium 4.6 mmol/L (3.5-5.1); Sodium 135 mmol/L (136-145); Total Protein 5.9 g/dL (6.6-8.7)
[2025-10-11] MEDS: diphenhydrAMINE 50 mg/mL SDV 1mL 25 MG IVP (09:53)
[2025-10-11 11:58] VITALS: BP 133/76; PULSE 63; TEMP 36.4
--- NOTE | 2025-10-12 14:11 | ONCRAD TMN_ITS ---
Radiation Oncology Weekly Treatment Management Patient: Fausto Jurado MR#: [id number] : 1955 Attending Physician: Jamel Low Date of Service: 10/12/2025 Referring Physician(s) : Dr. 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 ID: PTV, Energy: 6X, Dose/Fx (cGy): 180, #Fx: 25, Dose Correction (cGy): 0, Total Dose Delivered (cGy): 3,960, Start Date: 09/06/2025, End Date: 10/12/2025, Elapsed Days: 36 Reason for visit: The patient is being seen today as part of their regularly scheduled weekly on treatment visits to assess for acute toxicities from radiotherapy. Review of Systems: Patient states he feels rough today. Labs yesterday showed a platelet count of 55,000 and neutrophil- absolute of 770. He did not receive his chemotherapy yesterday. We will recheck CBC tomorrow prior to XRT but most of CBC impact should be from chemo Vital Signs: Performed on 10/12/2025 1:23 PM BMI - 28.439 kg/m2 (high), Height - 70 in, Weight - 198.2 lbs, Temperature - 96.6 f, Pulse - 73 /min, Respiration - 19 /min, O2 Sat - 92 % (low), Pain - 7, Fatigue - 0 and BP - 121/ 65 mm(hg). Physical Exam: AAOx3. Skin intact. O2 low ??? PCP is ordering HM O2. Imaging: Radiation therapy imaging related to accurate target localization (i.e. KV, MV and CBCT) was reviewed. Appropriate changes, if any, were made to ensure treatment accuracy. Plan: Continue XRT CBC with differential tomorrow prior to XRT PCP ordering home O2 10/13/2025 @ 110pm--PT came for treatment on [place] will continue shortness of breath. Pretreatment imaging suggests moderate basilar effusions bilaterally. Will send patient to ER for evaluation after treatment. Signed by: Jamel Low 10/13/2025 1:17:26 PM
[2025-10-13 11:49] LABS: Hematocrit 25.0 % (37-53); Hemoglobin 8.10 g/dL (11.27-16.99); Mean Corpuscular HGB Conc 32.4 g/dL (30-55); Mean Corpuscular Hemoglobin 34.3 pg (27-33); Mean Corpuscular Volume 105.9 fl (82-101); Nucleated Red Blood Cells % 0 %; Platelet Count 52 10^3/cmm (157-399); Red Blood Count 2.36 10^6/uL (3.85-5.65); White Blood Count 2.89 10^3/uL (3.29-11.43)
[2025-10-13 12:10] LABS: Slide Review Slide Review Perform
== END 2025-10-13 13:30 | disposition home or self-care (01) ==
PROVIDERS: Nurse Practitioner; Nurse Practitioner Family; PCP Family Medicine; Visit Provider Internal Medicine Medical Oncology
DX: Z53.9 Procedure and treatment not carried out, unspecified reason; Z51.0 Encounter for antineoplastic radiation therapy; C15.5 Malignant neoplasm of lower third of esophagus; C77.2 Secondary and unspecified malignant neoplasm of intra-abdominal lymph nodes; C77.1 Secondary and unspecified malignant neoplasm of intrathoracic lymph nodes
CPT/HCPCS: 77336; 77386; 80053; 85025; 96367; 96375; 96413; 99024; 99214; J1100; J1200; J2469; J3490; J7050; J9267; J9999